=== PATIENT | male | born 1975 | race Two or more races ===

== ENCOUNTER → 2022-02-10 | Outpatient (CLI) | payer MEDICAID, OTHER | END | disposition home or self-care (01) | LOC: Rad HDHVI 15:48 | PROVIDERS: ATTEND Internal Medicine | DX: I08.1 Rheumatic disorders of both mitral and tricuspid valves (principal); I10 Essential (primary) hypertension | CPT/HCPCS: 93306 ==

== ENCOUNTER → 2022-05-14 | Outpatient (CLI) | payer MEDICAID ==
[~2022-05-14] MED LIST: ASPI-498 PO; ATOR20TA PO; BACL10TA PO; CARV12.544 PO; EMPA1TAB3 PO; GABA300C10 PO; HYDR12.56 PO; INSU1INJ19 SC; IODIXANOL 320MG/ML 100ML BTL IV ONE; ISOS1TAB28 PO; METF-370 PO; RIVA10TA PO; SACU1TAB4 PO; SACU1TAB7 PO; SEMA2INJ SC
[2022-05-14 08:27] VITALS: BP 107/66
[2022-05-14 08:48] VITALS: BP 102/73
[2022-05-14 11:51] LABS: Basophils # (auto) 0.1 10 ^3/uL (0-0.2); Basophils % (auto) 0.5 % (0.0-2.0); Eosinophils # (auto) 0.5 10 ^3/uL (0-0.8); Eosinophils % (auto) 4.7 % (0.0-7.0); Hematocrit 42.7 % (41.0-53.0); Hemoglobin 14.2 g/dL (13.5-17.5); Lymphocytes # (auto) 2.2 10 ^3/uL (0.4-5.4); Lymphocytes % (auto) 20.4 % (10.0-50.0); Mean Corpuscular Hemoglobin 29.7 pg (28.0-32.0); Mean Corpuscular Hgb Conc. 33.2 g/dL (32.0-36.0); Mean Corpuscular Volume 89.6 fL (80.0-100.0); Monocytes # (auto) 0.6 10 ^3/uL (0-1.3); Monocytes % (auto) 5.9 % (0.0-12.0); Neutrophils # (auto) 7.2 10 ^3/uL (1.6-8.6); Neutrophils % (auto) 68.5 % (37.0-80.0); Nucleated Red Blood Cells % 0.1 %; Red Blood Cells 4.76 10^6/uL (4.5-5.90); Red Cell Distribution Width 11.9 % (11.8-14.3); White Blood Cell 10.6 10^3/uL (4.4-10.8)
[2022-05-14 12:06] LABS: Potassium 4.5 mmol/L (3.5-5.1)
[2022-05-14 12:08] LABS: INR 0.95 (0.9-1.15); Partial Thromboplastin Time 27.6 sec (23.6-33.0)
[2022-05-14 12:13] LABS: BUN/Creatinine Ratio 32.7; Calcium 8.6 mg/dL (8.5-10.1)
== END | disposition home or self-care (01) ==
LOC: Rad HDHVI 08:10
PROVIDERS: ATTEND Internal Medicine
DX: Z01.812 Encounter for preprocedural laboratory examination (principal); R06.02 Shortness of breath; R42 Dizziness and giddiness
CPT/HCPCS: 36415; 71046; 80048; 85025; 85610; 85730; 93005; G0463

== ENCOUNTER 2022-05-16 06:57 | Day surgery (SDC) | payer MEDICAID ==
[~2022-05-16] VITALS: Ht 170.2 cm; Wt 104.3 kg
[~2022-05-16 06:57] MED LIST changes: -IODIXANOL 320MG/ML 100ML BTL IV ONE; -SACU1TAB4 PO
[2022-05-16] MEDS ORDERED: IODIXANOL 320MG/ML 100ML BTL IV ONE (06:58)
[2022-05-16] MEDS ORDERED: VERAPAMIL 2.5MG/ML INJ 2ML VIAL IV ONE (07:39)
[2022-05-16] MEDS ORDERED: ONDANSETRON HCL 4 MG/2 ML VIAL ONE (07:39)
[2022-05-16] MEDS ORDERED: fentaNYL CITRATE 100 MCG/2 ML VL ONE (07:39)
[2022-05-16] MEDS ORDERED: LIDOCAINE 2%HCL (LOCAL ANESTH.) INJ 10ml MDV ONE (07:40)
[2022-05-16] MEDS ORDERED: MIDAZOLAM HCL 2MG/2ML 2ml VIAL (1mg/ml) ONE (07:40)
[2022-05-16] MEDS ORDERED: ANGIOMAX 250 MG VIAL IV ONE (07:41)
[2022-05-16] MEDS ORDERED: SODIUM CHL 0.9% 50 ML ONE (07:41)
[2022-05-16] MEDS ORDERED: HEPARIN SODIUM (PORCINE) 5000 UNITS/ML 1ML VIAL ONE (07:49)
[2022-05-16] MEDS ORDERED: ASPirin 81 mg TAB ONE (08:43)
[2022-05-16] MEDS ORDERED: TICAGRELOR 90 MG TAB ONE (08:43)
== END 2022-05-16 11:55 | disposition home or self-care (01) ==
LOC: CATH 06:57
PROVIDERS: ATTEND Internal Medicine
DX: R94.39 Abnormal result of other cardiovascular function study (principal); I25.10 Atherosclerotic heart disease of native coronary artery without angina pectoris; Z20.822 Contact with and (suspected) exposure to COVID-19
CPT/HCPCS: 93458; 93571; C1725; C1769; C1874; C1887; C1894; C9600; J0583; J1644; J2001; J2250; J2405; J3010; J7040; Q9967; U0003; 99152; 99153

== ENCOUNTER → 2022-10-08 | Outpatient (CLI) | payer MEDICAID | END | disposition home or self-care (01) | LOC: Rad HDHVI 10:18 | PROVIDERS: ATTEND Internal Medicine | DX: I08.2 Rheumatic disorders of both aortic and tricuspid valves (principal); R06.02 Shortness of breath; I11.9 Hypertensive heart disease without heart failure | CPT/HCPCS: 93306 ==

== ENCOUNTER → 2022-12-10 | Outpatient (CLI) | payer MEDICAID ==
[~2022-12-10] VITALS: Ht 170.2 cm; Wt 102.1 kg
[~2022-12-10] MED LIST changes: +ADENOSINE 86 MG in GIVE UN-DILUTED 0 ML IV ONE; +ADENOSINE 90 MG/30 ML INJ IV ONE; +IOHEXOL 350 MG/ML 100ML IJ ONE
[2022-12-10 11:55] VITALS: BP 103/70
[2022-12-10 12:14] VITALS: BP 113/77
== END | disposition home or self-care (01) ==
LOC: Rad HDHVI 07:54
PROVIDERS: ATTEND Internal Medicine
DX: R94.4 Abnormal results of kidney function studies (principal)
CPT/HCPCS: 36415; 70470; 78452; 82565; 84520; 93005; 96374; 96375; G0463; J0153

== ENCOUNTER → 2023-06-11 | Outpatient (CLI) | payer MEDICAID ==
[~2023-06-11] VITALS: Ht 167.6 cm; Wt 112.0 kg
[~2023-06-11] MED LIST changes: -ADENOSINE 86 MG in GIVE UN-DILUTED 0 ML IV ONE; -ADENOSINE 90 MG/30 ML INJ IV ONE; +GABA-1250 PO; -GABA300C10 PO; -HYDR12.56 PO; +HYDR12.59 PO; -IOHEXOL 350 MG/ML 100ML IJ ONE
== END | disposition home or self-care (01) ==
LOC: Rad HDHVI 08:25
PROVIDERS: ATTEND Internal Medicine Cardiovascular Disease
DX: R06.02 Shortness of breath (principal); R42 Dizziness and giddiness; R53.1 Weakness; I11.0 Hypertensive heart disease with heart failure; I50.9 Heart failure, unspecified; I25.5 Ischemic cardiomyopathy; I73.9 Peripheral vascular disease, unspecified; E78.5 Hyperlipidemia, unspecified
CPT/HCPCS: 78472; 96374; 96375; A9505

== ENCOUNTER → 2023-06-22 | Outpatient (CLI) | payer MEDICAID | END | disposition home or self-care (01) | LOC: Rad HDHVI 09:48 | PROVIDERS: ATTEND Internal Medicine Cardiovascular Disease | DX: I70.203 Unspecified atherosclerosis of native arteries of extremities, bilateral legs (principal); I34.81 Nonrheumatic mitral (valve) annulus calcification; I10 Essential (primary) hypertension; E78.5 Hyperlipidemia, unspecified | CPT/HCPCS: 93306; 93925 ==

== ENCOUNTER 2024-02-16 11:12 | Emergency (ER) | payer MEDICAID ==
[~2024-02-16] VITALS: Ht 170.2 cm; Wt 113.0 kg
[2024-02-16 12:50] LABS: Basophils # (auto) 0 10 ^3/uL (0-0.2); Eosinophils # (auto) 0.4 10 ^3/uL (0-0.8); Lymphocytes # (auto) 2.5 10 ^3/uL (0.4-5.4); Red Cell Distribution Width 13.1 % (11.8-14.3)
[2024-02-16 12:52] LABS: Basophils % (auto) 0.4 % (0.0-2.0); Eosinophils % (auto) 4.5 % (0.0-7.0); Hematocrit 36.1 % (41.0-53.0); Lymphocytes % (auto) 26.1 % (10.0-50.0); Mean Corpuscular Hemoglobin 30.4 pg (28.0-32.0); Mean Corpuscular Hgb Conc. 33.1 g/dL (32.0-36.0); Mean Corpuscular Volume 91.8 fL (80.0-100.0); Monocytes # (auto) 0.7 10 ^3/uL (0-1.3); Monocytes % (auto) 7.1 % (0.0-12.0); Neutrophils # (auto) 5.9 10 ^3/uL (1.6-8.6); Neutrophils % (auto) 61.9 % (37.0-80.0); Nucleated Red Blood Cells % 0.1 %; Red Blood Cells 3.94 10^6/uL (4.5-5.90); White Blood Cell 9.6 10^3/uL (4.4-10.8)
[2024-02-16 12:55] LABS: Chloride 103 mmol/L (98-107); Potassium 4.4 mmol/L (3.5-5.1); Sodium 132 mmol/L (136-145)
[2024-02-16 12:56] LABS: Anion Gap 4 (5-15); Carbon Dioxide 25 mmol/L (20-30)
[2024-02-16 13:01] LABS: Glucose 263 mg/dL (74-106)
[2024-02-16 13:02] LABS: BUN/Creatinine Ratio 15.3 (10.0-20.0); Blood Urea Nitrogen 26 mg/dL (9-23)
[2024-02-16 13:06] LABS: INR 1.04 (0.9-1.15); Partial Thromboplastin Time 31.2 SEC (24.5-34.5); Prothrombin Time 10.9 sec (9.3-11.8)
[2024-02-16 13:34] LABS: Erythrocyte Sedimentation Rate 87 mm/hr (0-20)
[2024-02-16] MEDS: SODIUM CHLORIDE 0.9% 500 ML IV ONE (14:01)
[2024-02-16] MEDS ORDERED: CEPH500C PO (16:03)
[2024-02-16 16:22] VITALS: BP 101/60; TEMP 99.8
[2024-02-16] MEDS: CLINDAMYCIN 600MG IV 50 ML IV ONE (16:37)
[2024-02-16 16:42] VITALS: PULSE 89; RESP 18; O2SAT 100
== END 2024-02-16 18:15 | disposition home or self-care (01) ==
LOC: ER 11:12
DX: S82.302A Unspecified fracture of lower end of left tibia, initial encounter for closed fracture (principal); S82.832A Other fracture of upper and lower end of left fibula, initial encounter for closed fracture; E11.22 Type 2 diabetes mellitus with diabetic chronic kidney disease; I13.2 Hypertensive heart and chronic kidney disease with heart failure and with stage 5 chronic kidney disease, or end stage renal disease; I50.9 Heart failure, unspecified; N18.6 End stage renal disease; E78.5 Hyperlipidemia, unspecified; Z88.6 Allergy status to analgesic agent; X58.XXXA Exposure to other specified factors, initial encounter; Y93.89 Activity, other specified; Y92.89 Other specified places as the place of occurrence of the external cause; Y99.8 Other external cause status
CPT/HCPCS: 29515; 36415; 73700; 80048; 83605; 85025; 85610; 85652; 85730; 87040; 96361; 96365; 99285; J3490; J7040

== ENCOUNTER → 2024-08-31 | Outpatient (CLI) | payer MEDICAID ==
[~2024-08-31] VITALS: Ht 170.2 cm; Wt 108.9 kg
[~2024-08-31] MED LIST changes: +CEPH500C PO
[2024-08-31] MEDS: ADENOSINE 91 MG in GIVE UN-DILUTED 0 ML IV ONE (09:43)
== END | disposition home or self-care (01) ==
LOC: XYW 07:21
PROVIDERS: ATTEND Internal Medicine
DX: Z01.810 Encounter for preprocedural cardiovascular examination (principal); I25.5 Ischemic cardiomyopathy; I73.9 Peripheral vascular disease, unspecified; I11.0 Hypertensive heart disease with heart failure; I50.9 Heart failure, unspecified; E11.51 Type 2 diabetes mellitus with diabetic peripheral angiopathy without gangrene; I25.10 Atherosclerotic heart disease of native coronary artery without angina pectoris; E78.5 Hyperlipidemia, unspecified; Z88.5 Allergy status to narcotic agent
CPT/HCPCS: 78452; 93017; A9500; J0153

== ENCOUNTER → 2024-09-06 | Outpatient (CLI) | payer MEDICAID | END | disposition home or self-care (01) | LOC: XYW 07:44 | PROVIDERS: ATTEND Internal Medicine | DX: I25.5 Ischemic cardiomyopathy (principal); E11.9 Type 2 diabetes mellitus without complications; E66.9 Obesity, unspecified | CPT/HCPCS: 93306 ==

== ENCOUNTER → 2024-09-16 | Outpatient (CLI) | payer MEDICAID ==
[2024-09-16 13:31] LABS: Alkaline Phosphatase 185 U/L (46-116); Anion Gap 5 (5-15); BUN/Creatinine Ratio 15.9 (10.0-20.0); Blood Urea Nitrogen 29 mg/dL (9-23); Calcium 8.6 mg/dL (8.7-10.4); Carbon Dioxide 27 mmol/L (20-31); Chloride 109 mmol/L (98-107); Glucose 98 mg/dL (74-106); Sodium 141 mmol/L (136-145)
[2024-09-16 13:32] LABS: Albumin 3.2 g/dL (3.2-4.8); Aspartate Aminotransferase 16 U/L (13-40); Bilirubin, Total 0.3 mg/dL (0.2-1.0); Total Protein 6.4 g/dL (5.7-8.2)
[2024-09-16 14:04] LABS: Alanine Aminotransferase < 9 U/L (7-40)
[2024-09-16 14:09] LABS: Potassium 5.8 mmol/L (3.5-5.1)
== END | disposition home or self-care (01) ==
LOC: LAB 12:29
PROVIDERS: ATTEND Internal Medicine
DX: I10 Essential (primary) hypertension (principal)
CPT/HCPCS: 36415; 80053

== ENCOUNTER 2024-12-09 16:14 | Inpatient (IN) | payer MEDICAID ==
[~2024-12-09] VITALS: Ht 170.2 cm; Wt 126.2 kg
[~2024-12-09 16:14] MED LIST changes: -FURO1TAB31 PO; -NIFE1TAB31 PO
--- NOTE | 2024-12-09 16:44 | ECG ---
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
[2024-12-09 17:24] LABS: Basophils # (auto) 0.1 10 ^3/uL (0-0.2); Basophils % (auto) 0.6 % (0.0-2.0); Eosinophils # (auto) 0.5 10 ^3/uL (0-0.8); Eosinophils % (auto) 4.9 % (0.0-7.0); Hematocrit 40.3 % (41.0-53.0); Hemoglobin 13.5 g/dL (13.5-17.5); Lymphocytes # (auto) 2.2 10 ^3/uL (0.4-5.4); Lymphocytes % (auto) 22.5 % (10.0-50.0); Mean Corpuscular Hemoglobin 30.9 pg (28.0-32.0); Mean Corpuscular Hgb Conc. 33.6 g/dL (32.0-36.0); Mean Corpuscular Volume 91.9 fL (80.0-100.0); Monocytes # (auto) 0.5 10 ^3/uL (0-1.3); Monocytes % (auto) 5.6 % (0.0-12.0); Neutrophils # (auto) 6.5 10 ^3/uL (1.6-8.6); Neutrophils % (auto) 66.4 % (37.0-80.0); Nucleated Red Blood Cells % 0.1 %; Platelet Count (auto) 386 10^3/uL (140-450); Red Blood Cells 4.39 10^6/uL (4.5-5.90); Red Cell Distribution Width 12.5 % (11.8-14.3); White Blood Cell 9.7 10^3/uL (4.4-10.8)
[2024-12-09 17:37] LABS: Albumin 3.6 g/dL (3.2-4.8); Anion Gap 5 (5-15); Aspartate Aminotransferase 24 U/L (13-40); BUN/Creatinine Ratio 10.9 (10.0-20.0); Carbon Dioxide 23 mmol/L (20-31)
[2024-12-09 17:38] LABS: Total Protein 6.6 g/dL (5.7-8.2)
[2024-12-09 18:22] LABS: Alanine Aminotransferase < 9 U/L (7-40); Alkaline Phosphatase 206 U/L (46-116); Bilirubin, Total 0.2 mg/dL (0.2-1.0); Blood Urea Nitrogen 39 mg/dL (9-23); Calcium 8.6 mg/dL (8.7-10.4); Chloride 107 mmol/L (98-107); Glucose 258 mg/dL (74-106); Potassium 5.5 mmol/L (3.5-5.1); Sodium 135 mmol/L (136-145)
--- NOTE | 2024-12-09 19:21 | ED.PDOC ---
History of Present Illness HPI Comments 49-YEAR-OLD MALE WAS REFERRED TO THE EMERGENCY DEPARTMENT BY DR. SAINZ, HIS CHIEF CRNA. HAD LAB WORK DONE TODAY AND WHEN RESULTS CAME IN THEY ADVISED HIM THAT IT WAS POTASSIUM LEVEL WAS HIGH AND HE HAD COME INTO THE EMERGENCY DEPARTMENT. HAS BEEN TOLD THAT HE MAY REQUIRE DIALYSIS TO DECREASE POTASSIUM LEVELS. PATIENT DOES REPORT A HISTORY OF HEART FAILURE DIABETES AND CHRONIC KIDNEY DISEASE. Chief Complaint: Abnormal LAB's Time Seen by MD: 16:24 Reviewed Notes: Nurses Notes Allergies: Coded Allergies: Piperacillin (Verified Allergy, Unknown, 08/31/24) Tazobactam (Verified Allergy, Unknown, 08/31/24) Home Meds Active Scripts Cephalexin Monohydrate (Cephalexin) 500 Mg Cap, 1 CAP PO QID, #40 CAP Prov:HELENA JOHNSON MD 02/16/24 Reported Medications Sacubitril-Valsartan (Entresto 49-51 mg) 1 Tab Tab, 1 TAB PO DAILY, TAB 05/15/22 Rivaroxaban (XARELTO) 10 Mg Tab, 2.5 MG PO BID 05/14/22 Semaglutide (Ozempic) 2 Mg/1.5 Ml Inj, 2 MG SC QWEEKLY 05/14/22 Metformin Hydrochloride (Metformin Hcl) 500 Mg Tab, 1000 MG PO DAILY 05/14/22 Empagliflozin (Jardiance) 25 Mg Tab, 25 MG PO DAILY 05/14/22 Isosorbide Mononitrate (Isosorbide Mononitrate Er) 30 Mg Tab, 30 MG PO DAILY 05/14/22 Hydrochlorothiazide (Hydrochlorothiazide) 12.5 Mg Cap, 12.5 MG PO DAILY 05/14/22 Gabapentin (Gabapentin) 300 Mg Cap, 300 MG PO QID 05/14/22 Carvedilol (Carvedilol) 12.5 Mg Tab, 12.5 MG PO Q12HR 05/14/22 Insulin Glargine (Basaglar Kwikpen) 100 Unit/Ml Inj, 62 UNIT SC QPM 05/14/22 Baclofen (Baclofen) 10 Mg Tab, 10 MG PO DAILYPRN PRN for PAIN SCALE 7 THRU 10 05/14/22 Atorvastatin Calcium (Lipitor) 20 Mg Tab, 20 MG PO DAILY 05/14/22 Aspirin (ASPIRIN 81) 81 Mg Tab, 81 MG PO DAILY 05/14/22 Information Source: Patient Mode of Arrival: Ambulatory Past Medical History PAST MEDICAL HISTORY: CAD, CHF, DM, ESRD, High Lipids, HTN Surgical History: PTCA Family History Family History: Family hx of DM Social History Smoker: Non-Smoker Alcohol: Denies ETOH Use Drugs: Denies Drug Use Lives In: Home Constitutional: denies: chills, diaphoresis, fatigue, fever, malaise, sweats, weakness, others EENTM: denies: blurred vision, double vision, ear bleeding, ear discharge, ear drainage, ear pain, ear ringing, eye pain, eye redness, hearing loss, mouth pain, mouth swelling, nasal discharge, nose bleeding, nose congestion, nose pain, photophobia, tearing, throat pain, throat swelling, voice changes, others Respiratory: denies: cough, hemoptysis, orthopnea, SOB at rest, shortness of breath, SOB with excertion, stridor, wheezing, others Cardiovascular: denies: chest pain, dizzy spells, diaphoresis, Dyspnea on exertion, edema, irregular heart beat, left arm pain, lightheadedness, pa lpitations, PND, syncope, others Gastrointestinal: denies: abdomen distended, abdominal pain, blood streaked bowels, constipated, diarrhea, dysphagia, difficulty swallowing, hematemesis, melena, nausea, poor appetite, poor fluid intake, rectal bleeding, rectal pain, vomiting, others Genitourinary: denies: burning, dysuria, flank pain, frequency, hematuria, incontinence, penile discharge, penile sore, pain, testicle pain, testicle swelling, urgency, others Neurological: denies: dizziness, fainting, headache, left sided numbness, left sided weakness, numbness, paresthesia, pre-existing deficit, right sided numbness, right sided weakness, seizure, speech problems, tingling, tremors, weakness, others Musculoskeletal: denies: back pain, gout, joint pain, joint swelling, muscle pain, muscle stiffness, neck pain, others Integumetry: denies: bruises, change in color, change in hair/nails, dryness, laceration, lesions, lumps, rash, wounds, others Allergic/Immunocompromised: denies: Difficulty Healing, Frequent Infections, Hives, Itching, others Hematologic/Lymphatic: denies: anemia, blood clots, easy bleeding, easy br uising, swollen glands, others Physical Exam General Appearance: No Apparent Distress, Normal HEENT: Normal ENT Inspection, Pharynx Normal, TMs Normal Neck: Full Range of Motion, Non-Tender, Normal, Normal Inspection Respiratory: Chest Non-Tender, Lungs Clear, No Accessory Muscle Use, No Respiratory Distress, Normal Breath Sounds Cardiovascular: No Edema, No JVD, No Murmur, No Gallop, Normal Peripheral Pulses, Regular Rate/Rhythm Breast Exam: Deferred Gastrointestinal: No Organomegaly, Non Tender, No Pulsatile Mass, Normal Bowel Sounds, Soft Genitalia: Deferred Pelvic: Deferred Rectal: Deferred Extremities: No calf tenderness, Normal capillary refill, Normal inspection, Normal range of motion, Non-tender, No pedal edema Musculoskeletal : Apperance: Normal Neurologic: Alert, bander and cellophaner machine II-XII nml as Tested, No Motor Deficits, Normal Affect, Normal Mood, No Sensory Deficits Cerebellar Function: Normal Reflexes: Normal Skin: Dry, Normal Color, Warm Lymphatic: No Adenopathy Was a procedure done? Was a procedure done?: No Differential Dx Considerations may include: HYPERKALEMIA, END-STAGE RENAL DISEASE, CHF, FLUID OVERLOAD X-Ray, Labs, Meds, VS Vital Signs Date Time Temp Pulse Resp B/P (MAP) Pulse Ox O2 Delivery O2 Flow Rate FiO2 12/09/24 16:40 98.0 102 18 179/102 (127) 99 12/09/24 16:39 102 Lab Test 12/09/24 16:43 12/09/24 16:29 Range/Units White Blood Count 9.7 4.4-10.8 10^3/uL Red Blood Count 4.39 L 4.5-5.90 10^6/uL Hemoglobin 13.5 13.5-17.5 g/dL Hematocrit 40.3 L 41.0-53.0 % Mean Corpuscular Volume 91.9 80.0-100.0 fL Mean Corpuscular Hemoglobin 30.9 28.0-32.0 pg Mean Corpuscular Hemoglobin Concent 33.6 32.0-36.0 g/dL Red Cell Distribution Width 12.5 11.8-14.3 % Platelet Count 386 140-450 10^3/uL Mean Platelet Volume 7.0 6.9-10.8 fL Neutrophils (%) (Auto) 66.4 37.0-80.0 % Lymphocytes (%) (Auto) 22.5 10.0-50.0 % Monocytes (%) (Auto) 5.6 0.0-12.0 % Eosinophils (%) (Auto) 4.9 0.0-7.0 % Basophils (%) (Auto) 0.6 0.0-2.0 % Neutrophils # (Auto) 6.5 1.6-8.6 10 ^3/uL Lymphocytes # (Auto) 2.2 0.4-5.4 10 ^3/uL Monocytes # (Auto) 0.5 0-1.3 10 ^3/uL Eosinophils # (Auto) 0.5 0-0.8 10 ^3/uL Basophils # (Auto) 0.1 0-0.2 10 ^3/uL Nucleated Red Blood Cells 0.1 % Sodium Level 135 L 136-145 mmol/L Potassium Level 5.5 H 3.5-5.1 mmol/L Chloride Level 107 98-107 mmol/L Carbon Dioxide Level 23 20-31 mmol/L Anion Gap 5 5-15 Blood Urea Nitrogen 39 #H 9-23 mg/dL Creatinine 3.58 H 0.700-1.30 mg/dL Glomerular Filtration Rate Calc 20 >90 mL/min BUN/Creatinine Ratio 10.9 10.0-20.0 Serum Glucose 258 H 74-106 mg/dL Calcium Level 8.6 L 8.7-10.4 mg/dL Total Bilirubin 0.2 0.2-1.0 mg/dL Aspartate Amino Transferase (AST) 24 13-40 U/L Alanine Aminotransferase (ALT) < 9 7-40 U/L Alkaline Phosphatase 206 H 46-116 U/L Total Protein 6.6 5.7-8.2 g/dL Albumin 3.6 3.2-4.8 g/dL POC Glucose 269 H 70-106 mg/dl X-Ray, Labs, Meds, VS Comment PATIENT WILL BE ADMITTED FOR HYPERKALEMIA PATIENT WAS STARTED ON HYPERKALEMIA PROTOCOL POSSIBLY OF DIALYSIS RECOMMEND NEPHROLOGY CONSULT DR. SAINZ Time of 1ST Reevaluation: 19:20 Reevaluation 1ST: Unchanged Patient Education/Counseling: Diagnosis, Treatment Family Education/Counseling: Diagnosis, Treatment Departure 1 Departure Time of Disposition: 19:19 Impression: Primary Impression: Chronic kidney disease Additional Impressions: Hyperkalemia Hyperglycemia Disposition: 09 ADMITTED INPATIENT Condition: Fair Critical Care Note Critical Care Time?: No Stability Stability form required: No Heart Score Heart Score: Heart Score Response (Comments) Value History N/A 0 EKG N/A 0 Age N/A 0 Risk Factors N/A 0 Troponin N/A 0 Total 0 AMAIRANI AVALOS Dec 09, 2024 19:21
[2024-12-09] MEDS: ALBUTEROL SULF 2.5 MG/0.5ML(0.5%) NEB SOLN NEB ONE (20:16)
[2024-12-09] MEDS: SODIUM BICARB 8.4% 50Meq/50ml SYR INJ IV ONE (20:29)
[2024-12-09] MEDS: DEXTROSE (50%) 50ML SYRG IV ONE (20:30)
[2024-12-09] MEDS: InsuLIN REG 1unit/0.01ml Soln (100units/ml) IV ONE (20:33)
[2024-12-09] MEDS ORDERED: ONDANSETRON HCL 4 MG/2 ML VIAL IV PRN (20:45)
[2024-12-09] MEDS ORDERED: DEXTROSE (50%) 50ML SYRG IV PRN (20:45)
[2024-12-09] MEDS ORDERED: DOCUSATE SOD 100 MG CAP PO PRN (20:45)
[2024-12-09] MEDS ORDERED: hydrALAZINE HCL 20 MG/ML VL IV PRN (20:45)
--- NOTE | 2024-12-09 21:38 | DVHHP2 ---
History of Present Illness Reason for Visit: Acute renal failure History of Present Illness The patient is a 49-year-old male with past medical history of chronic renal failure, hyperlipidemia, hypertension, DM, CHF, and Coronary artery disease who presented to [facility] ED for evaluation of abnormal lab results. Mike andrade was seen and evaluated in the ED, laboratory data shows WBC 9.7, platelets 386, sodium 135, potassium five five, BUN 39, creatinine 3.58, GFR 20, glucose 258, calcium 8.6, blood pressure 179/102 trending down to 140/73, heart rate 102 trending down to 92, temperature 98.0 F, O2 saturation 98% on room air. Please see medication orders section in the computer. On my assessment, patient denied chest pain, headache, no dizziness, no abdominal pain, no diarrhea, no nausea, vomiting, fever, no chills. Patient was admitted for further evaluation and medical management. Past Medical History CAD, CHF, DM, ESRD, High Lipids, HTN Past Surgical History PTCA Family History Reviewed, noncontributory to the management of this case. Past Social History The patient lives at home, denies smoking, alcohol or illicit drugs abuse. Review of Systems Constitutional: Yes: Weakness; No: Fever, Chills, Sweats, Malaise, Other Eyes: No: Pain, Vision change, Conjunctivae inflammation, Eyelid inflammation, Other, Redness ENT: No: Ear pain, Ear discharge, Nose pain, Nose discharge, Nose congestion, Mouth pain, Mouth swelling, Throat pain, Throat swelling, Other Respiratory: No: Cough, Dry, Shortness of breath, SOB with excertion, Wheezing, Hemoptysis, Pleuritic Pain, Sputum, Wheezing, Other Cardiovascular: No: Chest Pain, Palpitations, Orthopnea, Paroxysmal Noc. Dyspnea, Edema, Lt Headedness, Other Gastrointestinal: No: Nausea, Vomiting, Abdominal Pain, Diarrhea, Constipation, Melena, Hematochezia, Other Genitourinary: No Dysuria, No Frequency, No Incontinence, No Hematuria, No Retention, No Other Musculoskeletal: No: other, neck pain, shoulder pain, arm pain, back pain, hand pain, leg pain, foot pain Skin: No: Rash, Lesions, Jaundice, Bruising, Other Neurological: No: Weakness, Numbness, Incoordination, Change in speech, Confusi on, Seizures, Other Allergies: Coded Allergies: Piperacillin (Verified Allergy, Unknown, 08/31/24) Tazobactam (Verified Allergy, Unknown, 08/31/24) Medications Current Medications Medications Dose Ordered Sig/Milka Route Start Time Stop Time Status Last Admin Dose Admin Aspirin 81 mg DAILY PO 12/10/24 10:00 Atorvastatin Calcium 20 mg HS PO 12/09/24 22:00 Hydralazine HCl 10 mg Q6HP PRN IV 12/09/24 20:45 Amlodipine Besylate 5 mg DAILY PO 12/10/24 10:00 Carvedilol 12.5 mg Q12HR PO 12/09/24 22:00 Multivit/Ca Carb/ B Cmplx/FA/Prenat 1 tab DAILY PO 12/10/24 10:00 Diagnostic Test (Pha) 1 strip ACHS 12/09/24 22:00 Insulin Human Regular HS SC 12/09/24 22:00 Insulin Human Regular AC SC 12/10/24 07:00 Dextrose 50 ml UD PRN IV 12/09/24 20:45 Sodium Chloride 10 ml Q8HR IV 12/09/24 22:00 Acetaminophen/ Hydrocodone Bitart 1 tab Q4HP PRN PO 12/09/24 20:45 Ondansetron HCl 4 mg Q4HP PRN IV 12/09/24 20:45 Docusate Sodium 100 mg BIDPRN PRN PO 12/09/24 20:45 Acetaminophen 650 mg Q6HP PRN PO 12/09/24 20:45 Exam Vital Signs Vital Signs Date Time Temp Pulse Resp B/P (MAP) Pulse Ox O2 Delivery O2 Flow Rate FiO2 12/09/24 20:16 98 Room Air* 0 21 12/09/24 20:16 18 12/09/24 16:40 98.0 102 179/102 (127) General Appearance: Alert, Oriented X3, Cooperative, No acute distress HEENT: Atraumatic, PERRLA, EOMI, Mucous membr. moist/pink Respiratory: Clear to auscultation, Normal air movement Cardiovascular: Regular rate, Normal S1, Normal S2, No murmurs Abdominal: Normal bowel sounds, Soft, No tenderness, No hepatospenomegaly, No masses Extremities: No clubbing, No cyanosis, No edema, Normal pulses, No tenderness/swelling Skin: No rashes, No breakdown, No significant lesion Neuro: Normal speech, Normal tone, Sensation intact, Cranial nerves 3-12 NL, Reflexes 2+, Other (Generalized weakness) Psych/Mental Status: Mental status NL, Mood NL Labs/Xrays Labs Test 12/09/24 20:45 12/09/24 16:43 Range/Units POC Glucose 237 H 70-106 mg/dl White Blood Count 9.7 4.4-10.8 10^3/uL Red Blood Count 4.39 L 4.5-5.90 10^6/uL Hemoglobin 13.5 13.5-17.5 g/dL Hematocrit 40.3 L 41.0-53.0 % Mean Corpuscular Volume 91.9 80.0-100.0 fL Mean Corpuscular Hemoglobin 30.9 28.0-32.0 pg Mean Corpuscular Hemoglobin Concent 33.6 32.0-36.0 g/dL Red Cell Distribution Width 12.5 11.8-14.3 % Platelet Count 386 140-450 10^3/uL Mean Platelet Volume 7.0 6.9-10.8 fL Neutrophils (%) (Auto) 66.4 37.0-80.0 % Lymphocytes (%) (Auto) 22.5 10.0-50.0 % Monocytes (%) (Auto) 5.6 0.0-12.0 % Eosinophils (%) (Auto) 4.9 0.0-7.0 % Basophils (%) (Auto) 0.6 0.0-2.0 % Neutrophils # (Auto) 6.5 1.6-8.6 10 ^3/uL Lymphocytes # (Auto) 2.2 0.4-5.4 10 ^3/uL Monocytes # (Auto) 0.5 0-1.3 10 ^3/uL Eosinophils # (Auto) 0.5 0-0.8 10 ^3/uL Basophils # (Auto) 0.1 0-0.2 10 ^3/uL Nucleated Red Blood Cells 0.1 % Sodium Level 135 L 136-145 mmol/L Potassium Level 5.5 H 3.5-5.1 mmol/L Chloride Level 107 98-107 mmol/L Carbon Dioxide Level 23 20-31 mmol/L Anion Gap 5 5-15 Blood Urea Nitrogen 39 #H 9-23 mg/dL Creatinine 3.58 H 0.700-1.30 mg/dL Glomerular Filtration Rate Calc 20 >90 mL/min BUN/Creatinine Ratio 10.9 10.0-20.0 Serum Glucose 258 H 74-106 mg/dL Calcium Level 8.6 L 8.7-10.4 mg/dL Total Bilirubin 0.2 0.2-1.0 mg/dL Aspartate Amino Transferase (AST) 24 13-40 U/L Alanine Aminotransferase (ALT) < 9 7-40 U/L Alkaline Phosphatase 206 H 46-116 U/L Total Protein 6.6 5.7-8.2 g/dL Albumin 3.6 3.2-4.8 g/dL Assessment/Plan Assessment/Plan Acute on chronic kidney failure Hyperkalemia Generalized weakness Hypertensive urgency Diabetes mellitus with hyperglycemia Plan 1. Admit to telemetry unit 2. Breathing treatment 3. Pain control management 4. Management of fluids and electrolytes 5. Consultation for Nephrology 6. Diagnostic tests chest x-ray 7. DVT prophylaxis-on SCDs 8. Repeat labs CBC, CMP in a.m. 9. Continue with current medical management 10. Treatment plan discussed with patient and RN. Patient verbalized understanding. Plan discussed with: Patient, Other (RN) My Orders Orders - PERLA DIAS DNP Procedure Category Date Status Time Aspirin Tablet PHA 12/10/24 In Process 10:00 Atorvastatin (Lipitor) PHA 12/09/24 In Process 22:00 Hydralazine Injection PHA 12/09/24 In Process (Apresoline Inject 20:45 Amlodipine Tablet PHA 12/10/24 In Process (Norvasc Tablet) 10:00 Carvedilol Tablet PHA 12/09/24 In Process (Coreg Tablet) 22:00 Consistent DIET 12/10/24 Transmitted Carb(Ccho)Diabetes Breakfast B-Complex W/ C & PHA 12/10/24 In Process Folic Tablet 10:00 *Dr. Fernández Group CONS 12/09/24 Transmitted -[place] 20:44 Glucose Blood PHA 12/09/24 In Process (Accu-Chek Comfort 22:00 Insulin R (Human) PHA 12/09/24 In Process (Insulin R) 22:00 Insulin R (Human) PHA 12/10/24 In Process (Insulin R) 07:00 Dextrose 50% Syringe PHA 12/09/24 In Process 20:45 Allergies LINN 12/09/24 In Process 20:44 Code Status CODE 12/09/24 Transmitted 20:44 Renal DIET 12/10/24 Transmitted Standard(2gna,3gk,Lopho) Breakfast Sodium Chloride Lock PHA 12/09/24 In Process (Saline Lock Ns) 22:00 Oxygen Per Hour RT 12/09/24 Transmitted 20:44 Hydrocodone-Acet PHA 12/09/24 In Process 5/325mg Tab (Ryde 20:45 Ondansetron Hcl PHA 12/09/24 In Process (Zofran) 20:45 Docusate Sodium PHA 12/09/24 In Process Capsule (Colace 20:45 Complete Blood Count LAB 12/10/24 Verified 04:00 Comprehensive LAB 12/10/24 Verified Metabolic Panel 04:00 Condition: Serious LINN 12/09/24 In Process 20:44 Acetaminophen Tablet PHA 12/09/24 In Process (Tylenol Tablet) 20:45 Bedrest With Bathroom LINN 12/09/24 In Process Privileg 20:44 Sequential LINN 12/09/24 In Process Compression Device Admit ADMIT 12/09/24 Verified 21:35 Nitroglycerin [facility] 12/09/24 Verified Sublingual (Ntrostat 21:45 Morphine Sulfate [facility] 12/09/24 Verified Injection 21:45 Notify Md Of Changes [facility] 12/09/24 Verified From Base 21:35 Gang Bore Operator For [facility] 12/09/24 Verified 24 Hours 21:35 Emergency Dysrhythmia [facility] 12/09/24 Verified Protocol 21:35 Rhythm Strips Once [facility] 12/09/24 Verified Every Shift 21:35 Oxygen By Nasal RT 12/09/24 Verified Cannula 21:35 Problem List: (1) Acute on chronic kidney failure (2) Hyperkalemia (3) Generalized weakness (4) Hypertensive urgency (5) Diabetes mellitus with hyperglycemia Date of Service: Dec 09, 2024 Billing Provider: PERLA DIAS DNP Common Visit Codes: [id number] INP/OBS CARE (HIGH) PERLA DIAS DNP Dec 09, 2024 21:38
[2024-12-09] MEDS ORDERED: MORPHINE SULFATE INJ 2 MG/ml SYRG IV PRN (21:45)
[2024-12-09] MEDS ORDERED: NITROGLYCERIN 0.4 MG SL TAB SL PRN (21:45)
[2024-12-09] MEDS: SODIUM CHLOR 0.9% PF (SALINE LOCK) 10ML VIAL/SYR IV SCH (22:00)
[2024-12-09] MEDS: ACCU-CHEK COMFORT CURVE STRIP VI SCH (22:00)
[2024-12-09] MEDS: CARVEDILOL 12.5 MG TAB PO SCH (23:19)
[2024-12-09] MEDS: ATORVASTATIN 20 MG TAB PO SCH (23:19)
[2024-12-09] MEDS: amLODIPine BESYLATE 5 MG TAB PO ONE (23:20)
[2024-12-09] MEDS: SODIUM ZIRCONIUM CYCL 10 GM PAK PO ONE (23:21)
[2024-12-09] MEDS: InsuLIN REG 1unit/0.01ml Soln (100units/ml) SC SCH (23:22)
[2024-12-10] MEDS: ACETAMINOPHEN 325 MG TAB PO PRN (01:01)
[2024-12-10] MEDS: GABAPENTIN 300 MG CAP PO ONE (01:07)
[2024-12-10 03:51] VITALS: PULSE 100; RESP 13; O2SAT 98
[2024-12-10] MEDS: HYDROcodone-ACET 5/325MG TAB PO PRN (05:06)
[2024-12-10 05:37] LABS: Basophils # (auto) 0 10 ^3/uL (0-0.2); Basophils % (auto) 0.4 % (0.0-2.0); Eosinophils # (auto) 0.5 10 ^3/uL (0-0.8); Eosinophils % (auto) 5.4 % (0.0-7.0); Hematocrit 35.7 % (41.0-53.0); Hemoglobin 12.2 g/dL (13.5-17.5); Lymphocytes # (auto) 2.7 10 ^3/uL (0.4-5.4); Lymphocytes % (auto) 28.6 % (10.0-50.0); Mean Corpuscular Hemoglobin 31.2 pg (28.0-32.0); Mean Corpuscular Hgb Conc. 34.2 g/dL (32.0-36.0); Mean Corpuscular Volume 91.1 fL (80.0-100.0); Monocytes # (auto) 0.7 10 ^3/uL (0-1.3); Monocytes % (auto) 7.7 % (0.0-12.0); Neutrophils # (auto) 5.5 10 ^3/uL (1.6-8.6); Neutrophils % (auto) 57.9 % (37.0-80.0); Nucleated Red Blood Cells % 0.1 %; Platelet Count (auto) 390 10^3/uL (140-450); Red Blood Cells 3.92 10^6/uL (4.5-5.90); Red Cell Distribution Width 12.5 % (11.8-14.3); White Blood Cell 9.5 10^3/uL (4.4-10.8)
[2024-12-10 05:58] LABS: Anion Gap 6 (5-15); Aspartate Aminotransferase 16 U/L (13-40); BUN/Creatinine Ratio 13.9 (10.0-20.0); Carbon Dioxide 25 mmol/L (20-31); Chloride 107 mmol/L (98-107); Glucose 94 mg/dL (74-106); Potassium 4.9 mmol/L (3.5-5.1); Sodium 138 mmol/L (136-145); Total Protein 5.8 g/dL (5.7-8.2)
[2024-12-10 06:04] LABS: Alanine Aminotransferase < 9 U/L (7-40); Albumin 3.2 g/dL (3.2-4.8); Alkaline Phosphatase 171 U/L (46-116); Bilirubin, Total 0.2 mg/dL (0.2-1.0); Blood Urea Nitrogen 49 mg/dL (9-23); Calcium 8.5 mg/dL (8.7-10.4)
[2024-12-10] MEDS: GABAPENTIN 300 MG CAP PO SCH (06:13)
[2024-12-10] MEDS: InsuLIN REG 1unit/0.01ml Soln (100units/ml) SC SCH (06:39)
[2024-12-10 08:00] VITALS: PULSE 87; RESP 17; O2SAT 97
[2024-12-10 08:32] LABS: Urine Bacteria None Seen /hpf (None Seen)
[2024-12-10 08:46] LABS: Urine Blood 1+ /uL (Negative); Urine Clarity Clear (Clear); Urine Color Light-Yellow (Yellow); Urine Protein, UAD 3+ (Negative); Urine Specific Gravity 1.015 (1.001-1.035); Urine Squamous Epithelial Cell FEW /hpf (<5); Urine Urobilinogen Normal (Negative); Urine WBC 4 /HPF (0-3)
--- NOTE | 2024-12-10 09:42 | DVHINCON2 ---
Date of service: Dec 10, 2024 Referring Physician Casa Amaya, nurse practitioner Reason for Consultation Acute kidney injury History of Present Illness Patient is a 49 year old obese male with past medical history significant for CAD, CHF, DM, Chronic Kidney Disease, High Lipids, and HTN is admitted for abnormal labs.. On admission, patient found to have elevated BUN and creatinine nephrology is consulted for acute kidney injury Past Medical History PAST MEDICAL HISTORY: CAD, CHF, DM, Chronic Kidney Disease, High Lipids, HTN, peripheral arterial disease Past Surgical History Surgical History: PTCA left below-knee amputation Allergies: Coded Allergies: Piperacillin (Verified Allergy, Unknown, 08/31/24) Tazobactam (Verified Allergy, Unknown, 08/31/24) Home Meds Active Scripts Cephalexin Monohydrate (Cephalexin) 500 Mg Cap, 1 CAP PO QID, #40 CAP Prov:HELENA JOHNSON MD 02/16/24 Reported Medications Sacubitril-Valsartan (Entresto 49-51 mg) 1 Tab Tab, 1 TAB PO DAILY, TAB 05/15/22 Rivaroxaban (XARELTO) 10 Mg Tab, 2.5 MG PO BID 05/14/22 Semaglutide (Ozempic) 2 Mg/1.5 Ml Inj, 2 MG SC QWEEKLY 05/14/22 Metformin Hydrochloride (Metformin Hcl) 500 Mg Tab, 1000 MG PO DAILY 05/14/22 Empagliflozin (Jardiance) 25 Mg Tab, 25 MG PO DAILY 05/14/22 Isosorbide Mononitrate (Isosorbide Mononitrate Er) 30 Mg Tab, 30 MG PO DAILY 05/14/22 Hydrochlorothiazide (Hydrochlorothiazide) 12.5 Mg Cap, 12.5 MG PO DAILY 05/14/22 Gabapentin (Gabapentin) 300 Mg Cap, 300 MG PO QID 05/14/22 Carvedilol (Carvedilol) 12.5 Mg Tab, 12.5 MG PO Q12HR 05/14/22 Insulin Glargine (Basaglar Kwikpen) 100 Unit/Ml Inj, 62 UNIT SC QPM 05/14/22 Baclofen (Baclofen) 10 Mg Tab, 10 MG PO DAILYPRN PRN for PAIN SCALE 7 THRU 10 05/14/22 Atorvastatin Calcium (Lipitor) 20 Mg Tab, 20 MG PO DAILY 05/14/22 Aspirin (ASPIRIN 81) 81 Mg Tab, 81 MG PO DAILY 05/14/22 Current Medications Current Medications Medications (Trade) Dose Ordered Sig/Milka Route PRN Reason Start Time Stop Time Status Last Admin Aspirin 81 mg DAILY PO 12/10/24 10:00 12/10/24 11:08 Atorvastatin Calcium (Lipitor) 20 mg HS PO 12/09/24 22:00 12/09/24 23:19 Hydralazine HCl (Apresoline Injection) 10 mg Q6HP PRN IV SBP>150 12/09/24 20:45 Amlodipine Besylate (Norvasc Tablet) 5 mg DAILY PO 12/10/24 10:00 12/10/24 11:08 Carvedilol (Coreg Tablet) 12.5 mg Q12HR PO 12/09/24 22:00 12/10/24 11:09 Multivit/Ca Carb/ B Cmplx/FA/Prenat (Nephro-Yoni Tablet) 1 tab DAILY PO 12/10/24 10:00 12/10/24 11:08 Diagnostic Test (Pha) (Accu-Chek Comfort Curve T) 1 strip ACHS 12/09/24 22:00 12/10/24 06:38 Insulin Human Regular (InsuLIN R) HS SC 12/09/24 22:00 12/09/24 23:22 Insulin Human Regular (InsuLIN R) AC SC 12/10/24 07:00 Dextrose 50 ml UD PRN IV Blood Sugar LESS THAN 60 12/09/24 20:45 Sodium Chloride (Saline Lock Ns) 10 ml Q8HR IV 12/09/24 22:00 Acetaminophen/ Hydrocodone Bitart (Lamont 5/325MG Tab) 1 tab Q4HP PRN PO MODERATE PAIN (4-6 PAIN SCALE) 12/09/24 20:45 12/10/24 05:06 Ondansetron HCl (Zofran) 4 mg Q4HP PRN IV NAUSEA / VOMITING 12/09/24 20:45 Docusate Sodium (Colace Capsule) 100 mg BIDPRN PRN PO FOR CONSTIPATION 12/09/24 20:45 Acetaminophen (Tylenol Tablet) 650 mg Q6HP PRN PO PAIN SCALE 1-3 OR TEMP>100.4 12/09/24 20:45 12/10/24 01:01 Nitroglycerin (Ntrostat Sublingual) 0.4 mg Q5MINP PRN SL FOR CHEST PAIN 12/09/24 21:45 Morphine Sulfate 2 mg Q30M PRN IV FOR CHEST PAIN 12/09/24 21:45 Gabapentin (Neurontin Capsule) 300 mg TID PO 12/10/24 06:00 12/10/24 06:13 Review of Systems All 12 item review of systems reviewed with the patient nonsignificant except what is mentioned in the history of present illness H&P Exam Vital Signs/I&O Vital Sign Date Time Temp Pulse Resp B/P (MAP) Pulse Ox O2 Delivery O2 Flow Rate FiO2 12/10/24 11:09 88 125/73 12/10/24 08:00 17 97 Room Air* 0 21 12/10/24 08:00 97.3 97.3 Physical Exam Obese male appeared in no acute distress Lungs clear to auscultation bilaterally Cardiac exam regular rate and rhythm GI soft nontender was normal Extremity 1+ edema Neuro nonfocal Labs/Diagnostic Data Labs/Diagnostic Data Laboratory Tests Test 12/10/24 08:00 12/10/24 06:37 12/10/24 04:41 12/09/24 22:26 Range/Units Urine Color Light-yellow Yellow Urine Clarity Clear Clear Urine pH 6.0 5.0-9.0 Urine Specific [place] 1.015 1.001-1.035 Urine Protein 3+ H Negative Urine Ketones Negative Negative Urine Blood 1+ H Negative /uL Urine Nitrite Negative Negative Urine Bilirubin Negative Negative Urine Urobilinogen Normal Negative mg/dL Urine Leukocyte Esterase Negative Negative /uL Urine RBC 4 0 - 3 /hpf Urine Microscopic WBC 4 H 0-3 /HPF Urine Squamous Epithelial Cells Few <5 /hpf Urine Bacteria None seen None Seen /hpf Urine Glucose 3+ H Normal mg/dL POC Glucose 101 191 H 70-106 mg/dl White Blood Count 9.5 4.4-10.8 10^3/uL Red Blood Count 3.92 L 4.5-5.90 10^6/uL Hemoglobin 12.2 L 13.5-17.5 g/dL Hematocrit 35.7 #L 41.0-53.0 % Mean Corpuscular Volume 91.1 80.0-100.0 fL Mean Corpuscular Hemoglobin 31.2 28.0-32.0 pg Mean Corpuscular Hemoglobin Concent 34.2 32.0-36.0 g/dL Red Cell Distribution Width 12.5 11.8-14.3 % Platelet Count 390 140-450 10^3/uL Mean Platelet Volume 7.0 6.9-10.8 fL Neutrophils (%) (Auto) 57.9 37.0-80.0 % Lymphocytes (%) (Auto) 28.6 10.0-50.0 % Monocytes (%) (Auto) 7.7 0.0-12.0 % Eosinophils (%) (Auto) 5.4 0.0-7.0 % Basophils (%) (Auto) 0.4 0.0-2.0 % Neutrophils # (Auto) 5.5 1.6-8.6 10 ^3/uL Lymphocytes # (Auto) 2.7 0.4-5.4 10 ^3/uL Monocytes # (Auto) 0.7 0-1.3 10 ^3/uL Eosinophils # (Auto) 0.5 0-0.8 10 ^3/uL Basophils # (Auto) 0 0-0.2 10 ^3/uL Nucleated Red Blood Cells 0.1 % Sodium Level 138 136-145 mmol/L Potassium Level 4.9 3.5-5.1 mmol/L Chloride Level 107 98-107 mmol/L Carbon Dioxide Level 25 20-31 mmol/L Anion Gap 6 5-15 Blood Urea Nitrogen 49 #H 9-23 mg/dL Creatinine 3.52 H 0.700-1.30 mg/dL Glomerular Filtration Rate Calc 20 >90 mL/min BUN/Creatinine Ratio 13.9 10.0-20.0 Serum Glucose 94 # 74-106 mg/dL Calcium Level 8.5 L 8.7-10.4 mg/dL Phosphorus Level 5.5 H 2.4-5.1 mg/dL Magnesium Level 1.8 1.6-2.6 mg/dL Total Bilirubin 0.2 0.2-1.0 mg/dL Aspartate Amino Transferase (AST) 16 13-40 U/L Alanine Aminotransferase (ALT) < 9 7-40 U/L Alkaline Phosphatase 171 H 46-116 U/L B-Type Natriuretic Peptide 223.26 0-100 pg/mL Total Protein 5.8 5.7-8.2 g/dL Albumin 3.2 3.2-4.8 g/dL Test 12/09/24 20:45 12/09/24 20:18 12/09/24 16:43 12/09/24 16:29 Range/Units POC Glucose 237 H 204 H 269 H 70-106 mg/dl White Blood Count 9.7 4.4-10.8 10^3/uL Red Blood Count 4.39 L 4.5-5.90 10^6/uL Hemoglobin 13.5 13.5-17.5 g/dL Hematocrit 40.3 L 41.0-53.0 % Mean Corpuscular Volume 91.9 80.0-100.0 fL Mean Corpuscular Hemoglobin 30.9 28.0-32.0 pg Mean Corpuscular Hemoglobin Concent 33.6 32.0-36.0 g/dL Red Cell Distribution Width 12.5 11.8-14.3 % Platelet Count 386 140-450 10^3/uL Mean Platelet Volume 7.0 6.9-10.8 fL Neutrophils (%) (Auto) 66.4 37.0-80.0 % Lymphocytes (%) (Auto) 22.5 10.0-50.0 % Monocytes (%) (Auto) 5.6 0.0-12.0 % Eosinophils (%) (Auto) 4.9 0.0-7.0 % Basophils (%) (Auto) 0.6 0.0-2.0 % Neutrophils # (Auto) 6.5 1.6-8.6 10 ^3/uL Lymphocytes # (Auto) 2.2 0.4-5.4 10 ^3/uL Monocytes # (Auto) 0.5 0-1.3 10 ^3/uL Eosinophils # (Auto) 0.5 0-0.8 10 ^3/uL Basophils # (Auto) 0.1 0-0.2 10 ^3/uL Nucleated Red Blood Cells 0.1 % Sodium Level 135 L 136-145 mmol/L Potassium Level 5.5 H 3.5-5.1 mmol/L Chloride Level 107 98-107 mmol/L Carbon Dioxide Level 23 20-31 mmol/L Anion Gap 5 5-15 Blood Urea Nitrogen 39 #H 9-23 mg/dL Creatinine 3.58 H 0.700-1.30 mg/dL Glomerular Filtration Rate Calc 20 >90 mL/min BUN/Creatinine Ratio 10.9 10.0-20.0 Serum Glucose 258 H 74-106 mg/dL Calcium Level 8.6 L 8.7-10.4 mg/dL Total Bilirubin 0.2 0.2-1.0 mg/dL Aspartate Amino Transferase (AST) 24 13-40 U/L Alanine Aminotransferase (ALT) < 9 7-40 U/L Alkaline Phosphatase 206 H 46-116 U/L Total Protein 6.6 5.7-8.2 g/dL Albumin 3.6 3.2-4.8 g/dL Assessment Acute kidney injury superimposed Chronic Kidney Disease secondary hemodynamic mediated Hyperkalemia due to dietary indiscretion Congestive heart failure, ejection fraction 40% Diabetes mellitus type 2 Hypertension Mild anemia of chronic kidney disease Peripheral arterial disease Left below-knee amputation Recommendations Closely monitor fluid and electrolytes Avoid nephrotoxic medications Strict I&Os Check urine electrolytes and urine protein excretion Check kidney ultrasound Lokelma 10 g p.o. x1 Low K renal diet Resume home medications We will continue to follow Patient seen and examined by myself in the ER. I discussed my plan of care with the patient and primary nurse at the bedside I would like to thank Casa for the consult, will follow Plan discussed with: Patient BUD HARRISON MD Dec 10, 2024 09:42
[2024-12-10 10:52] LABS: Magnesium 1.8 mg/dL (1.6-2.6)
[2024-12-10 11:08] LABS: Phosphorus 5.5 mg/dL (2.4-5.1)
[2024-12-10] MEDS: B-COMPLEX W/ C & FOLIC ACID(NEPHROVITE TAB) PO SCH (11:08)
[2024-12-10] MEDS: amLODIPine BESYLATE 5 MG TAB PO SCH (11:08)
[2024-12-10] MEDS: ASPirin 81 mg TAB PO SCH (11:08)
--- NOTE | 2024-12-10 11:16 | DVH ---
EXAM: US Retroperitoneal Limited, Renal CLINICAL INDICATION: hector TECHNIQUE: Real-time limited ultrasound of the retroperitoneum with image documentation. COMPARISON: None FINDINGS: RIGHT KIDNEY: Right kidney up to 11.6 cm. No stones. No hydronephrosis. LEFT KIDNEY: Left kidney measures up to 11.8 cm. No stones. No hydronephrosis. OTHER FINDINGS: . . Unremarkable. IMPRESSION: Unremarkable exam.
[2024-12-10 11:58] LABS: Creatinine, Urine 66.35 mg/dL (30.0-125.0)
[2024-12-10 12:01] LABS: Urine Protein/Creatinine Ratio 12.83
[2024-12-10 12:07] LABS: Protein, Urine 851.4 mg/dL (1-14)
--- NOTE | 2024-12-10 13:17 | DVHPN2 ---
Subjective FEELS BETTER Reviewed: Care Plan, H&P, Labs, Medications, Previous Orders, Radiology, Other (CONSULTED) Changes from previous H/P or p: No Changes Objective Vitals Vital Signs Date Time Temp Pulse Resp B/P (MAP) Pulse Ox O2 Delivery O2 Flow Rate FiO2 12/10/24 12:00 92 14 124/77 (93) 96 12/10/24 08:00 Room Air* 0 21 12/10/24 08:00 97.3 97.3 General Appearance: Alert, Oriented X3, Cooperative, No acute distress HEENT: Atraumatic Lungs: Clear to auscultation Cardiovascular: Regular rate Abdomen: Normal bowel sounds, Soft, No tenderness Extremities: Other (LEFT BKA. 2+ EDEMA RIGHT LOWER EXTREMITY) Medications Current Medications Medications Dose Ordered Sig/Milka Route Start Time Stop Time Status Last Admin Dose Admin Aspirin 81 mg DAILY PO 12/10/24 10:00 12/10/24 11:08 81 MG Atorvastatin Calcium 20 mg HS PO 12/09/24 22:00 12/09/24 23:19 20 MG Hydralazine HCl 10 mg Q6HP PRN IV 12/09/24 20:45 Amlodipine Besylate 5 mg DAILY PO 12/10/24 10:00 12/10/24 11:08 5 MG Carvedilol 12.5 mg Q12HR PO 12/09/24 22:00 12/10/24 11:09 12.5 MG Multivit/Ca Carb/ B Cmplx/FA/Prenat 1 tab DAILY PO 12/10/24 10:00 12/10/24 11:08 1 TAB Diagnostic Test (Pha) 1 strip ACHS 12/09/24 22:00 12/10/24 06:38 1 STRIP Insulin Human Regular HS SC 12/09/24 22:00 12/09/24 23:22 3 UNITS Insulin Human Regular AC SC 12/10/24 07:00 12/10/24 11:30 6 UNITS Dextrose 50 ml UD PRN IV 12/09/24 20:45 Sodium Chloride 10 ml Q8HR IV 12/09/24 22:00 Acetaminophen/ Hydrocodone Bitart 1 tab Q4HP PRN PO 12/09/24 20:45 12/10/24 05:06 1 TAB Ondansetron HCl 4 mg Q4HP PRN IV 12/09/24 20:45 Docusate Sodium 100 mg BIDPRN PRN PO 12/09/24 20:45 Acetaminophen 650 mg Q6HP PRN PO 12/09/24 20:45 12/10/24 01:01 650 MG Nitroglycerin 0.4 mg Q5MINP PRN SL 12/09/24 21:45 Morphine Sulfate 2 mg Q30M PRN IV 12/09/24 21:45 Gabapentin 300 mg TID PO 12/10/24 06:00 12/10/24 06:13 300 MG Laboratory Results Laboratory Tests 12/10/24 04:41 Chemistry Test 12/09/24 16:43 12/10/24 04:41 Albumin 3.6 g/dL (3.2-4.8) 3.2 g/dL (3.2-4.8) Calcium Level 8.6 mg/dL (8.7-10.4) L 8.5 mg/dL (8.7-10.4) L Total Protein 6.6 g/dL (5.7-8.2) 5.8 g/dL (5.7-8.2) Magnesium Level 1.8 mg/dL (1.6-2.6) Phosphorus Level 5.5 mg/dL (2.4-5.1) H Cardiac Markers Test 12/10/24 04:41 B-Type Natriuretic Peptide 223.26 pg/mL (0-100) LFT Test 12/09/24 16:43 12/10/24 04:41 Alanine Aminotransferase (ALT) < 9 U/L (7-40) < 9 U/L (7-40) Alkaline Phosphatase 206 U/L (46-116) H 171 U/L (46-116) H Aspartate Amino Transferase (AST) 24 U/L (13-40) 16 U/L (13-40) Total Bilirubin 0.2 mg/dL (0.2-1.0) 0.2 mg/dL (0.2-1.0) Urinalysis Test 12/10/24 08:00 Urine Color Light-yellow (Yellow) Urine Clarity Clear (Clear) Urine pH 6.0 (5.0-9.0) Urine Specific [place] 1.015 (1.001-1.035) Urine Protein 3+ (Negative) H Urine Ketones Negative (Negative) Urine Blood 1+ /uL (Negative) H Urine Nitrite Negative (Negative) Urine Bilirubin Negative (Negative) Urine Urobilinogen Normal mg/dL (Negative) Urine Leukocyte Esterase Negative /uL (Negative) Urine RBC 4 /hpf (0 - 3) Urine Microscopic WBC 4 /HPF (0-3) H Urine Squamous Epithelial Cells Few /hpf (<5) Urine Bacteria None seen /hpf (None Seen) Urine Creatinine 66.35 mg/dL (30.0-125.0) Urine Protein/Creatinine Ratio 12.83 Urine Sodium 58 mmol/L (40-220) Urine Glucose 3+ mg/dL (Normal) H Urine Total Protein 851.4 mg/dL (1-14) H Assessment/Plan Assessment/Plan Hyperkalemia Hypertensive urgency Acute kidney injury on chronic kidney disease stage 3 Coronary artery disease Heart failure Diabetes Dyslipidemia Hyperglycemia Status post left BKA Morbid obesity with BMI of 39.2 and multiple comorbidities Plan: Repeat labs. Chest x-ray. Monitor blood pressure. Further plan per orders Plan discussed with: Patient My Orders Orders - LOR KENNEDY MD Procedure Category Date Status Time Chest Portable XY 12/10/24 Verified 13:13 Date of Service: Dec 10, 2024 Billing Provider: LOR KENNEDY MD Common Visit Codes: [id number] INP/OBS CARE(HIGH) LOR KENNEDY MD Dec 10, 2024 13:17
--- NOTE | 2024-12-10 13:37 | DVH ---
CHEST RADIOGRAPH Indication: HF Technique: Single frontal view of the chest was obtained COMPARISON: None FINDINGS: Lines and Tubes: None Lungs: Clear Pleura: No effusion. No pneumothorax. Cardiomediastinal contours: Unremarkable Bones: Unremarkable IMPRESSION: 1. No acute disease.
[2024-12-10 15:59] VITALS: BP 152/91; PULSE 101; RESP 19; TEMP 97.9; O2SAT 99
[2024-12-10 20:00] VITALS: PULSE 85; PULSE 91; RESP 20; O2SAT 98
[2024-12-10 21:00] VITALS: BP 117/76; PULSE 85; RESP 20; TEMP 97.6; O2SAT 98
[2024-12-11 01:00] VITALS: BP 130/82; PULSE 85; RESP 20; TEMP 97.8; O2SAT 96
[2024-12-11 05:00] VITALS: BP 136/82; PULSE 84; RESP 20; TEMP 97.7; O2SAT 97
[2024-12-11 07:17] LABS: Anion Gap 8 (5-15); Aspartate Aminotransferase 16 U/L (13-40); BUN/Creatinine Ratio 13.7 (10.0-20.0); Carbon Dioxide 25 mmol/L (20-31); Chloride 106 mmol/L (98-107); Potassium 5.1 mmol/L (3.5-5.1); Sodium 139 mmol/L (136-145)
[2024-12-11 07:24] LABS: Alanine Aminotransferase < 9 U/L (7-40); Alkaline Phosphatase 152 U/L (46-116); Bilirubin, Total 0.2 mg/dL (0.2-1.0); Blood Urea Nitrogen 51 mg/dL (9-23); Calcium 8.4 mg/dL (8.7-10.4); Glucose 251 mg/dL (74-106); Total Protein 5.5 g/dL (5.7-8.2)
[2024-12-11 08:00] VITALS: PULSE 83
[2024-12-11 09:00] VITALS: BP 121/74; PULSE 76; RESP 14; TEMP 97.6; O2SAT 95
--- NOTE | 2024-12-11 11:20 | DVHPN2 ---
Progress Note Date Seen: Dec 11, 2024 Medical Necessity Reason Pt with a Central, PICC or Fol: No Subjective Patient reports: No new complaints Other Systems: Patient seen and examined by myself today in follow-up Objective vital signs Vital Sign Date Time Temp Pulse Resp B/P (MAP) Pulse Ox O2 Delivery O2 Flow Rate FiO2 12/11/24 09:59 82 121/74 12/11/24 08:00 Room Air* 0 21 12/11/24 05:00 97.7 20 97 97.7 Total Intake and Output 12/10/24 12/10/24 12/11/24 15:00 23:00 07:00 Intake Total 250 ml 300 ml Output Total 1150 ml 1000 ml Balance -1150 ml 250 ml -700 ml medications Current Medications Medications Dose Ordered Sig/Milka Route Start Time Stop Time Status Last Admin Dose Admin Aspirin 81 mg DAILY PO 12/10/24 10:00 12/11/24 09:59 81 MG Atorvastatin Calcium 20 mg HS PO 12/09/24 22:00 12/10/24 21:32 20 MG Hydralazine HCl 10 mg Q6HP PRN IV 12/09/24 20:45 Amlodipine Besylate 5 mg DAILY PO 12/10/24 10:00 12/11/24 09:59 5 MG Carvedilol 12.5 mg Q12HR PO 12/09/24 22:00 12/11/24 09:59 12.5 MG Multivit/Ca Carb/ B Cmplx/FA/Prenat 1 tab DAILY PO 12/10/24 10:00 12/11/24 09:59 1 TAB Diagnostic Test (Pha) 1 strip ACHS 12/09/24 22:00 12/11/24 06:20 1 STRIP Insulin Human Regular HS SC 12/09/24 22:00 12/10/24 21:41 3 UNITS Insulin Human Regular AC SC 12/10/24 07:00 12/11/24 06:20 6 UNITS Dextrose 50 ml UD PRN IV 12/09/24 20:45 Sodium Chloride 10 ml Q8HR IV 12/09/24 22:00 12/11/24 06:15 10 ML Acetaminophen/ Hydrocodone Bitart 1 tab Q4HP PRN PO 12/09/24 20:45 12/10/24 05:06 1 TAB Ondansetron HCl 4 mg Q4HP PRN IV 12/09/24 20:45 Docusate Sodium 100 mg BIDPRN PRN PO 12/09/24 20:45 Acetaminophen 650 mg Q6HP PRN PO 12/09/24 20:45 12/10/24 01:01 650 MG Nitroglycerin 0.4 mg Q5MINP PRN SL 12/09/24 21:45 Morphine Sulfate 2 mg Q30M PRN IV 12/09/24 21:45 Gabapentin 300 mg TID PO 12/10/24 06:00 12/11/24 06:15 300 MG Examination: LUNGS:Normal, CVS:Normal, MSK:Normal laboratory and microbiology Laboratory Tests 12/11/24 06:21 12/10/24 04:41 Test 12/11/24 06:21 Range/Units Serum Glucose 251 #H 74-106 mg/dL Problem List/Assessment/Plan Problem List/Assessment/Plan Acute kidney injury superimposed Chronic Kidney Disease stage IV secondary hemodynamic mediated Hyperkalemia due to dietary indiscretion, resolved Congestive heart failure, ejection fraction 40% Diabetes mellitus type 2 Hypertension Mild anemia of chronic kidney disease Peripheral arterial disease Left below-knee amputation Nephrotic proteinuria likely due to underlying diabetic nephropathy Recommendations Kidney function stabilize Chronic Kidney Disease stage 4 Increased urine output Strict I&Os kidney ultrasound reported within normal limit Furosemide 40 mg b.i.d. Low K renal diet Resume home medications I will sign off this case please refer to my clinic two weeks after discharge for Chronic Kidney Disease follow-up Thank you for the consult Plan discussed with: Patient BUD HARRISON MD Dec 11, 2024 11:20
[2024-12-11] MEDS: BUMETANIDE 1 MG TAB PO SCH (12:38)
[2024-12-11 12:46] VITALS: BP 149/85; PULSE 90; RESP 14; TEMP 97.5; O2SAT 96
--- NOTE | 2024-12-11 13:08 | DVHDS2 ---
Discharge Summary Date of Admission Dec 09, 2024 at 21:35 Date of Discharge: Dec 11, 2024 Admitting Diagnosis Hyperkalemia and kidney failure Labs/Diagnostic Data: Laboratory Results Test 12/11/24 12:25 12/11/24 06:21 12/10/24 16:24 12/10/24 08:00 POC Glucose 266 mg/dl (70-106) Sodium Level 139 mmol/L (136-145) Potassium Level 5.1 mmol/L (3.5-5.1) Chloride Level 106 mmol/L (98-107) Carbon Dioxide Level 25 mmol/L (20-31) Anion Gap 8 (5-15) Blood Urea Nitrogen 51 mg/dL (9-23) Creatinine 3.71 mg/dL (0.700-1.30) Glomerular Filtration Rate Calc 19 mL/min (>90) BUN/Creatinine Ratio 13.7 (10.0-20.0) Serum Glucose 251 mg/dL (74-106) Calcium Level 8.4 mg/dL (8.7-10.4) Total Bilirubin 0.2 mg/dL (0.2-1.0) Aspartate Amino Transferase (AST) 16 U/L (13-40) Alanine Aminotransferase (ALT) < 9 U/L (7-40) Alkaline Phosphatase 152 U/L (46-116) B-Type Natriuretic Peptide 97.06 pg/mL (0-100) Total Protein 5.5 g/dL (5.7-8.2) Albumin 3.0 g/dL (3.2-4.8) Troponin I High Sensitivity 9 ng/L (</=54) Urine Color Light-yellow (Yellow) Urine Clarity Clear (Clear) Urine pH 6.0 (5.0-9.0) Urine Specific [place] 1.015 (1.001-1.035) Urine Protein 3+ (Negative) Urine Ketones Negative (Negative) Urine Blood 1+ /uL (Negative) Urine Nitrite Negative (Negative) Urine Bilirubin Negative (Negative) Urine Urobilinogen Normal mg/dL (Negative) Urine Leukocyte Esterase Negative /uL (Negative) Urine RBC 4 /hpf (0 - 3) Urine Microscopic WBC 4 /HPF (0-3) Urine Squamous Epithelial Cells Few /hpf (<5) Urine Bacteria None seen /hpf (None Seen) Urine Creatinine 66.35 mg/dL (30.0-125.0) Urine Protein/Creatinine Ratio 12.83 Urine Sodium 58 mmol/L (40-220) Urine Glucose 3+ mg/dL (Normal) Urine Total Protein 851.4 mg/dL (1-14) Test 12/10/24 04:41 White Blood Count 9.5 10^3/uL (4.4-10.8) Red Blood Count 3.92 10^6/uL (4.5-5.90) Hemoglobin 12.2 g/dL (13.5-17.5) Hematocrit 35.7 % (41.0-53.0) Mean Corpuscular Volume 91.1 fL (80.0-100.0) Mean Corpuscular Hemoglobin 31.2 pg (28.0-32.0) Mean Corpuscular Hemoglobin Concent 34.2 g/dL (32.0-36.0) Red Cell Distribution Width 12.5 % (11.8-14.3) Platelet Count 390 10^3/uL (140-450) Mean Platelet Volume 7.0 fL (6.9-10.8) Neutrophils (%) (Auto) 57.9 % (37.0-80.0) Lymphocytes (%) (Auto) 28.6 % (10.0-50.0) Monocytes (%) (Auto) 7.7 % (0.0-12.0) Eosinophils (%) (Auto) 5.4 % (0.0-7.0) Basophils (%) (Auto) 0.4 % (0.0-2.0) Neutrophils # (Auto) 5.5 10 ^3/uL (1.6-8.6) Lymphocytes # (Auto) 2.7 10 ^3/uL (0.4-5.4) Monocytes # (Auto) 0.7 10 ^3/uL (0-1.3) Eosinophils # (Auto) 0.5 10 ^3/uL (0-0.8) Basophils # (Auto) 0 10 ^3/uL (0-0.2) Nucleated Red Blood Cells 0.1 % Phosphorus Level 5.5 mg/dL (2.4-5.1) Magnesium Level 1.8 mg/dL (1.6-2.6) Other Laboratory Tests 12/11/24 06:21 12/10/24 04:41 Brief Hx & Hospital Course: 49-year-old gentleman admitted from the emergency room because of renal failure and hyperkalemia. Nephrology consultation obtained and treatments given and the potassium normalized and the kidney function stabilized. Patient does have history of diabetes and heart failure along with multiple medical problems. Patient takes Entresto at home that has been taking on and off because of the kidney function. We are going to go ahead and stop Entresto and he will follow up with the PCP to follow on the heart and the kidneys and electrolytes. We will add nifedipine XL 30 mg along with the nitroglycerin patient takes in order to have the kidney functions without complications with hyperkalemia decreased GFR. Follow up with Nephrology as well. Nephrology recommended Lasix. Consults/Reason for consult Nephrology. 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 Lasix 40 mg p.o. daily. Discharge Statement: "Patient was advised to return to the ER or call 911 if any headaches, dizziness, shortness of breath, chest pain, abdominal pain, bleeding, fevers, or worsening of medical condition. Patient was counseled about treatment plan, medications, possible side effects, patientverbalized understanding. All questions were answered to the best of my ability. This discharge took greater then 30 minutes in planning, reviewing documentation, counseling the patient, and discussing with other team members." ASSESSMENT ASSESSMENT Assessment Date of Service: Dec 10, 2024 Billing Provider: LOR KENNEDY MD Common Visit Codes: [id number] DISCH DAY <30MIN LOR KENNEDY MD Dec 11, 2024 13:08
[2024-12-11] MEDS ORDERED: NIFE1TAB31 PO (13:11)
[2024-12-11] MEDS ORDERED: FURO1TAB31 PO (13:11)
[2024-12-12 09:03] LABS: Hepatitis B Surface Antigen Negative (Negative)
[2024-12-12 09:24] LABS: Hepatitis C Antibody Negative (Negative)
== END 2024-12-11 14:54 | disposition home or self-care (01) | DRG 425 ==
LOC: ER 16:14 → TELE 21:35 → TELE-WESTW 12-10 15:58
PROVIDERS: ADMIT Nurse Practitioner Family; ATTEND Nurse Practitioner Family
DX: E87.5 Hyperkalemia (principal); N17.9 Acute kidney failure, unspecified; D63.1 Anemia in chronic kidney disease; E11.22 Type 2 diabetes mellitus with diabetic chronic kidney disease; E11.51 Type 2 diabetes mellitus with diabetic peripheral angiopathy without gangrene; I13.0 Hypertensive heart and chronic kidney disease with heart failure and stage 1 through stage 4 chronic kidney disease, or unspecified chronic kidney disease; I16.0 Hypertensive urgency; E11.65 Type 2 diabetes mellitus with hyperglycemia; E66.01 Morbid (severe) obesity due to excess calories; E78.5 Hyperlipidemia, unspecified; I25.10 Atherosclerotic heart disease of native coronary artery without angina pectoris; I50.9 Heart failure, unspecified; N18.4 Chronic kidney disease, stage 4 (severe); Z88.1 Allergy status to other antibiotic agents; Z88.8 Allergy status to other drugs, medicaments and biological substances; Z79.899 Other long term (current) drug therapy; Z79.4 Long term (current) use of insulin; Z83.3 Family history of diabetes mellitus; Z89.512 Acquired absence of left leg below knee; Z68.39 Body mass index [BMI] 39.0-39.9, adult; Z79.84 Long term (current) use of oral hypoglycemic drugs; Z79.82 Long term (current) use of aspirin
CPT/HCPCS: 36415; 71045; 76775; 80053; 81001; 82306; 82570; 82962; 83735; 83880; 83970; 84100; 84156; 84300; 84484; 85025; 86803; 87340; 93005; 94640; 96365; 96375; G0378; J1815

== ENCOUNTER → 2024-12-09 | Outpatient (CLI) | payer MEDICAID ==
[~2024-12-09] MED LIST changes: +FURO1TAB31 PO; +NIFE1TAB31 PO
[2024-12-09 11:57] LABS: Albumin 3.5 g/dL (3.2-4.8); Anion Gap 5 (5-15); Aspartate Aminotransferase 18 U/L (13-40); BUN/Creatinine Ratio 13.7 (10.0-20.0); Carbon Dioxide 26 mmol/L (20-31); Sodium 138 mmol/L (136-145); Total Protein 6.6 g/dL (5.7-8.2)
[2024-12-09 12:22] LABS: Alanine Aminotransferase 9 U/L (7-40); Alkaline Phosphatase 195 U/L (46-116); Bilirubin, Total 0.2 mg/dL (0.2-1.0); Blood Urea Nitrogen 49 mg/dL (9-23); Calcium 8.7 mg/dL (8.7-10.4); Chloride 107 mmol/L (98-107); Glucose 213 mg/dL (74-106); Potassium 6.2 mmol/L (3.5-5.1)
== END | disposition home or self-care (01) ==
LOC: LAB 10:27
PROVIDERS: ATTEND Internal Medicine
DX: I50.22 Chronic systolic (congestive) heart failure (principal)
CPT/HCPCS: 36415; 80053

== ENCOUNTER → 2025-03-14 | Outpatient (CLI) | payer MEDICAID ==
[~2025-03-14] VITALS: Ht 170.2 cm; Wt 113.4 kg
[~2025-03-14] MED LIST changes: -CEPH500C PO; +FURO1TAB31 PO; -HYDR12.59 PO; +NIFE1TAB31 PO; -SACU1TAB7 PO
[2025-03-14] MEDS: hydrALAZINE HCL 20 MG/ML VL ONE (11:47)
[2025-03-14] MEDS: REGADENOSON 0.4 MG/5 ML SYRG IV ONE ×4 (12:24→12:54)
[2025-03-14] MEDS: hydrALAZINE HCL 20 MG/ML VL IV ONE (12:53)
--- NOTE | 2025-03-15 08:00 | DVHSR ---
APPROVED REPORT Exam: Nuclear Stress Test Indication: Pre-Operative CV evaluation, Cardiomyopathy Stress Tech: Emilie Weeks Ht: 5 ft 7 in Wt: 250 lbs BSA: 2.22 m2 BMI: 39.15 Medical History Medical History: HTN, CAD s/p stent, Cardiomyopathy, Diabetes, EF 25-35%, LLE BKA Allergies: ZOSYN Stress Test Details Stress Test: Pharmacologic stress testing performed using 0.4 mg of regadenoson per 5 mL given IV ov er 10 seconds. Reason for pharmacologic stress test: CARDIAC CLEARANCE, CARDIOMYOPATHY. HR Resting HR: 108 bpmMax Heart Rate (APMHR): 169.047979 bpm Max HR Achieved: 115 bpmTarget HR (85% APMHR): 143.849310 bpm % of APMHR: 68.05 Recovery HR: 106 bpm BP Resting BP: 152/96 mmHg Recovery BP: 164/77 mmHg ECG Resting ECG: Sinus Tachycardia Clinical Reason for Termination: Completed protocol Nurse Comments Received patient from Nuclear Medicine. Patient is A&O x4 and on RA. FOR VS please refer back to st ress test assessment documentation. Patient is connected to cardiac cath lab manager. See cardio-neuro proce dural notes for addtional details. PIV flushes well. Reviewed POC and patient verbalizes understand ing and consents to test. Lexiscan stress test performed per protocol. radiology ct technologist administered the Cardiolite. Pat ient tolerated well and vitals returned to baseline. Transferred to Nuclear Medicine via wheelchair with tech in stable condition. Stress ECG Conclusion inferolateral wall ischemia noted lvef 30% severe dilated cardiomyopathy abnormal study NM EXAM: Myocardial Perfusion REST/STRESS Resting Data Rest SPECT myocardial perfusion imaging was performed in supine position 60 minutes following the int ravenous injection of 13.5 mCi of Tc-99m Sestamibi. Time of rest injection: 10:10 Date: 03/14/2025 Time of rest imagin:10 Date: 03/14/2025 Administration Route: IV Administration Site: Left Arm Pharmacologic Stress Pharmacologic stress test was performed by injecting Regadenoson 0.4 mg IV push followed by the intra venous injection of 32.0 mCi of Tc-99m Sestamibi. Time of stress injection: 12:53 Date: 03/14/2025 Time of stress imagin:53 Date: 03/14/2025 Administration Route: IV Administration Site: Left Hand Gated Stress SPECT was performed 60 minutes after stress injection. The images were gated to evaluate regional wall motion and calculate left ventricular ejection fracti on. Stress only was performed in the Supine position. Nuclear Conclusion inferolateral wall ischemia noted lvef 30% severe dilated cardiomyopathy abnormal study
== END | disposition home or self-care (01) ==
LOC: XYW 09:17
PROVIDERS: ATTEND Internal Medicine
DX: Z01.810 Encounter for preprocedural cardiovascular examination (principal); I25.9 Chronic ischemic heart disease, unspecified; I42.0 Dilated cardiomyopathy; R00.0 Tachycardia, unspecified; I25.5 Ischemic cardiomyopathy; I11.0 Hypertensive heart disease with heart failure; I50.9 Heart failure, unspecified; E11.9 Type 2 diabetes mellitus without complications; I25.10 Atherosclerotic heart disease of native coronary artery without angina pectoris; Z95.5 Presence of coronary angioplasty implant and graft; Z89.512 Acquired absence of left leg below knee
CPT/HCPCS: 78452; 93017; A9500; J0360; J2785; 95819

== ENCOUNTER 2025-04-13 17:26 | Inpatient (IN) | payer MEDICAID ==
[~2025-04-13] VITALS: Ht 170.2 cm; Wt 118.4 kg
[~2025-04-13 17:26] MED LIST changes: +INSULIN LANTUS (GLARGINE) 1 /0.01ml (100units/ml) SC SCH
[2025-04-13 17:43] VITALS: O2SAT 95
[2025-04-13] MEDS: FUROSEMIDE 40 MG/4 ML VIAL IV ONE ×2 (17:57→22:00)
[2025-04-13 18:02] LABS: Basophils # (auto) 0.1 10 ^3/uL (0-0.2); Basophils % (auto) 0.7 % (0.0-2.0); Eosinophils # (auto) 0.5 10 ^3/uL (0-0.8); Eosinophils % (auto) 5.4 % (0.0-7.0); Hematocrit 33.3 % (41.0-53.0); Hemoglobin 11.1 g/dL (13.5-17.5); Lymphocytes # (auto) 1.7 10 ^3/uL (0.4-5.4); Lymphocytes % (auto) 17.7 % (10.0-50.0); Mean Corpuscular Hemoglobin 30.5 pg (28.0-32.0); Mean Corpuscular Hgb Conc. 33.5 g/dL (32.0-36.0); Monocytes # (auto) 0.8 10 ^3/uL (0-1.3); Monocytes % (auto) 8.5 % (0.0-12.0); Neutrophils # (auto) 6.6 10 ^3/uL (1.6-8.6); Neutrophils % (auto) 67.7 % (37.0-80.0); Nucleated Red Blood Cells % 0.1 %; Platelet Count (auto) 246 10^3/uL (140-450); Red Blood Cells 3.65 10^6/uL (4.5-5.90); White Blood Cell 9.7 10^3/uL (4.4-10.8)
--- NOTE | 2025-04-13 18:04 | ED.PDOC ---
History of Present Illness HPI Comments 49-year-old male who comes in with chief complaint of weakness. The patient states that since Thursday he has been having some shortness a breath as well as generalized the bone and body pain. The patient denies any vomiting or diarrhea. The patient states that he has also now having some left-sided chest pain which she rates as an 8/10. The pain seems to radiate towards the left arm. The patient states that he was given some hydralazine by his doctor (Dr. Rossi) and ever since he has been having the shortness a breath as well as the body pain. The patient denies any fever or cough. The patient has also been having some leg swelling. 911 was called and the patient was transported to our facility at this time. Chief Complaint: General Weakness Time Seen by MD: 17:27 Primary Care Provider: ALISTAIR Reviewed Notes: Nurses Notes, Medications, Allergies (NKDA ) Allergies: Coded Allergies: Hydralazine (Verified Allergy, Unknown, 04/13/25) Piperacillin (Verified Allergy, Unknown, 08/31/24) Tazobactam (Verified Allergy, Unknown, 08/31/24) Home Meds Active Scripts Nifedipine (Nifedipine Er) 30 Mg Tab, 1 TAB PO DAILY, #30 TAB 3 Refills Prov:LOR KENNEDY MD 12/11/24 Furosemide (Lasix) 40 Mg Tab, 40 MG PO DAILY for 30 Days, #30 TAB Prov:LOR KENNEDY MD 12/11/24 Reported Medications Rivaroxaban (XARELTO) 10 Mg Tab, 2.5 MG PO BID 05/14/22 Semaglutide (Ozempic) 2 Mg/1.5 Ml Inj, 2 MG SC QWEEKLY 05/14/22 Metformin Hydrochloride (Metformin Hcl) 500 Mg Tab, 1000 MG PO DAILY 05/14/22 Empagliflozin (Jardiance) 25 Mg Tab, 25 MG PO DAILY 05/14/22 Isosorbide Mononitrate (Isosorbide Mononitrate Er) 30 Mg Tab, 30 MG PO DAILY 05/14/22 Gabapentin (Gabapentin) 300 Mg Cap, 300 MG PO QID 05/14/22 Carvedilol (Carvedilol) 12.5 Mg Tab, 12.5 MG PO Q12HR 05/14/22 Insulin Glargine (Basaglar Kwikpen) 100 Unit/Ml Inj, 62 UNIT SC QPM 05/14/22 Baclofen (Baclofen) 10 Mg Tab, 10 MG PO DAILYPRN PRN for PAIN SCALE 7 THRU 10 05/14/22 Atorvastatin Calcium (Lipitor) 20 Mg Tab, 20 MG PO DAILY 05/14/22 Aspirin (ASPIRIN 81) 81 Mg Tab, 81 MG PO DAILY 05/14/22 Information Source: Patient Mode of Arrival: EMS Past Medical History PAST MEDICAL HISTORY: CAD, CHF, DM, ESRD, High Lipids, HTN Surgical History: PTCA Family History Family History: Family hx of DM Social History Smoker: Non-Smoker Alcohol: Denies ETOH Use Drugs: Denies Drug Use Lives In: Home Constitutional: reports: others (Total body pain); denies: chills, diaphoresis, fatigue, fever, malaise, sweats, weakness EENTM: denies: blurred vision, double vision, ear bleeding, ear discharge, ear drainage, ear pain, ear ringing, eye pain, eye redness, hearing loss, mouth pain, mouth swelling, nasal discharge, nose bleeding, nose congestion, nose pain, photophobia, tearing, throat pain, throat swelling, voice changes, others Respiratory: reports: shortness of breath; denies: cough, hemoptysis, orthopnea, SOB at rest, SOB with excertion, stridor, wheezing, others Cardiovascular: reports: chest pain; denies: dizzy spells, diaphoresis, Dyspnea on exertion, edema, irregular heart beat, left arm pain, lightheadedness, palpitations, PND, syncope, others Gastrointestinal: denies: abdomen distended, abdominal pain, blood streaked bowels, constipated, diarrhea, dysphagia, difficulty swallowing, hematemesis, melena, nausea, poor appetite, poor fluid intake, rectal bleeding, rectal pain, vomiting, others Genitourinary: denies: burning, dysuria, flank pain, frequency, hematuria, incontinence, penile discharge, penile sore, pain, testicle pain, testicle swelling, urgency, others Neurological: denies: dizziness, fainting, headache, left sided numbness, left sided weakness, numbness, paresthesia, pre-existing deficit, right sided numbness, right sided weakness, seizure, speech problems, tingling, tremors, weakness, others Musculoskeletal: denies: back pain, gout, joint pain, joint swelling, muscle pain, muscle stiffness, neck pain, others Integumetry: reports: others (Leg swelling); denies: bruises, change in color, change in hair/nails, dryness, laceration, lesions, lumps, rash, wounds Allergic/Immunocompromised: denies: Difficulty Healing, Frequent Infections, Hives, Itching, others Hematologic/Lymphatic: denies: anemia, blood clots, easy bleeding, easy bruising, swollen glands, others Endocrine: denies: excessive hunger, excessive sweating, excessive thirst, excessive urination, flushing, intolerance to cold, intolerance to heat, unexplained weight gain, unexplained weight loss, others Psychiatric: denies: anxiety, bipolar disorder, depression, hopeless, panic disorder, schizophrenia, sleepless, suicidal, others Physical Exam General Appearance: Moderate Distress HEENT: Pale Conjuntivae (L), Pale Conjuntivae (R), Pharynx Normal, TMs Normal Neck: Full Range of Motion, Non-Tender, Normal, Normal Inspection Respiratory: Chest Non-Tender, Lungs Clear, No Accessory Muscle Use, No Respiratory Distress, Normal Breath Sounds Cardiovascular: No Edema, No JVD, No Murmur, No Gallop, Regular Rate/Rhythm Breast Exam: Deferred Gastrointestinal: No Organomegaly, Non Tender, No Pulsatile Mass, Normal Bowel Sounds, Soft Genitalia: Deferred Pelvic: Deferred Rectal: Deferred Extremities: No calf tenderness, Normal capillary refill, Pedal edema, Other (Left BKA) Musculoskeletal : Apperance: Normal Neurologic: Alert, client project coordinator II-XII nml as Tested, Motor Weakness, Normal Affect, Normal Mood, No Sensory Deficits Cerebellar Function: Normal Reflexes: Normal Skin: Dry, Pallor, Warm Lymphatic: No Adenopathy Was a procedure done? Was a procedure done?: No Differential Dx Considerations may include: ACS X-Ray, Labs, Meds, VS Vital Signs Date Time Temp Pulse Resp B/P (MAP) Pulse Ox O2 Delivery O2 Flow Rate FiO2 04/13/25 18:02 98.1 89 15 131/73 (92) 90 98.1 04/13/25 17:57 131/73 04/13/25 17:43 95 Room Air* 0 21 04/13/25 17:32 98.5 89 20 126/70 (88) 95 98.5 Lab Test 04/13/25 18:40 04/13/25 17:53 Range/Units POC Glucose 141 H 70-106 mg/dl White Blood Count 9.7 4.4-10.8 10^3/uL Red Blood Count 3.65 L 4.5-5.90 10^6/uL Hemoglobin 11.1 L 13.5-17.5 g/dL Hematocrit 33.3 L 41.0-53.0 % Mean Corpuscular Volume 91.0 80.0-100.0 fL Mean Corpuscular Hemoglobin 30.5 28.0-32.0 pg Mean Corpuscular Hemoglobin Concent 33.5 32.0-36.0 g/dL Red Cell Distribution Width 13.0 11.8-14.3 % Platelet Count 246 140-450 10^3/uL Mean Platelet Volume 7.7 6.9-10.8 fL Neutrophils (%) (Auto) 67.7 37.0-80.0 % Lymphocytes (%) (Auto) 17.7 10.0-50.0 % Monocytes (%) (Auto) 8.5 0.0-12.0 % Eosinophils (%) (Auto) 5.4 0.0-7.0 % Basophils (%) (Auto) 0.7 0.0-2.0 % Neutrophils # (Auto) 6.6 1.6-8.6 10 ^3/uL Lymphocytes # (Auto) 1.7 0.4-5.4 10 ^3/uL Monocytes # (Auto) 0.8 0-1.3 10 ^3/uL Eosinophils # (Auto) 0.5 0-0.8 10 ^3/uL Basophils # (Auto) 0.1 0-0.2 10 ^3/uL Nucleated Red Blood Cells 0.1 % Sodium Level 135 L 136-145 mmol/L Potassium Level 5.2 H 3.5-5.1 mmol/L Chloride Level 103 98-107 mmol/L Carbon Dioxide Level 14 L 20-31 mmol/L Anion Gap 18 H 5-15 Blood Urea Nitrogen 133 *H 9-23 mg/dL Creatinine 11.20 *H 0.700-1.30 mg/dL Glomerular Filtration Rate Calc 5 >90 mL/min BUN/Creatinine Ratio 11.9 10.0-20.0 Serum Glucose 168 H 74-106 mg/dL Calcium Level 6.8 L 8.7-10.4 mg/dL Troponin I High Sensitivity 15 </=54 ng/L B-Type Natriuretic Peptide 435.11 0-100 pg/mL Current Medications Medications (Trade) Dose Ordered Sig/Milka Route Start Time Stop Time Status Last Admin Furosemide (Lasix Injection) 40 mg ONCE ONCE IV 04/13/25 17:45 04/13/25 17:46 DC 04/13/25 17:57 Calcium Gluconate/ Sodium Chloride 50 ml @ 100 mls/hr ONCE ONCE IV 04/13/25 18:30 04/13/25 18:59 DC 04/13/25 18:58 Sodium Bicarbonate 50 ml ONCE ONCE IV 04/13/25 18:30 04/13/25 18:32 DC 04/13/25 18:58 Dextrose 50 ml ONCE ONCE IV 04/13/25 18:30 04/13/25 18:32 DC 04/13/25 18:58 Insulin Human Regular (InsuLIN R) 5 units ONCE ONCE IV 04/13/25 18:30 04/13/25 18:32 DC 04/13/25 18:58 IV Hep-Lock was established The patient was given Lasix 40 mg IV push At this time, the patient states that he does not want the Herrera catheter. The patient has a potassium of 5.2 The patient was given sodium bicarbonate, calcium, dextrose and insulin for the hyperkalemia The BUN is 133 and the creatinine is 11.2 A nephrology consult was made The BNP is 435 The CBC shows anemia The patient is being admitted to the hospitalist The chest x-ray shows: IMPRESSION: 1. Right lower lobe infiltrate atelectasis and small pleural effusion. The patient is being admitted at this time Images Reviewed?: Images reviewed and evaluated by me Time of 1ST Reevaluation: 18:14 Reevaluation 1ST: Unchanged Patient Education/Counseling: Diagnosis, Treatment, Prognosis Family Education/Counseling: No Family Present Departure 1 Departure Time of Disposition: 19:06 Impression: Primary Impression: Acute on chronic kidney failure Qualified Codes: N17.1 - Acute kidney failure with acute cortical necrosis; N18.9 - Chronic kidney disease, unspecified Additional Impressions: Diabetes mellitus with hyperglycemia Qualified Codes: E13.65 - Other specified diabetes mellitus with hyperglycemia Hyperkalemia Disposition: ADMITTED INPATIENT Admit to: [facility] Condition: Fair Critical Care Note Critical Care Time?: Yes (45 min-critical care time only) Stability Stability form required: Yes Unstable for transfer: Telemetry monitoring (Telemetry monitoring required), ED Physician Assesment (Clinical assesment) Heart Score Heart Score: Heart Score Response (Comments) Value History Moderate Suspicious 1 EKG Repolarization Disturb 1 Age 45-64 1 Risk Factors >3 or Hx ASHD 2 Troponin Normal limit 0 Total 5 HELENA JOHNSON MD April 13, 2025 18:04
[2025-04-13 18:10] LABS: Chloride 103 mmol/L (98-107)
[2025-04-13 18:11] LABS: Anion Gap 18 (5-15); Calcium 6.8 mg/dL (8.7-10.4); Carbon Dioxide 14 mmol/L (20-31); Potassium 5.2 mmol/L (3.5-5.1); Sodium 135 mmol/L (136-145)
[2025-04-13 18:16] LABS: BUN/Creatinine Ratio 11.9 (10.0-20.0); Glucose 168 mg/dL (74-106)
[2025-04-13 18:21] LABS: Blood Urea Nitrogen 133 mg/dL (9-23)
--- NOTE | 2025-04-13 18:26 | DVH ---
CHEST RADIOGRAPH Indication: sob Technique: Single frontal view of the chest was obtained Comparison: XY CHEST PORTABLE on DOS: 12/10/24 FINDINGS: Lines and Tubes: None Lungs: Right lower lobe infiltrate atelectasis and small pleural effusion. Pleura: No effusion. No pneumothorax. Cardiomediastinal contours: Unremarkable Bones: No acute osseous abnormality. IMPRESSION: 1. Right lower lobe infiltrate atelectasis and small pleural effusion.
[2025-04-13] MEDS: InsuLIN REG 1unit/0.01ml Soln (100units/ml) IV ONE (18:58)
[2025-04-13] MEDS: SODIUM BICARB 8.4% 50Meq/50ml SYR Vial IV ONE (18:58)
[2025-04-13] MEDS: DEXTROSE (50%) 50ML SYRG IV ONE (18:58)
[2025-04-13] MEDS: CALCIUM GLUC 1,000mg/50ml-NS 50 ML IV ONE (18:58)
[2025-04-13 19:30] VITALS: O2SAT 95
[2025-04-13 21:01] LABS: Urine Amorphous Crystal FEW /hpf (None Seen); Urine Bacteria FEW /hpf (None Seen); Urine Blood Negative /uL (Negative); Urine Clarity Turbid (Clear); Urine Color Light-Yellow (Yellow); Urine Hyaline Cast FEW /lpf (0 - 2); Urine Protein, UAD 2+ (Negative); Urine Specific Gravity 1.012 (1.001-1.035); Urine Squamous Epithelial Cell FEW /hpf (<5); Urine Urobilinogen Normal (Negative); Urine WBC 9 /HPF (0-3)
[2025-04-13] MEDS ORDERED: NITROGLYCERIN 0.4 MG SL TAB SL PRN (21:45)
[2025-04-13] MEDS: SODIUM CHLOR 0.9% PF (SALINE LOCK) 10ML VIAL/SYR IV SCH (22:00)
[2025-04-13 22:09] VITALS: BP 132/74; PULSE 90; RESP 18; TEMP 97.7; O2SAT 95
[2025-04-13] MEDS ORDERED: IPRATROPIUM BROM 0.5 MG/2.5ML INH SOL NEB PRN (22:15)
[2025-04-13] MEDS ORDERED: cefTAZidime 1 GM in SODIUM CHL 0.9% 50 ML IV ONE (22:15)
[2025-04-13 22:18] LABS: Albumin 3.9 g/dL (3.2-4.8); Total Protein 7.1 g/dL (5.7-8.2)
[2025-04-13 22:21] LABS: Alanine Aminotransferase < 9 U/L (7-40); Alkaline Phosphatase 287 U/L (46-116); Aspartate Aminotransferase 11 U/L (13-40); Bilirubin, Direct < 0.1 mg/dL (<0.3); Bilirubin, Total 0.2 mg/dL (0.2-1.0)
[2025-04-13] MEDS ORDERED: DEXTROSE (50%) 50ML SYRG IV PRN (22:30)
[2025-04-13 22:36] LABS: Amphetamine Screen, Urine Neg (NEGATIVE); Barbiturate Scree,Urine Neg (NEGATIVE); Benzodiazephine Screen, Urine Neg (NEGATIVE); Cannabinoid Screen, Urine Neg (NEGATIVE); Cocaine Screen, Urine Neg (NEGATIVE); Opiate Scree,Urine Neg (NEGATIVE); Phencyclidine Screen, Urine Neg (NEGATIVE)
--- NOTE | 2025-04-13 22:56 | DVH ---
Bilateral Chest Sonogram Date: 04/13/2025 10:20 PM Clinical history: SHORTNESS OF BREATHS, PLEURAL EFFUSION Images submitted: 2 Findings: Limited sonographic evaluation of the right and left chest was performed to localize and marvin fluid f or thoracentesis. Volume of the pleural effusions not calculi. IMPRESSION: 1. Bilateral pleural effusions. 2. Volume was not calculated.
--- NOTE | 2025-04-13 22:57 | DVHHP2 ---
History of Present Illness History of Present Illness Patient is 49-year-old male with past medical history of hypertension, diabetes mellitus type 2, hyperlipidemia, HFrEF EF 25%, CAD status post PTCA in 2021, came with a complaint of shortness of breaths. As per patient he has been having shortness of breaths started on Thursday, worsened with exertion, patient also reported left-sided chest pain, constant, 8/10, increased with respiration, radiating to the left arm. Patient also reported he is being sleeping since Thursday. On further inquiry patient reported having generalized weakness and bilateral leg swelling from Thursday. Patient reported nausea but no vomiting. On further inquiry patient also reported bilateral lower abdominal pain, dull in nature for last couple of days. echo on 02/02/2025 EF 25%, global hypokinesia, left atrium and left ventricular enlargement. Initial lab workup revealed sodium 135, potassium 5.2, hemoglobin 11.1, anion gap 18, BUN 133, serum creatinine 11.2, calcium 6.8, BNP 435, troponin I with a normal limit. Chest x- ray right lower lung opacity/pleural effusion. Urinalysis significant for UTI leukocyte esterase 1+ WBC 9, bacteria few. Ultrasonogram of the chest revealed- Bilateral pleural effusions. Ultrasound of the renal system revealed- No hydronephrosis or other renal abnormality. Past Medical History hypertension, diabetes mellitus type 2, hyperlipidemia, HFrEF EF 25%, CAD status post PTCA in 2021, Past Surgical History Left below-knee amputation likely from complication of osteomyelitis, cholecystectomy, PTCA Family History Please mellitus, dad had hypertension, lymphoma, daughter had bone carcinoma Past Social History Lives with , denies smoking/alcoholism/drug abuse Medication at home aspirin, atorvastatin 20, carvedilol 25 mg b.i.d., Jardiance 25 mg daily, Lasix 20 mg p.o. daily, gabapentin, insulin glargine 16 units b.i.d., nifedipine ER 60 mg, Review of Systems Review of Systems Allergy- hydralazine, piperacillin, tazobactam Patient was seen today at the bedside. Cardiovascular- deny acute cough or palpitation Respiratory denies cough or wheezing Gastrointestinal- denies any rectal bleeding, nausea or vomiting Musculoskeletal-denies acute joint swelling or tenderness or redness Neurological- denies acute dysarthria, dysphagia, change in vision Psychiatry- denies depression or SI or HI Skin- denies acute rash or purpura Allergies: Coded Allergies: Hydralazine (Verified Allergy, Unknown, 04/13/25) Piperacillin (Verified Allergy, Unknown, 08/31/24) Tazobactam (Verified Allergy, Unknown, 08/31/24) Medications Current Medications Medications Dose Ordered Sig/Milka Route Start Time Stop Time Status Last Admin Dose Admin Sodium Chloride 10 ml Q8HR IV 04/13/25 22:00 Ondansetron HCl 4 mg Q4HP PRN IV 04/13/25 21:45 Enoxaparin Sodium 30 mg DAILY SC 04/14/25 10:00 Acetaminophen 650 mg Q6HP PRN PO 04/13/25 21:45 Nitroglycerin 0.4 mg Q5MINP PRN SL 04/13/25 21:45 Aspirin 81 mg DAILY PO 04/14/25 10:00 Atorvastatin Calcium 20 mg DAILY PO 04/14/25 10:00 Furosemide 40 mg BIDD IV 04/14/25 06:00 Carvedilol 25 mg Q12HR PO 04/13/25 22:00 Pantoprazole Sodium 40 mg DAILY@0600 PO 04/14/25 06:00 Albuterol 2.5 mg Q6HPRN PRN NEB 04/13/25 22:15 Ipratropium [place] 0.5 mg Q6HPRN PRN NEB 04/13/25 22:15 Ceftriaxone Sodium 50 ml @ 100 mls/hr Q24H IV 04/14/25 23:00 Diagnostic Test (Pha) 1 strip ACHS 04/14/25 07:00 Insulin Human Regular ACHS SC 04/14/25 07:00 Dextrose 50 ml UD PRN IV 04/13/25 22:30 Exam Vital Signs Vital Signs Date Time Temp Pulse Resp B/P (MAP) Pulse Ox O2 Delivery O2 Flow Rate FiO2 04/13/25 22:09 97.7 90 18 132/74 95 2.0 97.7 04/13/25 19:30 Room Air* N/A Nasal Cannula* Exam General examination- awake, alert, oriented HEENT- PEERLA, no acute nasal discharge Cardiovascular- S1-S2 audible, rate and rhythm regular, no murmur Respiratory- bilateral lung crackles+, diminished breath sound on right side of the lung at the base Gastrointestinal-nontender, bowel sound+. Nondistended Musculoskeletal-no acute joint swelling or tenderness or redness Lower extremity- leg edema++, left below-knee amputation Neurological- cranial nerves intact, no acute dysarthria or dysphagia Psychiatry- denies depression or SI or HI Skin- no acute rash or purpura Labs/Xrays Labs Test 04/13/25 20:47 04/13/25 20:43 04/13/25 18:40 04/13/25 17:53 Range/Units Troponin I High Sensitivity 16 </=54 ng/L Urine Color Light-yellow Yellow Urine Clarity Turbid H Clear Urine pH 5.0 5.0-9.0 Urine Specific [place] 1.012 1.001-1.035 Urine Protein 2+ H Negative Urine Ketones Negative Negative Urine Blood Negative Negative /uL Urine Nitrite Negative Negative Urine Bilirubin Negative Negative Urine Urobilinogen Normal Negative mg/dL Urine Leukocyte Esterase 1+ Negative /uL Urine RBC 3 0 - 3 /hpf Urine Microscopic WBC 9 H 0-3 /HPF Urine Squamous Epithelial Cells Few <5 /hpf Urine Amorphous Crystals Few None Seen /hpf Urine Bacteria Few H None Seen /hpf Urine Hyaline Casts Few 0 - 2 /lpf Urine Glucose Normal Normal mg/dL Urine Opiates Screen Neg NEGATIVE Urine Fentanyl Screen Neg NEGATIVE Urine Barbiturates Screen Neg NEGATIVE Urine Phencyclidine Screen Neg NEGATIVE Urine Amphetamines Screen Neg NEGATIVE Urine Benzodiazepines Screen Neg NEGATIVE Urine Cocaine Screen Neg NEGATIVE Urine Cannabinoids Screen Neg NEGATIVE POC Glucose 141 H 70-106 mg/dl White Blood Count 9.7 4.4-10.8 10^3/uL Red Blood Count 3.65 L 4.5-5.90 10^6/uL Hemoglobin 11.1 L 13.5-17.5 g/dL Hematocrit 33.3 L 41.0-53.0 % Mean Corpuscular Volume 91.0 80.0-100.0 fL Mean Corpuscular Hemoglobin 30.5 28.0-32.0 pg Mean Corpuscular Hemoglobin Concent 33.5 32.0-36.0 g/dL Red Cell Distribution Width 13.0 11.8-14.3 % Platelet Count 246 140-450 10^3/uL Mean Platelet Volume 7.7 6.9-10.8 fL Neutrophils (%) (Auto) 67.7 37.0-80.0 % Lymphocytes (%) (Auto) 17.7 10.0-50.0 % Monocytes (%) (Auto) 8.5 0.0-12.0 % Eosinophils (%) (Auto) 5.4 0.0-7.0 % Basophils (%) (Auto) 0.7 0.0-2.0 % Neutrophils # (Auto) 6.6 1.6-8.6 10 ^3/uL Lymphocytes # (Auto) 1.7 0.4-5.4 10 ^3/uL Monocytes # (Auto) 0.8 0-1.3 10 ^3/uL Eosinophils # (Auto) 0.5 0-0.8 10 ^3/uL Basophils # (Auto) 0.1 0-0.2 10 ^3/uL Nucleated Red Blood Cells 0.1 % Sodium Level 135 L 136-145 mmol/L Potassium Level 5.2 H 3.5-5.1 mmol/L Chloride Level 103 98-107 mmol/L Carbon Dioxide Level 14 L 20-31 mmol/L Anion Gap 18 H 5-15 Blood Urea Nitrogen 133 *H 9-23 mg/dL Creatinine 11.20 *H 0.700-1.30 mg/dL Glomerular Filtration Rate Calc 5 >90 mL/min BUN/Creatinine Ratio 11.9 10.0-20.0 Serum Glucose 168 H 74-106 mg/dL Calcium Level 6.8 L 8.7-10.4 mg/dL Phosphorus Level 13.6 H 2.4-5.1 mg/dL Total Bilirubin 0.2 0.2-1.0 mg/dL Direct Bilirubin < 0.1 <0.3 mg/dL Aspartate Amino Transferase (AST) 11 L 13-40 U/L Alanine Aminotransferase (ALT) < 9 7-40 U/L Alkaline Phosphatase 287 H 46-116 U/L B-Type Natriuretic Peptide 435.11 0-100 pg/mL Total Protein 7.1 5.7-8.2 g/dL Albumin 3.9 3.2-4.8 g/dL Thyroid Stimulating Hormone (TSH) 2.13 0.55-4.78 uIU/mL Assessment/Plan Assessment/Plan Assessment and plan Acute hypoxic respiratory failure likely due to acute on chronic heart failure/acute renal failure Acute on chronic HFrEF JAKUB on CKD likely due to VMN Metabolic acidosis likely due to renal failure suspected pneumonia Gram-positive versus Gram-negative Bilateral pleural effusion Acute complicated cystitis Hypertension Diabetes mellitus type 2-uncontrolled, HbA1c 8.0 CAD status post PTCA Obesity Hyperlipidemia Hyperkalemia - Obesity pending CT abdomen and pelvis echo on 02/02/2025 EF 25%, global hypokinesia, left atrium and left ventricular enlargement. sodium 135, potassium 5.2, hemoglobin 11.1, anion gap 18, BUN 133, serum creatinine 11.2, calcium 6.8, BNP 435, troponin I with a normal limit. HB A1c 8.0 Chest x-ray right lower lung opacity/pleural effusion. Urinalysis significant for UTI leukocyte esterase 1+ WBC 9, bacteria few. Ultrasonogram of the chest revealed-Bilateral pleural effusions. Ultrasound of the renal system revealed- No hydronephrosis or other renal abnormality. Plan Ordered Lasix IV Ordered nephrology consult Ordered echo 2D Ordered carvedilol 25 mg p.o. b.i.d. Ordered insulin as prescribed Ordered ceftriaxone 1 g IV daily On DVT prophylaxis Ordered blood culture, urine culture Ordered UDS Ordered ceftriaxone and Goals of care, Code status ; discussed with >15 minutes PUD prophylaxis: Pantoprazole DVT prophylaxis: Lovenox Plan discussed with Dr. Bueno , nursing staff, Total time spent on patient evaluation, chart review, assessment and plan, discussion discussion >35 minutes Plan discussed with: Patient, Other (RN) My Orders Orders - DEANDRE COLLINS RESIDENT Procedure Category Date Status Time Admit ADMIT 04/13/25 Transmitted 21:39 Code Status CODE 04/13/25 Transmitted 21:39 Renal DIET 04/14/25 Transmitted Standard(2gna,3gk,Lopho) Breakfast Sodium Chloride Lock PHA 04/13/25 In Process (Saline Lock Ns) 22:00 Oxygen Per Hour RT 04/13/25 Transmitted 21:39 Ondansetron Hcl PHA 04/13/25 In Process (Zofran) 21:45 Complete Blood Count LAB 04/14/25 Verified 04:00 Comprehensive LAB 04/14/25 Verified Metabolic Panel 04:00 Enoxaparin Sodium PHA 04/14/25 In Process (Lovenox) 10:00 Acetaminophen Tablet PHA 04/13/25 In Process (Tylenol Tablet) 21:45 Nitroglycerin PHA 04/13/25 In Process Sublingual (Ntrostat 21:45 Oxygen By Nasal RT 04/13/25 Transmitted Cannula 21:39 Stat Ekg For Chest LINN 04/13/25 In Process Pain 21:39 Notify Of Changes LINN 04/13/25 In Process From Base 21:39 Produce Production Team Member For LINN 04/13/25 In Process 24 Hours 21:39 *Dr. Fernández Group CONS 04/13/25 Transmitted -[place] 21:43 Chest Ultrasound US 04/13/25 Taken 21:43 Bladder Scan ORDERS 04/13/25 Transmitted 21:44 Aspirin Enteric PHA 04/14/25 In Process Coated Tablet 10:00 Atorvastatin (Lipitor) PHA 04/14/25 In Process 10:00 Furosemide Injection PHA 04/14/25 In Process (Lasix Injection) 06:00 Carvedilol Tablet PHA 04/13/25 In Process (Coreg Tablet) 22:00 Pantoprazole Tablet PHA 04/14/25 In Process (Protonix Tablet) 06:00 Albuterol Medneb PHA 04/13/25 In Process (Ventolin Medneb) 22:15 Ipratropium Medneb PHA 04/13/25 In Process (Atrovent Medneb) 22:15 Ceftazidime (Fortaz) PHA 04/14/25 In Process 22:00 Ceftriaxone 1gm/50ml PHA 04/14/25 In Process D5w (Rocephin) 23:00 Ceftriaxone 1gm/50ml PHA 04/13/25 In Process D5w (Rocephin) 22:30 Ct Ab Pel Wo Con-No CT 04/13/25 Logged Oral Or Iv 22:24 Kidney US 04/13/25 Taken 22:24 Urine Bacterial ELLIE 04/13/25 In Process Culture 22:30 Glucose Blood PHA 04/14/25 In Process (Accu-Chek Comfort 07:00 Insulin R (Human) PHA 04/14/25 In Process (Insulin R) 07:00 Dextrose 50% Syringe PHA 04/13/25 In Process 22:30 Covid19 Antigen Yas LAB 04/13/25 Logged Rapid Influenza A&B LAB 04/13/25 Logged 22:30 Mrsa Screen ELLIE 04/13/25 Logged 22:30 Blood Culture ELLIE 04/13/25 Logged 22:30 Basic Metabolic Panel LAB 04/13/25 Logged 22:32 Urine Sodium LAB 04/13/25 In Process 22:37 Urine LAB 04/13/25 In Process Protein/Creatinine Urine Creatinine LAB 5/29/25 In Process 22:37 Date of Service: April 13, 2025 Billing Provider: WALLACE BUENO MD Common Visit Codes: [id number] INP/OBS CARE (HIGH) Secondary Visit Codes: [id number] CARE PLAN 30 MINUTES DEANDRE COLLINS RESIDENT April 13, 2025 22:56
[2025-04-13] MEDS: CARVEDILOL 12.5 MG TAB PO SCH (23:06)
[2025-04-13] MEDS: PANTOPRAZOLE 40 MG TAB PO ONE (23:07)
[2025-04-13 23:08] LABS: Protein, Urine 156.7 mg/dL (1-14)
[2025-04-13 23:11] LABS: Creatinine, Urine 96.07 mg/dL (30.0-125.0); Creatinine, Urine 97.22 mg/dL (30.0-125.0); Urine Protein/Creatinine Ratio 1.61
[2025-04-13 23:22] VITALS: PULSE 88; RESP 18; O2SAT 96
[2025-04-13 23:25] VITALS: BP 128/72; PULSE 87; RESP 16; TEMP 97.7; O2SAT 96
[2025-04-13] MEDS: cefTRIAXone 1GM/50ML D5W 50 ML IV ONE (23:55)
[2025-04-14] VITALS (17 sets, daily range): BP systolic 116–158; BP diastolic 64–86; PULSE 79–103; RESP 12–20; TEMP 97.3–98.5; O2SAT 93–100
[2025-04-14] MEDS ORDERED: CARV25TA55 PO (00:10)
[2025-04-14] MEDS ORDERED: DULO1CAP6 PO (00:10)
[2025-04-14] MEDS ORDERED: METO2.5T PO (00:10)
[2025-04-14] MEDS ORDERED: CHOL1TAB42 PO (00:10)
[2025-04-14] MEDS ORDERED: AMLO1TAB22 PO (00:10)
[2025-04-14] MEDS ORDERED: FURO20TA3 PO (00:10)
[2025-04-14] MEDS ORDERED: TERA2CAP79 PO (00:10)
[2025-04-14] MEDS ORDERED: BUME2TAB5 PO (00:10)
--- NOTE | 2025-04-14 00:23 | DVH ---
INDICATION: RULE OUT HYDRONEPHROSIS OR URINARY RETENTION TECHNIQUE: Multiple real-time sonographic images of the kidneys and bladder were obtained. COMPARISON: US KIDNEY on DOS: 12/10/24 FINDINGS: Right kidney measures 10.7 cm in length and the left kidney 11.8 cm. Both kidneys are normal in size, contour, cortical echogenicity and thickness. No hydronephrosis. Urinary bladder is only partially d istended but demonstrates considerable wall thickening. IMPRESSION: No hydronephrosis or other renal abnormality.
[2025-04-14 01:30] LABS: Chloride 100 mmol/L (98-107)
[2025-04-14 01:31] LABS: Anion Gap 18 (5-15); Potassium 5.1 mmol/L (3.5-5.1); Sodium 135 mmol/L (136-145)
[2025-04-14 01:33] LABS: Calcium 6.3 mg/dL (8.7-10.4); Carbon Dioxide 17 mmol/L (20-31)
[2025-04-14 01:45] LABS: BUN/Creatinine Ratio 12.7 (10.0-20.0)
[2025-04-14 01:51] LABS: COVID19 ANTIGEN SOFIA FIA NEGATIVE (NEGATIVE); Rapid Influenza A Negative (Negative); Rapid Influenza B Negative (Negative)
[2025-04-14 01:52] LABS: Glucose 141 mg/dL (74-106)
[2025-04-14 01:53] LABS: Blood Urea Nitrogen 148 mg/dL (9-23)
[2025-04-14 02:51] LABS: Base Excess -14.5 mmol/L (-2.0-3.0)
[2025-04-14 03:19] LABS: Basophils # (auto) 0 10 ^3/uL (0-0.2); Basophils % (auto) 0.2 % (0.0-2.0); Eosinophils # (auto) 0.4 10 ^3/uL (0-0.8); Eosinophils % (auto) 4.6 % (0.0-7.0); Hematocrit 32.1 % (41.0-53.0); Hemoglobin 10.8 g/dL (13.5-17.5); Lymphocytes # (auto) 1.3 10 ^3/uL (0.4-5.4); Lymphocytes % (auto) 13.6 % (10.0-50.0); Mean Corpuscular Hemoglobin 30.4 pg (28.0-32.0); Mean Corpuscular Hgb Conc. 33.8 g/dL (32.0-36.0); Mean Corpuscular Volume 90.1 fL (80.0-100.0); Monocytes # (auto) 0.8 10 ^3/uL (0-1.3); Monocytes % (auto) 8.1 % (0.0-12.0); Neutrophils # (auto) 6.8 10 ^3/uL (1.6-8.6); Neutrophils % (auto) 73.5 % (37.0-80.0); Nucleated Red Blood Cells % 0.1 %; Platelet Count (auto) 234 10^3/uL (140-450); Red Blood Cells 3.56 10^6/uL (4.5-5.90); White Blood Cell 9.2 10^3/uL (4.4-10.8)
[2025-04-14 03:33] LABS: Albumin 3.7 g/dL (3.2-4.8); Anion Gap 18 (5-15); Chloride 101 mmol/L (98-107); Magnesium 2.4 mg/dL (1.6-2.6); Sodium 136 mmol/L (136-145); Total Protein 6.8 g/dL (5.7-8.2)
[2025-04-14] MEDS: ACETAMINOPHEN 325 MG TAB PO PRN (03:33)
[2025-04-14 03:34] LABS: Alanine Aminotransferase < 9 U/L (7-40); Alkaline Phosphatase 253 U/L (46-116); Aspartate Aminotransferase 10 U/L (13-40); Bilirubin, Total 0.2 mg/dL (0.2-1.0); Calcium 6.4 mg/dL (8.7-10.4); Carbon Dioxide 17 mmol/L (20-31); Glucose 145 mg/dL (74-106); Potassium 5.5 mmol/L (3.5-5.1)
[2025-04-14] MEDS: SODIUM BICARB 8.4% 50Meq/50ml SYR Vial IV ONE (03:35)
[2025-04-14 03:40] LABS: Folate (Folic Acid) 11.01 ng/mL (>5.38)
[2025-04-14 03:41] LABS: BUN/Creatinine Ratio 12.6 (10.0-20.0)
[2025-04-14 03:58] LABS: Blood Urea Nitrogen 148 mg/dL (9-23)
[2025-04-14] MEDS: FUROSEMIDE 40 MG/4 ML VIAL IV ONE (04:15)
--- NOTE | 2025-04-14 04:16 | DVH ---
Exam: CT CT AB PEL WO CON-NO ORAL OR IV History: ABDOMINAL PAIN, RULE OUT HYDRONEPHROSIS Comparison Study: [facility] on DOS: 10/08/22, [facility] on DOS: 02/10/22 Technique: Multidetector spiral CT of the abdomen and pelvis was performed from lung bases to pubic s ymphysis. Imaging was performed without intravenous contrast. Coronal and sagittal multiplanar reform ats were obtained from the axial data set by the technologist. Radiation Dose : 1. Abdomen/Pelvis: CTDIvol 22.8 mGy, DLP 1487 mGy*cm. Findings: Evaluation of vasculature and solid organs is limited due to lack of intravenous contrast use. Lung Bases: Bilateral pleural effusions and passive atelectasis. The heart is normal in size. Liver: The liver is normal in size. No focal lesions. Gallbladder and Biliary Tree: The gallbladder is surgically absent. No intrahepatic or extrahepatic b iliary ductal dilatation. Spleen: Unremarkable Pancreas: The pancreas is grossly unremarkable. Adrenal Glands: Unremarkable Kidneys: Kidneys are unremarkable without calculi or hydronephrosis. GI tract: The stomach is grossly normal in appearance. Mild bowel wall thickening of the duodenum wit h fat stranding. No bowel obstruction. The colon is unremarkable. The appendix is not visualized, ho wever no inflammatory changes in the right lower quadrant to suggest acute appendicitis. Peritoneum/mesentery/retroperitoneum. No evidence of free intraperitoneal air. Mild ascites. Lymph nodes: Prominent left inguinal lymph nodes measuring up to 1.9 cm in short axis. Abdominal Wall: Soft tissue edema. Vasculature: The visualized abdominal aorta is normal in size and caliber. Evaluation of abdominal a nd pelvic vessels is limited due to lack of intravenous contrast. Urinary Bladder: The urinary bladder demonstrates wall thickening. Pelvic Organs: Unremarkable Musculoskeletal: No aggressive focal bony lesions, acute fractures or dislocation. IMPRESSION: 1. Urinary bladder wall thickening which may reflect cystitis in the appropriate clinical setting. No intrarenal calculi or hydronephrosis. 2. Mild wall thickening of the duodenum with fat stranding which may reflect enteritis. 3. Mild ascites. 4. Cholecystectomy. 5. Bilateral pleural effusions and passive atelectasis. 6. Body wall anasarca. 7. Additional nonacute findings as described.
[2025-04-14] MEDS: ALBUTEROL SULF 2.5 MG/0.5ML(0.5%) NEB SOLN NEB ONE (04:19)
[2025-04-14] MEDS: DOXYCYCLINE 100MG/100ML 100 ML IV ONE (04:23)
[2025-04-14] MEDS: SODIUM ZIRCONIUM CYCL 10 GM PAK PO ONE (04:46)
[2025-04-14] MEDS: SODIUM ZIRCONIUM CYCL 10 GM PAK PO SCH (06:00)
[2025-04-14] MEDS: FUROSEMIDE 40 MG/4 ML VIAL IV SCH (06:00)
[2025-04-14] MEDS: CALCIUM GLUC 1,000mg/50ml-NS 50 ML IV ONE (06:14)
[2025-04-14] MEDS: PANTOPRAZOLE 40 MG TAB PO SCH (06:30)
[2025-04-14] MEDS: DEXTROSE (50%) 50ML SYRG IV ONE (06:31)
[2025-04-14] MEDS: InsuLIN REG 1unit/0.01ml Soln (100units/ml) IV ONE (06:43)
[2025-04-14] MEDS: InsuLIN REG 1unit/0.01ml Soln (100units/ml) SC SCH (07:00)
[2025-04-14] MEDS: ACCU-CHEK COMFORT CURVE STRIP VI SCH (07:00)
[2025-04-14] MEDS: BUMETANIDE 2.5mg/10ml (0.25 mg/ml) INJ IV ONE (08:15)
--- NOTE | 2025-04-14 08:57 | DVH ---
Bilateral lower extremity venous duplex Clinical History: B/L Leg swelling Comparison: None Technique: Duplex Doppler evaluation of the deep venous systems of both lower extremities from the common femora l veins to the popliteal veins including color Doppler and spectral/pulsed waveform analysis was perf ormed. Findings: RIGHT SIDE: The common femoral vein demonstrates appropriate compressibility and waveform variability. There is compressibility/patency of the great saphenous vein at the proximal thigh. The femoral vein demonstrates appropriate compressibility and waveform variability. The deep femoral vein demonstrates appropriate compressibility and waveform variability. The popliteal vein demonstrates appropriate compressibility and waveform variability. There is normal compressibility at the tibioperoneal trunk. LEFT SIDE: The common femoral vein demonstrates appropriate compressibility and waveform variability. There is compressibility/patency of the great saphenous vein at the proximal thigh. The femoral vein demonstrates appropriate compressibility and waveform variability. The deep femoral vein demonstrates appropriate compressibility and waveform variability. The popliteal vein demonstrates appropriate compressibility and waveform variability. Left BKA Impression: No right or left femoropopliteal venous thrombosis.
--- NOTE | 2025-04-14 09:21 | DVHCONRES ---
Date Seen: April 14, 2025 Resident Creating Document: ANDREA WOODY RESIDENT Referring Physician Dr. Mar Reason for Consultation End-stage renal disease requiring hemodialysis History of Present Illness This is a 49-year-old male with past medical history of hypertension, type 2 diabetes mellitus, hyperlipidemia, CHF (HFrEF 25%), coronary artery disease status post PTCA in 2021. The patient presented to the ED with chief complaint of shortness of breaths. The patient states that all of his symptoms started last Thursday (one week ago), when he started noticing swelling of the right lower extremity but less on the left since he has a below-knee amputation of the left side. The patient reported swelling, shortness of breath and chest pain. The patient states that during those days he tried to overcome the symptoms but these ones got worse by yesterday, when he became fatigued, weak shortness of breaths was worse so he prompted visit to the ED. upon admission, initial CBC showed an hemoglobin of 10.8, CMP showed potassium of 5.5, creatinine of 11.77 and BUN of 148. GFR is currently 5. Patient also reported that he stopped urinating since Thursday but before that he usually was able to urinate small amounts of urine. On my examination, patient is currently on 2 L of oxygen through nasal cannula, still reporting mild shortness of breath and has right lower extremity swelling. Patient also has right and left lower quadrant abdominal tenderness to palpation that started since he stopped micturition. Patient has bilateral lung crackles and decreased breath sounds in the right lung base. We will consult IR for tunneled cath placement for Hemodialysis. Home meds: Amlodipine 10 mg daily aspirin 81 mg daily, atorvastatin 40mg qd, carvedilol 25 mg b.i.d., Jardiance 25 mg daily, Lasix 20 mg p.o. daily, gabapentin 300mg TID, insulin glargine 16 units b.i.d., nifedipine ER 30 mg, duloxetine 60 mg daily, terazosin 2 mg daily Past Medical History Hypertension Type 2 diabetes mellitus Hyperlipidemia Heart failure with reduced ejection fraction of 25% CAD status post PTCA in 2021. Past Surgical History Left below-knee amputation likely from complication of osteomyelitis, cholecystectomy, PTCA on 2021 Family History: Alcoholism G8 FATHER Asthma G8 MOTHER Depression G8 MOTHER G8 FATHER Diabetes mellitus G8 MOTHER Glaucoma G8 MOTHER Family History Diabetes mellitus type II, dad had hypertension, lymphoma, daughter had bone carcinoma Social History Lives with , denies smoking/alcoholism/drug abuse Allergies: Coded Allergies: Hydralazine (Verified Allergy, Unknown, 04/13/25) Piperacillin (Verified Allergy, Unknown, 08/31/24) Tazobactam (Verified Allergy, Unknown, 08/31/24) Home Meds Active Scripts Nifedipine (Nifedipine Er) 30 Mg Tab, 1 TAB PO DAILY, #30 TAB 3 Refills Prov:LOR KENNEDY MD 12/11/24 Reported Medications Metolazone (Metolazone) 2.5 Mg Tab, 2 TAB PO 2XW 04/14/25 Furosemide (Furosemide) 20 Mg Tab, 20 MG PO BID, TAB 04/14/25 Bumetanide (Bumetanide) 2 Mg Tab, 1 TAB PO 04/14/25 Terazosin Hcl (Terazosin Hcl) 2 Mg Cap, 1 CAP PO HS 04/14/25 Duloxetine HCl (Duloxetine HCl) 60 Mg Cap, 1 CAP PO DAILY 04/14/25 Cholecalciferol (VITAMIN D-3) 2,000 Unit Tab, 2000 UNIT PO DAILY, TAB 04/14/25 Carvedilol (Carvedilol) 25 Mg Tab, 1 TAB PO BID 04/14/25 Amlodipine Besylate (Amlodipine Besylate) 5 Mg Tab, 10 MG PO DAILY 04/14/25 Isosorbide Mononitrate (Isosorbide Mononitrate Er) 30 Mg Tab, 30 MG PO DAILY 05/14/22 Gabapentin (Gabapentin) 300 Mg Cap, 300 MG PO TID 05/14/22 Insulin Glargine (Basaglar Kwikpen) 100 Unit/Ml Inj, 62 UNIT SC QPM 05/14/22 Atorvastatin Calcium (Lipitor) 20 Mg Tab, 20 MG PO DAILY 05/14/22 Aspirin (ASPIRIN 81) 81 Mg Tab, 81 MG PO DAILY 05/14/22 Current Medications Current Medications Medications (Trade) Dose Ordered Sig/Milka Route PRN Reason Start Time Stop Time Status Last Admin Sodium Chloride (Saline Lock Ns) 10 ml Q8HR IV 04/13/25 22:00 04/14/25 06:30 Ondansetron HCl (Zofran) 4 mg Q4HP PRN IV NAUSEA / VOMITING 04/13/25 21:45 Enoxaparin Sodium (Lovenox) 30 mg DAILY SC 04/14/25 10:00 Acetaminophen (Tylenol Tablet) 650 mg Q6HP PRN PO PAIN SCALE 1-3 OR TEMP>100.4 04/13/25 21:45 04/14/25 03:33 Nitroglycerin (Ntrostat Sublingual) 0.4 mg Q5MINP PRN SL FOR CHEST PAIN 04/13/25 21:45 Aspirin (Ecotrin Enteric Coated Tablet) 81 mg DAILY PO 04/14/25 10:00 Atorvastatin Calcium (Lipitor) 20 mg DAILY PO 04/14/25 10:00 Patient Own Medication 62 unit QPM SC 04/14/25 18:00 04/13/25 22:16 DC Patient Own Medication 30 mg DAILY PO 04/14/25 10:00 04/13/25 22:19 DC Furosemide (Lasix Injection) 40 mg BIDD IV 04/14/25 06:00 04/14/25 08:10 DC Carvedilol (Coreg Tablet) 25 mg Q12HR PO 04/13/25 22:00 04/13/25 23:06 Pantoprazole Sodium (Protonix Tablet) 40 mg DAILY@0600 PO 04/14/25 06:00 04/14/25 06:30 Albuterol (Ventolin Medneb) 2.5 mg Q6HPRN PRN NEB SHORTNESS OF BREATH 04/13/25 22:15 Ipratropium [place] (Atrovent Medneb) 0.5 mg Q6HPRN PRN NEB SHORTNESS OF BREATH 04/13/25 22:15 Ipratropium [place] (Atrovent Medneb) 0.5 mg Q6HPRN PRN NEB SHORTNESS OF BREATH 04/13/25 22:15 04/13/25 22:20 DC Ceftazidime/ Dextrose 1 gm/ Sodium Chloride 50 ml @ 16.667 mls/ hr Q24H IV 04/14/25 22:00 04/13/25 22:24 DC Insulin Glargine (Lantus) 15 units BID SC 04/13/25 10:00 04/13/25 22:30 DC Ceftriaxone Sodium 50 ml @ 100 mls/hr Q24H IV 04/14/25 23:00 Diagnostic Test (Pha) (Accu-Chek Comfort Curve T) 1 strip ACHS 04/14/25 07:00 04/14/25 07:00 Insulin Human Regular (InsuLIN R) ACHS SC 04/14/25 07:00 Dextrose 50 ml UD PRN IV Blood Sugar LESS THAN 60 04/13/25 22:30 Doxycycline Hyclate 100 ml @ 50 mls/hr Q12H IV 04/14/25 14:00 Zirconium Oxide (Lokelma) 10 gm TID PO 04/14/25 06:00 04/15/25 22:01 Review of Systems ROS Constitutional: Denies weight loss, fever and chills. HEENT: Denies changes in vision and hearing. Respiratory reports mild to moderate shortness of breath. Denies cough Cardiovascular: Denies chest discomfort or palpitations GI: Reports right and left lower quadrant abdominal tenderness. Denies vomiting, nausea or diarrhea : Denies dysuria and urinary frequency. Musculoskeletal: Reports right lower extremity swelling. Denies myalgias and joint pain Skin: Denies rash and pruritus. Neurological: Denies dizziness, headache, vision or hearing problems Vital Signs Vital Signs Date Time Temp Pulse Resp B/P (MAP) Pulse Ox O2 Delivery O2 Flow Rate FiO2 04/14/25 06:00 132/77 04/14/25 05:00 97.7 80 15 95 97.7 04/14/25 04:19 Nasal Cannula* 2 28 Physical Exam Physical Examination General: Patient alert and oriented in person, place and time. Patient follo wing commands. HEENT: Normocephalic, atraumatic, moist mucous membranes Respiratory/pulmonary: There are crackles on bilateral lung martell and there is decreased breath sounds on right lung base. No wheezes at this time Cardiovascular: Normal heart sounds S1 and S2 with no associated murmurs Abdomen: Abdomen nondistended, there is tenderness to palpation in the right and left lower quadrants of the abdomen. No masses palpated at this time. Extremities: There is a below-knee amputation in the left lower extremity, right lower extremity has 1+ pitting edema. Skin: No rashes or pruritus, there is no sacral edema present at this time. Neurological: Intact cranial nerves with no focal neurologic deficits Labs/Diagnostic Data Labs Test 04/14/25 02:48 04/14/25 02:40 04/14/25 00:00 04/13/25 20:47 Range/Units White Blood Count 9.2 4.4-10.8 10^3/uL Red Blood Count 3.56 L 4.5-5.90 10^6/uL Hemoglobin 10.8 L 13.5-17.5 g/dL Hematocrit 32.1 L 41.0-53.0 % Mean Corpuscular Volume 90.1 80.0-100.0 fL Mean Corpuscular Hemoglobin 30.4 28.0-32.0 pg Mean Corpuscular Hemoglobin Concent 33.8 32.0-36.0 g/dL Red Cell Distribution Width 13.0 11.8-14.3 % Platelet Count 234 140-450 10^3/uL Mean Platelet Volume 7.6 6.9-10.8 fL Neutrophils (%) (Auto) 73.5 37.0-80.0 % Lymphocytes (%) (Auto) 13.6 10.0-50.0 % Monocytes (%) (Auto) 8.1 0.0-12.0 % Eosinophils (%) (Auto) 4.6 0.0-7.0 % Basophils (%) (Auto) 0.2 0.0-2.0 % Neutrophils # (Auto) 6.8 1.6-8.6 10 ^3/uL Lymphocytes # (Auto) 1.3 0.4-5.4 10 ^3/uL Monocytes # (Auto) 0.8 0-1.3 10 ^3/uL Eosinophils # (Auto) 0.4 0-0.8 10 ^3/uL Basophils # (Auto) 0 0-0.2 10 ^3/uL Nucleated Red Blood Cells 0.1 % Sodium Level 136 136-145 mmol/L Potassium Level 5.5 H 3.5-5.1 mmol/L Chloride Level 101 98-107 mmol/L Carbon Dioxide Level 17 L 20-31 mmol/L Anion Gap 18 H 5-15 Blood Urea Nitrogen 148 *H 9-23 mg/dL Creatinine 11.77 *H 0.700-1.30 mg/dL Glomerular Filtration Rate Calc 5 >90 mL/min BUN/Creatinine Ratio 12.6 10.0-20.0 Serum Glucose 145 H 74-106 mg/dL Hemoglobin A1c 8.0 H <5.7 % A1C Calcium Level 6.4 L 8.7-10.4 mg/dL Magnesium Level 2.4 1.6-2.6 mg/dL Total Bilirubin 0.2 0.2-1.0 mg/dL Aspartate Amino Transferase (AST) 10 L 13-40 U/L Alanine Aminotransferase (ALT) < 9 7-40 U/L Alkaline Phosphatase 253 H 46-116 U/L Ammonia 17 11-32 umol/L Total Protein 6.8 5.7-8.2 g/dL Albumin 3.7 3.2-4.8 g/dL Vitamin B12 Level 927 H 211-911 pg/mL Vitamin D 25-Hydroxy 38.7 30.0-100 ng/mL Folic Acid 11.01 >5.38 ng/mL Blood Gas Specimen Type Arterial Blood Gas Sample Site Left radial Blood Gas Patient Temperature 37.0 Arterial Blood Date Drawn [id number] Arterial Blood pH 7.194 *L 7.350-7.450 Arterial Blood Partial Pressure CO2 33.3 L 35.0-48.0 mmHg Arterial Blood Partial Pressure O2 91.3 83.0-108.0 mmHg Arterial Blood HCO3 12.5 L 21.0-28.0 mmol/L Arterial Blood Oxygen Saturation 95.0 94.0-98.0 % Arterial Blood Base Excess -14.5 L -2.0-3.0 mmol/L Arterial Blood Oxyhemoglobin 94.3 94.0-98.0 % Arterial Blood Carboxyhemoglobin 0.3 L 0.5-1.5 % Arterial Blood Methemoglobin 0.4 0.0-1.5 % Jarod Test Modified Blood Gas Total Hemoglobin 11.30 L 13.5-17.5 g/dL Blood Gas Liter Flow 2.00 Blood Gas Modality Nasal cannula FiO2 % 28.0 Blood Gas Critical Value Read Back Yes Blood Gas Notified Whom dom Mar md Blood Gas Notified Time [id number] Blood Gas Notified By angela Kelsey, steven Influenza Type A Antigen Negative Negative Influenza Type B Antigen Negative Negative SARS-CoV-2 Antigen (Rapid) Negative NEGATIVE Troponin I High Sensitivity 16 </=54 ng/L Test 04/13/25 20:43 04/13/25 18:40 04/13/25 17:53 Range/Units Urine Color Light-yellow Yellow Urine Clarity Turbid H Clear Urine pH 5.0 5.0-9.0 Urine Specific [place] 1.012 1.001-1.035 Urine Protein 2+ H Negative Urine Ketones Negative Negative Urine Blood Negative Negative /uL Urine Nitrite Negative Negative Urine Bilirubin Negative Negative Urine Urobilinogen Normal Negative mg/dL Urine Leukocyte Esterase 1+ Negative /uL Urine RBC 3 0 - 3 /hpf Urine Microscopic WBC 9 H 0-3 /HPF Urine Squamous Epithelial Cells Few <5 /hpf Urine Amorphous Crystals Few None Seen /hpf Urine Bacteria Few H None Seen /hpf Urine Hyaline Casts Few 0 - 2 /lpf Urine Creatinine 97.22 30.0-125.0 mg/dL Urine Protein/Creatinine Ratio 1.61 Urine Sodium 23 L 40-220 mmol/L Urine Glucose Normal Normal mg/dL Urine Total Protein 156.7 H 1-14 mg/dL Urine Opiates Screen Neg NEGATIVE Urine Fentanyl Screen Neg NEGATIVE Urine Barbiturates Screen Neg NEGATIVE Urine Phencyclidine Screen Neg NEGATIVE Urine Amphetamines Screen Neg NEGATIVE Urine Benzodiazepines Screen Neg NEGATIVE Urine Cocaine Screen Neg NEGATIVE Urine Cannabinoids Screen Neg NEGATIVE POC Glucose 141 H 70-106 mg/dl Phosphorus Level 13.6 H 2.4-5.1 mg/dL Direct Bilirubin < 0.1 <0.3 mg/dL B-Type Natriuretic Peptide 435.11 0-100 pg/mL Thyroid Stimulating Hormone (TSH) 2.13 0.55-4.78 uIU/mL Assessment Assessment/Plan ESRD requiring HD for the first time Hyperkalemia Acute hypoxic respiratory failure likely due to volume overload Acute on chronic systolic heart failure (HFrEF 25%) Primary hypertension Type 2 diabetes History of left below-knee amputation History of coronary artery disease with stent placement in 2021 Plan -consulted IR for tunneled catheter which we will be placed during a.m. today -planning for hemodialysis in the afternoon -monitor electrolytes closely at least 2 hours after dialysis -avoid nephrotoxic drugs and quantify in's and out Goals of care discussed with the patient at bedside for >35min Plan discussed with Dr. Guthrie Plan discussed with: Patient ANDREA WOODY RESIDENT April 14, 2025 09:21
[2025-04-14 09:24] LABS: Basophils # (auto) 0 10 ^3/uL (0-0.2); Basophils % (auto) 0.7 % (0.0-2.0); Eosinophils # (auto) 0.2 10 ^3/uL (0-0.8); Eosinophils % (auto) 3.7 % (0.0-7.0); Hematocrit 31.5 % (41.0-53.0); Hemoglobin 10.6 g/dL (13.5-17.5); Lymphocytes # (auto) 1.2 10 ^3/uL (0.4-5.4); Lymphocytes % (auto) 17.5 % (10.0-50.0); Mean Corpuscular Hemoglobin 30.4 pg (28.0-32.0); Mean Corpuscular Hgb Conc. 33.8 g/dL (32.0-36.0); Mean Corpuscular Volume 89.9 fL (80.0-100.0); Monocytes # (auto) 0.7 10 ^3/uL (0-1.3); Monocytes % (auto) 9.9 % (0.0-12.0); Neutrophils # (auto) 4.6 10 ^3/uL (1.6-8.6); Neutrophils % (auto) 68.2 % (37.0-80.0); Platelet Count (auto) 209 10^3/uL (140-450); Red Blood Cells 3.51 10^6/uL (4.5-5.90); Red Cell Distribution Width 13.1 % (11.8-14.3); White Blood Cell 6.7 10^3/uL (4.4-10.8)
[2025-04-14 09:41] LABS: INR 1.07 (0.9-1.15); Prothrombin Time 11.3 sec (9.3-11.8)
[2025-04-14 09:45] LABS: Alanine Aminotransferase < 9 U/L (7-40); Albumin 3.5 g/dL (3.2-4.8); Alkaline Phosphatase 251 U/L (46-116); Anion Gap 16 (5-15); Aspartate Aminotransferase 9 U/L (13-40); BUN/Creatinine Ratio 12.9 (10.0-20.0); Calcium 6.5 mg/dL (8.7-10.4); Carbon Dioxide 18 mmol/L (20-31); Chloride 104 mmol/L (98-107); Creatine Kinase IFCC 400 U/L (46-171); Glucose 131 mg/dL (74-106); Magnesium 2.3 mg/dL (1.6-2.6); Potassium 4.8 mmol/L (3.5-5.1); Sodium 138 mmol/L (136-145); Total Protein 6.5 g/dL (5.7-8.2)
[2025-04-14 09:47] LABS: Bilirubin, Total 0.2 mg/dL (0.2-1.0); Blood Urea Nitrogen 149 mg/dL (9-23)
[2025-04-14 09:58] LABS: Uric Acid 9.6 mg/dL (3.7-9.2)
[2025-04-14] MEDS: ASPirin-EC 81 mg tab PO SCH (10:00)
[2025-04-14] MEDS: ATORVASTATIN 20 MG TAB PO SCH (10:00)
[2025-04-14] MEDS ORDERED: PATIENTS OWN MEDICATION (Isosorbide Mononitrate (Isosorbide Mononitrate Er) 30 MG) PO SCH (10:00)
[2025-04-14] MEDS: ENOXAPARIN SOD 30 MG/0.3 ML SYRINGE SC SCH (10:00)
[2025-04-14] MEDS: fentaNYL CITRATE 100 MCG/2 ML VL ONE (10:23)
[2025-04-14] MEDS: LIDOCAINE 2%HCL (LOCAL ANESTH.) INJ 20ML MDV ONE (10:23)
[2025-04-14] MEDS: MIDAZOLAM HCL 2MG/2ML 2ml VIAL (1mg/ml) ONE (10:23)
[2025-04-14] MEDS: HEPARIN SODIUM (PORCINE) 5000 UNITS/ML 1ML VIAL ONE (10:26)
--- NOTE | 2025-04-14 11:50 | DVH ---
XY Insertion of Venous Cath, HISTORY: HD CATH PROCEDURE: Informed consent was obtained. The patient was placed supine on the interventional table. A limited localization ultrasound of the right neck base was obtained. The right neck base and upper chest were prepped with chlorhexidine which was allowed to dry and draped in the usual sterile fashio n. Time out was performed. was administered. The skin and the soft tissues were infiltrated with 1% Lidocaine. With real-time ultrasound guidance, the internal jugular vein was accessed with a micropun cture kit, and an image documenting patency was recorded to PACS. A subcutaneous tunneled tract was c reated from the right upper chest to the venotomy site. A 14.5 [place] Path, 23 cm long hemodial ysis catheter was advanced through the tunneled tract. Fluoroscopy was used to advance a guidewire through the internal jugular vein into the inferior vena cava. Following serial dilatation, a 15 [place] peel-away sheath was introduced, though which was adva nced the catheter into the right atrium. The catheter tip position was confirmed with fluoroscopy. Th ere was satisfactory flow in both lumens. The catheter lumens were flushed with saline and heparin wa s left indwelling in the catheter. A post-procedure image of the chest was obtained. The neck incisio n site was closed with a dressed sterilely. The catheter was sutured at the skin surface and exit si te also dressed sterilely. No immediate complication was identified. Dap 4.61 FLUOROSCOPY TIME: 1.4 minutes. FINDINGS: Widely patent right IJV. Post procedure image demonstrates smooth course of the hemodialysi s catheter with the tip in the right atrium. IMPRESSION: Successful placement of 14.5 j[place] Path, 23 cm long hemodialysis catheter through right hospital internship al jugular vein. Plan: Please contact IR for removal when no longer needed.
--- NOTE | 2025-04-14 11:56 | DVH ---
US THORACENTESIS, HISTORY: THORACENTESIS PROCEDURE: Informed consent was obtained. The patient was seated on the bed. A limited localization u ltrasound of the right thorax was obtained, and the optimal approach was marked on the skin. The area was prepped with chlorhexidine which was allowed to dry and draped in the usual sterile fashion. John e out was performed. The skin and the soft tissues were infiltrated with 1% lidocaine. A 5.5 [place]i c entesis needle catheter was advanced into right pleural space. Following aspiration of fluid, the cat heter was advanced and the needle removed. About 1500 cc of fluid was drained. Specimen/s was/were se nt for appropriate cultures/cytology/cultures and cytology. No immediate complication was identified. FINDINGS: Moderate right pleural effusion. Aspirated fluid is clear and serous. IMPRESSION: right thoracentesis with 1.5L removed.
--- NOTE | 2025-04-14 12:08 | DVH ---
XY CHEST PORTABLE, HISTORY: POST THORACENTESIS. PT IS IN [employer] BED 3. ETA=10 COMPARISON: XY CHEST PORTABLE on DOS: 04/13/25, XY CHEST PORTABLE on DOS: 12/10/24 XY CHEST PORTABLE on DOS: 04/13/25, XY CHEST PORTABLE on DOS: 12/10/24 TECHNICAL DATA: 1 view of the chest was obtained. FINDINGS: Lines and tubes: A TD cath is seen. Cardiomediastinal silhouette: normal Pulmonary vasculature: normal Lung expansion: normal Lung airspace: normal Lung interstitium: normal Pleura: normal Pneumothorax: no Bones: Unremarkable Other: Artifact is seen. IMPRESSION: No obvious right pneumothorax is seen.
[2025-04-14] MEDS: SODIUM CHL 0.9% 1000 ML BAG XX ONE (12:15)
[2025-04-14 12:20] LABS: Hepatitis A Ab IgM Negative; Hepatitis B Core IgM Negative (Negative); Hepatitis B Surface Antigen Negative (Negative)
[2025-04-14 12:23] LABS: Hepatitis C Antibody Reactive (Negative)
[2025-04-14] MEDS: DOXYCYCLINE 100MG/100ML 100 ML IV SCH (14:00)
--- NOTE | 2025-04-14 14:05 | DVHPNRES ---
Progress Note Date Seen: April 14, 2025 Resident Creating Document: JHAJJSALASRENATAANA RESIDENT Objective vital signs Vital Sign Date Time Temp Pulse Resp B/P (MAP) Pulse Ox O2 Delivery O2 Flow Rate FiO2 04/14/25 13:20 97.4 82 17 123/69 (87) 97 97.4 04/14/25 07:55 Nasal Cannula* 2 28 Total Intake and Output 04/13/25 04/13/25 04/14/25 15:00 23:00 07:00 Intake Total 350 ml Balance 350 ml medications Current Medications Medications Dose Ordered Sig/Milka Route Start Time Stop Time Status Last Admin Dose Admin Sodium Chloride 10 ml Q8HR IV 04/13/25 22:00 04/14/25 06:30 10 ML Ondansetron HCl 4 mg Q4HP PRN IV 04/13/25 21:45 Enoxaparin Sodium 30 mg DAILY SC 04/14/25 10:00 Acetaminophen 650 mg Q6HP PRN PO 04/13/25 21:45 04/14/25 03:33 650 MG Nitroglycerin 0.4 mg Q5MINP PRN SL 04/13/25 21:45 Aspirin 81 mg DAILY PO 04/14/25 10:00 Atorvastatin Calcium 20 mg DAILY PO 04/14/25 10:00 Carvedilol 25 mg Q12HR PO 04/13/25 22:00 04/13/25 23:06 25 MG Pantoprazole Sodium 40 mg DAILY@0600 PO 04/14/25 06:00 04/14/25 06:30 40 MG Albuterol 2.5 mg Q6HPRN PRN NEB 04/13/25 22:15 Ipratropium [place] 0.5 mg Q6HPRN PRN NEB 04/13/25 22:15 Ceftriaxone Sodium 50 ml @ 100 mls/hr Q24H IV 04/14/25 23:00 Diagnostic Test (Pha) 1 strip ACHS 04/14/25 07:00 04/14/25 12:20 1 STRIP Insulin Human Regular ACHS SC 04/14/25 07:00 Dextrose 50 ml UD PRN IV 04/13/25 22:30 Doxycycline Hyclate 100 ml @ 50 mls/hr Q12H IV 04/14/25 14:00 Zirconium Oxide 10 gm TID PO 04/14/25 06:00 04/15/25 22:01 Sevelamer HCl 1,600 mg TIDWM PO 04/14/25 18:00 laboratory and microbiology Laboratory Tests 04/14/25 09:02 Test 04/14/25 09:02 Range/Units Serum Glucose 131 H 74-106 mg/dL Microbiology Date/Time Source Procedure Growth Status 04/14/25 11:45 Pleural Fluid Received My Orders My Orders Orders - CALOS CHASE Procedure Category Date Status Time * Radiologist Consult CONS 04/14/25 Transmitted 09:30 CALOS CHASE RESIDENT April 14, 2025 14:05
[2025-04-14 14:52] LABS: Body Fluid Red Blood Cells 193 CUMM (0-2000); Body Fluid White Blood Cells 154 CUMM (0-200)
--- NOTE | 2025-04-14 15:27 | DVHINCON2 ---
Date of service: April 14, [address] Nielsen Reason for Consultation resp failure History of Present Illness HPI The patient is a 49-year-old gentleman with multiple medical problems history of congestive heart failure and end-stage renal disease on hemodialysis, diabetes, high blood pressure who presented with worsening shortness of breath and swelling of the lower extremities. Patient was found to have fluid overload and bilateral pleural effusions and underwent a right-sided thoracentesis by Radiology with 1.5 L of fluid drained. He appears deconditioned and is short of breath on minimal exertion. Home Meds Active Scripts Nifedipine (Nifedipine Er) 30 Mg Tab, 1 TAB PO DAILY, #30 TAB 3 Refills Prov:LOR KENNEDY MD 12/11/24 Reported Medications Metolazone (Metolazone) 2.5 Mg Tab, 2 TAB PO 2XW 04/14/25 Furosemide (Furosemide) 20 Mg Tab, 20 MG PO BID, TAB 04/14/25 Bumetanide (Bumetanide) 2 Mg Tab, 1 TAB PO 04/14/25 Terazosin Hcl (Terazosin Hcl) 2 Mg Cap, 1 CAP PO HS 04/14/25 Duloxetine HCl (Duloxetine HCl) 60 Mg Cap, 1 CAP PO DAILY 04/14/25 Cholecalciferol (VITAMIN D-3) 2,000 Unit Tab, 2000 UNIT PO DAILY, TAB 04/14/25 Carvedilol (Carvedilol) 25 Mg Tab, 1 TAB PO BID 04/14/25 Amlodipine Besylate (Amlodipine Besylate) 5 Mg Tab, 10 MG PO DAILY 04/14/25 Isosorbide Mononitrate (Isosorbide Mononitrate Er) 30 Mg Tab, 30 MG PO DAILY 05/14/22 Gabapentin (Gabapentin) 300 Mg Cap, 300 MG PO TID 05/14/22 Insulin Glargine (Basaglar Kwikpen) 100 Unit/Ml Inj, 62 UNIT SC QPM 05/14/22 Atorvastatin Calcium (Lipitor) 20 Mg Tab, 20 MG PO DAILY 05/14/22 Aspirin (ASPIRIN 81) 81 Mg Tab, 81 MG PO DAILY 05/14/22 Past Medical History Cardiac: HTN Pulmonary: No pertinent Hx Central Nervous System: No pertinent Hx GI: No pertinent Hx Hemotology/Oncology: Anemia NOS Hepatobiliary: No pertinent Hx Psychiatric: No pertinent Hx Musculoskeletal: No pertinent Hx Rheumotologic: No pertinent Hx Infectious Disease: No peritnent Hx ENT: No pertinent Hx Renal/: ESRD HD/PD Dermatology: No pertinent Hx Past Surgical History: No pertinent Hx Family History: No pertinent Hx Patient Family History: Alcoholism G8 FATHER Asthma G8 MOTHER Depression G8 MOTHER G8 FATHER Diabetes mellitus G8 MOTHER Glaucoma G8 MOTHER Review of Systems Constitutional: Malaise, Weakness Ears, Nose, & Throat: No symptom reported Eyes: No symptom reported Pulmonary/Respiratory: Dyspnea, Cough Cardiovascular: No symptom reported Gastrointestinal: No symptom reported Genitourinary: No symptom reported Musculoskeletal: No symptom reported Skin: No symptom reported Psychiatric: No symptom reported Endocrine: No symptom reported Hemotologic/Lymphatic: No symptom reported H&P Exam Vital Signs Vital Signs Date Time Temp Pulse Resp B/P (MAP) Pulse Ox O2 Delivery O2 Flow Rate FiO2 04/14/25 13:20 97.4 82 17 123/69 (87) 97 97.4 04/14/25 07:55 Nasal Cannula* 2 28 General Appeara: Mild distress Head Exam: Normal inspection Neck Exam: Normal inspection, Non-tender, Normal alignment Eye Exam: bilateral eye Normal inspection, bilateral eye PERRL Ear Exam: bilateral ear Auricle normal, bilateral ear Canal normal Nasal Exam: Normal inspection Mouth: Normal Inspection Pulmonary/Respiratory: Normal inspection, Normal breath sounds, Chest non- tender Cardiovascular/Chest: Normal inspection Peripheral Pulses: 4+ carotid (R), 4+ carotid (L) Abdominal Exam: Normal bowel sounds Labs/Xrays Labs Test 04/14/25 12:19 04/14/25 11:45 04/14/25 09:02 04/14/25 02:48 Range/Units POC Glucose 116 H 70-106 mg/dl Body Fluid Source Pleural fluid Body Fluid pH 8.0 Body Fluid WBC (Manual) 154 0-200 CUMM Body Fluid RBC (Manual) 193 0-2000 CUMM Body Fluid Mononuclear Cells 98 % Body Fluid Polymorphonuclear Cells 2 0-25 % White Blood Count 6.7 # 4.4-10.8 10^3/uL Red Blood Count 3.51 L 4.5-5.90 10^6/uL Hemoglobin 10.6 L 13.5-17.5 g/dL Hematocrit 31.5 L 41.0-53.0 % Mean Corpuscular Volume 89.9 80.0-100.0 fL Mean Corpuscular Hemoglobin 30.4 28.0-32.0 pg Mean Corpuscular Hemoglobin Concent 33.8 32.0-36.0 g/dL Red Cell Distribution Width 13.1 11.8-14.3 % Platelet Count 209 140-450 10^3/uL Mean Platelet Volume 7.2 6.9-10.8 fL Neutrophils (%) (Auto) 68.2 37.0-80.0 % Lymphocytes (%) (Auto) 17.5 10.0-50.0 % Monocytes (%) (Auto) 9.9 0.0-12.0 % Eosinophils (%) (Auto) 3.7 0.0-7.0 % Basophils (%) (Auto) 0.7 0.0-2.0 % Neutrophils # (Auto) 4.6 1.6-8.6 10 ^3/uL Lymphocytes # (Auto) 1.2 0.4-5.4 10 ^3/uL Monocytes # (Auto) 0.7 0-1.3 10 ^3/uL Eosinophils # (Auto) 0.2 0-0.8 10 ^3/uL Basophils # (Auto) 0 0-0.2 10 ^3/uL Nucleated Red Blood Cells 0.0 % Prothrombin Time 11.3 9.3-11.8 sec Prothrombin Time INR 1.07 0.9-1.15 Activated Partial Thromboplast Time 31.0 24.5-34.5 SEC Sodium Level 138 136-145 mmol/L Potassium Level 4.8 3.5-5.1 mmol/L Chloride Level 104 98-107 mmol/L Carbon Dioxide Level 18 L 20-31 mmol/L Anion Gap 16 H 5-15 Blood Urea Nitrogen 149 *H 9-23 mg/dL Creatinine 11.58 *H 0.700-1.30 mg/dL Glomerular Filtration Rate Calc 5 >90 mL/min BUN/Creatinine Ratio 12.9 10.0-20.0 Serum Glucose 131 H 74-106 mg/dL Uric Acid 9.6 H 3.7-9.2 mg/dL Calcium Level 6.5 L 8.7-10.4 mg/dL Magnesium Level 2.3 1.6-2.6 mg/dL Total Bilirubin 0.2 0.2-1.0 mg/dL Aspartate Amino Transferase (AST) 9 L 13-40 U/L Alanine Aminotransferase (ALT) < 9 7-40 U/L Alkaline Phosphatase 251 H 46-116 U/L Lactate Dehydrogenase 259 H 120-246 U/L Creatine Kinase 400 H 46-171 U/L Total Protein 6.5 5.7-8.2 g/dL Albumin 3.5 3.2-4.8 g/dL Hepatitis A IgM Antibody Negative Hepatitis B Surface Antigen Negative Negative Hepatitis B Core IgM Antibody Negative Negative Hepatitis C Antibody Reactive *A Negative Hemoglobin A1c 8.0 H <5.7 % A1C Ammonia 17 11-32 umol/L Vitamin B12 Level 927 H 211-911 pg/mL Vitamin D 25-Hydroxy 38.7 30.0-100 ng/mL Folic Acid 11.01 >5.38 ng/mL Test 04/14/25 02:40 04/14/25 00:00 04/13/25 20:47 04/13/25 20:43 Range/Units Blood Gas Specimen Type Arterial Blood Gas Sample Site Left radial Blood Gas Patient Temperature 37.0 Arterial Blood Date Drawn [id number] Arterial Blood pH 7.194 *L 7.350-7.450 Arterial Blood Partial Pressure CO2 33.3 L 35.0-48.0 mmHg Arterial Blood Partial Pressure O2 91.3 83.0-108.0 mmHg Arterial Blood HCO3 12.5 L 21.0-28.0 mmol/L Arterial Blood Oxygen Saturation 95.0 94.0-98.0 % Arterial Blood Base Excess -14.5 L -2.0-3.0 mmol/L Arterial Blood Oxyhemoglobin 94.3 94.0-98.0 % Arterial Blood Carboxyhemoglobin 0.3 L 0.5-1.5 % Arterial Blood Methemoglobin 0.4 0.0-1.5 % Jarod Test Modified Blood Gas Total Hemoglobin 11.30 L 13.5-17.5 g/dL Blood Gas Liter Flow 2.00 Blood Gas Modality Nasal cannula FiO2 % 28.0 Blood Gas Critical Value Read Back Yes Blood Gas Notified Whom dom Mar md Blood Gas Notified Time [id number] Blood Gas Notified By angela Kelsey rrt Influenza Type A Antigen Negative Negative Influenza Type B Antigen Negative Negative SARS-CoV-2 Antigen (Rapid) Negative NEGATIVE Troponin I High Sensitivity 16 </=54 ng/L Urine Color Light-yellow Yellow Urine Clarity Turbid H Clear Urine pH 5.0 5.0-9.0 Urine Specific [place] 1.012 1.001-1.035 Urine Protein 2+ H Negative Urine Ketones Negative Negative Urine Blood Negative Negative /uL Urine Nitrite Negative Negative Urine Bilirubin Negative Negative Urine Urobilinogen Normal Negative mg/dL Urine Leukocyte Esterase 1+ Negative /uL Urine RBC 3 0 - 3 /hpf Urine Microscopic WBC 9 H 0-3 /HPF Urine Squamous Epithelial Cells Few <5 /hpf Urine Amorphous Crystals Few None Seen /hpf Urine Bacteria Few H None Seen /hpf Urine Hyaline Casts Few 0 - 2 /lpf Urine Creatinine 97.22 30.0-125.0 mg/dL Urine Protein/Creatinine Ratio 1.61 Urine Sodium 23 L 40-220 mmol/L Urine Glucose Normal Normal mg/dL Urine Total Protein 156.7 H 1-14 mg/dL Urine Opiates Screen Neg NEGATIVE Urine Fentanyl Screen Neg NEGATIVE Urine Barbiturates Screen Neg NEGATIVE Urine Phencyclidine Screen Neg NEGATIVE Urine Amphetamines Screen Neg NEGATIVE Urine Benzodiazepines Screen Neg NEGATIVE Urine Cocaine Screen Neg NEGATIVE Urine Cannabinoids Screen Neg NEGATIVE Test 04/13/25 17:53 Range/Units Phosphorus Level 13.6 H 2.4-5.1 mg/dL Direct Bilirubin < 0.1 <0.3 mg/dL B-Type Natriuretic Peptide 435.11 0-100 pg/mL Thyroid Stimulating Hormone (TSH) 2.13 0.55-4.78 uIU/mL Microbiology Date/Time Source Procedure Growth Status 04/14/25 11:45 Pleural Fluid Received Assessment/Plan Plan Acute hypoxemic respiratory failure Cardiomyopathy EF 20% End-stage renal disease hemodialysis Effusion ? Pneumonia Fluid overload Atelectasis Patient seen and examined Clinically In distress! ABG pH 7.19 pCO2 33 PO2 91 on 2 L of oxygen Consistent with metabolic acidosis Imaging reviewed Labs reviewed Management plan Supplemental oxygen as needed Bronchodilators/antibiotics On Rocephin cultures negative Follow-up on chest x-ray Dialysis and fluid removal if no improvement in respiratory status consider repeat thoracentesis Supportive Care GI and DVT prophylaxis Management per primary team and other specialists Plan discussed with: Patient LOUIS MCDONALD MD April 14, 2025 15:27
--- NOTE | 2025-04-14 15:41 | DVHINCON2 ---
Date of service: April 14, [address] 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 Initial evaluation in the emergency room showed increased BUN and creatinine. Patient underwent placement of tunneled catheter and is undergoing dialysis currently. Patient is followed by Dr. Padron in the outpatient setting. Patient seen and examined at bedside. Past Medical History Chronic kidney disease Type 2 diabetes Hypertension Hyperlipidemia Heart failure with reduced EF Coronary artery disease status post PTCA Past Surgical History Left BKA Cholecystectomy Family History: Alcoholism G8 FATHER Asthma G8 MOTHER Depression G8 MOTHER G8 FATHER Diabetes mellitus G8 MOTHER Glaucoma G8 MOTHER Family History family history is positive for diabetes and hypertension Social History No active history of smoking, alcohol or drug abuse Allergies: Coded Allergies: Hydralazine (Verified Allergy, Unknown, 04/13/25) Piperacillin (Verified Allergy, Unknown, 08/31/24) Tazobactam (Verified Allergy, Unknown, 08/31/24) Home Meds Active Scripts Nifedipine (Nifedipine Er) 30 Mg Tab, 1 TAB PO DAILY, #30 TAB 3 Refills Prov:LOR KENNEDY MD 12/11/24 Reported Medications Metolazone (Metolazone) 2.5 Mg Tab, 2 TAB PO 2XW 04/14/25 Furosemide (Furosemide) 20 Mg Tab, 20 MG PO BID, TAB 04/14/25 Bumetanide (Bumetanide) 2 Mg Tab, 1 TAB PO 04/14/25 Terazosin Hcl (Terazosin Hcl) 2 Mg Cap, 1 CAP PO HS 04/14/25 Duloxetine HCl (Duloxetine HCl) 60 Mg Cap, 1 CAP PO DAILY 04/14/25 Cholecalciferol (VITAMIN D-3) 2,000 Unit Tab, 2000 UNIT PO DAILY, TAB 04/14/25 Carvedilol (Carvedilol) 25 Mg Tab, 1 TAB PO BID 04/14/25 Amlodipine Besylate (Amlodipine Besylate) 5 Mg Tab, 10 MG PO DAILY 04/14/25 Isosorbide Mononitrate (Isosorbide Mononitrate Er) 30 Mg Tab, 30 MG PO DAILY 05/14/22 Gabapentin (Gabapentin) 300 Mg Cap, 300 MG PO TID 05/14/22 Insulin Glargine (Basaglar Kwikpen) 100 Unit/Ml Inj, 62 UNIT SC QPM 05/14/22 Atorvastatin Calcium (Lipitor) 20 Mg Tab, 20 MG PO DAILY 05/14/22 Aspirin (ASPIRIN 81) 81 Mg Tab, 81 MG PO DAILY 05/14/22 Current Medications Current Medications Medications (Trade) Dose Ordered Sig/Milka Route PRN Reason Start Time Stop Time Status Last Admin Sodium Chloride (Saline Lock Ns) 10 ml Q8HR IV 04/13/25 22:00 04/14/25 14:27 Ondansetron HCl (Zofran) 4 mg Q4HP PRN IV NAUSEA / VOMITING 04/13/25 21:45 Enoxaparin Sodium (Lovenox) 30 mg DAILY SC 04/14/25 10:00 Acetaminophen (Tylenol Tablet) 650 mg Q6HP PRN PO PAIN SCALE 1-3 OR TEMP>100.4 04/13/25 21:45 04/14/25 03:33 Nitroglycerin (Ntrostat Sublingual) 0.4 mg Q5MINP PRN SL FOR CHEST PAIN 04/13/25 21:45 Aspirin (Ecotrin Enteric Coated Tablet) 81 mg DAILY PO 04/14/25 10:00 Atorvastatin Calcium (Lipitor) 20 mg DAILY PO 04/14/25 10:00 Patient Own Medication 62 unit QPM SC 04/14/25 18:00 04/13/25 22:16 DC Patient Own Medication 30 mg DAILY PO 04/14/25 10:00 04/13/25 22:19 DC Furosemide (Lasix Injection) 40 mg BIDD IV 04/14/25 06:00 04/14/25 08:10 DC Carvedilol (Coreg Tablet) 25 mg Q12HR PO 04/13/25 22:00 04/13/25 23:06 Pantoprazole Sodium (Protonix Tablet) 40 mg DAILY@0600 PO 04/14/25 06:00 04/14/25 06:30 Albuterol (Ventolin Medneb) 2.5 mg Q6HPRN PRN NEB SHORTNESS OF BREATH 04/13/25 22:15 Ipratropium [place] (Atrovent Medneb) 0.5 mg Q6HPRN PRN NEB SHORTNESS OF BREATH 04/13/25 22:15 Ipratropium [place] (Atrovent Medneb) 0.5 mg Q6HPRN PRN NEB SHORTNESS OF BREATH 04/13/25 22:15 04/13/25 22:20 DC Ceftazidime/ Dextrose 1 gm/ Sodium Chloride 50 ml @ 16.667 mls/ hr Q24H IV 04/14/25 22:00 04/13/25 22:24 DC Ceftriaxone Sodium 50 ml @ 100 mls/hr Q24H IV 04/14/25 23:00 Diagnostic Test (Pha) (Accu-Chek Comfort Curve T) 1 strip ACHS 04/14/25 07:00 04/14/25 12:20 Insulin Human Regular (InsuLIN R) ACHS SC 04/14/25 07:00 Dextrose 50 ml UD PRN IV Blood Sugar LESS THAN 60 04/13/25 22:30 Doxycycline Hyclate 100 ml @ 50 mls/hr Q12H IV 04/14/25 14:00 Zirconium Oxide (Lokelma) 10 gm TID PO 04/14/25 06:00 04/15/25 22:01 Sevelamer HCl (Renagel) 1,600 mg TIDWM PO 04/14/25 18:00 Review of Systems 12 point review of systems negative except as stated in the HPI Vital Signs Vital Signs Date Time Temp Pulse Resp B/P (MAP) Pulse Ox O2 Delivery O2 Flow Rate FiO2 04/14/25 13:20 97.4 82 17 123/69 (87) 97 97.4 04/14/25 07:55 Nasal Cannula* 2 28 Physical Exam Awake and alert in no acute distress HEENT: Normocephalic, no JVD Lungs: Diminished breath sounds at bases CVS: S1, S2 regular rate rhythm Abdomen: Soft, bowel sounds present [employer]Y: No focal deficits Extremities: Status post left BKA. Edema present right lower extremity Labs/Diagnostic Data Labs Test 04/14/25 12:19 04/14/25 11:45 04/14/25 09:02 04/14/25 02:48 Range/Units POC Glucose 116 H 70-106 mg/dl Body Fluid Source Pleural fluid Body Fluid pH 8.0 Body Fluid WBC (Manual) 154 0-200 CUMM Body Fluid RBC (Manual) 193 0-2000 CUMM Body Fluid Mononuclear Cells 98 % Body Fluid Polymorphonuclear Cells 2 0-25 % White Blood Count 6.7 # 4.4-10.8 10^3/uL Red Blood Count 3.51 L 4.5-5.90 10^6/uL Hemoglobin 10.6 L 13.5-17.5 g/dL Hematocrit 31.5 L 41.0-53.0 % Mean Corpuscular Volume 89.9 80.0-100.0 fL Mean Corpuscular Hemoglobin 30.4 28.0-32.0 pg Mean Corpuscular Hemoglobin Concent 33.8 32.0-36.0 g/dL Red Cell Distribution Width 13.1 11.8-14.3 % Platelet Count 209 140-450 10^3/uL Mean Platelet Volume 7.2 6.9-10.8 fL Neutrophils (%) (Auto) 68.2 37.0-80.0 % Lymphocytes (%) (Auto) 17.5 10.0-50.0 % Monocytes (%) (Auto) 9.9 0.0-12.0 % Eosinophils (%) (Auto) 3.7 0.0-7.0 % Basophils (%) (Auto) 0.7 0.0-2.0 % Neutrophils # (Auto) 4.6 1.6-8.6 10 ^3/uL Lymphocytes # (Auto) 1.2 0.4-5.4 10 ^3/uL Monocytes # (Auto) 0.7 0-1.3 10 ^3/uL Eosinophils # (Auto) 0.2 0-0.8 10 ^3/uL Basophils # (Auto) 0 0-0.2 10 ^3/uL Nucleated Red Blood Cells 0.0 % Prothrombin Time 11.3 9.3-11.8 sec Prothrombin Time INR 1.07 0.9-1.15 Activated Partial Thromboplast Time 31.0 24.5-34.5 SEC Sodium Level 138 136-145 mmol/L Potassium Level 4.8 3.5-5.1 mmol/L Chloride Level 104 98-107 mmol/L Carbon Dioxide Level 18 L 20-31 mmol/L Anion Gap 16 H 5-15 Blood Urea Nitrogen 149 *H 9-23 mg/dL Creatinine 11.58 *H 0.700-1.30 mg/dL Glomerular Filtration Rate Calc 5 >90 mL/min BUN/Creatinine Ratio 12.9 10.0-20.0 Serum Glucose 131 H 74-106 mg/dL Uric Acid 9.6 H 3.7-9.2 mg/dL Calcium Level 6.5 L 8.7-10.4 mg/dL Magnesium Level 2.3 1.6-2.6 mg/dL Total Bilirubin 0.2 0.2-1.0 mg/dL Aspartate Amino Transferase (AST) 9 L 13-40 U/L Alanine Aminotransferase (ALT) < 9 7-40 U/L Alkaline Phosphatase 251 H 46-116 U/L Lactate Dehydrogenase 259 H 120-246 U/L Creatine Kinase 400 H 46-171 U/L Total Protein 6.5 5.7-8.2 g/dL Albumin 3.5 3.2-4.8 g/dL Hepatitis A IgM Antibody Negative Hepatitis B Surface Antigen Negative Negative Hepatitis B Core IgM Antibody Negative Negative Hepatitis C Antibody Reactive *A Negative Hemoglobin A1c 8.0 H <5.7 % A1C Ammonia 17 11-32 umol/L Vitamin B12 Level 927 H 211-911 pg/mL Vitamin D 25-Hydroxy 38.7 30.0-100 ng/mL Folic Acid 11.01 >5.38 ng/mL Test 04/14/25 02:40 04/14/25 00:00 04/13/25 20:47 04/13/25 20:43 Range/Units Blood Gas Specimen Type Arterial Blood Gas Sample Site Left radial Blood Gas Patient Temperature 37.0 Arterial Blood Date Drawn [id number] Arterial Blood pH 7.194 *L 7.350-7.450 Arterial Blood Partial Pressure CO2 33.3 L 35.0-48.0 mmHg Arterial Blood Partial Pressure O2 91.3 83.0-108.0 mmHg Arterial Blood HCO3 12.5 L 21.0-28.0 mmol/L Arterial Blood Oxygen Saturation 95.0 94.0-98.0 % Arterial Blood Base Excess -14.5 L -2.0-3.0 mmol/L Arterial Blood Oxyhemoglobin 94.3 94.0-98.0 % Arterial Blood Carboxyhemoglobin 0.3 L 0.5-1.5 % Arterial Blood Methemoglobin 0.4 0.0-1.5 % Jarod Test Modified Blood Gas Total Hemoglobin 11.30 L 13.5-17.5 g/dL Blood Gas Liter Flow 2.00 Blood Gas Modality Nasal cannula FiO2 % 28.0 Blood Gas Critical Value Read Back Yes Blood Gas Notified Whom dom Mar md Blood Gas Notified Time [id number] Blood Gas Notified By angela Kelsey, steven Influenza Type A Antigen Negative Negative Influenza Type B Antigen Negative Negative SARS-CoV-2 Antigen (Rapid) Negative NEGATIVE Troponin I High Sensitivity 16 </=54 ng/L Urine Color Light-yellow Yellow Urine Clarity Turbid H Clear Urine pH 5.0 5.0-9.0 Urine Specific [place] 1.012 1.001-1.035 Urine Protein 2+ H Negative Urine Ketones Negative Negative Urine Blood Negative Negative /uL Urine Nitrite Negative Negative Urine Bilirubin Negative Negative Urine Urobilinogen Normal Negative mg/dL Urine Leukocyte Esterase 1+ Negative /uL Urine RBC 3 0 - 3 /hpf Urine Microscopic WBC 9 H 0-3 /HPF Urine Squamous Epithelial Cells Few <5 /hpf Urine Amorphous Crystals Few None Seen /hpf Urine Bacteria Few H None Seen /hpf Urine Hyaline Casts Few 0 - 2 /lpf Urine Creatinine 97.22 30.0-125.0 mg/dL Urine Protein/Creatinine Ratio 1.61 Urine Sodium 23 L 40-220 mmol/L Urine Glucose Normal Normal mg/dL Urine Total Protein 156.7 H 1-14 mg/dL Urine Opiates Screen Neg NEGATIVE Urine Fentanyl Screen Neg NEGATIVE Urine Barbiturates Screen Neg NEGATIVE Urine Phencyclidine Screen Neg NEGATIVE Urine Amphetamines Screen Neg NEGATIVE Urine Benzodiazepines Screen Neg NEGATIVE Urine Cocaine Screen Neg NEGATIVE Urine Cannabinoids Screen Neg NEGATIVE Test 04/13/25 17:53 Range/Units Phosphorus Level 13.6 H 2.4-5.1 mg/dL Direct Bilirubin < 0.1 <0.3 mg/dL B-Type Natriuretic Peptide 435.11 0-100 pg/mL Thyroid Stimulating Hormone (TSH) 2.13 0.55-4.78 uIU/mL Microbiology Date/Time Source Procedure Growth Status 04/14/25 11:45 Pleural Fluid Received Assessment End-stage kidney disease Type 2 diabetes with nephropathy Hypertension Hyperlipidemia Heart failure with reduced EF History of coronary artery disease status post PTCA Chronic metabolic acidosis Hyperphosphatemia Hyperuricemia Pleural effusion Plan/Recommendation Patient underwent tunneled catheter placement. Patient is being dialyzed today with ultrafiltration of 1 L. Status post thoracentesis on the right with removal of 1.5 L of fluid. Check hepatitis panel. Case management for outpatient chair time at [facility]. Start calcium acetate. Stop Renvela Labs in a.m.. Another session of dialysis in a.m.. Plan discussed with: Patient KASIE GARG MD April 14, 2025 15:41
[2025-04-14] MEDS: CALCIUM ACETATE 667 MG CAP PO SCH (17:40)
[2025-04-14] MEDS ORDERED: SEVELAMER 800 MG TAB PO SCH (18:00)
[2025-04-14] MEDS ORDERED: INSULIN GLARGINE 62 UNIT SC SCH (18:00)
[2025-04-14] MEDS: IPRATROPIUM BROM 0.5 MG/2.5ML INH SOL NEB PRN (20:07)
[2025-04-14] MEDS: ALBUTEROL SULF 2.5 MG/0.5ML(0.5%) NEB SOLN NEB PRN (20:07)
[2025-04-14] MEDS: cefTRIAXone 1GM/50ML D5W 50 ML IV SCH (21:54)
[2025-04-14] MEDS ORDERED: cefTAZidime 1 GM in SODIUM CHL 0.9% 50 ML IV SCH (22:00)
--- NOTE | 2025-04-14 22:33 | DVHPN2 ---
Reviewed: Care Plan, H&P, Labs, Medications, Previous Orders, Radiology Changes from previous H/P or p: No Changes General: Per HPI Objective Vitals Vital Signs Date Time Temp Pulse Resp B/P (MAP) Pulse Ox O2 Delivery O2 Flow Rate FiO2 04/14/25 21:54 103 158/86 04/14/25 21:00 98.5 18 94 98.5 04/14/25 20:07 Nasal Cannula 3.0 04/14/25 20:07 32 Intake/Output Intake and Output 04/14/25 07:00 Intake Total 350 ml Balance 350 ml Intake Oral 350 ml Medications Current Medications Medications Dose Ordered Sig/Milka Route Start Time Stop Time Status Last Admin Dose Admin Sodium Chloride 10 ml Q8HR IV 04/13/25 22:00 04/14/25 21:55 10 ML Ondansetron HCl 4 mg Q4HP PRN IV 04/13/25 21:45 Enoxaparin Sodium 30 mg DAILY SC 04/14/25 10:00 Acetaminophen 650 mg Q6HP PRN PO 04/13/25 21:45 04/14/25 21:59 650 MG Nitroglycerin 0.4 mg Q5MINP PRN SL 04/13/25 21:45 Aspirin 81 mg DAILY PO 04/14/25 10:00 Atorvastatin Calcium 20 mg DAILY PO 04/14/25 10:00 Carvedilol 25 mg Q12HR PO 04/13/25 22:00 04/14/25 21:54 25 MG Pantoprazole Sodium 40 mg DAILY@0600 PO 04/14/25 06:00 04/14/25 06:30 40 MG Albuterol 2.5 mg Q6HPRN PRN NEB 04/13/25 22:15 04/14/25 20:07 2.5 MG Ipratropium [place] 0.5 mg Q6HPRN PRN NEB 04/13/25 22:15 04/14/25 20:07 0.5 MG Ceftriaxone Sodium 50 ml @ 100 mls/hr Q24H IV 04/14/25 23:00 04/14/25 21:54 100 MLS/HR Diagnostic Test (Pha) 1 strip ACHS 04/14/25 07:00 04/14/25 22:12 1 STRIP Insulin Human Regular ACHS SC 04/14/25 07:00 Dextrose 50 ml UD PRN IV 04/13/25 22:30 Doxycycline Hyclate 100 ml @ 50 mls/hr Q12H IV 04/14/25 14:00 Calcium Acetate 1,334 mg TIDWMEALS PO 04/14/25 18:00 04/14/25 17:40 1,334 MG Laboratory Results Laboratory Tests 04/14/25 09:02 Chemistry Test 04/14/25 00:40 04/14/25 02:48 04/14/25 09:02 Calcium Level 6.3 mg/dL (8.7-10.4) L 6.4 mg/dL (8.7-10.4) L 6.5 mg/dL (8.7-10.4) L Albumin 3.7 g/dL (3.2-4.8) 3.5 g/dL (3.2-4.8) Magnesium Level 2.4 mg/dL (1.6-2.6) 2.3 mg/dL (1.6-2.6) Total Protein 6.8 g/dL (5.7-8.2) 6.5 g/dL (5.7-8.2) Coagulation Test 04/14/25 09:02 Prothrombin Time 11.3 sec (9.3-11.8) Prothrombin Time INR 1.07 (0.9-1.15) Activated Partial Thromboplast Time 31.0 SEC (24.5-34.5) LFT Test 04/14/25 02:48 04/14/25 09:02 Alanine Aminotransferase (ALT) < 9 U/L (7-40) < 9 U/L (7-40) Alkaline Phosphatase 253 U/L (46-116) H 251 U/L (46-116) H Aspartate Amino Transferase (AST) 10 U/L (13-40) L 9 U/L (13-40) L Total Bilirubin 0.2 mg/dL (0.2-1.0) 0.2 mg/dL (0.2-1.0) HgA1c, TSH Test 04/14/25 02:48 Hemoglobin A1c 8.0 % A1C (<5.7) H Urinalysis Test 04/13/25 20:43 Urine Color Light-yellow (Yellow) Urine Clarity Turbid (Clear) H Urine pH 5.0 (5.0-9.0) Urine Specific [place] 1.012 (1.001-1.035) Urine Protein 2+ (Negative) H Urine Ketones Negative (Negative) Urine Blood Negative /uL (Negative) Urine Nitrite Negative (Negative) Urine Bilirubin Negative (Negative) Urine Urobilinogen Normal mg/dL (Negative) Urine Leukocyte Esterase 1+ /uL (Negative) Urine RBC 3 /hpf (0 - 3) Urine Microscopic WBC 9 /HPF (0-3) H Urine Squamous Epithelial Cells Few /hpf (<5) Urine Amorphous Crystals Few /hpf (None Seen) Urine Bacteria Few /hpf (None Seen) H Urine Hyaline Casts Few /lpf (0 - 2) Urine Creatinine 97.22 mg/dL (30.0-125.0) Urine Protein/Creatinine Ratio 1.61 Urine Sodium 23 mmol/L (40-220) L Urine Glucose Normal mg/dL (Normal) Urine Total Protein 156.7 mg/dL (1-14) H Blood Gas Results Test 04/14/25 02:40 Arterial Blood pH 7.194 (7.350-7.450) FiO2 % 28.0 Microbiology Microbiology Date/Time Source Procedure Growth Status 04/14/25 11:45 Pleural Fluid Received 04/14/25 00:00 Nose MRSA Screen - Final Complete Assessment/Plan Assessment/Plan Acute hypoxic respiratory failure likely due to acute on chronic heart failure/acute renal failure Acute on chronic HFrEF Metabolic acidosis likely due to renal failure suspected pneumonia Gram-positive versus Gram-negative Bilateral pleural effusion Acute complicated cystitis Hypertension Diabetes mellitus type 2-uncontrolled, HbA1c 8.0 CAD status post PTCA Obesity Hyperlipidemia Hyperkalemia - Obesity ESRD 04/14/2025 ckd/esrd per nephro consult to pulm no home O2 at home per pt Plan discussed with: Patient My Orders Orders - ARCHIE MCKNIGHT DO Procedure Category Date Status Time Insertion Of Venous XY 04/14/25 Resulted Cath 11:17 Renal DIET 04/14/25 Transmitted Standard(2gna,3gk,Lopho) Lunch *Consult CONS 04/14/25 Transmitted / 14:05 Date of Service: April 14, 2025 Billing Provider: ARCHIE MCKNIGHT DO Common Visit Codes: [id number] INP/OBS CARE(HIGH) ARCHIE MCKNIGHT DO April 14, 2025 22:33
[2025-04-15] VITALS (10 sets, daily range): BP systolic 123–162; BP diastolic 72–91; PULSE 77–97; RESP 15–20; TEMP 97.4–99.2; O2SAT 92–97
[2025-04-15] MEDS: ONDANSETRON HCL 4 MG/2 ML VIAL IV PRN (02:30)
[2025-04-15 06:50] LABS: Chloride 102 mmol/L (98-107); Potassium 4.4 mmol/L (3.5-5.1); Sodium 138 mmol/L (136-145)
[2025-04-15 06:51] LABS: Anion Gap 14 (5-15); Carbon Dioxide 22 mmol/L (20-31)
[2025-04-15] MEDS: SODIUM CHL 0.9% 1000 ML BAG XX ONE (07:00)
[2025-04-15 07:04] LABS: Calcium 6.5 mg/dL (8.7-10.4); Glucose 186 mg/dL (74-106)
[2025-04-15 07:05] LABS: Blood Urea Nitrogen 112 mg/dL (9-23)
[2025-04-15 07:21] LABS: Basophils # (auto) 0 10 ^3/uL (0-0.2); Basophils % (auto) 0.3 % (0.0-2.0); Eosinophils # (auto) 0.2 10 ^3/uL (0-0.8); Eosinophils % (auto) 2.3 % (0.0-7.0); Hematocrit 30.5 % (41.0-53.0); Hemoglobin 10.4 g/dL (13.5-17.5); Lymphocytes # (auto) 0.8 10 ^3/uL (0.4-5.4); Lymphocytes % (auto) 9.9 % (10.0-50.0); Mean Corpuscular Hemoglobin 30.3 pg (28.0-32.0); Mean Corpuscular Hgb Conc. 34.2 g/dL (32.0-36.0); Mean Corpuscular Volume 88.6 fL (80.0-100.0); Monocytes # (auto) 0.6 10 ^3/uL (0-1.3); Monocytes % (auto) 7.6 % (0.0-12.0); Neutrophils # (auto) 6.5 10 ^3/uL (1.6-8.6); Neutrophils % (auto) 79.9 % (37.0-80.0); Nucleated Red Blood Cells % 0.1 %; Platelet Count (auto) 156 10^3/uL (140-450); Red Blood Cells 3.45 10^6/uL (4.5-5.90); Red Cell Distribution Width 12.6 % (11.8-14.3); White Blood Cell 8.2 10^3/uL (4.4-10.8)
--- NOTE | 2025-04-15 10:04 | DVHPN2 ---
Progress Note - Dictate Date Seen: April 15, 2025 Medical Necessity Reason Pt with a Central, PICC or Fol: Yes vital signs Vital Sign Date Time Temp Pulse Resp B/P (MAP) Pulse Ox O2 Delivery O2 Flow Rate FiO2 04/15/25 08:36 98.1 87 17 123/86 (98) 93 98.1 04/15/25 08:00 Nasal Cannula* 2 28 Total Intake and Output 04/14/25 04/14/25 04/15/25 14:59 22:59 06:59 Intake Total 475 ml 500 ml Output Total 100 ml 600 ml Balance 375 ml -100 ml medications Current Medications Medications Dose Ordered Sig/Milka Route Start Time Stop Time Status Last Admin Dose Admin Sodium Chloride 10 ml Q8HR IV 04/13/25 22:00 04/15/25 06:03 10 ML Ondansetron HCl 4 mg Q4HP PRN IV 04/13/25 21:45 04/15/25 06:41 4 MG Enoxaparin Sodium 30 mg DAILY SC 04/14/25 10:00 Acetaminophen 650 mg Q6HP PRN PO 04/13/25 21:45 04/14/25 21:59 650 MG Nitroglycerin 0.4 mg Q5MINP PRN SL 04/13/25 21:45 Aspirin 81 mg DAILY PO 04/14/25 10:00 Atorvastatin Calcium 20 mg DAILY PO 04/14/25 10:00 Carvedilol 25 mg Q12HR PO 04/13/25 22:00 04/14/25 21:54 25 MG Pantoprazole Sodium 40 mg DAILY@0600 PO 04/14/25 06:00 04/15/25 06:01 40 MG Albuterol 2.5 mg Q6HPRN PRN NEB 04/13/25 22:15 04/14/25 20:07 2.5 MG Ipratropium [place] 0.5 mg Q6HPRN PRN NEB 04/13/25 22:15 04/14/25 20:07 0.5 MG Ceftriaxone Sodium 50 ml @ 100 mls/hr Q24H IV 04/14/25 23:00 04/14/25 21:54 100 MLS/HR Diagnostic Test (Pha) 1 strip ACHS 04/14/25 07:00 04/15/25 06:07 1 STRIP Insulin Human Regular ACHS SC 04/14/25 07:00 Dextrose 50 ml UD PRN IV 04/13/25 22:30 Doxycycline Hyclate 100 ml @ 50 mls/hr Q12H IV 04/14/25 14:00 04/15/25 02:25 50 MLS/HR Calcium Acetate 1,334 mg TIDWMEALS PO 04/14/25 18:00 04/14/25 17:40 1,334 MG laboratory and microbiology Laboratory Tests 04/15/25 05:23 Test 04/15/25 05:23 Range/Units Serum Glucose 186 H 74-106 mg/dL Assessment/Plan Acute respiratory failure Pneumonia Pleural effusion Hemodialysis/end-stage renal disease events c/o nausea Management no antibiotics Dialysis with later removal Supportive care Nutrition Prophylaxis Plan discussed with: Other (rn) LOUIS MCDONALD MD April 15, 2025 10:04
--- NOTE | 2025-04-15 11:18 | DVHPN2 ---
Progress Note - Dictate Date Seen: April 15, 2025 Medical Necessity Reason Pt with a Central, PICC or Fol: Yes Subjective Patient seen and examined at bedside. Complaining of nausea. Scheduled for another session of dialysis today. vital signs Vital Sign Date Time Temp Pulse Resp B/P (MAP) Pulse Ox O2 Delivery O2 Flow Rate FiO2 04/15/25 09:59 91 172/81 04/15/25 08:36 98.1 17 93 98.1 04/15/25 08:00 Nasal Cannula* 2 28 Total Intake and Output 04/14/25 04/14/25 04/15/25 15:00 23:00 07:00 Intake Total 475 ml 500 ml Output Total 100 ml 600 ml Balance 375 ml -100 ml medications Current Medications Medications Dose Ordered Sig/Milka Route Start Time Stop Time Status Last Admin Dose Admin Sodium Chloride 10 ml Q8HR IV 04/13/25 22:00 04/15/25 06:03 10 ML Ondansetron HCl 4 mg Q4HP PRN IV 04/13/25 21:45 04/15/25 06:41 4 MG Enoxaparin Sodium 30 mg DAILY SC 04/14/25 10:00 04/15/25 09:58 30 MG Acetaminophen 650 mg Q6HP PRN PO 04/13/25 21:45 04/14/25 21:59 650 MG Nitroglycerin 0.4 mg Q5MINP PRN SL 04/13/25 21:45 Aspirin 81 mg DAILY PO 04/14/25 10:00 04/15/25 09:59 81 MG Atorvastatin Calcium 20 mg DAILY PO 04/14/25 10:00 04/15/25 09:58 20 MG Carvedilol 25 mg Q12HR PO 04/13/25 22:00 04/15/25 09:59 25 MG Pantoprazole Sodium 40 mg DAILY@0600 PO 04/14/25 06:00 04/15/25 06:01 40 MG Albuterol 2.5 mg Q6HPRN PRN NEB 04/13/25 22:15 04/14/25 20:07 2.5 MG Ipratropium [place] 0.5 mg Q6HPRN PRN NEB 04/13/25 22:15 04/14/25 20:07 0.5 MG Ceftriaxone Sodium 50 ml @ 100 mls/hr Q24H IV 04/14/25 23:00 04/14/25 21:54 100 MLS/HR Diagnostic Test (Pha) 1 strip ACHS 04/14/25 07:00 04/15/25 06:07 1 STRIP Insulin Human Regular ACHS SC 04/14/25 07:00 Dextrose 50 ml UD PRN IV 04/13/25 22:30 Doxycycline Hyclate 100 ml @ 50 mls/hr Q12H IV 04/14/25 14:00 04/15/25 02:25 50 MLS/HR Calcium Acetate 1,334 mg TIDWMEALS PO 04/14/25 18:00 04/14/25 17:40 1,334 MG objective Awake and alert in no acute distress HEENT: Normocephalic, no JVD Lungs: Diminished breath sounds at bases CVS: S1, S2 regular rate rhythm Abdomen: Soft, bowel sounds present 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 Edema present right lower extremity laboratory and microbiology Laboratory Tests 04/15/25 05:23 Test 04/15/25 05:23 Range/Units Serum Glucose 186 H 74-106 mg/dL Problem List End-stage kidney disease Type 2 diabetes with nephropathy Hypertension Hyperlipidemia Heart failure with reduced EF History of coronary artery disease status post PTCA Chronic metabolic acidosis Hyperphosphatemia Hyperuricemia Pleural effusion Assessment/Plan Hemodialysis again today. Awaiting outpatient chair time. Blood pressure control. Etelvina osborne for nausea Plan discussed with: Patient KASIE GARG MD April 15, 2025 11:18
[2025-04-15] MEDS: METOCLOPRAMIDE HCL 5MG/ml INJ 2ml VIAL IV PRN (13:21)
--- NOTE | 2025-04-15 13:38 | DVH ---
CT CT AB PEL WO CON-NO ORAL OR IV INDICATION: INTRACTABLE NAUSEA/VOMITING EXAM DATE: 04/15/2025 12:54 PM COMPARISON: CT CT AB PEL WO CON-NO ORAL OR IV on DOS: 04/13/25, [facility] on DOS: 10/08/22, [facility] on DOS: 02/10/22 RADIATION DOSE: CTDIvol: 27.3 mGy, DLP: 1569.94 mGy*cm PROCEDURE: Helical CT images were obtained of the abdomen and pelvis without IV contrast Sagittal and coronal reconstructions are provided. ORAL CONTRAST: None. ADDITIONAL IMAGES / REFORMATS: None All C T scans at this medical facility are performed using dose modulation techniques as appropriate to a p erformed exam including the following: Automated exposure control was utilized; adjustment of the MA and/or KV according to patient size; and use of iterative reconstruction technique. FINDINGS: LUNG BASE: Small bilateral pleural effusion with bibasilar atelectasis. Right lower lobe pulmonary ed osmany is visualized. LIVER: Normal. GALLBLADDER AND BILIARY TREE: Cholecystectomy clips are seen. No intra- or extrahepatic biliary ducta l dilation. PANCREAS: Normal. SPLEEN: Normal. BOWEL: There is mild colonic diverticulosis. Trace fluid is seen in the left paracolic gutters. Parti ally visualized appendix appears within normal limits. ADRENALS: Normal. KIDNEYS AND URETER: Normal. BLADDER: Normal. REPRODUCTIVE ORGANS: Normal. LYMPH NODES:No lymphadenopathy. PERITONEUM: No ascites or free air. No other fluid collection. VESSELS: Scattered atherosclerotic calcifications are noted. RETROPERITONEUM: Normal. ABDOMINAL WALL: There is anasarca. BONES: Scattered osseous degenerative changes are noted. IMPRESSION: Previously noted enteritis at the duodenum is improved. Mild colonic diverticulosis. Small bilateral pleural effusion with bibasilar atelectasis. Right lower lobe pulmonary edema is visu alized and could be re expansion pulmonary edema from the recent thoracentesis.
--- NOTE | 2025-04-15 15:56 | DVHPN2 ---
Reviewed: Care Plan, H&P, Labs, Medications, Previous Orders, Radiology Changes from previous H/P or p: No Changes General: Per HPI Objective Vitals Vital Signs Date Time Temp Pulse Resp B/P (MAP) Pulse Ox O2 Delivery O2 Flow Rate FiO2 04/15/25 13:20 98.1 92 18 147/85 (105) 92 98.1 04/15/25 08:00 Nasal Cannula* 2 28 Intake/Output Intake and Output 04/15/25 07:00 Intake Total 975 ml Output Total 700 ml Balance 275 ml Intake Oral 825 ml IV Total 150 ml Output Urine Total 700 ml Medications Current Medications Medications Dose Ordered Sig/Milka Route Start Time Stop Time Status Last Admin Dose Admin Sodium Chloride 10 ml Q8HR IV 04/13/25 22:00 04/15/25 13:22 10 ML Ondansetron HCl 4 mg Q4HP PRN IV 04/13/25 21:45 Hold 04/15/25 06:41 4 MG Enoxaparin Sodium 30 mg DAILY SC 04/14/25 10:00 04/15/25 09:58 30 MG Acetaminophen 650 mg Q6HP PRN PO 04/13/25 21:45 04/14/25 21:59 650 MG Nitroglycerin 0.4 mg Q5MINP PRN SL 04/13/25 21:45 Aspirin 81 mg DAILY PO 04/14/25 10:00 04/15/25 09:59 81 MG Atorvastatin Calcium 20 mg DAILY PO 04/14/25 10:00 04/15/25 09:58 20 MG Carvedilol 25 mg Q12HR PO 04/13/25 22:00 04/15/25 09:59 25 MG Pantoprazole Sodium 40 mg DAILY@0600 PO 04/14/25 06:00 04/15/25 06:01 40 MG Albuterol 2.5 mg Q6HPRN PRN NEB 04/13/25 22:15 04/14/25 20:07 2.5 MG Ipratropium [place] 0.5 mg Q6HPRN PRN NEB 04/13/25 22:15 04/14/25 20:07 0.5 MG Ceftriaxone Sodium 50 ml @ 100 mls/hr Q24H IV 04/14/25 23:00 04/14/25 21:54 100 MLS/HR Diagnostic Test (Pha) 1 strip ACHS 04/14/25 07:00 04/15/25 11:16 1 STRIP Insulin Human Regular ACHS SC 04/14/25 07:00 Dextrose 50 ml UD PRN IV 04/13/25 22:30 Doxycycline Hyclate 100 ml @ 50 mls/hr Q12H IV 04/14/25 14:00 04/15/25 02:25 50 MLS/HR Calcium Acetate 1,334 mg TIDWMEALS PO 04/14/25 18:00 04/14/25 17:40 1,334 MG Metoclopramide HCl 10 mg Q8HPRN PRN IV 04/15/25 12:30 04/15/25 13:21 10 MG Laboratory Results Laboratory Tests 04/15/25 05:23 Chemistry Test 04/15/25 05:23 Calcium Level 6.5 mg/dL (8.7-10.4) L Urinalysis Test 04/13/25 20:43 Urine Color Light-yellow (Yellow) Urine Clarity Turbid (Clear) H Urine pH 5.0 (5.0-9.0) Urine Specific [place] 1.012 (1.001-1.035) Urine Protein 2+ (Negative) H Urine Ketones Negative (Negative) Urine Blood Negative /uL (Negative) Urine Nitrite Negative (Negative) Urine Bilirubin Negative (Negative) Urine Urobilinogen Normal mg/dL (Negative) Urine Leukocyte Esterase 1+ /uL (Negative) Urine RBC 3 /hpf (0 - 3) Urine Microscopic WBC 9 /HPF (0-3) H Urine Squamous Epithelial Cells Few /hpf (<5) Urine Amorphous Crystals Few /hpf (None Seen) Urine Bacteria Few /hpf (None Seen) H Urine Hyaline Casts Few /lpf (0 - 2) Urine Creatinine 97.22 mg/dL (30.0-125.0) Urine Protein/Creatinine Ratio 1.61 Urine Sodium 23 mmol/L (40-220) L Urine Glucose Normal mg/dL (Normal) Urine Total Protein 156.7 mg/dL (1-14) H Microbiology Microbiology Date/Time Source Procedure Growth Status 04/14/25 11:45 Pleural Fluid Gram Stain Pending Resulted 04/14/25 11:45 Pleural Fluid Body Fluid Culture - Preliminary Resulted 04/14/25 00:55 Blood Blood Culture - Preliminary NO GROWTH AFTER 24 HOURS OF INCUBATION. Resulted 04/14/25 00:00 Nose MRSA Screen - Final Complete 04/13/25 20:43 Voided Urine Urine Culture - Preliminary Resulted Assessment/Plan Assessment/Plan Acute hypoxic respiratory failure likely due to acute on chronic heart failure/acute renal failure Acute on chronic HFrEF Metabolic acidosis likely due to renal failure suspected pneumonia Gram-positive versus Gram-negative Bilateral pleural effusion Acute complicated cystitis Hypertension Diabetes mellitus type 2-uncontrolled, HbA1c 8.0 CAD status post PTCA Obesity Hyperlipidemia Hyperkalemia - Obesity ESRD 04/14/2025 ckd/esrd per nephro consult to pulm no home O2 per pt 04/15/2025 pt likely experienced dialysis disequilibrium syndrome nausea worsened, will get an abd CT to rule out other causes adding Reglan pt to get HD again per nephro Plan discussed with: Patient My Orders Orders - ARCHIE MCKNIGHT DO Procedure Category Date Status Time Metoclopramide PHA 04/15/25 In Process Injection (Reglan 12:30 Ct Ab Pel Wo Con-No CT 04/15/25 Resulted Oral Or Iv 12:43 Date of Service: April 15, 2025 Billing Provider: ARCHIE MCKNIGHT DO Common Visit Codes: [id number] INP/OBS CARE(HIGH) ARCHIE MCKNIGHT DO April 15, 2025 15:56
[2025-04-15 16:06] LABS: Protein, Body Fluid 2.2 g/dL (.)
[2025-04-15] MEDS: EPOETIN ALFA-EPBX 4,000 UNIT/ML VIAL SC ONE (21:55)
[2025-04-15] MEDS: CARVEDILOL 12.5 MG TAB PO SCH (21:58)
[2025-04-16] VITALS (11 sets, daily range): BP systolic 129–152; BP diastolic 64–93; PULSE 87–100; RESP 15–20; TEMP 97.3–99.5; O2SAT 92–100
[2025-04-16] MEDS: NIFEdipine ER 30 MG TAB PO SCH (09:27)
--- NOTE | 2025-04-16 14:39 | DVHPN2 ---
Progress Note - Dictate Date Seen: Apr 16, 2025 Medical Necessity Reason Pt with a Central, PICC or Fol: Yes vital signs Vital Sign Date Time Temp Pulse Resp B/P (MAP) Pulse Ox O2 Delivery O2 Flow Rate FiO2 04/16/25 13:30 97.3 100 17 135/93 (107) 98 97.3 04/16/25 08:06 Nasal Cannula 2.0 04/16/25 08:06 28 Total Intake and Output 04/15/25 04/15/25 04/16/25 15:00 23:00 07:00 Intake Total 600 ml 200 ml Output Total 300 ml Balance 300 ml 200 ml medications Current Medications Medications Dose Ordered Sig/Milka Route Start Time Stop Time Status Last Admin Dose Admin Sodium Chloride 10 ml Q8HR IV 04/13/25 22:00 04/16/25 14:28 10 ML Ondansetron HCl 4 mg Q4HP PRN IV 04/13/25 21:45 Hold 04/15/25 06:41 4 MG Enoxaparin Sodium 30 mg DAILY SC 04/14/25 10:00 04/16/25 09:28 30 MG Acetaminophen 650 mg Q6HP PRN PO 04/13/25 21:45 04/14/25 21:59 650 MG Nitroglycerin 0.4 mg Q5MINP PRN SL 04/13/25 21:45 Aspirin 81 mg DAILY PO 04/14/25 10:00 04/16/25 09:25 81 MG Atorvastatin Calcium 20 mg DAILY PO 04/14/25 10:00 04/16/25 09:25 20 MG Pantoprazole Sodium 40 mg DAILY@0600 PO 04/14/25 06:00 04/16/25 06:07 40 MG Albuterol 2.5 mg Q6HPRN PRN NEB 04/13/25 22:15 04/14/25 20:07 2.5 MG Ipratropium [place] 0.5 mg Q6HPRN PRN NEB 04/13/25 22:15 04/14/25 20:07 0.5 MG Ceftriaxone Sodium 50 ml @ 100 mls/hr Q24H IV 04/14/25 23:00 04/15/25 23:12 100 MLS/HR Diagnostic Test (Pha) 1 strip ACHS 04/14/25 07:00 04/16/25 11:51 1 STRIP Insulin Human Regular ACHS SC 04/14/25 07:00 04/16/25 11:50 3 UNITS Dextrose 50 ml UD PRN IV 04/13/25 22:30 Doxycycline Hyclate 100 ml @ 50 mls/hr Q12H IV 04/14/25 14:00 04/16/25 14:28 50 MLS/HR Calcium Acetate 1,334 mg TIDWMEALS PO 04/14/25 18:00 04/16/25 11:47 1,334 MG Metoclopramide HCl 10 mg Q8HPRN PRN IV 04/15/25 12:30 04/15/25 13:21 10 MG Nifedipine 60 mg DAILY PO 04/16/25 10:00 04/16/25 09:27 60 MG Carvedilol 12.5 mg Q12HR PO 04/15/25 22:00 04/16/25 09:27 12.5 MG laboratory and microbiology Laboratory Tests 04/15/25 05:23 Test 04/15/25 05:23 Range/Units Serum Glucose 186 H 74-106 mg/dL Assessment/Plan Acute respiratory failure Pneumonia Pleural effusion Hemodialysis/end-stage renal disease events none Management Dialysis with fluid removal Supportive care Nutrition dvt Prophylaxis Plan discussed with: Patient, Other LOUIS MCDONALD MD Apr 16, 2025 14:39
--- NOTE | 2025-04-16 17:07 | DVHPN2 ---
Progress Note - Dictate Date Seen: Apr 16, 2025 Medical Necessity Reason Pt with a Central, PICC or Fol: Yes Subjective Patient seen and examined at bedside. Nausea has improved. Underwent dialysis yesterday. vital signs Vital Sign Date Time Temp Pulse Resp B/P (MAP) Pulse Ox O2 Delivery O2 Flow Rate FiO2 04/16/25 13:30 97.3 100 17 135/93 (107) 98 97.3 04/16/25 08:06 Nasal Cannula 2.0 04/16/25 08:06 28 Total Intake and Output 04/15/25 04/15/25 04/16/25 15:00 23:00 07:00 Intake Total 600 ml 200 ml Output Total 300 ml Balance 300 ml 200 ml medications Current Medications Medications Dose Ordered Sig/Milka Route Start Time Stop Time Status Last Admin Dose Admin Sodium Chloride 10 ml Q8HR IV 04/13/25 22:00 04/16/25 14:28 10 ML Ondansetron HCl 4 mg Q4HP PRN IV 04/13/25 21:45 Hold 04/15/25 06:41 4 MG Enoxaparin Sodium 30 mg DAILY SC 04/14/25 10:00 04/16/25 09:28 30 MG Acetaminophen 650 mg Q6HP PRN PO 04/13/25 21:45 04/14/25 21:59 650 MG Nitroglycerin 0.4 mg Q5MINP PRN SL 04/13/25 21:45 Aspirin 81 mg DAILY PO 04/14/25 10:00 04/16/25 09:25 81 MG Atorvastatin Calcium 20 mg DAILY PO 04/14/25 10:00 04/16/25 09:25 20 MG Pantoprazole Sodium 40 mg DAILY@0600 PO 04/14/25 06:00 04/16/25 06:07 40 MG Albuterol 2.5 mg Q6HPRN PRN NEB 04/13/25 22:15 04/14/25 20:07 2.5 MG Ipratropium [place] 0.5 mg Q6HPRN PRN NEB 04/13/25 22:15 04/14/25 20:07 0.5 MG Ceftriaxone Sodium 50 ml @ 100 mls/hr Q24H IV 04/14/25 23:00 04/15/25 23:12 100 MLS/HR Diagnostic Test (Pha) 1 strip ACHS 04/14/25 07:00 04/16/25 11:51 1 STRIP Insulin Human Regular ACHS SC 04/14/25 07:00 04/16/25 11:50 3 UNITS Dextrose 50 ml UD PRN IV 04/13/25 22:30 Doxycycline Hyclate 100 ml @ 50 mls/hr Q12H IV 04/14/25 14:00 04/16/25 14:28 50 MLS/HR Calcium Acetate 1,334 mg TIDWMEALS PO 04/14/25 18:00 04/16/25 11:47 1,334 MG Metoclopramide HCl 10 mg Q8HPRN PRN IV 04/15/25 12:30 04/15/25 13:21 10 MG Nifedipine 60 mg DAILY PO 04/16/25 10:00 04/16/25 09:27 60 MG Carvedilol 12.5 mg Q12HR PO 04/15/25 22:00 04/16/25 09:27 12.5 MG objective Awake and alert in no acute distress HEENT: Normocephalic, no JVD Lungs: Diminished breath sounds at bases CVS: S1, S2 regular rate rhythm Abdomen: Soft, bowel sounds present 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 Edema present right lower extremity laboratory and microbiology Laboratory Tests 04/15/25 05:23 Test 04/15/25 05:23 Range/Units Serum Glucose 186 H 74-106 mg/dL Problem List End-stage kidney disease Type 2 diabetes with nephropathy Hypertension Hyperlipidemia Heart failure with reduced EF of approximately 25% History of coronary artery disease status post PTCA Chronic metabolic acidosis Hyperphosphatemia Hyperuricemia Pleural effusion Assessment/Plan Hemodialysis tomorrow Awaiting outpatient chair time. Blood pressure better controlled Kyleean p.r.n. for nausea Cardiology and pulmonology evaluation Labs in a.m. Plan discussed with: Patient, Spouse KASIE GARG MD Apr 16, 2025 17:07
--- NOTE | 2025-04-16 20:48 | DVHPN2 ---
Reviewed: Care Plan, H&P, Labs, Medications, Previous Orders, Radiology Changes from previous H/P or p: No Changes General: Per HPI Objective Vitals Vital Signs Date Time Temp Pulse Resp B/P (MAP) Pulse Ox O2 Delivery O2 Flow Rate FiO2 04/16/25 17:13 99.4 90 17 129/70 (89) 92 99.4 04/16/25 08:06 Nasal Cannula 2.0 04/16/25 08:06 28 Intake/Output Intake and Output 04/16/25 07:00 Intake Total 800 ml Output Total 300 ml Balance 500 ml Intake Oral 800 ml Output Urine Total 300 ml # Voids 2 Medications Current Medications Medications Dose Ordered Sig/Milka Route Start Time Stop Time Status Last Admin Dose Admin Sodium Chloride 10 ml Q8HR IV 04/13/25 22:00 04/16/25 14:28 10 ML Ondansetron HCl 4 mg Q4HP PRN IV 04/13/25 21:45 Hold 04/15/25 06:41 4 MG Enoxaparin Sodium 30 mg DAILY SC 04/14/25 10:00 04/16/25 09:28 30 MG Acetaminophen 650 mg Q6HP PRN PO 04/13/25 21:45 04/14/25 21:59 650 MG Nitroglycerin 0.4 mg Q5MINP PRN SL 04/13/25 21:45 Aspirin 81 mg DAILY PO 04/14/25 10:00 04/16/25 09:25 81 MG Atorvastatin Calcium 20 mg DAILY PO 04/14/25 10:00 04/16/25 09:25 20 MG Pantoprazole Sodium 40 mg DAILY@0600 PO 04/14/25 06:00 04/16/25 06:07 40 MG Albuterol 2.5 mg Q6HPRN PRN NEB 04/13/25 22:15 04/14/25 20:07 2.5 MG Ipratropium [place] 0.5 mg Q6HPRN PRN NEB 04/13/25 22:15 04/14/25 20:07 0.5 MG Ceftriaxone Sodium 50 ml @ 100 mls/hr Q24H IV 04/14/25 23:00 04/15/25 23:12 100 MLS/HR Diagnostic Test (Pha) 1 strip ACHS 04/14/25 07:00 04/16/25 17:18 1 STRIP Insulin Human Regular ACHS SC 04/14/25 07:00 04/16/25 17:29 3 UNITS Dextrose 50 ml UD PRN IV 04/13/25 22:30 Doxycycline Hyclate 100 ml @ 50 mls/hr Q12H IV 04/14/25 14:00 04/16/25 14:28 50 MLS/HR Calcium Acetate 1,334 mg TIDWMEALS PO 04/14/25 18:00 04/16/25 17:50 1,334 MG Metoclopramide HCl 10 mg Q8HPRN PRN IV 04/15/25 12:30 04/15/25 13:21 10 MG Nifedipine 60 mg DAILY PO 04/16/25 10:00 04/16/25 09:27 60 MG Carvedilol 12.5 mg Q12HR PO 04/15/25 22:00 04/16/25 09:27 12.5 MG Laboratory Results Laboratory Tests 04/15/25 05:23 Urinalysis Test 04/13/25 20:43 Urine Color Light-yellow (Yellow) Urine Clarity Turbid (Clear) H Urine pH 5.0 (5.0-9.0) Urine Specific [place] 1.012 (1.001-1.035) Urine Protein 2+ (Negative) H Urine Ketones Negative (Negative) Urine Blood Negative /uL (Negative) Urine Nitrite Negative (Negative) Urine Bilirubin Negative (Negative) Urine Urobilinogen Normal mg/dL (Negative) Urine Leukocyte Esterase 1+ /uL (Negative) Urine RBC 3 /hpf (0 - 3) Urine Microscopic WBC 9 /HPF (0-3) H Urine Squamous Epithelial Cells Few /hpf (<5) Urine Amorphous Crystals Few /hpf (None Seen) Urine Bacteria Few /hpf (None Seen) H Urine Hyaline Casts Few /lpf (0 - 2) Urine Creatinine 97.22 mg/dL (30.0-125.0) Urine Protein/Creatinine Ratio 1.61 Urine Sodium 23 mmol/L (40-220) L Urine Glucose Normal mg/dL (Normal) Urine Total Protein 156.7 mg/dL (1-14) H Microbiology Microbiology Date/Time Source Procedure Growth Status 04/14/25 11:45 Pleural Fluid Gram Stain - Final Resulted 04/14/25 11:45 Pleural Fluid Body Fluid Culture - Preliminary Resulted 04/14/25 00:55 Blood Blood Culture - Preliminary NO GROWTH AFTER 48 HOURS OF INCUBATION. Resulted 04/14/25 00:00 Nose MRSA Screen - Final Complete 04/13/25 20:43 Voided Urine Urine Culture - Final Complete Assessment/Plan Assessment/Plan Acute hypoxic respiratory failure likely due to acute on chronic heart failure/acute renal failure Acute on chronic HFrEF Metabolic acidosis likely due to renal failure suspected pneumonia Gram-positive versus Gram-negative Bilateral pleural effusion Acute complicated cystitis Hypertension Diabetes mellitus type 2-uncontrolled, HbA1c 8.0 CAD status post PTCA Obesity Hyperlipidemia Hyperkalemia - Obesity ESRD 04/14/2025 ckd/esrd per nephro consult to pulm no home O2 per pt 04/15/2025 pt likely experienced dialysis disequilibrium syndrome nausea worsened, will get an abd CT to rule out other causes adding Reglan pt to get HD again per nephro nausea is improved awaiting chair time Plan discussed with: Patient Date of Service: Apr 16, 2025 Billing Provider: ARCHIE MCKNIGHT DO Common Visit Codes: [id number] INP/OBS CARE(HIGH) ARCHIE MCKNIGHT DO Apr 16, 2025 20:48
[2025-04-17] VITALS (10 sets, daily range): BP systolic 125–191; BP diastolic 70–141; PULSE 80–100; RESP 18–20; TEMP 97.6–98.9; O2SAT 93–98
[2025-04-17 07:02] LABS: Basophils # (auto) 0.1 10 ^3/uL (0-0.2); Basophils % (auto) 0.6 % (0.0-2.0); Eosinophils # (auto) 0.5 10 ^3/uL (0-0.8); Eosinophils % (auto) 5.6 % (0.0-7.0); Hematocrit 31.3 % (41.0-53.0); Hemoglobin 10.6 g/dL (13.5-17.5); Lymphocytes # (auto) 1.4 10 ^3/uL (0.4-5.4); Lymphocytes % (auto) 16.5 % (10.0-50.0); Mean Corpuscular Hemoglobin 30.6 pg (28.0-32.0); Mean Corpuscular Volume 89.9 fL (80.0-100.0); Monocytes # (auto) 0.9 10 ^3/uL (0-1.3); Neutrophils # (auto) 5.7 10 ^3/uL (1.6-8.6); Neutrophils % (auto) 66.3 % (37.0-80.0); Platelet Count (auto) 147 10^3/uL (140-450); Red Blood Cells 3.48 10^6/uL (4.5-5.90); Red Cell Distribution Width 12.3 % (11.8-14.3); White Blood Cell 8.5 10^3/uL (4.4-10.8)
[2025-04-17 07:17] LABS: Anion Gap 15 (5-15); Carbon Dioxide 25 mmol/L (20-31); Sodium 138 mmol/L (136-145)
[2025-04-17 07:19] LABS: Calcium 7.4 mg/dL (8.7-10.4); Chloride 98 mmol/L (98-107); Potassium 3.5 mmol/L (3.5-5.1)
[2025-04-17 07:23] LABS: BUN/Creatinine Ratio 8.2 (10.0-20.0); Blood Urea Nitrogen 65 mg/dL (9-23); Glucose 141 mg/dL (74-106)
[2025-04-17] MEDS: SODIUM CHL 0.9% 1000 ML BAG XX ONE (16:34)
--- NOTE | 2025-04-17 17:20 | DVHPN2 ---
Progress Note - Dictate Date Seen: Apr 17, 2025 Medical Necessity Reason Pt with a Central, PICC or Fol: Yes Subjective No new complaints vital signs Vital Sign Date Time Temp Pulse Resp B/P (MAP) Pulse Ox O2 Delivery O2 Flow Rate FiO2 04/17/25 17:15 194/100 04/17/25 13:00 98.1 88 18 98 98.1 04/17/25 08:00 Nasal Cannula* 2 28 Total Intake and Output 04/16/25 04/16/25 04/17/25 15:00 23:00 07:00 Intake Total 500 ml 350 ml Output Total 0 ml 0 ml Balance 500 ml 350 ml medications Current Medications Medications Dose Ordered Sig/Milka Route Start Time Stop Time Status Last Admin Dose Admin Sodium Chloride 10 ml Q8HR IV 04/13/25 22:00 04/17/25 16:59 10 ML Ondansetron HCl 4 mg Q4HP PRN IV 04/13/25 21:45 Hold 04/15/25 06:41 4 MG Acetaminophen 650 mg Q6HP PRN PO 04/13/25 21:45 04/14/25 21:59 650 MG Nitroglycerin 0.4 mg Q5MINP PRN SL 04/13/25 21:45 Aspirin 81 mg DAILY PO 04/14/25 10:00 04/17/25 08:57 81 MG Atorvastatin Calcium 20 mg DAILY PO 04/14/25 10:00 04/17/25 08:58 20 MG Pantoprazole Sodium 40 mg DAILY@0600 PO 04/14/25 06:00 04/17/25 06:06 40 MG Albuterol 2.5 mg Q6HPRN PRN NEB 04/13/25 22:15 04/14/25 20:07 2.5 MG Ipratropium [place] 0.5 mg Q6HPRN PRN NEB 04/13/25 22:15 04/14/25 20:07 0.5 MG Ceftriaxone Sodium 50 ml @ 100 mls/hr Q24H IV 04/14/25 23:00 04/16/25 22:58 100 MLS/HR Diagnostic Test (Pha) 1 strip ACHS 04/14/25 07:00 04/17/25 16:59 1 STRIP Insulin Human Regular ACHS SC 04/14/25 07:00 04/17/25 17:03 3 UNITS Dextrose 50 ml UD PRN IV 04/13/25 22:30 Doxycycline Hyclate 100 ml @ 50 mls/hr Q12H IV 04/14/25 14:00 04/17/25 15:00 50 MLS/HR Calcium Acetate 1,334 mg TIDWMEALS PO 04/14/25 18:00 04/17/25 16:59 1,334 MG Metoclopramide HCl 10 mg Q8HPRN PRN IV 04/15/25 12:30 04/17/25 14:34 10 MG Nifedipine 60 mg DAILY PO 04/16/25 10:00 04/17/25 17:15 60 MG Carvedilol 12.5 mg Q12HR PO 04/15/25 22:00 04/16/25 21:51 12.5 MG objective Alert, oriented x 3 NAD Lungs CTA CV: RR, no gallops Abdomen: soft, NT S/P BKA laboratory and microbiology Laboratory Tests 04/17/25 05:52 Test 04/17/25 05:52 Range/Units Serum Glucose 141 H 74-106 mg/dL Problem List End-stage kidney disease Type 2 diabetes with nephropathy Hypertension Hyperlipidemia Heart failure with reduced EF of approximately 25% History of coronary artery disease status post PTCA Chronic metabolic acidosis Hyperphosphatemia Hyperuricemia Pleural effusion Assessment/Plan Hemodialysis on MWF schedule Awaiting outpatient chair time. Labs in a.m. Plan discussed with: Patient DAVID GAONA MD Apr 17, 2025 17:20
[2025-04-17] MEDS: METOPROLOL TARTRATE 1MG/1ML-5ML VIAL IV ONE (18:32)
[2025-04-17] MEDS ORDERED: hydrALAZINE HCL 20 MG/ML VL IV PRN (19:00)
--- NOTE | 2025-04-17 19:02 | DVHPN2 ---
Subjective c/o epistaxis Reviewed: Care Plan, H&P, Labs, Medications, Previous Orders, Radiology Changes from previous H/P or p: Changes General: Per HPI Objective Vitals Vital Signs Date Time Temp Pulse Resp B/P (MAP) Pulse Ox O2 Delivery O2 Flow Rate FiO2 04/17/25 18:32 100 190/100 04/17/25 17:00 98.3 18 93 98.3 04/17/25 08:00 Nasal Cannula* 2 28 Intake/Output Intake and Output 04/17/25 07:00 Intake Total 850 ml Output Total 0 ml Balance 850 ml Intake Oral 850 ml Output Urine Total 0 ml General Appearance: Alert, Oriented X3, Cooperative, mild distress Lungs: Other Cardiovascular: Regular rate, Normal S1, Normal S2 Abdomen: Normal bowel sounds, Soft, No tenderness Extremities: Other (2+ edema) Medications Current Medications Medications Dose Ordered Sig/Milka Route Start Time Stop Time Status Last Admin Dose Admin Sodium Chloride 10 ml Q8HR IV 04/13/25 22:00 04/17/25 16:59 10 ML Ondansetron HCl 4 mg Q4HP PRN IV 04/13/25 21:45 Hold 04/15/25 06:41 4 MG Acetaminophen 650 mg Q6HP PRN PO 04/13/25 21:45 04/14/25 21:59 650 MG Nitroglycerin 0.4 mg Q5MINP PRN SL 04/13/25 21:45 Aspirin 81 mg DAILY PO 04/14/25 10:00 04/17/25 08:57 81 MG Atorvastatin Calcium 20 mg DAILY PO 04/14/25 10:00 04/17/25 08:58 20 MG Pantoprazole Sodium 40 mg DAILY@0600 PO 04/14/25 06:00 04/17/25 06:06 40 MG Albuterol 2.5 mg Q6HPRN PRN NEB 04/13/25 22:15 04/14/25 20:07 2.5 MG Ipratropium [place] 0.5 mg Q6HPRN PRN NEB 04/13/25 22:15 04/14/25 20:07 0.5 MG Ceftriaxone Sodium 50 ml @ 100 mls/hr Q24H IV 04/14/25 23:00 04/16/25 22:58 100 MLS/HR Diagnostic Test (Pha) 1 strip ACHS 04/14/25 07:00 04/17/25 16:59 1 STRIP Insulin Human Regular ACHS SC 04/14/25 07:00 04/17/25 17:03 3 UNITS Dextrose 50 ml UD PRN IV 04/13/25 22:30 Doxycycline Hyclate 100 ml @ 50 mls/hr Q12H IV 04/14/25 14:00 04/17/25 15:00 50 MLS/HR Calcium Acetate 1,334 mg TIDWMEALS PO 04/14/25 18:00 04/17/25 16:59 1,334 MG Metoclopramide HCl 10 mg Q8HPRN PRN IV 04/15/25 12:30 04/17/25 14:34 10 MG Nifedipine 60 mg DAILY PO 04/16/25 10:00 04/17/25 17:15 60 MG Carvedilol 12.5 mg Q12HR PO 04/15/25 22:00 04/16/25 21:51 12.5 MG Laboratory Results Laboratory Tests 04/17/25 05:52 Chemistry Test 04/17/25 05:52 Calcium Level 7.4 mg/dL (8.7-10.4) L Urinalysis Test 04/13/25 20:43 Urine Color Light-yellow (Yellow) Urine Clarity Turbid (Clear) H Urine pH 5.0 (5.0-9.0) Urine Specific [place] 1.012 (1.001-1.035) Urine Protein 2+ (Negative) H Urine Ketones Negative (Negative) Urine Blood Negative /uL (Negative) Urine Nitrite Negative (Negative) Urine Bilirubin Negative (Negative) Urine Urobilinogen Normal mg/dL (Negative) Urine Leukocyte Esterase 1+ /uL (Negative) Urine RBC 3 /hpf (0 - 3) Urine Microscopic WBC 9 /HPF (0-3) H Urine Squamous Epithelial Cells Few /hpf (<5) Urine Amorphous Crystals Few /hpf (None Seen) Urine Bacteria Few /hpf (None Seen) H Urine Hyaline Casts Few /lpf (0 - 2) Urine Creatinine 97.22 mg/dL (30.0-125.0) Urine Protein/Creatinine Ratio 1.61 Urine Sodium 23 mmol/L (40-220) L Urine Glucose Normal mg/dL (Normal) Urine Total Protein 156.7 mg/dL (1-14) H Microbiology Microbiology Date/Time Source Procedure Growth Status 04/14/25 11:45 Pleural Fluid Gram Stain - Final Resulted 04/14/25 11:45 Pleural Fluid Body Fluid Culture - Preliminary Resulted 04/14/25 00:55 Blood Blood Culture - Preliminary NO GROWTH AFTER 72 HOURS OF INCUBATION. Resulted 04/14/25 00:00 Nose MRSA Screen - Final Complete 04/13/25 20:43 Voided Urine Urine Culture - Final Complete Assessment/Plan Assessment/Plan Acute hypoxic respiratory failure likely due to heart failure Acute on chronic HFrEF, EF 25% CAD h/o stent on aspirin Metabolic acidosis likely due to renal failure ESRD on HD Pneumonia Gram-positive versus Gram-negative bacteria Bilateral pleural effusion s/p R thoracentesis UTI due to acute complicated cystitis Hypertension Diabetes mellitus type 2-uncontrolled, HbA1c 8.0 CAD status post PTCA Obesity Hyperlipidemia Hyperkalemia - Obesity PLAN: HD today Check CXR in AM Cardiology consult Dr. Rossi IV antibiotics: Rocephin and Doxy DC Lovenox Continue aspirin Hydralazine IV prn Increase Coreg to 25 mg bid Continue Nifedipine ER 60 mg qd Full code Discussed with patient and at the bedside Advanced directives discussed x 16 minutes Plan discussed with: Patient, Spouse My Orders Orders - TAMELA GUTIERREZ MD Procedure Category Date Status Time Chest Xray 1 View XY 04/18/25 Logged 06:00 Date of Service: Apr 17, 2025 Billing Provider: TAMELA GUTIERREZ MD Common Visit Codes: [id number] INP/OBS CARE(HIGH) Secondary Visit Codes: [id number] CARE PLAN 30 MINUTES TAMELA GUTIERREZ MD Apr 17, 2025 19:02
--- NOTE | 2025-04-17 20:53 | DVHPN2 ---
Progress Note - Dictate Date Seen: Apr 17, 2025 Medical Necessity Reason Pt with a Central, PICC or Fol: No Subjective Patient seen and examined at bedside. Breathing comfortably on room air. Overnight events reviewed. vital signs Vital Sign Date Time Temp Pulse Resp B/P (MAP) Pulse Ox O2 Delivery O2 Flow Rate FiO2 04/17/25 18:53 97 133/84 (100) 04/17/25 17:00 98.3 18 93 98.3 04/17/25 08:00 Nasal Cannula* 2 28 Total Intake and Output 04/16/25 04/16/25 04/17/25 15:00 23:00 07:00 Intake Total 500 ml 350 ml Output Total 0 ml 0 ml Balance 500 ml 350 ml medications Current Medications Medications Dose Ordered Sig/Milka Route Start Time Stop Time Status Last Admin Dose Admin Sodium Chloride 10 ml Q8HR IV 04/13/25 22:00 04/17/25 16:59 10 ML Ondansetron HCl 4 mg Q4HP PRN IV 04/13/25 21:45 Hold 04/15/25 06:41 4 MG Acetaminophen 650 mg Q6HP PRN PO 04/13/25 21:45 04/14/25 21:59 650 MG Nitroglycerin 0.4 mg Q5MINP PRN SL 04/13/25 21:45 Aspirin 81 mg DAILY PO 04/14/25 10:00 04/17/25 08:57 81 MG Atorvastatin Calcium 20 mg DAILY PO 04/14/25 10:00 04/17/25 08:58 20 MG Pantoprazole Sodium 40 mg DAILY@0600 PO 04/14/25 06:00 04/17/25 06:06 40 MG Albuterol 2.5 mg Q6HPRN PRN NEB 04/13/25 22:15 04/14/25 20:07 2.5 MG Ipratropium [place] 0.5 mg Q6HPRN PRN NEB 04/13/25 22:15 04/14/25 20:07 0.5 MG Ceftriaxone Sodium 50 ml @ 100 mls/hr Q24H IV 04/14/25 23:00 04/16/25 22:58 100 MLS/HR Diagnostic Test (Pha) 1 strip ACHS 04/14/25 07:00 04/17/25 16:59 1 STRIP Insulin Human Regular ACHS SC 04/14/25 07:00 04/17/25 17:03 3 UNITS Dextrose 50 ml UD PRN IV 04/13/25 22:30 Doxycycline Hyclate 100 ml @ 50 mls/hr Q12H IV 04/14/25 14:00 04/17/25 15:00 50 MLS/HR Calcium Acetate 1,334 mg TIDWMEALS PO 04/14/25 18:00 04/17/25 16:59 1,334 MG Metoclopramide HCl 10 mg Q8HPRN PRN IV 04/15/25 12:30 04/17/25 14:34 10 MG Nifedipine 60 mg DAILY PO 04/16/25 10:00 04/17/25 17:15 60 MG Carvedilol 25 mg Q12HR PO 04/17/25 22:00 Hydralazine HCl 10 mg Q6HP PRN IV 04/17/25 19:00 Hold objective Gen.: Patient lying in bed in no apparent distress. Breathing on room air. Head: Normocephalic, atraumatic. Eyes: EOMI/PERRLA. Ears: Normal hearing. Normal anatomy. Neck/trachea: Trachea midline, supple. Nose: Normal external anatomy. Mouth: Moist mucous membranes. Chest: Decreased air entry bilaterally. No wheezing or rhonchi. Cardiovascular: Positive S1, positive S2. Regular rate and rhythm. Abdomen: Positive bowel sounds in all 4 quadrants. Soft, non-tender, non- distended. : Deferred. Rectal: Deferred. Skin: Warm, dry. Intact. Extremities: 2+ radial pulses bilaterally. No lower extremity edema. Neuro: Awake, alert, oriented x3. No gross motor or sensory deficits. Cranial nerves II through XII intact. Gait not assessed. laboratory and microbiology Laboratory Tests 04/17/25 05:52 Test 04/17/25 05:52 Range/Units Serum Glucose 141 H 74-106 mg/dL Assessment/Plan Impression: Acute hypoxic respiratory failure Pneumonia due to gram negative Pleural effusion Atelectasis Hemodialysis/end-stage renal disease CHF, systolic; acute on chronic Hypertensive urgency Morbid obesity, BMI 43.4 Events: Tapered off 2 LPM NC, currently breathing on room air Supplemental oxygen PRN Pt received metoprolol IV x1 Continue Coreg, Procardia Continue bronchodilators Continue antibiotics Incentive spirometry Cardiology recs appreciated. Protonix for GI prophylaxis Lovenox for DVT prophylaxis Labs and imaging reviewed. Rest of plan as noted below. Plan: Supplemental oxygen PRN Titrate to keep O2 sats above 92%. Dialysis with fluid removal Supportive care Nutrition Continue bronchodilators Continue antibiotics Incentive spirometry Monitor renal function. Monitor electrolytes. Supplement as necessary. Monitor ins and outs. GI/DVT Prophylaxis Prognosis: Guarded given patient's multiple co-morbidities. Rest of plan per hospitalist and other consultants. Thank you, Dr. Orr, for allowing me to participate in this patient's care. Further recommendations will depend on the patient's clinical course. Please do not hesitate to contact me if you have any questions or concerns. This medical document was created using an electronic medical record system with [employer] computerized dictation system. Although these documentations are being carefully reviewed, there may still be some phonetic and typographical changes. The errors are purely typographical, due to imperfection on the software program, and do not reflect any compromise in the patient's medical care. Plan discussed with: Patient, Other (JOSE Hurd) ROSA CHEN MD Apr 17, 2025 20:53
[2025-04-17] MEDS: CARVEDILOL 12.5 MG TAB PO SCH (22:41)
[2025-04-17] MEDS: EPOETIN ALFA-EPBX 4,000 UNIT/ML VIAL SC ONE (22:45)
[2025-04-18] VITALS (9 sets, daily range): BP systolic 149–174; BP diastolic 39–83; PULSE 87–95; RESP 18–20; TEMP 97.5–98.8; O2SAT 86–98
[2025-04-18 06:57] LABS: Anion Gap 12 (5-15); Carbon Dioxide 28 mmol/L (20-31); Chloride 98 mmol/L (98-107); Sodium 138 mmol/L (136-145)
[2025-04-18 07:14] LABS: Blood Urea Nitrogen 42 mg/dL (9-23)
--- NOTE | 2025-04-18 07:16 | DVH ---
EXAM: XR Chest, 1 View CLINICAL INDICATION: pleural effusion TECHNIQUE: Frontal view of the chest. COMPARISON: XY CHEST PORTABLE on DOS: 04/14/25, XY CHEST PORTABLE on DOS: 04/13/25, XY CHEST PORTABLE on DOS: 12/10/24 FINDINGS: LUNGS AND PLEURAL SPACES: Bilateral pleural effusions. HEART: Cardiomegaly with mild congestion. MEDIASTINUM: Unremarkable. Normal mediastinal contour. BONES/JOINTS: Unremarkable. No acute fracture. TUBES, LINES AND DEVICES: Right internal jugular central venous catheter tip in the superior vena c evette. OTHER FINDINGS: . . IMPRESSION: 1. Cardiomegaly with mild congestion. 2. Bilateral pleural effusions.
[2025-04-18 07:21] LABS: BUN/Creatinine Ratio 6.7 (10.0-20.0); Calcium 7.8 mg/dL (8.7-10.4); Glucose 162 mg/dL (74-106); Potassium 3.4 mmol/L (3.5-5.1)
--- NOTE | 2025-04-18 10:53 | DVHPN2 ---
Subjective He is still complaining of nausea and vomiting He had dialysis last night Potassium is 3.4 Reviewed: Care Plan, H&P, Labs, Medications, Previous Orders, Radiology Changes from previous H/P or p: Changes General: Per HPI Objective Vitals Vital Signs Date Time Temp Pulse Resp B/P (MAP) Pulse Ox O2 Delivery O2 Flow Rate FiO2 04/18/25 09:00 97.5 89 18 174/39 (84) 95 97.5 04/18/25 07:50 Room Air* 0 21 Intake/Output Intake and Output 04/18/25 07:00 Intake Total 368 ml Output Total 0 ml Balance 368 ml Intake Oral 218 ml IV Total 150 ml Output Urine Total 0 ml General Appearance: Alert, Oriented X3, Cooperative, mild distress Lungs: Other Cardiovascular: Regular rate, Normal S1, Normal S2 Abdomen: Normal bowel sounds, Soft, No tenderness Extremities: Other (2+ edema) Medications Current Medications Medications Dose Ordered Sig/Milka Route Start Time Stop Time Status Last Admin Dose Admin Sodium Chloride 10 ml Q8HR IV 04/13/25 22:00 04/18/25 06:26 10 ML Ondansetron HCl 4 mg Q4HP PRN IV 04/13/25 21:45 Hold 04/15/25 06:41 4 MG Acetaminophen 650 mg Q6HP PRN PO 04/13/25 21:45 04/14/25 21:59 650 MG Nitroglycerin 0.4 mg Q5MINP PRN SL 04/13/25 21:45 Aspirin 81 mg DAILY PO 04/14/25 10:00 04/18/25 08:21 81 MG Atorvastatin Calcium 20 mg DAILY PO 04/14/25 10:00 04/18/25 08:22 20 MG Pantoprazole Sodium 40 mg DAILY@0600 PO 04/14/25 06:00 04/18/25 06:26 40 MG Albuterol 2.5 mg Q6HPRN PRN NEB 04/13/25 22:15 04/14/25 20:07 2.5 MG Ipratropium [place] 0.5 mg Q6HPRN PRN NEB 04/13/25 22:15 04/14/25 20:07 0.5 MG Ceftriaxone Sodium 50 ml @ 100 mls/hr Q24H IV 04/14/25 23:00 04/17/25 22:45 100 MLS/HR Diagnostic Test (Pha) 1 strip ACHS 04/14/25 07:00 04/18/25 06:26 1 STRIP Insulin Human Regular ACHS SC 04/14/25 07:00 04/18/25 06:27 2 UNITS Dextrose 50 ml UD PRN IV 04/13/25 22:30 Doxycycline Hyclate 100 ml @ 50 mls/hr Q12H IV 04/14/25 14:00 04/18/25 01:58 50 MLS/HR Calcium Acetate 1,334 mg TIDWMEALS PO 04/14/25 18:00 04/18/25 08:22 1,334 MG Metoclopramide HCl 10 mg Q8HPRN PRN IV 04/15/25 12:30 04/17/25 23:21 10 MG Nifedipine 60 mg DAILY PO 04/16/25 10:00 04/18/25 08:22 60 MG Carvedilol 25 mg Q12HR PO 04/17/25 22:00 04/18/25 08:22 25 MG Hydralazine HCl 10 mg Q6HP PRN IV 04/17/25 19:00 Hold Laboratory Results Laboratory Tests 04/17/25 05:52 04/18/25 06:00 Chemistry Test 04/18/25 06:00 Calcium Level 7.8 mg/dL (8.7-10.4) L Urinalysis Test 04/13/25 20:43 Urine Color Light-yellow (Yellow) Urine Clarity Turbid (Clear) H Urine pH 5.0 (5.0-9.0) Urine Specific [place] 1.012 (1.001-1.035) Urine Protein 2+ (Negative) H Urine Ketones Negative (Negative) Urine Blood Negative /uL (Negative) Urine Nitrite Negative (Negative) Urine Bilirubin Negative (Negative) Urine Urobilinogen Normal mg/dL (Negative) Urine Leukocyte Esterase 1+ /uL (Negative) Urine RBC 3 /hpf (0 - 3) Urine Microscopic WBC 9 /HPF (0-3) H Urine Squamous Epithelial Cells Few /hpf (<5) Urine Amorphous Crystals Few /hpf (None Seen) Urine Bacteria Few /hpf (None Seen) H Urine Hyaline Casts Few /lpf (0 - 2) Urine Creatinine 97.22 mg/dL (30.0-125.0) Urine Protein/Creatinine Ratio 1.61 Urine Sodium 23 mmol/L (40-220) L Urine Glucose Normal mg/dL (Normal) Urine Total Protein 156.7 mg/dL (1-14) H Microbiology Microbiology Date/Time Source Procedure Growth Status 04/14/25 11:45 Pleural Fluid Gram Stain - Final Resulted 04/14/25 11:45 Pleural Fluid Body Fluid Culture - Preliminary Resulted 04/14/25 00:55 Blood Blood Culture - Preliminary NO GROWTH AFTER 72 HOURS OF INCUBATION. Resulted 04/14/25 00:00 Nose MRSA Screen - Final Complete 04/13/25 20:43 Voided Urine Urine Culture - Final Complete Assessment/Plan Assessment/Plan Acute hypoxic respiratory failure likely due to heart failure Acute on chronic HFrEF, EF 25% CAD h/o stent on aspirin Metabolic acidosis likely due to renal failure ESRD on HD Pneumonia Gram-positive versus Gram-negative bacteria Bilateral pleural effusion s/p R thoracentesis UTI due to acute complicated cystitis Hypertension Diabetes mellitus type 2-uncontrolled, HbA1c 8.0 CAD status post PTCA Obesity Hyperlipidemia Hyperkalemia - Obesity PLAN: HD today Check CXR in AM Cardiology consult Dr. Rossi IV antibiotics: Rocephin and Doxy DC Lovenox Continue aspirin Hydralazine IV prn Increase Coreg to 25 mg bid Continue Nifedipine ER 60 mg qd Full code Discussed with patient and at the bedside Advanced directives discussed x 16 minutes 04/18/2025: Pneumonia and UTI: Continue IV antibiotics Rocephin and doxycycline End-stage renal disease: Hemodialysis per nephrology Cardiology consult pending Continue Protonix Plan discussed with: Patient My Orders Orders - TAMELA GUTIERREZ MD Procedure Category Date Status Time Chest Xray 1 View XY 04/18/25 Resulted 06:00 * Cardiology Consult CONS 04/17/25 Transmitted 18:52 Carvedilol Tablet PHA 04/17/25 In Process (Coreg Tablet) 22:00 Hydralazine Injection PHA 04/17/25 In Process (Apresoline Inject 19:00 Date of Service: Apr 18, 2025 Billing Provider: TAMELA GUTIERREZ MD Common Visit Codes: [id number] INP/OBS CARE(HIGH) TAMELA GUTIERREZ MD Apr 18, 2025 10:53
--- NOTE | 2025-04-18 11:09 | DVHCONRES ---
VIJAY COLEY RESIDENT 04/18/25 1108: Date Seen: Apr 18, 2025 Resident Creating Document: VIJAY COLEY RESIDENT Referring Physician Dr. Orr Reason for Consultation CHF History of Present Illness Patient is a 49-year-old male with past medical history of heart failure with reduced ejection fraction, CAD s/p PCI 2 years ago x1 SAMEER, ESRD on hemodialysis, type 2 diabetes diagnosed 20 years ago, dyslipidemia, hypertension, who comes in due to dyspnea. According to the patient, he was having increasing difficulty b reathing whereby he was unable to initiate deep breaths which is what prompted this visit to the hospital, per patient he has had multiple episodes of dialysis during the course of his hospitalization and he did notice some improvement after 2nd-3rd dialysis session. Currently patient is noted to have dyspnea of Functional Class III. Echocardiogram from January 2025 shows left ventricular and left atrial enlargement with an ejection fraction of 25%. On review of systems patient is complaining of fatigue, chills, dry cough, shortness of breath on exertion, nausea, multiple episodes of vomiting. Patient follows with Dr. Rossi. Past Medical History heart failure with reduced ejection fraction, CAD s/p PCI 2 years ago x1 SAMEER, ESRD on hemodialysis, type 2 diabetes diagnosed 20 years ago, dyslipidemia, hypertension Past Surgical History Left [id number] amputation, cholecystectomy, exploratory laparotomy, right 2nd toe amputation Family History: Alcoholism G8 FATHER Asthma G8 MOTHER Depression G8 MOTHER G8 FATHER Diabetes mellitus G8 MOTHER Glaucoma G8 MOTHER Social History Smoking: Denies Alcohol: Denies Drugs: Denies Allergies: Coded Allergies: Hydralazine (Verified Allergy, Unknown, 04/13/25) Piperacillin (Verified Allergy, Unknown, 08/31/24) Tazobactam (Verified Allergy, Unknown, 08/31/24) Home Meds Active Scripts Nifedipine (Nifedipine Er) 30 Mg Tab, 1 TAB PO DAILY, #30 TAB 3 Refills Prov:LOR KENNEDY MD 12/11/24 Reported Medications Metolazone (Metolazone) 2.5 Mg Tab, 2 TAB PO 2XW 04/14/25 Furosemide (Furosemide) 20 Mg Tab, 20 MG PO BID, TAB 04/14/25 Bumetanide (Bumetanide) 2 Mg Tab, 1 TAB PO 04/14/25 Terazosin Hcl (Terazosin Hcl) 2 Mg Cap, 1 CAP PO HS 04/14/25 Duloxetine HCl (Duloxetine HCl) 60 Mg Cap, 1 CAP PO DAILY 04/14/25 Cholecalciferol (VITAMIN D-3) 2,000 Unit Tab, 2000 UNIT PO DAILY, TAB 04/14/25 Carvedilol (Carvedilol) 25 Mg Tab, 1 TAB PO BID 04/14/25 Amlodipine Besylate (Amlodipine Besylate) 5 Mg Tab, 10 MG PO DAILY 04/14/25 Isosorbide Mononitrate (Isosorbide Mononitrate Er) 30 Mg Tab, 30 MG PO DAILY 05/14/22 Gabapentin (Gabapentin) 300 Mg Cap, 300 MG PO TID 05/14/22 Insulin Glargine (Basaglar Kwikpen) 100 Unit/Ml Inj, 62 UNIT SC QPM 05/14/22 Atorvastatin Calcium (Lipitor) 20 Mg Tab, 20 MG PO DAILY 05/14/22 Aspirin (ASPIRIN 81) 81 Mg Tab, 81 MG PO DAILY 05/14/22 Current Medications Current Medications Medications (Trade) Dose Ordered Sig/Milka Route PRN Reason Start Time Stop Time Status Last Admin Carvedilol (Coreg Tablet) 25 mg Q12HR PO 04/17/25 22:00 04/18/25 08:22 Hydralazine HCl (Apresoline Injection) 10 mg Q6HP PRN IV SBP>150 04/17/25 19:00 Hold Review of Systems Patient seen and examined at bedside. Patient is alert and oriented to time, place person and responding to all questions. General: Fatigue, chills Eyes: No Pain, No Vision change, No Conjunctivae inflammation, No Eyelid inflammation, No Other, No Redness ENT: No Ear pain, No Ear discharge, No Nose pain, No Nose discharge, No Nose congestion, No Mouth pain, No Mouth swelling, No Throat pain, No Throat swelling, No Other Cardiovascular: No Chest Pain, No Palpitations, No Orthopnea, No Paroxysmal No Dyspnea, No Edema, No Lt Headedness, No Other Respiratory: Dry cough, No Shortness of breath, SOB with exertion, No Wheezing, No Hemoptysis, No Pleuritic Pain, No Sputum, No Other Gastrointestinal: Nausea, Vomiting, No Abdominal Pain, No Diarrhea, No Constipation, No Melena, No Hematochezia, No Other Genitourinary: No Dysuria, No Frequency, No Incontinence, No Hematuria, No Retention, No Other Musculoskeletal: No other, No neck pain, No shoulder pain, No arm pain, No back pain, No hand pain, No leg pain, No foot pain Skin: No Rash, No Lesions, No Jaundice, No Bruising, No Other Vital Signs Vital Signs Date Time Temp Pulse Resp B/P (MAP) Pulse Ox O2 Delivery O2 Flow Rate FiO2 04/18/25 09:00 97.5 89 18 174/39 (84) 95 97.5 04/18/25 07:50 Room Air* 0 21 Physical Exam General Appearance: Cooperative. Well developed. Well nourished. NAD. Dry mucous membranes Head Exam: Normal inspection Neck Exam: Normal inspection. Non-tender. Normal alignment Pulmonary/Respiratory: Chest non-tender. Clear bilateral breath sounds, no crackles, no wheezing. Cardiovascular/Chest: Regular rate and rhythm. No murmurs. mild-moderate JVD. Peripheral Pulses: 2+ Radial (R). 2+ Radial (L). 2+ Pedal (R). 2+ Pedal (L) Abdominal Exam: Normal bowel sounds. Soft. normal abdomen, no visible veins, Nontender. No hepatospenomegaly. No masses Lower extremities: 1+ lower extremity edema up to the knees Neuro/Mental Status: A&O x4. Coherent. Thoughts/Psych: Normal thought pattern. Appropriate mood and affect. Good judgement and insight Skin Exam: Normal inspection. Normal color. Warm. Dry Labs/Diagnostic Data Labs Test 04/18/25 06:00 04/17/25 20:50 04/17/25 05:52 04/14/25 11:45 Range/Units Sodium Level 138 136-145 mmol/L Potassium Level 3.4 L 3.5-5.1 mmol/L Chloride Level 98 98-107 mmol/L Carbon Dioxide Level 28 20-31 mmol/L Anion Gap 12 5-15 Blood Urea Nitrogen 42 #H 9-23 mg/dL Creatinine 6.25 H 0.700-1.30 mg/dL Glomerular Filtration Rate Calc 10 >90 mL/min BUN/Creatinine Ratio 6.7 L 10.0-20.0 Serum Glucose 162 H 74-106 mg/dL Calcium Level 7.8 L 8.7-10.4 mg/dL POC Glucose 168 H 70-106 mg/dl White Blood Count 8.5 4.4-10.8 10^3/uL Red Blood Count 3.48 L 4.5-5.90 10^6/uL Hemoglobin 10.6 L 13.5-17.5 g/dL Hematocrit 31.3 L 41.0-53.0 % Mean Corpuscular Volume 89.9 80.0-100.0 fL Mean Corpuscular Hemoglobin 30.6 28.0-32.0 pg Mean Corpuscular Hemoglobin Concent 34.0 32.0-36.0 g/dL Red Cell Distribution Width 12.3 11.8-14.3 % Platelet Count 147 140-450 10^3/uL Mean Platelet Volume 7.4 6.9-10.8 fL Neutrophils (%) (Auto) 66.3 37.0-80.0 % Lymphocytes (%) (Auto) 16.5 10.0-50.0 % Monocytes (%) (Auto) 11.0 0.0-12.0 % Eosinophils (%) (Auto) 5.6 0.0-7.0 % Basophils (%) (Auto) 0.6 0.0-2.0 % Neutrophils # (Auto) 5.7 1.6-8.6 10 ^3/uL Lymphocytes # (Auto) 1.4 0.4-5.4 10 ^3/uL Monocytes # (Auto) 0.9 0-1.3 10 ^3/uL Eosinophils # (Auto) 0.5 0-0.8 10 ^3/uL Basophils # (Auto) 0.1 0-0.2 10 ^3/uL Nucleated Red Blood Cells 0.0 % Body Fluid Source Pleural fluid Body Fluid pH 8.0 Body Fluid WBC (Manual) 154 0-200 CUMM Body Fluid RBC (Manual) 193 0-2000 CUMM Body Fluid Mononuclear Cells 98 % Body Fluid Polymorphonuclear Cells 2 0-25 % Body Fluid Glucose 146 . mg/dL Body Fluid Total Protein 2.2 . g/dL Body Fluid Lactate Dehydrogenase 92 . IU/L Test 04/14/25 09:02 04/14/25 02:48 04/14/25 02:40 04/14/25 00:00 Range/Units Prothrombin Time 11.3 9.3-11.8 sec Prothrombin Time INR 1.07 0.9-1.15 Activated Partial Thromboplast Time 31.0 24.5-34.5 SEC Uric Acid 9.6 H 3.7-9.2 mg/dL Magnesium Level 2.3 1.6-2.6 mg/dL Total Bilirubin 0.2 0.2-1.0 mg/dL Aspartate Amino Transferase (AST) 9 L 13-40 U/L Alanine Aminotransferase (ALT) < 9 7-40 U/L Alkaline Phosphatase 251 H 46-116 U/L Lactate Dehydrogenase 259 H 120-246 U/L Creatine Kinase 400 H 46-171 U/L Total Protein 6.5 5.7-8.2 g/dL Albumin 3.5 3.2-4.8 g/dL Hepatitis A IgM Antibody Negative Hepatitis B Surface Antigen Negative Negative Hepatitis B Surface Antibody Negative Negative Hepatitis B Core IgM Antibody Negative Negative Hepatitis C Antibody Reactive *A Negative Hemoglobin A1c 8.0 H <5.7 % A1C Ammonia 17 11-32 umol/L Vitamin B12 Level 927 H 211-911 pg/mL Vitamin D 25-Hydroxy 38.7 30.0-100 ng/mL Folic Acid 11.01 >5.38 ng/mL Blood Gas Specimen Type Arterial Blood Gas Sample Site Left radial Blood Gas Patient Temperature 37.0 Arterial Blood Date Drawn [id number] Arterial Blood pH 7.194 *L 7.350-7.450 Arterial Blood Partial Pressure CO2 33.3 L 35.0-48.0 mmHg Arterial Blood Partial Pressure O2 91.3 83.0-108.0 mmHg Arterial Blood HCO3 12.5 L 21.0-28.0 mmol/L Arterial Blood Oxygen Saturation 95.0 94.0-98.0 % Arterial Blood Base Excess -14.5 L -2.0-3.0 mmol/L Arterial Blood Oxyhemoglobin 94.3 94.0-98.0 % Arterial Blood Carboxyhemoglobin 0.3 L 0.5-1.5 % Arterial Blood Methemoglobin 0.4 0.0-1.5 % Jarod Test Modified Blood Gas Total Hemoglobin 11.30 L 13.5-17.5 g/dL Blood Gas Liter Flow 2.00 Blood Gas Modality Nasal cannula FiO2 % 28.0 Blood Gas Critical Value Read Back Yes Blood Gas Notified Whom dom Mar md Blood Gas Notified Time [id number] Blood Gas Notified By angela Kelsey, steven Influenza Type A Antigen Negative Negative Influenza Type B Antigen Negative Negative SARS-CoV-2 Antigen (Rapid) Negative NEGATIVE Test 04/13/25 20:47 04/13/25 20:43 04/13/25 17:53 Range/Units Troponin I High Sensitivity 16 </=54 ng/L Urine Color Light-yellow Yellow Urine Clarity Turbid H Clear Urine pH 5.0 5.0-9.0 Urine Specific [place] 1.012 1.001-1.035 Urine Protein 2+ H Negative Urine Ketones Negative Negative Urine Blood Negative Negative /uL Urine Nitrite Negative Negative Urine Bilirubin Negative Negative Urine Urobilinogen Normal Negative mg/dL Urine Leukocyte Esterase 1+ Negative /uL Urine RBC 3 0 - 3 /hpf Urine Microscopic WBC 9 H 0-3 /HPF Urine Squamous Epithelial Cells Few <5 /hpf Urine Amorphous Crystals Few None Seen /hpf Urine Bacteria Few H None Seen /hpf Urine Hyaline Casts Few 0 - 2 /lpf Urine Creatinine 97.22 30.0-125.0 mg/dL Urine Protein/Creatinine Ratio 1.61 Urine Sodium 23 L 40-220 mmol/L Urine Glucose Normal Normal mg/dL Urine Total Protein 156.7 H 1-14 mg/dL Urine Opiates Screen Neg NEGATIVE Urine Fentanyl Screen Neg NEGATIVE Urine Barbiturates Screen Neg NEGATIVE Urine Phencyclidine Screen Neg NEGATIVE Urine Amphetamines Screen Neg NEGATIVE Urine Benzodiazepines Screen Neg NEGATIVE Urine Cocaine Screen Neg NEGATIVE Urine Cannabinoids Screen Neg NEGATIVE Phosphorus Level 13.6 H 2.4-5.1 mg/dL Direct Bilirubin < 0.1 <0.3 mg/dL B-Type Natriuretic Peptide 435.11 0-100 pg/mL Thyroid Stimulating Hormone (TSH) 2.13 0.55-4.78 uIU/mL Microbiology Date/Time Source Procedure Growth Status 04/14/25 11:45 Pleural Fluid Gram Stain - Final Resulted 04/14/25 11:45 Pleural Fluid Body Fluid Culture - Preliminary Resulted 04/14/25 00:55 Blood Blood Culture - Preliminary NO GROWTH AFTER 72 HOURS OF INCUBATION. Resulted 04/14/25 00:00 Nose MRSA Screen - Final Complete 04/13/25 20:43 Voided Urine Urine Culture - Final Complete Assessment Heart failure with reduced ejection fraction 25%, NYHA class III ESRD on hemodialysis Acute hypoxic respiratory failure secondary to pneumonia, now improved currently on room air Symptomatic hypocalcemia Plan/Recommendation Nuclear stress test from 03/14/2025 showed inferior lateral wall ischemia Patient would benefit from left heart catheterization. Communicated with , he recommends ischemia workup in the outpatient setting given patient's recent hemodialysis and ability to still make urine Patient is scheduled for his appointment with Dr. Rossi on 05/04/2025 Atorvastatin 80 mg Started [employer] SGLT2i and MRA owing to patient's GFR 10 Thank you so much for the opportunity to consult on your patient. Cardiology team will follow the patient. In case of any questions or concerns please feel free to reach out. Plan discussed with Dr. Medina Plan discussed with: Patient, Spouse, Other (RN) Visit Coding Cardiology RES Date of Service: Apr 18, 2025 Billing Provider: STU MEDINA DO Cardiology Common Codes: [id number] INP/OBS CARE (High) STU MEDINA DO 04/18/252041: Family History: Alcoholism G8 FATHER Asthma G8 MOTHER Depression G8 MOTHER G8 FATHER Diabetes mellitus G8 MOTHER Glaucoma G8 MOTHER Allergies: Coded Allergies: Hydralazine (Verified Allergy, Unknown, 04/13/25) Piperacillin (Verified Allergy, Unknown, 08/31/24) Tazobactam (Verified Allergy, Unknown, 08/31/24) Home Meds Active Scripts Nifedipine (Nifedipine Er) 30 Mg Tab, 1 TAB PO DAILY, #30 TAB 3 Refills Prov:LOR KENNEDY MD 12/11/24 Reported Medications Metolazone (Metolazone) 2.5 Mg Tab, 2 TAB PO 2XW 04/14/25 Furosemide (Furosemide) 20 Mg Tab, 20 MG PO BID, TAB 04/14/25 Bumetanide (Bumetanide) 2 Mg Tab, 1 TAB PO 04/14/25 Terazosin Hcl (Terazosin Hcl) 2 Mg Cap, 1 CAP PO HS 04/14/25 Duloxetine HCl (Duloxetine HCl) 60 Mg Cap, 1 CAP PO DAILY 04/14/25 Cholecalciferol (VITAMIN D-3) 2,000 Unit Tab, 2000 UNIT PO DAILY, TAB 04/14/25 Carvedilol (Carvedilol) 25 Mg Tab, 1 TAB PO BID 04/14/25 Amlodipine Besylate (Amlodipine Besylate) 5 Mg Tab, 10 MG PO DAILY 04/14/25 Isosorbide Mononitrate (Isosorbide Mononitrate Er) 30 Mg Tab, 30 MG PO DAILY 05/14/22 Gabapentin (Gabapentin) 300 Mg Cap, 300 MG PO TID 05/14/22 Insulin Glargine (Basaglar Kwikpen) 100 Unit/Ml Inj, 62 UNIT SC QPM 05/14/22 Atorvastatin Calcium (Lipitor) 20 Mg Tab, 20 MG PO DAILY 05/14/22 Aspirin (ASPIRIN 81) 81 Mg Tab, 81 MG PO DAILY 05/14/22 Plan/Recommendation The patient was discussed with Resident Physician Vijay Coley. I have reviewed the documentation, discussed the case with the resident and agree with the resident's documentation except as noted. The Assessment and Plan were formulated with me. Visit Coding Cardiology RES Date of Service: Apr 18, 2025 Billing Provider: STU MEDINA DO Cardiology Common Codes: [id number] INP/OBS CARE (High) VIJAY COLEY RESIDENT Apr 18, 2025 11:08 STU MEDINA DO Apr 18, 2025 20:42
--- NOTE | 2025-04-18 11:43 | DVHPN2 ---
Progress Note - Dictate Date Seen: Apr 18, 2025 Medical Necessity Reason Pt with a Central, PICC or Fol: No Subjective Nauseous at times vital signs Vital Sign Date Time Temp Pulse Resp B/P (MAP) Pulse Ox O2 Delivery O2 Flow Rate FiO2 04/18/25 09:00 97.5 89 18 174/39 (84) 95 97.5 04/18/25 07:50 Room Air* 0 21 Total Intake and Output 04/17/25 04/17/25 04/18/25 15:00 23:00 07:00 Intake Total 218 ml 150 ml Output Total 0 ml 0 ml Balance 218 ml 150 ml medications Current Medications Medications Dose Ordered Sig/Milka Route Start Time Stop Time Status Last Admin Dose Admin Sodium Chloride 10 ml Q8HR IV 04/13/25 22:00 04/18/25 06:26 10 ML Ondansetron HCl 4 mg Q4HP PRN IV 04/13/25 21:45 Hold 04/15/25 06:41 4 MG Acetaminophen 650 mg Q6HP PRN PO 04/13/25 21:45 04/14/25 21:59 650 MG Nitroglycerin 0.4 mg Q5MINP PRN SL 04/13/25 21:45 Aspirin 81 mg DAILY PO 04/14/25 10:00 04/18/25 08:21 81 MG Atorvastatin Calcium 20 mg DAILY PO 04/14/25 10:00 04/18/25 08:22 20 MG Pantoprazole Sodium 40 mg DAILY@0600 PO 04/14/25 06:00 04/18/25 06:26 40 MG Albuterol 2.5 mg Q6HPRN PRN NEB 04/13/25 22:15 04/14/25 20:07 2.5 MG Ipratropium [place] 0.5 mg Q6HPRN PRN NEB 04/13/25 22:15 04/14/25 20:07 0.5 MG Ceftriaxone Sodium 50 ml @ 100 mls/hr Q24H IV 04/14/25 23:00 04/17/25 22:45 100 MLS/HR Diagnostic Test (Pha) 1 strip ACHS 04/14/25 07:00 04/18/25 06:26 1 STRIP Insulin Human Regular ACHS SC 04/14/25 07:00 04/18/25 06:27 2 UNITS Dextrose 50 ml UD PRN IV 04/13/25 22:30 Doxycycline Hyclate 100 ml @ 50 mls/hr Q12H IV 04/14/25 14:00 04/18/25 01:58 50 MLS/HR Calcium Acetate 1,334 mg TIDWMEALS PO 04/14/25 18:00 04/18/25 08:22 1,334 MG Metoclopramide HCl 10 mg Q8HPRN PRN IV 04/15/25 12:30 04/17/25 23:21 10 MG Nifedipine 60 mg DAILY PO 04/16/25 10:00 04/18/25 08:22 60 MG Carvedilol 25 mg Q12HR PO 04/17/25 22:00 04/18/25 08:22 25 MG Hydralazine HCl 10 mg Q6HP PRN IV 04/17/25 19:00 Hold objective Alert, oriented x 3 NAD Lungs CTA CV: RR, no gallops Abdomen: soft, NT S/P BKA laboratory and microbiology Laboratory Tests 04/18/25 06:00 04/17/25 05:52 Test 04/18/25 06:00 Range/Units Serum Glucose 162 H 74-106 mg/dL Problem List End-stage kidney disease Type 2 diabetes with nephropathy Hypertension Hyperlipidemia Heart failure with reduced EF of approximately 25% History of coronary artery disease status post PTCA Chronic metabolic acidosis Hyperphosphatemia Hyperuricemia Pleural effusion Assessment/Plan Hemodialysis on MWF schedule Awaiting outpatient chair time. Labs in a.m. Plan discussed with: Patient DAVID GAONA MD Apr 18, 2025 11:43
--- NOTE | 2025-04-18 20:44 | DVHPN2 ---
Progress Note - Dictate Date Seen: Apr 18, 2025 Medical Necessity Reason Pt with a Central, PICC or Fol: No Subjective Patient seen and examined at bedside. Breathing comfortably on room air. Overnight events reviewed. vital signs Vital Sign Date Time Temp Pulse Resp B/P (MAP) Pulse Ox O2 Delivery O2 Flow Rate FiO2 04/18/25 13:10 98.0 87 18 152/71 (98) 95 98.0 04/18/25 07:50 Room Air* 0 21 Total Intake and Output 04/17/25 04/17/25 04/18/25 15:00 23:00 07:00 Intake Total 218 ml 150 ml Output Total 0 ml 0 ml Balance 218 ml 150 ml medications Current Medications Medications Dose Ordered Sig/Milka Route Start Time Stop Time Status Last Admin Dose Admin Sodium Chloride 10 ml Q8HR IV 04/13/25 22:00 04/18/25 14:43 10 ML Ondansetron HCl 4 mg Q4HP PRN IV 04/13/25 21:45 Hold 04/15/25 06:41 4 MG Acetaminophen 650 mg Q6HP PRN PO 04/13/25 21:45 04/14/25 21:59 650 MG Nitroglycerin 0.4 mg Q5MINP PRN SL 04/13/25 21:45 Aspirin 81 mg DAILY PO 04/14/25 10:00 04/18/25 08:21 81 MG Pantoprazole Sodium 40 mg DAILY@0600 PO 04/14/25 06:00 04/18/25 06:26 40 MG Ceftriaxone Sodium 50 ml @ 100 mls/hr Q24H IV 04/14/25 23:00 04/17/25 22:45 100 MLS/HR Diagnostic Test (Pha) 1 strip ACHS 04/14/25 07:00 04/18/25 17:38 1 STRIP Insulin Human Regular ACHS SC 04/14/25 07:00 04/18/25 17:49 3 UNITS Dextrose 50 ml UD PRN IV 04/13/25 22:30 Doxycycline Hyclate 100 ml @ 50 mls/hr Q12H IV 04/14/25 14:00 04/18/25 14:43 50 MLS/HR Calcium Acetate 1,334 mg TIDWMEALS PO 04/14/25 18:00 04/18/25 17:37 1,334 MG Metoclopramide HCl 10 mg Q8HPRN PRN IV 04/15/25 12:30 04/17/25 23:21 10 MG Nifedipine 60 mg DAILY PO 04/16/25 10:00 04/18/25 08:22 60 MG Carvedilol 25 mg Q12HR PO 04/17/25 22:00 04/18/25 08:22 25 MG Hydralazine HCl 10 mg Q6HP PRN IV 04/17/25 19:00 Hold Atorvastatin Calcium 80 mg HS PO 04/18/25 22:00 Sacubitril/ Valsartan 1 tab BID PO 04/18/25 22:00 Gabapentin 300 mg TID PO 04/18/25 22:00 UNV objective Gen.: Patient lying in bed in no apparent distress. Breathing on room air. Head: Normocephalic, atraumatic. Eyes: EOMI/PERRLA. Ears: Normal hearing. Normal anatomy. Neck/trachea: Trachea midline, supple. Nose: Normal external anatomy. Mouth: Moist mucous membranes. Chest: Decreased air entry bilaterally. No wheezing or rhonchi. Cardiovascular: Positive S1, positive S2. Regular rate and rhythm. Abdomen: Positive bowel sounds in all 4 quadrants. Soft, non-tender, non- distended. : Deferred. Rectal: Deferred. Skin: Warm, dry. Intact. Extremities: 2+ radial pulses bilaterally. No lower extremity edema. Neuro: Awake, alert, oriented x3. No gross motor or sensory deficits. Cranial nerves II through XII intact. Gait not assessed. laboratory and microbiology Laboratory Tests 04/18/25 06:00 04/17/25 05:52 Test 04/18/25 06:00 Range/Units Serum Glucose 162 H 74-106 mg/dL Assessment/Plan Impression: Acute hypoxic respiratory failure Pneumonia due to gram negative Pleural effusion Atelectasis Hemodialysis/end-stage renal disease CHF, systolic; acute on chronic Hypertensive urgency Morbid obesity, BMI 43.4 Events: Remains on room air Supplemental oxygen PRN No new respiratory complaints. Blood pressure control - currently BP is better controlled. Status post hemodialysis yesterday. Continue antibiotics Incentive spirometry Patient is stable for discharge from the pulmonary standpoint. Labs and imaging reviewed. Rest of plan as noted below. Plan: Supplemental oxygen PRN Titrate to keep O2 sats above 92%. Dialysis with fluid removal Supportive care Nutrition Bronchodilators Antibiotics Incentive spirometry HD per Nephrology Monitor renal function. Monitor electrolytes. Supplement as necessary. Monitor ins and outs. Protonix for GI prophylaxis Lovenox for DVT prophylaxis Prognosis: Guarded given patient's multiple co-morbidities. Rest of plan per hospitalist and other consultants. Thank you, Dr. Orr, for allowing me to participate in this patient's care. Further recommendations will depend on the patient's clinical course. Please do not hesitate to contact me if you have any questions or concerns. This medical document was created using an electronic medical record system with [employer] dictation system. Although these documentations are being carefully reviewed, there may still be some phonetic and typographical changes. The errors are purely typographical, due to imperfection on the software program, and do not reflect any compromise in the patient's medical care. Plan discussed with: Patient, Other (RN Sera) ROSA CHEN MD Apr 18, 2025 20:44
[2025-04-18] MEDS: ATORVASTATIN 20 MG TAB PO SCH (21:25)
[2025-04-18] MEDS: SACUBITRIL-VALSARTAN 24mg/26mg TAB PO SCH (21:25)
[2025-04-18] MEDS: GABAPENTIN 100 MG CAP PO SCH (21:37)
[2025-04-19] VITALS (8 sets, daily range): BP systolic 119–167; BP diastolic 71–82; PULSE 85–90; RESP 15–20; TEMP 97.9–99.2; O2SAT 92–95
[2025-04-19 06:51] LABS: Sodium 136 mmol/L (136-145)
[2025-04-19 06:52] LABS: Anion Gap 10 (5-15); Carbon Dioxide 28 mmol/L (20-31)
[2025-04-19 06:57] LABS: BUN/Creatinine Ratio 6.8 (10.0-20.0)
[2025-04-19 06:59] LABS: Blood Urea Nitrogen 50 mg/dL (9-23); Chloride 98 mmol/L (98-107); Glucose 234 mg/dL (74-106); Potassium 3.4 mmol/L (3.5-5.1)
[2025-04-19] MEDS: SODIUM CHL 0.9% 1000 ML BAG XX ONE (07:00)
--- NOTE | 2025-04-19 09:01 | DVHPNRES ---
Progress Note Date Seen: Apr 19, 2025 Resident Creating Document: VIJAY GORDON RESIDENT Medical Necessity Reason Pt with a Central, PICC or Fol: No Subjective Review of Systems Patient seen and examined at bedside. Patient is alert and oriented to time, place, person and responding to all questions. Complaining of paroxysmal nocturnal dyspnea. Some improvement in twitches from yesterday. Objective vital signs Vital Sign Date Time Temp Pulse Resp B/P (MAP) Pulse Ox O2 Delivery O2 Flow Rate FiO2 04/19/25 05:00 98.9 90 19 137/71 (93) 92 98.9 04/18/25 20:00 Room Air* 0 21 Total Intake and Output 04/18/25 04/18/25 04/19/25 15:00 23:00 07:00 Intake Total 300 ml 250 ml Output Total 0 ml Balance 300 ml 250 ml medications Current Medications Medications Dose Ordered Sig/Milka Route Start Time Stop Time Status Last Admin Dose Admin Sodium Chloride 10 ml Q8HR IV 04/13/25 22:00 04/19/25 06:32 10 ML Ondansetron HCl 4 mg Q4HP PRN IV 04/13/25 21:45 Hold 04/15/25 06:41 4 MG Acetaminophen 650 mg Q6HP PRN PO 04/13/25 21:45 04/14/25 21:59 650 MG Nitroglycerin 0.4 mg Q5MINP PRN SL 04/13/25 21:45 Aspirin 81 mg DAILY PO 04/14/25 10:00 04/19/25 08:45 81 MG Pantoprazole Sodium 40 mg DAILY@0600 PO 04/14/25 06:00 04/19/25 06:36 40 MG Ceftriaxone Sodium 50 ml @ 100 mls/hr Q24H IV 04/14/25 23:00 04/18/25 23:46 100 MLS/HR Diagnostic Test (Pha) 1 strip ACHS 04/14/25 07:00 04/19/25 06:33 1 STRIP Insulin Human Regular ACHS SC 04/14/25 07:00 04/19/25 06:35 4 UNITS Dextrose 50 ml UD PRN IV 04/13/25 22:30 Doxycycline Hyclate 100 ml @ 50 mls/hr Q12H IV 04/14/25 14:00 04/19/25 02:00 50 MLS/HR Calcium Acetate 1,334 mg TIDWMEALS PO 04/14/25 18:00 04/19/25 08:46 1,334 MG Metoclopramide HCl 10 mg Q8HPRN PRN IV 04/15/25 12:30 04/17/25 23:21 10 MG Nifedipine 60 mg DAILY PO 04/16/25 10:00 04/18/25 08:22 60 MG Carvedilol 25 mg Q12HR PO 04/17/25 22:00 04/18/25 21:26 25 MG Hydralazine HCl 10 mg Q6HP PRN IV 04/17/25 19:00 Hold Atorvastatin Calcium 80 mg HS PO 04/18/25 22:00 04/18/25 21:25 80 MG Sacubitril/ Valsartan 1 tab BID PO 04/18/25 22:00 04/18/25 21:25 1 TAB Gabapentin 100 mg TID PO 04/18/25 22:00 Examination General Appearance: Cooperative. Well developed. Well nourished. NAD. Head Exam: Normal inspection Neck Exam: Normal inspection. Non-tender. Normal alignment Pulmonary/Respiratory: Chest non-tender. Clear bilateral breath sounds, no crackles, no wheezing. Cardiovascular/Chest: Regular rate and rhythm. No murmurs. mild-moderate JVD. Peripheral Pulses: 2+ Radial (R). 2+ Radial (L). 2+ Pedal (R). 2+ Pedal (L) Abdominal Exam: Normal bowel sounds. Soft. normal abdomen, no visible veins, Nontender. No hepatospenomegaly. No masses Lower extremities: 1+ lower extremity edema up to the knees Neuro/Mental Status: A&O x4. Coherent. Thoughts/Psych: Normal thought pattern. Appropriate mood and affect. Good judgement and insight Skin Exam: Normal inspection. Normal color. Warm. Dry laboratory and microbiology Laboratory Tests 04/19/25 06:05 04/17/25 05:52 Test 04/19/25 06:05 Range/Units Serum Glucose 234 H 74-106 mg/dL Microbiology Date/Time Source Procedure Growth Status 04/14/25 11:45 Pleural Fluid Gram Stain - Final Resulted 04/14/25 11:45 Pleural Fluid Body Fluid Culture - Preliminary Resulted 04/14/25 00:55 Blood Blood Culture - Final NO GROWTH AFTER 5 DAYS OF INCUBATION. Complete 04/14/25 00:00 Nose MRSA Screen - Final Complete 04/13/25 20:43 Voided Urine Urine Culture - Final Complete Problem List/Assessment/Plan Problem List/Assessment/Plan Heart failure with reduced ejection fraction 25%, NYHA class III ESRD on hemodialysis Acute hypoxic respiratory failure secondary to pneumonia, now improved currently on room air Symptomatic hypocalcemia Plan/Recommendation Nuclear stress test from 03/14/2025 showed inferior lateral wall ischemia Patient would benefit from left heart catheterization. Communicated with , he recommends ischemia workup in the outpatient setting given patient's recent hemodialysis and ability to still make urine Patient is scheduled for his appointment with Dr. Sainz on 05/04/2025 Atorvastatin 80 mg Started Entresto 04/18/25 Started spironolactone 25 mg daily on 04/19/2025 to optimize GDMT as much as possible Holding SGLT2i owing to patient's GFR 10 Cardiology team will sign off. Thank you so much for the opportunity to consult on your patient. In case of any questions or concerns please feel free to reach out. Plan discussed with Dr. Sainz Plan discussed with: Patient, Spouse, Other (RN) My Orders My Orders Orders - VIJAY GORDON Procedure Category Date Status Time Atorvastatin (Lipitor) PHA 04/18/25 In Process 22:00 Sacubitril-Valsartan PHA 04/18/25 In Process (Entresto 24-26 Mg 22:00 Visit Coding Cardiology RES Date of Service: Apr 19, 2025 Billing Provider: QUINCY SAINZ Sr., MD Cardiology Common Codes: [id number] HOSP CARE(VIJAY Belle RESIDENT Apr 19, 2025 09:01
--- NOTE | 2025-04-19 11:07 | DVHPN2 ---
Progress Note - Dictate Date Seen: Apr 19, 2025 Medical Necessity Reason Pt with a Central, PICC or Fol: No Subjective Nauseous at times vital signs Vital Sign Date Time Temp Pulse Resp B/P (MAP) Pulse Ox O2 Delivery O2 Flow Rate FiO2 04/19/25 09:00 99.2 85 18 119/74 (89) 94 99.2 04/19/25 08:00 Room Air* 0 21 Total Intake and Output 04/18/25 04/18/25 04/19/25 15:00 23:00 07:00 Intake Total 300 ml 250 ml Output Total 0 ml Balance 300 ml 250 ml medications Current Medications Medications Dose Ordered Sig/Milka Route Start Time Stop Time Status Last Admin Dose Admin Sodium Chloride 10 ml Q8HR IV 04/13/25 22:00 04/19/25 06:32 10 ML Ondansetron HCl 4 mg Q4HP PRN IV 04/13/25 21:45 Hold 04/15/25 06:41 4 MG Acetaminophen 650 mg Q6HP PRN PO 04/13/25 21:45 04/14/25 21:59 650 MG Nitroglycerin 0.4 mg Q5MINP PRN SL 04/13/25 21:45 Aspirin 81 mg DAILY PO 04/14/25 10:00 04/19/25 08:45 81 MG Pantoprazole Sodium 40 mg DAILY@0600 PO 04/14/25 06:00 04/19/25 06:36 40 MG Ceftriaxone Sodium 50 ml @ 100 mls/hr Q24H IV 04/14/25 23:00 04/18/25 23:46 100 MLS/HR Diagnostic Test (Pha) 1 strip ACHS 04/14/25 07:00 04/19/25 06:33 1 STRIP Insulin Human Regular ACHS SC 04/14/25 07:00 04/19/25 06:35 4 UNITS Dextrose 50 ml UD PRN IV 04/13/25 22:30 Doxycycline Hyclate 100 ml @ 50 mls/hr Q12H IV 04/14/25 14:00 04/19/25 02:00 50 MLS/HR Calcium Acetate 1,334 mg TIDWMEALS PO 04/14/25 18:00 04/19/25 08:46 1,334 MG Metoclopramide HCl 10 mg Q8HPRN PRN IV 04/15/25 12:30 6//25 23:21 10 MG Nifedipine 60 mg DAILY PO 04/16/25 10:00 04/18/25 08:22 60 MG Carvedilol 25 mg Q12HR PO 04/17/25 22:00 04/18/25 21:26 25 MG Hydralazine HCl 10 mg Q6HP PRN IV 04/17/25 19:00 Hold Atorvastatin Calcium 80 mg HS PO 04/18/25 22:00 04/18/25 21:25 80 MG Sacubitril/ Valsartan 1 tab BID PO 04/18/25 22:00 04/18/25 21:25 1 TAB Gabapentin 100 mg TID PO 04/18/25 22:00 objective Alert, oriented x 3 NAD Lungs CTA CV: RR, no gallops Abdomen: soft, NT S/P BKA laboratory and microbiology Laboratory Tests 04/19/25 06:05 04/17/25 05:52 Test 04/19/25 06:05 Range/Units Serum Glucose 234 H 74-106 mg/dL Problem List End-stage kidney disease Type 2 diabetes with nephropathy Hypertension Hyperlipidemia Heart failure with reduced EF of approximately 25% History of coronary artery disease status post PTCA Chronic metabolic acidosis Hyperphosphatemia Hyperuricemia Pleural effusion Assessment/Plan Hemodialysis on MWF schedule Awaiting outpatient chair time. Outpatient cardiac catheterization Plan discussed with: Patient DAVID GAONA MD Apr 19, 2025 11:07
[2025-04-19] MEDS: SPIRONOLACTONE 25 MG TAB PO SCH (15:41)
--- NOTE | 2025-04-19 20:07 | DVHPN2 ---
Subjective HD again today Reviewed: Care Plan, H&P, Labs, Medications, Previous Orders, Radiology Changes from previous H/P or p: Changes General: Per HPI Objective Vitals Vital Signs Date Time Temp Pulse Resp B/P (MAP) Pulse Ox O2 Delivery O2 Flow Rate FiO2 04/19/25 17:00 98.2 87 20 153/82 (105) 95 98.2 04/19/25 08:00 Room Air* 0 21 Intake/Output Intake and Output 04/19/25 07:00 Intake Total 550 ml Output Total 0 ml Balance 550 ml Intake Oral 500 ml IV Total 50 ml Output Urine Total 0 ml General Appearance: Alert, Oriented X3, Cooperative, mild distress Lungs: Other Cardiovascular: Regular rate, Normal S1, Normal S2 Abdomen: Normal bowel sounds, Soft, No tenderness Extremities: Other (2+ edema) Medications Current Medications Medications Dose Ordered Sig/Milka Route Start Time Stop Time Status Last Admin Dose Admin Ondansetron HCl 4 mg Q4HP PRN IV 04/13/25 21:45 Hold 04/15/25 06:41 4 MG Acetaminophen 650 mg Q6HP PRN PO 04/13/25 21:45 04/14/25 21:59 650 MG Nitroglycerin 0.4 mg Q5MINP PRN SL 04/13/25 21:45 Aspirin 81 mg DAILY PO 04/14/25 10:00 04/19/25 08:45 81 MG Pantoprazole Sodium 40 mg DAILY@0600 PO 04/14/25 06:00 04/19/25 06:36 40 MG Diagnostic Test (Pha) 1 strip ACHS 04/14/25 07:00 04/19/25 17:29 1 STRIP Insulin Human Regular ACHS SC 04/14/25 07:00 04/19/25 17:30 4 UNITS Dextrose 50 ml UD PRN IV 04/13/25 22:30 Calcium Acetate 1,334 mg TIDWMEALS PO 04/14/25 18:00 04/19/25 17:29 1,334 MG Metoclopramide HCl 10 mg Q8HPRN PRN IV 04/15/25 12:30 04/17/25 23:21 10 MG Nifedipine 60 mg DAILY PO 04/16/25 10:00 04/18/25 08:22 60 MG Carvedilol 25 mg Q12HR PO 04/17/25 22:00 04/18/25 21:26 25 MG Hydralazine HCl 10 mg Q6HP PRN IV 04/17/25 19:00 Hold Atorvastatin Calcium 80 mg HS PO 04/18/25 22:00 04/18/25 21:25 80 MG Sacubitril/ Valsartan 1 tab BID PO 04/18/25 22:00 04/18/25 21:25 1 TAB Gabapentin 100 mg TID PO 04/18/25 22:00 04/19/25 14:44 100 MG Spironolactone 25 mg DAILY PO 04/19/25 15:41 Doxycycline Monohydrate 100 mg Q12HR PO 04/19/25 22:00 Laboratory Results Laboratory Tests 04/17/25 05:52 04/19/25 06:05 Chemistry Test 04/19/25 06:05 Calcium Level 8.0 mg/dL (8.7-10.4) L Urinalysis Test 04/13/25 20:43 Urine Color Light-yellow (Yellow) Urine Clarity Turbid (Clear) H Urine pH 5.0 (5.0-9.0) Urine Specific [place] 1.012 (1.001-1.035) Urine Protein 2+ (Negative) H Urine Ketones Negative (Negative) Urine Blood Negative /uL (Negative) Urine Nitrite Negative (Negative) Urine Bilirubin Negative (Negative) Urine Urobilinogen Normal mg/dL (Negative) Urine Leukocyte Esterase 1+ /uL (Negative) Urine RBC 3 /hpf (0 - 3) Urine Microscopic WBC 9 /HPF (0-3) H Urine Squamous Epithelial Cells Few /hpf (<5) Urine Amorphous Crystals Few /hpf (None Seen) Urine Bacteria Few /hpf (None Seen) H Urine Hyaline Casts Few /lpf (0 - 2) Urine Creatinine 97.22 mg/dL (30.0-125.0) Urine Protein/Creatinine Ratio 1.61 Urine Sodium 23 mmol/L (40-220) L Urine Glucose Normal mg/dL (Normal) Urine Total Protein 156.7 mg/dL (1-14) H Microbiology Microbiology Date/Time Source Procedure Growth Status 04/14/25 11:45 Pleural Fluid Gram Stain - Final Resulted 04/14/25 11:45 Pleural Fluid Body Fluid Culture - Preliminary Resulted 04/14/25 00:55 Blood Blood Culture - Final NO GROWTH AFTER 5 DAYS OF INCUBATION. Complete 04/14/25 00:00 Nose MRSA Screen - Final Complete 04/13/25 20:43 Voided Urine Urine Culture - Final Complete Assessment/Plan Assessment/Plan Acute hypoxic respiratory failure likely due to heart failure Acute on chronic HFrEF, EF 25% CAD h/o stent on aspirin Metabolic acidosis likely due to renal failure ESRD on HD Pneumonia Gram-positive versus Gram-negative bacteria Bilateral pleural effusion s/p R thoracentesis UTI due to acute complicated cystitis Hypertension Diabetes mellitus type 2-uncontrolled, HbA1c 8.0 CAD status post PTCA Obesity Hyperlipidemia Hyperkalemia - Obesity PLAN: HD today Check CXR in AM Cardiology consult Dr. Rossi IV antibiotics: Rocephin and Doxy DC Lovenox Continue aspirin Hydralazine IV prn Increase Coreg to 25 mg bid Continue Nifedipine ER 60 mg qd Full code Discussed with patient and at the bedside Advanced directives discussed x 16 minutes 04/18/2025: Pneumonia and UTI: Continue IV antibiotics Rocephin and doxycycline End-stage renal disease: Hemodialysis per nephrology Cardiology consult pending Continue Protonix 04/19/25: HD today DC planning for tomorrow IV antibiotics Cardiology recommended outpatient heart cath Plan discussed with: Patient My Orders Orders - TAMELA GUTIERREZ MD Procedure Category Date Status Time Pt Request For Service PT 04/19/25 Logged 14:00 Doxycycline Tablet PHA 04/19/25 In Process (Vibramycin Tablet) 22:00 Date of Service: Apr 19, 2025 Billing Provider: TAMELA GUTIERREZ MD Common Visit Codes: [id number] INP/OBS CARE(HIGH) TAMELA GUTIERREZ MD Apr 19, 2025 20:07
--- NOTE | 2025-04-19 20:32 | DVHPN2 ---
Progress Note - Dictate Date Seen: Apr 19, 2025 Medical Necessity Reason Pt with a Central, PICC or Fol: No Subjective Patient seen and examined at bedside. Breathing comfortably on room air. Overnight events reviewed. vital signs Vital Sign Date Time Temp Pulse Resp B/P (MAP) Pulse Ox O2 Delivery O2 Flow Rate FiO2 04/19/25 17:00 98.2 87 20 153/82 (105) 95 98.2 04/19/25 08:00 Room Air* 0 21 Total Intake and Output 04/18/25 04/18/25 04/19/25 15:00 23:00 07:00 Intake Total 300 ml 250 ml Output Total 0 ml Balance 300 ml 250 ml medications Current Medications Medications Dose Ordered Sig/Milka Route Start Time Stop Time Status Last Admin Dose Admin Ondansetron HCl 4 mg Q4HP PRN IV 04/13/25 21:45 Hold 04/15/25 06:41 4 MG Acetaminophen 650 mg Q6HP PRN PO 04/13/25 21:45 04/14/25 21:59 650 MG Nitroglycerin 0.4 mg Q5MINP PRN SL 04/13/25 21:45 Aspirin 81 mg DAILY PO 04/14/25 10:00 04/19/25 08:45 81 MG Pantoprazole Sodium 40 mg DAILY@0600 PO 04/14/25 06:00 04/19/25 06:36 40 MG Diagnostic Test (Pha) 1 strip ACHS 04/14/25 07:00 04/19/25 17:29 1 STRIP Insulin Human Regular ACHS SC 04/14/25 07:00 04/19/25 17:30 4 UNITS Dextrose 50 ml UD PRN IV 04/13/25 22:30 Calcium Acetate 1,334 mg TIDWMEALS PO 04/14/25 18:00 04/19/25 17:29 1,334 MG Metoclopramide HCl 10 mg Q8HPRN PRN IV 04/15/25 12:30 04/17/25 23:21 10 MG Nifedipine 60 mg DAILY PO 04/16/25 10:00 04/18/25 08:22 60 MG Carvedilol 25 mg Q12HR PO 04/17/25 22:00 04/18/25 21:26 25 MG Hydralazine HCl 10 mg Q6HP PRN IV 04/17/25 19:00 Hold Atorvastatin Calcium 80 mg HS PO 04/18/25 22:00 04/18/25 21:25 80 MG Sacubitril/ Valsartan 1 tab BID PO 04/18/25 22:00 04/18/25 21:25 1 TAB Gabapentin 100 mg TID PO 04/18/25 22:00 04/19/25 14:44 100 MG Spironolactone 25 mg DAILY PO 04/19/25 15:41 Doxycycline Monohydrate 100 mg Q12HR PO 04/19/25 22:00 objective Gen.: Patient lying in bed in no apparent distress. Breathing on room air. Head: Normocephalic, atraumatic. Eyes: EOMI/PERRLA. Ears: Normal hearing. Normal anatomy. Neck/trachea: Trachea midline, supple. Nose: Normal external anatomy. Mouth: Moist mucous membranes. Chest: Decreased air entry bilaterally. No wheezing or rhonchi. Cardiovascular: Positive S1, positive S2. Regular rate and rhythm. Abdomen: Positive bowel sounds in all 4 quadrants. Soft, non-tender, non- distended. : Deferred. Rectal: Deferred. Skin: Warm, dry. Intact. Extremities: 2+ radial pulses bilaterally. No lower extremity edema. Neuro: Awake, alert, oriented x3. No gross motor or sensory deficits. Cranial nerves II through XII intact. Gait not assessed. laboratory and microbiology Laboratory Tests 04/19/25 06:05 04/17/25 05:52 Test 04/19/25 06:05 Range/Units Serum Glucose 234 H 74-106 mg/dL Assessment/Plan Impression: Acute hypoxic respiratory failure Pneumonia due to gram negative Pleural effusion Atelectasis Hemodialysis/end-stage renal disease CHF, systolic; acute on chronic Hypertensive urgency Morbid obesity, BMI 43.4 Events: Remains on room air Supplemental oxygen PRN No new respiratory complaints. Hemodialysis today Arranging chair time. Monitor renal function. Monitor electrolytes. Supplement as necessary. Blood pressure control Continue antibiotics Incentive spirometry Labs and imaging reviewed. Rest of plan as noted below. Plan: Supplemental oxygen PRN Titrate to keep O2 sats above 92%. Dialysis with fluid removal Supportive care Nutrition Bronchodilators Antibiotics Incentive spirometry HD per Nephrology Monitor renal function. Monitor electrolytes. Supplement as necessary. Monitor ins and outs. Protonix for GI prophylaxis Lovenox for DVT prophylaxis Prognosis: Guarded given patient's multiple co-morbidities. Rest of plan per hospitalist and other consultants. Thank you, Dr. Orr, for allowing me to participate in this patient's care. Further recommendations will depend on the patient's clinical course. Please do not hesitate to contact me if you have any questions or concerns. This medical document was created using an electronic medical record system with [employer] dictation system. Although these documentations are being carefully reviewed, there may still be some phonetic and typographical changes. The errors are purely typographical, due to imperfection on the software program, and do not reflect any compromise in the patient's medical care. Dietary Evaluation Review Comments: 1. CCHO 60 + renal diet 2. Nephro-Yoni 1 tab daily 3. Continue current POC Expected Outcomes/Goals: To meet >75% estimated needs Fu 3-5 days Plan discussed with: Patient, Other (JOSE Alvarez) ROSA CHEN MD Apr 19, 2025 20:32
[2025-04-19] MEDS: cloNIDine HCL 0.1 MG TAB PO ONE (21:00)
[2025-04-19] MEDS: DOXYCYCLINE 100 MG TAB/CAP PO SCH (22:41)
[2025-04-19] MEDS: EPOETIN ALFA-EPBX 4,000 UNIT/ML VIAL SC ONE (23:05)
[2025-04-20] VITALS (9 sets, daily range): BP systolic 120–164; BP diastolic 67–81; PULSE 83–93; RESP 15–18; TEMP 98–99.4; O2SAT 90–98
[2025-04-20 06:09] LABS: Chloride 102 mmol/L (98-107); Potassium 3.6 mmol/L (3.5-5.1); Sodium 139 mmol/L (136-145)
[2025-04-20 06:10] LABS: Anion Gap 8 (5-15); Carbon Dioxide 29 mmol/L (20-31)
[2025-04-20 06:17] LABS: Blood Urea Nitrogen 37 mg/dL (9-23); Calcium 8.5 mg/dL (8.7-10.4); Glucose 168 mg/dL (74-106)
--- NOTE | 2025-04-20 06:57 | ECG ---
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
--- NOTE | 2025-04-20 10:39 | DVHPN2 ---
Subjective Complains of generalized weakness Physical therapy saw him and he is still max assist Recommendation is for SNF Reviewed: Care Plan, H&P, Labs, Medications, Previous Orders, Radiology Changes from previous H/P or p: Changes General: Per HPI Objective Vitals Vital Signs Date Time Temp Pulse Resp B/P (MAP) Pulse Ox O2 Delivery O2 Flow Rate FiO2 04/20/25 09:04 148/67 04/20/25 09:03 86 04/20/25 09:00 99.0 16 92 99.0 04/20/25 08:00 Room Air* 0 21 Intake/Output Intake and Output 04/20/25 07:00 Intake Total 900 ml Output Total 800 ml Balance 100 ml Intake Oral 800 ml IV Total 100 ml Output Urine Total 800 ml General Appearance: Alert, Oriented X3, Cooperative, mild distress Lungs: Other Cardiovascular: Regular rate, Normal S1, Normal S2 Abdomen: Normal bowel sounds, Soft, No tenderness Extremities: Other (2+ edema) Medications Current Medications Medications Dose Ordered Sig/Milka Route Start Time Stop Time Status Last Admin Dose Admin Ondansetron HCl 4 mg Q4HP PRN IV 04/13/25 21:45 Hold 04/15/25 06:41 4 MG Acetaminophen 650 mg Q6HP PRN PO 04/13/25 21:45 04/14/25 21:59 650 MG Nitroglycerin 0.4 mg Q5MINP PRN SL 04/13/25 21:45 Aspirin 81 mg DAILY PO 04/14/25 10:00 04/20/25 09:03 81 MG Pantoprazole Sodium 40 mg DAILY@0600 PO 04/14/25 06:00 04/20/25 06:30 40 MG Diagnostic Test (Pha) 1 strip ACHS 04/14/25 07:00 04/20/25 06:30 1 STRIP Insulin Human Regular ACHS SC 04/14/25 07:00 04/20/25 06:31 3 UNITS Dextrose 50 ml UD PRN IV 04/13/25 22:30 Calcium Acetate 1,334 mg TIDWMEALS PO 04/14/25 18:00 04/20/25 09:02 1,334 MG Metoclopramide HCl 10 mg Q8HPRN PRN IV 04/15/25 12:30 04/17/25 23:21 10 MG Nifedipine 60 mg DAILY PO 04/16/25 10:00 04/20/25 09:04 60 MG Carvedilol 25 mg Q12HR PO 04/17/25 22:00 04/20/25 09:03 25 MG Hydralazine HCl 10 mg Q6HP PRN IV 04/17/25 19:00 Hold Atorvastatin Calcium 80 mg HS PO 04/18/25 22:00 04/19/25 22:41 80 MG Sacubitril/ Valsartan 1 tab BID PO 04/18/25 22:00 04/20/25 09:03 1 TAB Gabapentin 100 mg TID PO 04/18/25 22:00 04/20/25 06:30 100 MG Spironolactone 25 mg DAILY PO 04/19/25 15:41 04/20/25 09:03 25 MG Doxycycline Monohydrate 100 mg Q12HR PO 04/19/25 22:00 04/20/25 09:03 100 MG Laboratory Results Laboratory Tests 04/17/25 05:52 04/20/25 04:51 Chemistry Test 04/20/25 04:51 Calcium Level 8.5 mg/dL (8.7-10.4) L Urinalysis Test 04/13/25 20:43 Urine Color Light-yellow (Yellow) Urine Clarity Turbid (Clear) H Urine pH 5.0 (5.0-9.0) Urine Specific [place] 1.012 (1.001-1.035) Urine Protein 2+ (Negative) H Urine Ketones Negative (Negative) Urine Blood Negative /uL (Negative) Urine Nitrite Negative (Negative) Urine Bilirubin Negative (Negative) Urine Urobilinogen Normal mg/dL (Negative) Urine Leukocyte Esterase 1+ /uL (Negative) Urine RBC 3 /hpf (0 - 3) Urine Microscopic WBC 9 /HPF (0-3) H Urine Squamous Epithelial Cells Few /hpf (<5) Urine Amorphous Crystals Few /hpf (None Seen) Urine Bacteria Few /hpf (None Seen) H Urine Hyaline Casts Few /lpf (0 - 2) Urine Creatinine 97.22 mg/dL (30.0-125.0) Urine Protein/Creatinine Ratio 1.61 Urine Sodium 23 mmol/L (40-220) L Urine Glucose Normal mg/dL (Normal) Urine Total Protein 156.7 mg/dL (1-14) H Microbiology Microbiology Date/Time Source Procedure Growth Status 04/14/25 11:45 Pleural Fluid Gram Stain - Final Complete 04/14/25 11:45 Pleural Fluid Body Fluid Culture - Final Complete 04/14/25 00:55 Blood Blood Culture - Final NO GROWTH AFTER 5 DAYS OF INCUBATION. Complete 04/14/25 00:00 Nose MRSA Screen - Final Complete 04/13/25 20:43 Voided Urine Urine Culture - Final Complete Assessment/Plan Assessment/Plan Acute hypoxic respiratory failure likely due to heart failure Acute on chronic HFrEF, EF 25% CAD h/o stent on aspirin Metabolic acidosis likely due to renal failure ESRD on HD Pneumonia Gram-positive versus Gram-negative bacteria Bilateral pleural effusion s/p R thoracentesis UTI due to acute complicated cystitis Hypertension Diabetes mellitus type 2-uncontrolled, HbA1c 8.0 CAD status post PTCA Obesity Hyperlipidemia Hyperkalemia - Obesity PLAN: HD today Check CXR in AM Cardiology consult Dr. Rossi IV antibiotics: Rocephin and Doxy DC Lovenox Continue aspirin Hydralazine IV prn Increase Coreg to 25 mg bid Continue Nifedipine ER 60 mg qd Full code Discussed with patient and at the bedside Advanced directives discussed x 16 minutes 04/18/2025: Pneumonia and UTI: Continue IV antibiotics Rocephin and doxycycline End-stage renal disease: Hemodialysis per nephrology Cardiology consult pending Continue Protonix 04/19/25: HD today DC planning for tomorrow IV antibiotics Cardiology recommended outpatient heart cath 04/20/2025: Generalized weakness: Arrange SNF for physical therapy P.o. doxycycline Hemodialysis per nephrology Nausea: PO Zofran prn Left hand boil? Abscess?: Consult ortho Weakness, tremors: Consult Neuro, CT head Plan discussed with: Patient My Orders Orders - TAMELA GUTIERREZ MD Procedure Category Date Status Time Pt Request For Service PT 04/19/25 Logged 14:00 Doxycycline Tablet PHA 04/19/25 In Process (Vibramycin Tablet) 22:00 Date of Service: Apr 20, 2025 Billing Provider: TAMELA GUTIERREZ MD Common Visit Codes: [id number] INP/OBS CARE(HIGH) TAMELA GUTIERREZ MD Apr 20, 2025 10:39
--- NOTE | 2025-04-20 11:55 | DVHPN2 ---
Progress Note - Dictate Date Seen: Apr 20, 2025 Medical Necessity Reason Pt with a Central, PICC or Fol: No Subjective Nauseous at times vital signs Vital Sign Date Time Temp Pulse Resp B/P (MAP) Pulse Ox O2 Delivery O2 Flow Rate FiO2 04/20/25 09:04 148/67 04/20/25 09:03 86 04/20/25 09:00 99.0 16 92 99.0 04/20/25 08:00 Room Air* 0 21 Total Intake and Output 04/19/25 04/19/25 04/20/25 14:59 22:59 06:59 Intake Total 400 ml 500 ml Output Total 0 ml 800 ml Balance 400 ml -300 ml medications Current Medications Medications Dose Ordered Sig/Milka Route Start Time Stop Time Status Last Admin Dose Admin Ondansetron HCl 4 mg Q4HP PRN IV 04/13/25 21:45 Hold 04/15/25 06:41 4 MG Acetaminophen 650 mg Q6HP PRN PO 04/13/25 21:45 04/14/25 21:59 650 MG Nitroglycerin 0.4 mg Q5MINP PRN SL 04/13/25 21:45 Aspirin 81 mg DAILY PO 04/14/25 10:00 04/20/25 09:03 81 MG Pantoprazole Sodium 40 mg DAILY@0600 PO 04/14/25 06:00 04/20/25 06:30 40 MG Diagnostic Test (Pha) 1 strip ACHS 04/14/25 07:00 04/20/25 06:30 1 STRIP Insulin Human Regular ACHS SC 04/14/25 07:00 04/20/25 06:31 3 UNITS Dextrose 50 ml UD PRN IV 04/13/25 22:30 Calcium Acetate 1,334 mg TIDWMEALS PO 04/14/25 18:00 04/20/25 09:02 1,334 MG Metoclopramide HCl 10 mg Q8HPRN PRN IV 04/15/25 12:30 04/17/25 23:21 10 MG Nifedipine 60 mg DAILY PO 04/16/25 10:00 04/20/25 09:04 60 MG Carvedilol 25 mg Q12HR PO 04/17/25 22:00 04/20/25 09:03 25 MG Hydralazine HCl 10 mg Q6HP PRN IV 04/17/25 19:00 Hold Atorvastatin Calcium 80 mg HS PO 04/18/25 22:00 04/19/25 22:41 80 MG Sacubitril/ Valsartan 1 tab BID PO 04/18/25 22:00 04/20/25 09:03 1 TAB Gabapentin 100 mg TID PO 04/18/25 22:00 04/20/25 06:30 100 MG Spironolactone 25 mg DAILY PO 04/19/25 15:41 04/20/25 09:03 25 MG Doxycycline Monohydrate 100 mg Q12HR PO 04/19/25 22:00 04/20/25 09:03 100 MG objective Alert, oriented x 3 NAD Lungs CTA CV: RR, no gallops Abdomen: soft, NT S/P BKA laboratory and microbiology Laboratory Tests 04/20/25 04:51 04/17/25 05:52 Test 04/20/25 04:51 Range/Units Serum Glucose 168 H 74-106 mg/dL Problem List End-stage kidney disease Type 2 diabetes with nephropathy Hypertension Hyperlipidemia Heart failure with reduced EF of approximately 25% History of coronary artery disease status post PTCA Chronic metabolic acidosis Hyperphosphatemia Hyperuricemia Pleural effusion Assessment/Plan Hemodialysis on MWF schedule Awaiting outpatient chair time. Outpatient cardiac catheterization Dietary Evaluation Review Comments: 1. CCHO 60 + renal diet 2. Nephro-Yoni 1 tab daily 3. Continue current POC Expected Outcomes/Goals: To meet >75% estimated needs Fu 3-5 days Plan discussed with: Patient DAVID GAONA MD Apr 20, 2025 11:55
[2025-04-20] MEDS ORDERED: METOCLOPRAMIDE HCL 5MG/ml INJ 2ml VIAL IV PRN (14:30)
[2025-04-20] MEDS: ONDANSETRON ODT 4 MG TAB PO PRN (14:35)
--- NOTE | 2025-04-20 14:51 | DVH ---
EXAM: CT HEAD WITHOUT CONTRAST HISTORY: weakness COMPARISON: HEAD W WO CONTRAST on DOS: 12/10/22 TECHNIQUE: Axial images of the head were obtained and reformatted in coronal and sagittal planes. All CT scans at this medical facility are performed using dose modulation techniques as appropriate t o a performed exam including the following: Automated exposure control was utilized; adjustment of th e MA and/or KV according to patient size; and use of iterative reconstruction technique. CT Dose: CTDI volume is 61.96 mGy. Dose-length product is 1220.56 mGy*cm FINDINGS: There is no evidence of acute intracranial hemorrhage, mass, mass effect midline shift. There is no h ydrocephalus or extra-axial fluid collection. Cain-white matter differentiation is maintained. The visualized paranasal sinuses and mastoid air cells are clear. The calvarium is intact. IMPRESSION: 1. No acute intracranial process. HS:Y
--- NOTE | 2025-04-20 20:57 | DVHINCON2 ---
Date of service: Apr 20, [address] Orr Reason for Consultation Tremors History of Present Illness Mr. Ng is a right-handed male with a history of diabetes, hypertension, dyslipidemia, coronary disease, congestive heart failure, recurrent DVT, end- stage kidney failure on hemodialysis, he was brought to the [facility] on 04/13/2025 because of general weakness, shortness breath, chest pa in. But patient was has tremors Coincidentally after he was received hydralazine, he developed generalized weakness, shortness breath, and generalized tremors. At the beginning, the tremors was spontaneous, but after he came to the hospital, he only has tremors when he was move his body, there was no associated mental status changes. He was reports a history of chronic neuropathy. Before 2011, he developed progressive tingling, numbness and burning pain in the lower extremities, around 05/2022, he developed tingling, numbness in the hands, as time passing by, he was noticed that he has no pain, tingling, and he can not perceive pain in the hand and feet, during this hospitalization, he did not perceive pain when he was having IV to the left hand Hepatitis panel, 04/14/2025: Hep C ABG, 04/14/2025: Metabolic acidosis WBC/HB/PLT/MCV, 04/17/2025: 8.5/10.6/147/98.9 BUN/CR, 04/14/2025: 149/11.58, 04/20/2025: 37/6.12 Liver function tests, 04/14/2025: Unremarkable HGB A1c, 04/14/2025: Vitamin B12, 04/14/2025: The 127 Folic acid, 04/14/2025: 11.01 TSH, : 2.13 CT head, 04/20/2025: No acute intracranial process Past Medical History Hypertension, diabetes, dyslipidemia, coronary artery disease, congestive heart failure, obesity, end-stage renal failure, Past Surgical History Cholecystectomy, left BKA, PTCA Family History: Alcoholism G8 FATHER Asthma G8 MOTHER Depression G8 MOTHER G8 FATHER Diabetes mellitus G8 MOTHER Glaucoma G8 MOTHER Family History Hypertension, diabetes, asthma, glaucoma, depression, alcoholism Social History He was not a tobacco smoke, he denies a history of alcohol or recreational substance abuse Allergies: Coded Allergies: Hydralazine (Verified Allergy, Unknown, 04/13/25) Piperacillin (Verified Allergy, Unknown, 08/31/24) Tazobactam (Verified Allergy, Unknown, 08/31/24) Home Meds Active Scripts Nifedipine (Nifedipine Er) 30 Mg Tab, 1 TAB PO DAILY, #30 TAB 3 Refills Prov:LOR KENNEDY MD 12/11/24 Reported Medications Metolazone (Metolazone) 2.5 Mg Tab, 2 TAB PO 2XW 04/14/25 Furosemide (Furosemide) 20 Mg Tab, 20 MG PO BID, TAB 04/14/25 Bumetanide (Bumetanide) 2 Mg Tab, 1 TAB PO 04/14/25 Terazosin Hcl (Terazosin Hcl) 2 Mg Cap, 1 CAP PO HS 04/14/25 Duloxetine HCl (Duloxetine HCl) 60 Mg Cap, 1 CAP PO DAILY 04/14/25 Cholecalciferol (VITAMIN D-3) 2,000 Unit Tab, 2000 UNIT PO DAILY, TAB 04/14/25 Carvedilol (Carvedilol) 25 Mg Tab, 1 TAB PO BID 04/14/25 Amlodipine Besylate (Amlodipine Besylate) 5 Mg Tab, 10 MG PO DAILY 04/14/25 Isosorbide Mononitrate (Isosorbide Mononitrate Er) 30 Mg Tab, 30 MG PO DAILY 05/14/22 Gabapentin (Gabapentin) 300 Mg Cap, 300 MG PO TID 05/14/22 Insulin Glargine (Basaglar Kwikpen) 100 Unit/Ml Inj, 62 UNIT SC QPM 05/14/22 Atorvastatin Calcium (Lipitor) 20 Mg Tab, 20 MG PO DAILY 05/14/22 Aspirin (ASPIRIN 81) 81 Mg Tab, 81 MG PO DAILY 05/14/22 Current Medications Current Medications Medications (Trade) Dose Ordered Sig/Milka Route PRN Reason Start Time Stop Time Status Last Admin Doxycycline Monohydrate (Vibramycin Tablet) 100 mg Q12HR PO 04/19/25 22:00 04/20/25 09:03 Ondansetron HCl (Zofran Po) 4 mg Q4HP PRN PO NAUSEA / VOMITING 04/20/25 14:15 04/20/25 14:35 Metoclopramide HCl (Reglan Injection) 10 mg Q8HPRN PRN IV BREAKTHROUGH NAUSEA / VOMITING 04/20/25 14:30 Diphenhydramine HCl (Benadryl Capsule) 25 mg Q6HP PRN PO FOR ITCHING 04/20/25 19:15 Review of Systems As above, the other systems are negative Vital Signs Vital Signs Date Time Temp Pulse Resp B/P (MAP) Pulse Ox O2 Delivery O2 Flow Rate FiO2 04/20/25 16:42 98.0 83 16 134/81 (98) 96 98.0 04/20/25 08:00 Room Air* 0 21 Physical Exam GENERAL EXAM: General: the patient is well developed and nourished. No acute distress. HEENT: Normocephalic, neck is supple, no carotid bruits. No mass RESPIRATORY: Normal respiratory effort with symmetrical lung expansion. Lungs clear to auscultation. CARDIOVASCULAR: Regular rate and rhythm with no murmurs. S1, S2. ABDOMEN: Soft, nontender, normal bowel sound MUSCULOSKELETAL EXAM: Status post left BKA NEUROLOGICAL: MENTAL STATUS: Awake and alert. Oriented to person, place, time and general circumstances. Able to give personal history. SPEECH, LANGUAGE, HIGHER CORTICAL FUNCTION: no aphasia or dysathria. CRANIAL NERVES: #2: Intact visual martell to confrontation. The optic discs were sharp. #3,4,6: Pupils are equal, round and reactive. EOMs full and conjugate. No nystagmus. #5: Facial sensation intact in all three divisions bilaterally. Mandibular strength intact. #7: Facial muscles symmetrical and strength intact. #8: Hearing grossly normal to voice. #9,10: Uvula and soft palate rise in the midline. Swallow and voice are normal. #11: Trapezius and sternomastoid strength intact bilaterally. #12: Tongue midline. No fasciculations or atrophy. SENSATION: Diminished pinprick in the arms, legs, central portion of the abdomen. Light touch perceived as tingling in the face, scalp, neck and shoulders MOTOR: Normal tone in the upper and lower extremity. Normal muscle bulk. No fasciculations. No abnormal movements or posturing. Muscle strength of the major groups in the extremities is 5/5 but weak in the bilateral toes, and gripping. REFLEXES: Deep tendon reflexes are diffuse diminished. No pathological reflexes. CEREBELLAR/COORDINATION: Finger to nose is normal l bilaterally. GAIT/STATION: deferred. Labs/Diagnostic Data Labs Test 04/20/25 17:27 04/20/25 04:51 04/17/25 05:52 04/14/25 11:45 Range/Units POC Glucose 164 H 70-106 mg/dl Sodium Level 139 136-145 mmol/L Potassium Level 3.6 3.5-5.1 mmol/L Chloride Level 102 98-107 mmol/L Carbon Dioxide Level 29 20-31 mmol/L Anion Gap 8 5-15 Blood Urea Nitrogen 37 #H 9-23 mg/dL Creatinine 6.12 H 0.700-1.30 mg/dL Glomerular Filtration Rate Calc 10 >90 mL/min BUN/Creatinine Ratio 6.0 L 10.0-20.0 Serum Glucose 168 H 74-106 mg/dL Calcium Level 8.5 L 8.7-10.4 mg/dL White Blood Count 8.5 4.4-10.8 10^3/uL Red Blood Count 3.48 L 4.5-5.90 10^6/uL Hemoglobin 10.6 L 13.5-17.5 g/dL Hematocrit 31.3 L 41.0-53.0 % Mean Corpuscular Volume 89.9 80.0-100.0 fL Mean Corpuscular Hemoglobin 30.6 28.0-32.0 pg Mean Corpuscular Hemoglobin Concent 34.0 32.0-36.0 g/dL Red Cell Distribution Width 12.3 11.8-14.3 % Platelet Count 147 140-450 10^3/uL Mean Platelet Volume 7.4 6.9-10.8 fL Neutrophils (%) (Auto) 66.3 37.0-80.0 % Lymphocytes (%) (Auto) 16.5 10.0-50.0 % Monocytes (%) (Auto) 11.0 0.0-12.0 % Eosinophils (%) (Auto) 5.6 0.0-7.0 % Basophils (%) (Auto) 0.6 0.0-2.0 % Neutrophils # (Auto) 5.7 1.6-8.6 10 ^3/uL Lymphocytes # (Auto) 1.4 0.4-5.4 10 ^3/uL Monocytes # (Auto) 0.9 0-1.3 10 ^3/uL Eosinophils # (Auto) 0.5 0-0.8 10 ^3/uL Basophils # (Auto) 0.1 0-0.2 10 ^3/uL Nucleated Red Blood Cells 0.0 % Body Fluid Source Pleural fluid Body Fluid pH 8.0 Body Fluid WBC (Manual) 154 0-200 CUMM Body Fluid RBC (Manual) 193 0-2000 CUMM Body Fluid Mononuclear Cells 98 % Body Fluid Polymorphonuclear Cells 2 0-25 % Body Fluid Glucose 146 . mg/dL Body Fluid Total Protein 2.2 . g/dL Body Fluid Lactate Dehydrogenase 92 . IU/L Test 04/14/25 09:02 04/14/25 02:48 04/14/25 02:40 04/14/25 00:00 Range/Units Prothrombin Time 11.3 9.3-11.8 sec Prothrombin Time INR 1.07 0.9-1.15 Activated Partial Thromboplast Time 31.0 24.5-34.5 SEC Uric Acid 9.6 H 3.7-9.2 mg/dL Magnesium Level 2.3 1.6-2.6 mg/dL Total Bilirubin 0.2 0.2-1.0 mg/dL Aspartate Amino Transferase (AST) 9 L 13-40 U/L Alanine Aminotransferase (ALT) < 9 7-40 U/L Alkaline Phosphatase 251 H 46-116 U/L Lactate Dehydrogenase 259 H 120-246 U/L Creatine Kinase 400 H 46-171 U/L Total Protein 6.5 5.7-8.2 g/dL Albumin 3.5 3.2-4.8 g/dL Hepatitis A IgM Antibody Negative Hepatitis B Surface Antigen Negative Negative Hepatitis B Surface Antibody Negative Negative Hepatitis B Core IgM Antibody Negative Negative Hepatitis C Antibody Reactive *A Negative Hemoglobin A1c 8.0 H <5.7 % A1C Ammonia 17 11-32 umol/L Vitamin B12 Level 927 H 211-911 pg/mL Vitamin D 25-Hydroxy 38.7 30.0-100 ng/mL Folic Acid 11.01 >5.38 ng/mL Blood Gas Specimen Type Arterial Blood Gas Sample Site Left radial Blood Gas Patient Temperature 37.0 Arterial Blood Date Drawn [id number] Arterial Blood pH 7.194 *L 7.350-7.450 Arterial Blood Partial Pressure CO2 33.3 L 35.0-48.0 mmHg Arterial Blood Partial Pressure O2 91.3 83.0-108.0 mmHg Arterial Blood HCO3 12.5 L 21.0-28.0 mmol/L Arterial Blood Oxygen Saturation 95.0 94.0-98.0 % Arterial Blood Base Excess -14.5 L -2.0-3.0 mmol/L Arterial Blood Oxyhemoglobin 94.3 94.0-98.0 % Arterial Blood Carboxyhemoglobin 0.3 L 0.5-1.5 % Arterial Blood Methemoglobin 0.4 0.0-1.5 % Jarod Test Modified Blood Gas Total Hemoglobin 11.30 L 13.5-17.5 g/dL Blood Gas Liter Flow 2.00 Blood Gas Modality Nasal cannula FiO2 % 28.0 Blood Gas Critical Value Read Back Yes Blood Gas Notified Whom dom Mar md Blood Gas Notified Time [id number] Blood Gas Notified By angela Kelsey rrt Influenza Type A Antigen Negative Negative Influenza Type B Antigen Negative Negative SARS-CoV-2 Antigen (Rapid) Negative NEGATIVE Test 04/13/25 20:47 04/13/25 20:43 04/13/25 17:53 Range/Units Troponin I High Sensitivity 16 </=54 ng/L Urine Color Light-yellow Yellow Urine Clarity Turbid H Clear Urine pH 5.0 5.0-9.0 Urine Specific Burr 1.012 1.001-1.035 Urine Protein 2+ H Negative Urine Ketones Negative Negative Urine Blood Negative Negative /uL Urine Nitrite Negative Negative Urine Bilirubin Negative Negative Urine Urobilinogen Normal Negative mg/dL Urine Leukocyte Esterase 1+ Negative /uL Urine RBC 3 0 - 3 /hpf Urine Microscopic WBC 9 H 0-3 /HPF Urine Squamous Epithelial Cells Few <5 /hpf Urine Amorphous Crystals Few None Seen /hpf Urine Bacteria Few H None Seen /hpf Urine Hyaline Casts Few 0 - 2 /lpf Urine Creatinine 97.22 30.0-125.0 mg/dL Urine Protein/Creatinine Ratio 1.61 Urine Sodium 23 L 40-220 mmol/L Urine Glucose Normal Normal mg/dL Urine Total Protein 156.7 H 1-14 mg/dL Urine Opiates Screen Neg NEGATIVE Urine Fentanyl Screen Neg NEGATIVE Urine Barbiturates Screen Neg NEGATIVE Urine Phencyclidine Screen Neg NEGATIVE Urine Amphetamines Screen Neg NEGATIVE Urine Benzodiazepines Screen Neg NEGATIVE Urine Cocaine Screen Neg NEGATIVE Urine Cannabinoids Screen Neg NEGATIVE Phosphorus Level 13.6 H 2.4-5.1 mg/dL Direct Bilirubin < 0.1 <0.3 mg/dL B-Type Natriuretic Peptide 435.11 0-100 pg/mL Thyroid Stimulating Hormone (TSH) 2.13 0.55-4.78 uIU/mL Microbiology Date/Time Source Procedure Growth Status 04/14/25 11:45 Pleural Fluid Gram Stain - Final Complete 04/14/25 11:45 Pleural Fluid Body Fluid Culture - Final Complete 04/14/25 00:55 Blood Blood Culture - Final NO GROWTH AFTER 5 DAYS OF INCUBATION. Complete 04/14/25 00:00 Nose MRSA Screen - Final Complete 04/13/25 20:43 Voided Urine Urine Culture - Final Complete Assessment Myoclonus in the torso, extremities ? Secondary to metabolic encephalopathy/kidney failure ? Medication effects of hydralazine Severe diabetic polyneuropathy Acute on chronic kidney failure Plan/Recommendation Monitoring Supportive treatment Telemetry D/C gabapentin 100 mg t.i.d. Foot/hand care Daily foot inspection Cardiology on case More recommendation per clinical course Progress: Poor This medical document was created using an electronic medical record system with [employer] computerized dictation system. Although this document has been carefully reviewed, there may still be some phonetic and typographical errors. These areas are purely typographical due to imperfections of the software programs, and do not reflect any compromise in the patient's medical care. Plan discussed with: Patient, Other LINA HARDING MD Apr 20, 2025 20:57
[2025-04-20] MEDS: diphenhdrAMINE HCL 25 MG CAP PO PRN (22:30)
[2025-04-21] VITALS (9 sets, daily range): BP systolic 129–148; BP diastolic 68–78; PULSE 74–86; RESP 14–19; TEMP 97–99.2; O2SAT 91–95
[2025-04-21 06:41] LABS: Anion Gap 11 (5-15); Carbon Dioxide 29 mmol/L (20-31); Chloride 99 mmol/L (98-107); Potassium 3.5 mmol/L (3.5-5.1); Sodium 139 mmol/L (136-145)
[2025-04-21 06:47] LABS: BUN/Creatinine Ratio 5.8 (10.0-20.0)
[2025-04-21 06:48] LABS: Blood Urea Nitrogen 43 mg/dL (9-23); Calcium 8.4 mg/dL (8.7-10.4); Glucose 156 mg/dL (74-106); Magnesium 1.9 mg/dL (1.6-2.6)
[2025-04-21] MEDS: SODIUM CHL 0.9% 1000 ML BAG XX ONE (07:00)
--- NOTE | 2025-04-21 10:46 | DVHPN2 ---
Progress Note - Dictate Date Seen: Apr 21, 2025 Medical Necessity Reason Pt with a Central, PICC or Fol: No Subjective No new complaints vital signs Vital Sign Date Time Temp Pulse Resp B/P (MAP) Pulse Ox O2 Delivery O2 Flow Rate FiO2 04/21/25 08:53 97.0 86 17 145/78 (100) 93 97.0 04/21/25 08:00 Room Air* 0 21 Total Intake and Output 04/20/25 04/20/25 04/21/25 15:00 23:00 07:00 Intake Total 700 ml 100 ml Balance 700 ml 100 ml medications Current Medications Medications Dose Ordered Sig/Milka Route Start Time Stop Time Status Last Admin Dose Admin Acetaminophen 650 mg Q6HP PRN PO 04/13/25 21:45 04/14/25 21:59 650 MG Nitroglycerin 0.4 mg Q5MINP PRN SL 04/13/25 21:45 Aspirin 81 mg DAILY PO 04/14/25 10:00 04/20/25 09:03 81 MG Pantoprazole Sodium 40 mg DAILY@0600 PO 04/14/25 06:00 04/21/25 06:32 40 MG Diagnostic Test (Pha) 1 strip ACHS 04/14/25 07:00 04/21/25 06:31 1 STRIP Insulin Human Regular ACHS SC 04/14/25 07:00 04/21/25 06:31 3 UNITS Dextrose 50 ml UD PRN IV 04/13/25 22:30 Calcium Acetate 1,334 mg TIDWMEALS PO 04/14/25 18:00 04/20/25 18:10 1,334 MG Nifedipine 60 mg DAILY PO 04/16/25 10:00 04/20/25 09:04 60 MG Carvedilol 25 mg Q12HR PO 04/17/25 22:00 04/20/25 22:11 25 MG Hydralazine HCl 10 mg Q6HP PRN IV 04/17/25 19:00 Hold Atorvastatin Calcium 80 mg HS PO 04/18/25 22:00 04/20/25 22:12 80 MG Sacubitril/ Valsartan 1 tab BID PO 04/18/25 22:00 04/20/25 22:10 1 TAB Spironolactone 25 mg DAILY PO 04/19/25 15:41 04/20/25 09:03 25 MG Doxycycline Monohydrate 100 mg Q12HR PO 04/19/25 22:00 04/20/25 22:10 100 MG Ondansetron HCl 4 mg Q4HP PRN PO 04/20/25 14:15 04/21/25 09:06 4 MG Metoclopramide HCl 10 mg Q8HPRN PRN IV 04/20/25 14:30 Diphenhydramine HCl 25 mg Q6HP PRN PO 04/20/25 19:15 04/20/25 22:30 25 MG objective Alert, oriented x 3 NAD Lungs CTA CV: RR, no gallops Abdomen: soft, NT S/P BKA laboratory and microbiology Laboratory Tests 04/21/25 05:06 04/17/25 05:52 Test 04/21/25 05:06 Range/Units Serum Glucose 156 H 74-106 mg/dL Problem List End-stage kidney disease Type 2 diabetes with nephropathy Hypertension Hyperlipidemia Heart failure with reduced EF of approximately 25% History of coronary artery disease status post PTCA Chronic metabolic acidosis Hyperphosphatemia Hyperuricemia Pleural effusion Assessment/Plan Hemodialysis on MWF schedule Discharge to outpatient HD at [facility] with Dr Padron Outpatient cardiac catheterization Dietary Evaluation Review Comments: 1. CCHO 60 + renal diet 2. Nephro-Yoni 1 tab daily 3. Continue current POC Expected Outcomes/Goals: To meet >75% estimated needs Fu 3-5 days Plan discussed with: Patient DAVID GAONA MD Apr 21, 2025 10:46
--- NOTE | 2025-04-21 15:15 | DVHPN2 ---
Subjective He had dialysis earlier today and he has started having nausea after he was dialyzed CT scan of the head was done yesterday was negative His edema is better The left hand swelling is not improving, it is actually bigger Reviewed: Care Plan, H&P, Labs, Medications, Previous Orders, Radiology Changes from previous H/P or p: Changes General: Per HPI Objective Vitals Vital Signs Date Time Temp Pulse Resp B/P (MAP) Pulse Ox O2 Delivery O2 Flow Rate FiO2 04/21/25 13:51 145/78 04/21/25 12:52 97.0 85 16 95 97.0 04/21/25 08:00 Room Air* 0 21 Intake/Output Intake and Output 04/21/25 07:00 Intake Total 800 ml Balance 800 ml Intake Oral 800 ml General Appearance: Alert, Oriented X3, Cooperative, mild distress Lungs: Other Cardiovascular: Regular rate, Normal S1, Normal S2 Abdomen: Normal bowel sounds, Soft, No tenderness Extremities: Other (2+ edema) Medications Current Medications Medications Dose Ordered Sig/Milka Route Start Time Stop Time Status Last Admin Dose Admin Acetaminophen 650 mg Q6HP PRN PO 04/13/25 21:45 04/14/25 21:59 650 MG Nitroglycerin 0.4 mg Q5MINP PRN SL 04/13/25 21:45 Aspirin 81 mg DAILY PO 04/14/25 10:00 04/21/25 13:50 81 MG Pantoprazole Sodium 40 mg DAILY@0600 PO 04/14/25 06:00 04/21/25 06:32 40 MG Diagnostic Test (Pha) 1 strip ACHS 04/14/25 07:00 04/21/25 11:49 1 STRIP Insulin Human Regular ACHS SC 04/14/25 07:00 04/21/25 11:49 2 UNITS Dextrose 50 ml UD PRN IV 04/13/25 22:30 Calcium Acetate 1,334 mg TIDWMEALS PO 04/14/25 18:00 04/21/25 13:51 1,334 MG Nifedipine 60 mg DAILY PO 04/16/25 10:00 04/21/25 13:51 60 MG Carvedilol 25 mg Q12HR PO 04/17/25 22:00 04/21/25 13:51 25 MG Hydralazine HCl 10 mg Q6HP PRN IV 04/17/25 19:00 Hold Atorvastatin Calcium 80 mg HS PO 04/18/25 22:00 04/20/25 22:12 80 MG Sacubitril/ Valsartan 1 tab BID PO 04/18/25 22:00 04/21/25 13:51 1 TAB Spironolactone 25 mg DAILY PO 04/19/25 15:41 04/21/25 13:51 25 MG Doxycycline Monohydrate 100 mg Q12HR PO 04/19/25 22:00 04/21/25 13:51 100 MG Ondansetron HCl 4 mg Q4HP PRN PO 04/20/25 14:15 04/21/25 09:06 4 MG Metoclopramide HCl 10 mg Q8HPRN PRN IV 04/20/25 14:30 Diphenhydramine HCl 25 mg Q6HP PRN PO 04/20/25 19:15 04/20/25 22:30 25 MG Laboratory Results Laboratory Tests 04/17/25 05:52 04/21/25 05:06 Chemistry Test 04/21/25 05:06 Calcium Level 8.4 mg/dL (8.7-10.4) L Magnesium Level 1.9 mg/dL (1.6-2.6) Urinalysis Test 04/13/25 20:43 Urine Color Light-yellow (Yellow) Urine Clarity Turbid (Clear) H Urine pH 5.0 (5.0-9.0) Urine Specific Louise 1.012 (1.001-1.035) Urine Protein 2+ (Negative) H Urine Ketones Negative (Negative) Urine Blood Negative /uL (Negative) Urine Nitrite Negative (Negative) Urine Bilirubin Negative (Negative) Urine Urobilinogen Normal mg/dL (Negative) Urine Leukocyte Esterase 1+ /uL (Negative) Urine RBC 3 /hpf (0 - 3) Urine Microscopic WBC 9 /HPF (0-3) H Urine Squamous Epithelial Cells Few /hpf (<5) Urine Amorphous Crystals Few /hpf (None Seen) Urine Bacteria Few /hpf (None Seen) H Urine Hyaline Casts Few /lpf (0 - 2) Urine Creatinine 97.22 mg/dL (30.0-125.0) Urine Protein/Creatinine Ratio 1.61 Urine Sodium 23 mmol/L (40-220) L Urine Glucose Normal mg/dL (Normal) Urine Total Protein 156.7 mg/dL (1-14) H Microbiology Microbiology Date/Time Source Procedure Growth Status 04/14/25 11:45 Pleural Fluid Gram Stain - Final Complete 04/14/25 11:45 Pleural Fluid Body Fluid Culture - Final Complete 04/14/25 00:55 Blood Blood Culture - Final NO GROWTH AFTER 5 DAYS OF INCUBATION. Complete 04/14/25 00:00 Nose MRSA Screen - Final Complete 04/13/25 20:43 Voided Urine Urine Culture - Final Complete Assessment/Plan Assessment/Plan Acute hypoxic respiratory failure likely due to heart failure Acute on chronic HFrEF, EF 25% CAD h/o stent on aspirin Metabolic acidosis likely due to renal failure ESRD on HD Pneumonia Gram-positive versus Gram-negative bacteria Bilateral pleural effusion s/p R thoracentesis UTI due to acute complicated cystitis Hypertension Diabetes mellitus type 2-uncontrolled, HbA1c 8.0 CAD status post PTCA Obesity Hyperlipidemia Hyperkalemia - Obesity PLAN: HD today Check CXR in AM Cardiology consult Dr. Rossi IV antibiotics: Rocephin and Doxy DC Lovenox Continue aspirin Hydralazine IV prn Increase Coreg to 25 mg bid Continue Nifedipine ER 60 mg qd Full code Discussed with patient and at the bedside Advanced directives discussed x 16 minutes 04/18/2025: Pneumonia and UTI: Continue IV antibiotics Rocephin and doxycycline End-stage renal disease: Hemodialysis per nephrology Cardiology consult pending Continue Protonix 04/19/25: HD today DC planning for tomorrow IV antibiotics Cardiology recommended outpatient heart cath 04/20/2025: Generalized weakness: Arrange SNF for physical therapy P.o. doxycycline Hemodialysis per nephrology Nausea: PO Zofran prn Left hand boil? Abscess?: Consult ortho Weakness, tremors: Consult Neuro, CT head 04/21/2025: Generalized weakness: Continue physical therapy SNF was arranged however the patient is not ready with the discharged yet due to the left hand abscess Left hand abscess: Orthopedic consultation, pending End-stage renal disease: Hemodialysis per nephrology Nausea and vomiting: Continue Zofran and Benadryl p.r.n. Diabetic neuropathy: Plan discussed with: Patient, Spouse My Orders Orders - TAMELA GUTIERREZ MD Procedure Category Date Status Time Diphenhdramine PHA 04/20/25 In Process Capsule (Benadryl 19:15 Date of Service: Apr 21, 2025 Billing Provider: TAMELA GUTIERREZ MD Common Visit Codes: [id number] INP/OBS CARE(HIGH) TAMELA GUTIERREZ MD Apr 21, 2025 15:15
--- NOTE | 2025-04-21 22:26 | DVHPN2 ---
Progress Note - Dictate Date Seen: Apr 20, 2025 Medical Necessity Reason Pt with a Central, PICC or Fol: No Subjective Patient seen and examined at bedside. Breathing comfortably on room air. Overnight events reviewed. vital signs Vital Sign Date Time Temp Pulse Resp B/P (MAP) Pulse Ox O2 Delivery O2 Flow Rate FiO2 04/21/25 21:13 83 136/80 04/21/25 21:00 99.2 15 94 99.2 04/21/25 08:00 Room Air* 0 21 Total Intake and Output 04/20/25 04/20/25 04/21/25 15:00 23:00 07:00 Intake Total 700 ml 100 ml Balance 700 ml 100 ml medications Current Medications Medications Dose Ordered Sig/Milka Route Start Time Stop Time Status Last Admin Dose Admin Acetaminophen 650 mg Q6HP PRN PO 04/13/25 21:45 04/14/25 21:59 650 MG Nitroglycerin 0.4 mg Q5MINP PRN SL 04/13/25 21:45 Aspirin 81 mg DAILY PO 04/14/25 10:00 04/21/25 13:50 81 MG Pantoprazole Sodium 40 mg DAILY@0600 PO 04/14/25 06:00 04/21/25 06:32 40 MG Diagnostic Test (Pha) 1 strip ACHS 04/14/25 07:00 04/21/25 17:00 1 STRIP Insulin Human Regular ACHS SC 04/14/25 07:00 04/21/25 20:57 3 UNITS Dextrose 50 ml UD PRN IV 04/13/25 22:30 Calcium Acetate 1,334 mg TIDWMEALS PO 04/14/25 18:00 04/21/25 17:29 1,334 MG Nifedipine 60 mg DAILY PO 04/16/25 10:00 04/21/25 13:51 60 MG Carvedilol 25 mg Q12HR PO 04/17/25 22:00 04/21/25 21:13 25 MG Hydralazine HCl 10 mg Q6HP PRN IV 04/17/25 19:00 Hold Atorvastatin Calcium 80 mg HS PO 04/18/25 22:00 04/21/25 21:16 80 MG Sacubitril/ Valsartan 1 tab BID PO 04/18/25 22:00 04/21/25 21:17 1 TAB Spironolactone 25 mg DAILY PO 04/19/25 15:41 04/21/25 13:51 25 MG Doxycycline Monohydrate 100 mg Q12HR PO 04/19/25 22:00 04/21/25 21:14 100 MG Ondansetron HCl 4 mg Q4HP PRN PO 04/20/25 14:15 04/21/25 09:06 4 MG Metoclopramide HCl 10 mg Q8HPRN PRN IV 04/20/25 14:30 Diphenhydramine HCl 25 mg Q6HP PRN PO 04/20/25 19:15 04/21/25 21:14 25 MG objective Gen.: Patient lying in bed in no apparent distress. Breathing on room air. Head: Normocephalic, atraumatic. Eyes: EOMI/PERRLA. Ears: Normal hearing. Normal anatomy. Neck/trachea: Trachea midline, supple. Nose: Normal external anatomy. Mouth: Moist mucous membranes. Chest: Decreased air entry bilaterally. No wheezing or rhonchi. Cardiovascular: Positive S1, positive S2. Regular rate and rhythm. Abdomen: Positive bowel sounds in all 4 quadrants. Soft, non-tender, non- distended. : Deferred. Rectal: Deferred. Skin: Warm, dry. Intact. Extremities: 2+ radial pulses bilaterally. No lower extremity edema. Neuro: Awake, alert, oriented x3. No gross motor or sensory deficits. Cranial nerves II through XII intact. Gait not assessed. laboratory and microbiology Laboratory Tests 04/21/25 05:06 04/17/25 05:52 Test 04/21/25 05:06 Range/Units Serum Glucose 156 H 74-106 mg/dL Assessment/Plan Impression: Acute hypoxic respiratory failure Pneumonia due to gram negative Pleural effusion Atelectasis Hemodialysis/end-stage renal disease CHF, systolic; acute on chronic Hypertensive urgency Morbid obesity, BMI 43.4 Events: Remains on room air Supplemental oxygen PRN PT evaluated patient Recommendation for SNF CT head revealed no acute intracranial abnormality Neurology recommendations appreciated Hemodialysis per Nephrology Monitor renal function. Monitor electrolytes. Supplement as necessary. Blood pressure control Continue antibiotics Incentive spirometry Protonix for GI ppx Labs and imaging reviewed. Rest of plan as noted below. Plan: Supplemental oxygen PRN Titrate to keep O2 sats above 92%. Dialysis with fluid removal Supportive care Nutrition Bronchodilators Antibiotics Incentive spirometry HD per Nephrology Monitor renal function. Monitor electrolytes. Supplement as necessary. Monitor ins and outs. Protonix for GI prophylaxis Lovenox for DVT prophylaxis Prognosis: Guarded given patient's multiple co-morbidities. Rest of plan per hospitalist and other consultants. Thank you, Dr. Orr, for allowing me to participate in this patient's care. Further recommendations will depend on the patient's clinical course. Please do not hesitate to contact me if you have any questions or concerns. This medical document was created using an electronic medical record system with [employer] dictation system. Although these documentations are being carefully reviewed, there may still be some phonetic and typographical changes. The errors are purely typographical, due to imperfection on the software program, and do not reflect any compromise in the patient's medical care. Dietary Evaluation Review Comments: 1. CCHO 60 + renal diet 2. Nephro-Yoni 1 tab daily 3. Continue current POC Expected Outcomes/Goals: To meet >75% estimated needs Fu 3-5 days Plan discussed with: Patient, Other (RN) ROSA CHEN MD Apr 21, 2025 22:26
--- NOTE | 2025-04-21 22:35 | DVHPN2 ---
Progress Note - Dictate Date Seen: Apr 21, 2025 Medical Necessity Reason Pt with a Central, PICC or Fol: No Subjective Patient seen and examined at bedside. Breathing comfortably on room air. Overnight events reviewed. vital signs Vital Sign Date Time Temp Pulse Resp B/P (MAP) Pulse Ox O2 Delivery O2 Flow Rate FiO2 04/21/25 21:13 83 136/80 04/21/25 21:00 99.2 15 94 99.2 04/21/25 08:00 Room Air* 0 21 Total Intake and Output 04/20/25 04/20/25 04/21/25 15:00 23:00 07:00 Intake Total 700 ml 100 ml Balance 700 ml 100 ml medications Current Medications Medications Dose Ordered Sig/Milka Route Start Time Stop Time Status Last Admin Dose Admin Acetaminophen 650 mg Q6HP PRN PO 04/13/25 21:45 04/14/25 21:59 650 MG Nitroglycerin 0.4 mg Q5MINP PRN SL 04/13/25 21:45 Aspirin 81 mg DAILY PO 04/14/25 10:00 04/21/25 13:50 81 MG Pantoprazole Sodium 40 mg DAILY@0600 PO 04/14/25 06:00 04/21/25 06:32 40 MG Diagnostic Test (Pha) 1 strip ACHS 04/14/25 07:00 04/21/25 17:00 1 STRIP Insulin Human Regular ACHS SC 04/14/25 07:00 04/21/25 20:57 3 UNITS Dextrose 50 ml UD PRN IV 04/13/25 22:30 Calcium Acetate 1,334 mg TIDWMEALS PO 04/14/25 18:00 04/21/25 17:29 1,334 MG Nifedipine 60 mg DAILY PO 04/16/25 10:00 04/21/25 13:51 60 MG Carvedilol 25 mg Q12HR PO 04/17/25 22:00 04/21/25 21:13 25 MG Hydralazine HCl 10 mg Q6HP PRN IV 04/17/25 19:00 Hold Atorvastatin Calcium 80 mg HS PO 04/18/25 22:00 04/21/25 21:16 80 MG Sacubitril/ Valsartan 1 tab BID PO 04/18/25 22:00 04/21/25 21:17 1 TAB Spironolactone 25 mg DAILY PO 04/19/25 15:41 04/21/25 13:51 25 MG Doxycycline Monohydrate 100 mg Q12HR PO 04/19/25 22:00 04/21/25 21:14 100 MG Ondansetron HCl 4 mg Q4HP PRN PO 04/20/25 14:15 04/21/25 09:06 4 MG Metoclopramide HCl 10 mg Q8HPRN PRN IV 04/20/25 14:30 Diphenhydramine HCl 25 mg Q6HP PRN PO 04/20/25 19:15 04/21/25 21:14 25 MG objective Gen.: Patient lying in bed in no apparent distress. Breathing on room air. Head: Normocephalic, atraumatic. Eyes: EOMI/PERRLA. Ears: Normal hearing. Normal anatomy. Neck/trachea: Trachea midline, supple. Nose: Normal external anatomy. Mouth: Moist mucous membranes. Chest: Decreased air entry bilaterally. No wheezing or rhonchi. Cardiovascular: Positive S1, positive S2. Regular rate and rhythm. Abdomen: Positive bowel sounds in all 4 quadrants. Soft, non-tender, non- distended. : Deferred. Rectal: Deferred. Skin: Warm, dry. Intact. Extremities: 2+ radial pulses bilaterally. No lower extremity edema. Neuro: Awake, alert, oriented x3. No gross motor or sensory deficits. Cranial nerves II through XII intact. Gait not assessed. laboratory and microbiology Laboratory Tests 04/21/25 05:06 04/17/25 05:52 Test 04/21/25 05:06 Range/Units Serum Glucose 156 H 74-106 mg/dL Assessment/Plan Impression: Acute hypoxic respiratory failure Pneumonia due to gram negative Pleural effusion Atelectasis Hemodialysis/end-stage renal disease CHF, systolic; acute on chronic Hypertensive urgency Morbid obesity, BMI 43.4 Events: Remains on room air Supplemental oxygen PRN PT evaluated patient Recommendation for SNF CT head revealed no acute intracranial abnormality Neurology recommendations appreciated Hemodialysis per Nephrology Monitor renal function. Monitor electrolytes. Supplement as necessary. Blood pressure control Continue antibiotics Pleural fluid cultures show no growth Incentive spirometry Protonix for GI ppx Labs and imaging reviewed. Rest of plan as noted below. Plan: Supplemental oxygen PRN Titrate to keep O2 sats above 92%. Dialysis with fluid removal Supportive care Nutrition Bronchodilators Antibiotics Incentive spirometry HD per Nephrology Monitor renal function. Monitor electrolytes. Supplement as necessary. Monitor ins and outs. Protonix for GI prophylaxis Lovenox for DVT prophylaxis Prognosis: Guarded given patient's multiple co-morbidities. Rest of plan per hospitalist and other consultants. Thank you, Dr. Orr, for allowing me to participate in this patient's care. Further recommendations will depend on the patient's clinical course. Please do not hesitate to contact me if you have any questions or concerns. This medical document was created using an electronic medical record system with [employer] dictation system. Although these documentations are being carefully reviewed, there may still be some phonetic and typographical changes. The errors are purely typographical, due to imperfection on the software program, and do not reflect any compromise in the patient's medical care. Dietary Evaluation Review Comments: 1. CCHO 60 + renal diet 2. Nephro-Yoni 1 tab daily 3. Continue current POC Expected Outcomes/Goals: To meet >75% estimated needs Fu 3-5 days Plan discussed with: Patient, Other (JOSE Goodson) ROSA CHEN MD Apr 21, 2025 22:35
[2025-04-21] MEDS: EPOETIN ALFA-EPBX 10,000 UNIT/1ML VIAL SC ONE (23:18)
[2025-04-22] VITALS (8 sets, daily range): BP systolic 110–130; BP diastolic 51–74; PULSE 79–86; RESP 13–19; TEMP 98.4–99.1; O2SAT 90–97
[2025-04-22 06:37] LABS: Chloride 102 mmol/L (98-107); Potassium 3.7 mmol/L (3.5-5.1); Sodium 137 mmol/L (136-145)
[2025-04-22 06:38] LABS: Anion Gap 7 (5-15); Carbon Dioxide 28 mmol/L (20-31)
[2025-04-22 06:39] LABS: Calcium 8.4 mg/dL (8.7-10.4)
[2025-04-22 06:43] LABS: BUN/Creatinine Ratio 4.3 (10.0-20.0); Blood Urea Nitrogen 25 mg/dL (9-23); Glucose 151 mg/dL (74-106)
[2025-04-22] MEDS: LIDOCAINE 1% HCL (LOCAL ANESTH.) INJ 20ML MDV ID ONE ×2 (09:45→10:45)
--- NOTE | 2025-04-22 11:21 | DVHINCON2 ---
Date of service: Apr 22, 2025 Referring Physician Kirby Reason for Consultation Left hand abscess History of Present Illness This is a 49-year-old male who was admitted a week ago for respiratory failure and pneumonia with multiple medical comorbidities. Earlier in the week he had an IV placed in his left hand that infiltrated and subsequently it has developed a painful swollen mass for which orthopedic consultation is requested. Medical history obtained from the chart. Past Medical History History of insulin-dependent diabetes History of left [id number] amputation History of coronary artery disease s/p stenting History of congestive heart failure Recent history of respiratory failure pneumonia Hyperlipidemia Obesity Recent urinary tract infection End-stage renal disease on dialysis Neuropathy History of open reduction internal fixation left distal radius fracture Family History: Alcoholism G8 FATHER Asthma G8 MOTHER Depression G8 MOTHER G8 FATHER Diabetes mellitus G8 MOTHER Glaucoma G8 MOTHER Social History Denies drinking smoking or use of illicit drugs Allergies: Coded Allergies: Hydralazine (Verified Allergy, Unknown, 04/13/25) Piperacillin (Verified Allergy, Unknown, 08/31/24) Tazobactam (Verified Allergy, Unknown, 08/31/24) Home Meds Active Scripts Nifedipine (Nifedipine Er) 30 Mg Tab, 1 TAB PO DAILY, #30 TAB 3 Refills Prov:LOR KENNEDY MD 12/11/24 Reported Medications Metolazone (Metolazone) 2.5 Mg Tab, 2 TAB PO 2XW 04/14/25 Furosemide (Furosemide) 20 Mg Tab, 20 MG PO BID, TAB 04/14/25 Bumetanide (Bumetanide) 2 Mg Tab, 1 TAB PO 04/14/25 Terazosin Hcl (Terazosin Hcl) 2 Mg Cap, 1 CAP PO HS 04/14/25 Duloxetine HCl (Duloxetine HCl) 60 Mg Cap, 1 CAP PO DAILY 04/14/25 Cholecalciferol (VITAMIN D-3) 2,000 Unit Tab, 2000 UNIT PO DAILY, TAB 04/14/25 Carvedilol (Carvedilol) 25 Mg Tab, 1 TAB PO BID 04/14/25 Amlodipine Besylate (Amlodipine Besylate) 5 Mg Tab, 10 MG PO DAILY 04/14/25 Isosorbide Mononitrate (Isosorbide Mononitrate Er) 30 Mg Tab, 30 MG PO DAILY 05/14/22 Gabapentin (Gabapentin) 300 Mg Cap, 300 MG PO TID 05/14/22 Insulin Glargine (Basaglar Kwikpen) 100 Unit/Ml Inj, 62 UNIT SC QPM 05/14/22 Atorvastatin Calcium (Lipitor) 20 Mg Tab, 20 MG PO DAILY 05/14/22 Aspirin (ASPIRIN 81) 81 Mg Tab, 81 MG PO DAILY 05/14/22 Vital Signs Vital Signs Date Time Temp Pulse Resp B/P (MAP) Pulse Ox O2 Delivery O2 Flow Rate FiO2 04/22/25 08:45 110/60 04/22/25 08:42 98.4 82 17 95 98.4 04/22/25 08:00 Room Air* 0 21 Physical Exam On exam he is a well-developed well-nourished obese male in no acute distress Alert and oriented x4 Examination of the left hand reveals about a 2-1/2 by 2 cm x 1.5 cm swelling over the dorsum of his left hand which is tender to palpation erythematous there was no drainage. He is able to perform flexion-extension of his digits though with pain secondary to this area of the dorsum of his hand Sensation subjectively intact 2+ radial pulses Normal temperature, capillary refill, color to digits There are no imaging studies Labs/Diagnostic Data Labs Test 04/22/25 05:46 04/22/25 05:13 04/21/25 05:06 04/17/25 05:52 Range/Units Sodium Level 137 136-145 mmol/L Potassium Level 3.7 3.5-5.1 mmol/L Chloride Level 102 98-107 mmol/L Carbon Dioxide Level 28 20-31 mmol/L Anion Gap 7 5-15 Blood Urea Nitrogen 25 #H 9-23 mg/dL Creatinine 5.80 H 0.700-1.30 mg/dL Glomerular Filtration Rate Calc 11 >90 mL/min BUN/Creatinine Ratio 4.3 L 10.0-20.0 Serum Glucose 151 H 74-106 mg/dL Calcium Level 8.4 L 8.7-10.4 mg/dL POC Glucose 148 H 70-106 mg/dl Magnesium Level 1.9 1.6-2.6 mg/dL White Blood Count 8.5 4.4-10.8 10^3/uL Red Blood Count 3.48 L 4.5-5.90 10^6/uL Hemoglobin 10.6 L 13.5-17.5 g/dL Hematocrit 31.3 L 41.0-53.0 % Mean Corpuscular Volume 89.9 80.0-100.0 fL Mean Corpuscular Hemoglobin 30.6 28.0-32.0 pg Mean Corpuscular Hemoglobin Concent 34.0 32.0-36.0 g/dL Red Cell Distribution Width 12.3 11.8-14.3 % Platelet Count 147 140-450 10^3/uL Mean Platelet Volume 7.4 6.9-10.8 fL Neutrophils (%) (Auto) 66.3 37.0-80.0 % Lymphocytes (%) (Auto) 16.5 10.0-50.0 % Monocytes (%) (Auto) 11.0 0.0-12.0 % Eosinophils (%) (Auto) 5.6 0.0-7.0 % Basophils (%) (Auto) 0.6 0.0-2.0 % Neutrophils # (Auto) 5.7 1.6-8.6 10 ^3/uL Lymphocytes # (Auto) 1.4 0.4-5.4 10 ^3/uL Monocytes # (Auto) 0.9 0-1.3 10 ^3/uL Eosinophils # (Auto) 0.5 0-0.8 10 ^3/uL Basophils # (Auto) 0.1 0-0.2 10 ^3/uL Nucleated Red Blood Cells 0.0 % Test 04/14/25 11:45 04/14/25 09:02 04/14/25 02:48 04/14/25 02:40 Range/Units Body Fluid Source Pleural fluid Body Fluid pH 8.0 Body Fluid WBC (Manual) 154 0-200 CUMM Body Fluid RBC (Manual) 193 0-2000 CUMM Body Fluid Mononuclear Cells 98 % Body Fluid Polymorphonuclear Cells 2 0-25 % Body Fluid Glucose 146 . mg/dL Body Fluid Total Protein 2.2 . g/dL Body Fluid Lactate Dehydrogenase 92 . IU/L Prothrombin Time 11.3 9.3-11.8 sec Prothrombin Time INR 1.07 0.9-1.15 Activated Partial Thromboplast Time 31.0 24.5-34.5 SEC Uric Acid 9.6 H 3.7-9.2 mg/dL Total Bilirubin 0.2 0.2-1.0 mg/dL Aspartate Amino Transferase (AST) 9 L 13-40 U/L Alanine Aminotransferase (ALT) < 9 7-40 U/L Alkaline Phosphatase 251 H 46-116 U/L Lactate Dehydrogenase 259 H 120-246 U/L Creatine Kinase 400 H 46-171 U/L Total Protein 6.5 5.7-8.2 g/dL Albumin 3.5 3.2-4.8 g/dL Hepatitis A IgM Antibody Negative Hepatitis B Surface Antigen Negative Negative Hepatitis B Surface Antibody Negative Negative Hepatitis B Core IgM Antibody Negative Negative Hepatitis C Antibody Reactive *A Negative Hemoglobin A1c 8.0 H <5.7 % A1C Ammonia 17 11-32 umol/L Vitamin B12 Level 927 H 211-911 pg/mL Vitamin D 25-Hydroxy 38.7 30.0-100 ng/mL Folic Acid 11.01 >5.38 ng/mL Blood Gas Specimen Type Arterial Blood Gas Sample Site Left radial Blood Gas Patient Temperature 37.0 Arterial Blood Date Drawn [id number] Arterial Blood pH 7.194 *L 7.350-7.450 Arterial Blood Partial Pressure CO2 33.3 L 35.0-48.0 mmHg Arterial Blood Partial Pressure O2 91.3 83.0-108.0 mmHg Arterial Blood HCO3 12.5 L 21.0-28.0 mmol/L Arterial Blood Oxygen Saturation 95.0 94.0-98.0 % Arterial Blood Base Excess -14.5 L -2.0-3.0 mmol/L Arterial Blood Oxyhemoglobin 94.3 94.0-98.0 % Arterial Blood Carboxyhemoglobin 0.3 L 0.5-1.5 % Arterial Blood Methemoglobin 0.4 0.0-1.5 % Jarod Test Modified Blood Gas Total Hemoglobin 11.30 L 13.5-17.5 g/dL Blood Gas Liter Flow 2.00 Blood Gas Modality Nasal cannula FiO2 % 28.0 Blood Gas Critical Value Read Back Yes Blood Gas Notified Whom dom Mar md Blood Gas Notified Time [id number] Blood Gas Notified By angela Kelsey, steven Test 04/14/25 00:00 04/13/25 20:47 04/13/25 20:43 04/13/25 17:53 Range/Units Influenza Type A Antigen Negative Negative Influenza Type B Antigen Negative Negative SARS-CoV-2 Antigen (Rapid) Negative NEGATIVE Troponin I High Sensitivity 16 </=54 ng/L Urine Color Light-yellow Yellow Urine Clarity Turbid H Clear Urine pH 5.0 5.0-9.0 Urine Specific [place] 1.012 1.001-1.035 Urine Protein 2+ H Negative Urine Ketones Negative Negative Urine Blood Negative Negative /uL Urine Nitrite Negative Negative Urine Bilirubin Negative Negative Urine Urobilinogen Normal Negative mg/dL Urine Leukocyte Esterase 1+ Negative /uL Urine RBC 3 0 - 3 /hpf Urine Microscopic WBC 9 H 0-3 /HPF Urine Squamous Epithelial Cells Few <5 /hpf Urine Amorphous Crystals Few None Seen /hpf Urine Bacteria Few H None Seen /hpf Urine Hyaline Casts Few 0 - 2 /lpf Urine Creatinine 97.22 30.0-125.0 mg/dL Urine Protein/Creatinine Ratio 1.61 Urine Sodium 23 L 40-220 mmol/L Urine Glucose Normal Normal mg/dL Urine Total Protein 156.7 H 1-14 mg/dL Urine Opiates Screen Neg NEGATIVE Urine Fentanyl Screen Neg NEGATIVE Urine Barbiturates Screen Neg NEGATIVE Urine Phencyclidine Screen Neg NEGATIVE Urine Amphetamines Screen Neg NEGATIVE Urine Benzodiazepines Screen Neg NEGATIVE Urine Cocaine Screen Neg NEGATIVE Urine Cannabinoids Screen Neg NEGATIVE Phosphorus Level 13.6 H 2.4-5.1 mg/dL Direct Bilirubin < 0.1 <0.3 mg/dL B-Type Natriuretic Peptide 435.11 0-100 pg/mL Thyroid Stimulating Hormone (TSH) 2.13 0.55-4.78 uIU/mL Microbiology Date/Time Source Procedure Growth Status 04/14/25 11:45 Pleural Fluid Gram Stain - Final Complete 04/14/25 11:45 Pleural Fluid Body Fluid Culture - Final Complete 04/14/25 00:55 Blood Blood Culture - Final NO GROWTH AFTER 5 DAYS OF INCUBATION. Complete 04/14/25 00:00 Nose MRSA Screen - Final Complete 04/13/25 20:43 Voided Urine Urine Culture - Final Complete Assessment Diagnosis: Iatrogenic left hand abscess secondary to infiltrated IV Plan/Recommendation Plan is for bedside incision and drainage. I explained the diagnosis, prognosis, treatment options, procedure and risks. Patient understood agreed to proceed all questions answered. Plan discussed with: Patient ADRIANO WATKINS MD Apr 22, 2025 11:21
--- NOTE | 2025-04-22 11:23 | DVHOP2 ---
Operative Report - 2 Report Details Date: 04/22/25 Preop Diagnosis: Left hand abscess (3 x 2 by 1.5 cm) Postop Diagnosis: Same Surgeon: Juancarlos Watkins MD Anesthesiologist: None Anesthesia: Local Consent: The patient was informed of the risks and benefits of the procedure. These include but are not limited to complications of anesthesia, postoperative infection, incomplete relief of symptoms, recurrence of symptoms, damage to blood vessels, nerves and tendons, deep venous thrombosis, pulmonary embolism and possible need for repeat surgery in the future. Complications: None Estimated Blood Loss: Less than 5 cc Findings: Superficial hand abscess dorsum of left hand. On incision purulent exudate extruded. Indications for Surgery: Left hand abscess not responding to IV antibiotics Name of Procedure Performed Incision and drainage left hand abscess Procedure Details Procedure Details: Pre procedure was performed at bedside. Informed consent was obtained. I prepped the dorsum of his hand with Betadine. I infiltrated proximally 7 cc of 1% lidocaine. I made skin incision over the top of the abscess in purulent exudate extruded. I obtained a swab for cultures. I packed the wound with gauze and dressed it sterilely. Patient tolerated the procedure well. Specimen: Culture swab for aerobic anaerobic cultures Condition Stable Disposition Still a Patient JUANCARLOS WATKINS MD Apr 22, 2025 11:23
--- NOTE | 2025-04-22 12:05 | DVHPN2 ---
Progress Note - Dictate Date Seen: Apr 22, 2025 Medical Necessity Reason Pt with a Central, PICC or Fol: No Subjective No new complaints vital signs Vital Sign Date Time Temp Pulse Resp B/P (MAP) Pulse Ox O2 Delivery O2 Flow Rate FiO2 04/22/25 08:45 110/60 04/22/25 08:42 98.4 82 17 95 98.4 04/22/25 08:00 Room Air* 0 21 Total Intake and Output 04/21/25 04/21/25 04/22/25 15:00 23:00 07:00 Intake Total 220 ml 200 ml Balance 220 ml 200 ml medications Current Medications Medications Dose Ordered Sig/Milka Route Start Time Stop Time Status Last Admin Dose Admin Acetaminophen 650 mg Q6HP PRN PO 04/13/25 21:45 04/14/25 21:59 650 MG Nitroglycerin 0.4 mg Q5MINP PRN SL 04/13/25 21:45 Aspirin 81 mg DAILY PO 04/14/25 10:00 04/22/25 08:46 81 MG Pantoprazole Sodium 40 mg DAILY@0600 PO 04/14/25 06:00 04/22/25 06:36 40 MG Diagnostic Test (Pha) 1 strip ACHS 04/14/25 07:00 04/22/25 06:36 1 STRIP Insulin Human Regular ACHS SC 04/14/25 07:00 04/22/25 06:35 2 UNITS Dextrose 50 ml UD PRN IV 04/13/25 22:30 Calcium Acetate 1,334 mg TIDWMEALS PO 04/14/25 18:00 04/22/25 08:44 1,334 MG Nifedipine 60 mg DAILY PO 04/16/25 10:00 04/22/25 08:45 60 MG Carvedilol 25 mg Q12HR PO 04/17/25 22:00 04/22/25 08:45 25 MG Hydralazine HCl 10 mg Q6HP PRN IV 04/17/25 19:00 Hold Atorvastatin Calcium 80 mg HS PO 04/18/25 22:00 04/21/25 21:16 80 MG Sacubitril/ Valsartan 1 tab BID PO 04/18/25 22:00 04/22/25 08:43 1 TAB Spironolactone 25 mg DAILY PO 04/19/25 15:41 04/22/25 08:45 25 MG Doxycycline Monohydrate 100 mg Q12HR PO 04/19/25 22:00 04/22/25 08:45 100 MG Ondansetron HCl 4 mg Q4HP PRN PO 04/20/25 14:15 04/21/25 09:06 4 MG Metoclopramide HCl 10 mg Q8HPRN PRN IV 04/20/25 14:30 Diphenhydramine HCl 25 mg Q6HP PRN PO 04/20/25 19:15 04/21/25 21:14 25 MG objective Alert, oriented x 3 NAD Lungs CTA CV: RR, no gallops Abdomen: soft, NT S/P BKA laboratory and microbiology Laboratory Tests 04/22/25 05:46 04/17/25 05:52 Test 04/22/25 05:46 Range/Units Serum Glucose 151 H 74-106 mg/dL Problem List End-stage kidney disease Type 2 diabetes with nephropathy Hypertension Hyperlipidemia Heart failure with reduced EF of approximately 25% History of coronary artery disease status post PTCA Chronic metabolic acidosis Hyperphosphatemia Hyperuricemia Pleural effusion Assessment/Plan Hemodialysis on MWF schedule Discharge to outpatient HD at [facility] with Dr Padron Outpatient cardiac catheterization Dietary Evaluation Review Comments: 1. CCHO 60 + renal diet 2. Nephro-Yoni 1 tab daily 3. Continue current POC Expected Outcomes/Goals: To meet >75% estimated needs Fu 3-5 days Plan discussed with: Patient DAVID GAONA MD Apr 22, 2025 12:05
--- NOTE | 2025-04-22 13:14 | DVHPN2 ---
Subjective Doing well He was seen by ortho and needed drainage of the left hand abscess Reviewed: Care Plan, H&P, Labs, Medications, Previous Orders, Radiology Changes from previous H/P or p: Changes General: Per HPI Objective Vitals Vital Signs Date Time Temp Pulse Resp B/P (MAP) Pulse Ox O2 Delivery O2 Flow Rate FiO2 04/22/25 12:44 99.1 80 17 116/60 (78) 96 99.1 04/22/25 08:00 Room Air* 0 21 Intake/Output Intake and Output 04/22/25 07:00 Intake Total 420 ml Balance 420 ml Intake Oral 420 ml General Appearance: Alert, Oriented X3, Cooperative, mild distress Lungs: Other Cardiovascular: Regular rate, Normal S1, Normal S2 Abdomen: Normal bowel sounds, Soft, No tenderness Extremities: Other (2+ edema) Medications Current Medications Medications Dose Ordered Sig/Milka Route Start Time Stop Time Status Last Admin Dose Admin Acetaminophen 650 mg Q6HP PRN PO 04/13/25 21:45 04/14/25 21:59 650 MG Nitroglycerin 0.4 mg Q5MINP PRN SL 04/13/25 21:45 Aspirin 81 mg DAILY PO 04/14/25 10:00 04/22/25 08:46 81 MG Pantoprazole Sodium 40 mg DAILY@0600 PO 04/14/25 06:00 04/22/25 06:36 40 MG Diagnostic Test (Pha) 1 strip ACHS 04/14/25 07:00 04/22/25 11:30 1 STRIP Insulin Human Regular ACHS SC 04/14/25 07:00 04/22/25 12:40 3 UNITS Dextrose 50 ml UD PRN IV 04/13/25 22:30 Calcium Acetate 1,334 mg TIDWMEALS PO 04/14/25 18:00 04/22/25 12:00 1,334 MG Nifedipine 60 mg DAILY PO 04/16/25 10:00 04/22/25 08:45 60 MG Carvedilol 25 mg Q12HR PO 04/17/25 22:00 04/22/25 08:45 25 MG Hydralazine HCl 10 mg Q6HP PRN IV 04/17/25 19:00 Hold Atorvastatin Calcium 80 mg HS PO 04/18/25 22:00 04/21/25 21:16 80 MG Sacubitril/ Valsartan 1 tab BID PO 04/18/25 22:00 04/22/25 08:43 1 TAB Spironolactone 25 mg DAILY PO 04/19/25 15:41 04/22/25 08:45 25 MG Doxycycline Monohydrate 100 mg Q12HR PO 04/19/25 22:00 04/22/25 08:45 100 MG Ondansetron HCl 4 mg Q4HP PRN PO 04/20/25 14:15 04/21/25 09:06 4 MG Metoclopramide HCl 10 mg Q8HPRN PRN IV 04/20/25 14:30 Diphenhydramine HCl 25 mg Q6HP PRN PO 04/20/25 19:15 04/21/25 21:14 25 MG Laboratory Results Laboratory Tests 04/17/25 05:52 04/22/25 05:46 Chemistry Test 04/22/25 05:46 Calcium Level 8.4 mg/dL (8.7-10.4) L Urinalysis Test 04/13/25 20:43 Urine Color Light-yellow (Yellow) Urine Clarity Turbid (Clear) H Urine pH 5.0 (5.0-9.0) Urine Specific [place] 1.012 (1.001-1.035) Urine Protein 2+ (Negative) H Urine Ketones Negative (Negative) Urine Blood Negative /uL (Negative) Urine Nitrite Negative (Negative) Urine Bilirubin Negative (Negative) Urine Urobilinogen Normal mg/dL (Negative) Urine Leukocyte Esterase 1+ /uL (Negative) Urine RBC 3 /hpf (0 - 3) Urine Microscopic WBC 9 /HPF (0-3) H Urine Squamous Epithelial Cells Few /hpf (<5) Urine Amorphous Crystals Few /hpf (None Seen) Urine Bacteria Few /hpf (None Seen) H Urine Hyaline Casts Few /lpf (0 - 2) Urine Creatinine 97.22 mg/dL (30.0-125.0) Urine Protein/Creatinine Ratio 1.61 Urine Sodium 23 mmol/L (40-220) L Urine Glucose Normal mg/dL (Normal) Urine Total Protein 156.7 mg/dL (1-14) H Microbiology Microbiology Date/Time Source Procedure Growth Status 04/14/25 11:45 Pleural Fluid Gram Stain - Final Complete 04/14/25 11:45 Pleural Fluid Body Fluid Culture - Final Complete 04/14/25 00:55 Blood Blood Culture - Final NO GROWTH AFTER 5 DAYS OF INCUBATION. Complete 04/14/25 00:00 Nose MRSA Screen - Final Complete 04/13/25 20:43 Voided Urine Urine Culture - Final Complete Assessment/Plan Assessment/Plan Acute hypoxic respiratory failure likely due to heart failure Acute on chronic HFrEF, EF 25% CAD h/o stent on aspirin Metabolic acidosis likely due to renal failure ESRD on HD Pneumonia Gram-positive versus Gram-negative bacteria Bilateral pleural effusion s/p R thoracentesis UTI due to acute complicated cystitis Hypertension Diabetes mellitus type 2-uncontrolled, HbA1c 8.0 CAD status post PTCA Obesity Hyperlipidemia Hyperkalemia - Obesity PLAN: HD today Check CXR in AM Cardiology consult Dr. Rossi IV antibiotics: Rocephin and Doxy DC Lovenox Continue aspirin Hydralazine IV prn Increase Coreg to 25 mg bid Continue Nifedipine ER 60 mg qd Full code Discussed with patient and at the bedside Advanced directives discussed x 16 minutes 04/18/2025: Pneumonia and UTI: Continue IV antibiotics Rocephin and doxycycline End-stage renal disease: Hemodialysis per nephrology Cardiology consult pending Continue Protonix 04/19/25: HD today DC planning for tomorrow IV antibiotics Cardiology recommended outpatient heart cath 04/20/2025: Generalized weakness: Arrange SNF for physical therapy P.o. doxycycline Hemodialysis per nephrology Nausea: PO Zofran prn Left hand boil? Abscess?: Consult ortho Weakness, tremors: Consult Neuro, CT head 04/21/2025: Generalized weakness: Continue physical therapy SNF was arranged however the patient is not ready with the discharged yet due to the left hand abscess Left hand abscess: Orthopedic consultation, pending End-stage renal disease: Hemodialysis per nephrology Nausea and vomiting: Continue Zofran and Benadryl p.r.n. Diabetic neuropathy: 04/22/2025: Left hand abscess: Drainage Continue IV antibiotics End-stage renal disease continue hemodialysis per nephrology Discharge planning possibly tomorrow Plan discussed with: Patient Date of Service: Apr 22, 2025 Billing Provider: TAMELA GUTIERREZ MD Common Visit Codes: [id number] INP/OBS CARE(HIGH) TAMELA GUTIERREZ MD Apr 22, 2025 13:14
--- NOTE | 2025-04-22 18:05 | DVHPN2 ---
Progress Note - Dictate Date Seen: Apr 22, 2025 Medical Necessity Reason Pt with a Central, PICC or Fol: No Subjective Patient seen and examined at bedside. Breathing comfortably on room air. Overnight events reviewed. vital signs Vital Sign Date Time Temp Pulse Resp B/P (MAP) Pulse Ox O2 Delivery O2 Flow Rate FiO2 04/22/25 16:29 98.4 84 17 114/51 (72) 94 98.4 04/22/25 08:00 Room Air* 0 21 Total Intake and Output 04/21/25 04/21/25 04/22/25 15:00 23:00 07:00 Intake Total 220 ml 200 ml Balance 220 ml 200 ml medications Current Medications Medications Dose Ordered Sig/Milka Route Start Time Stop Time Status Last Admin Dose Admin Acetaminophen 650 mg Q6HP PRN PO 04/13/25 21:45 04/14/25 21:59 650 MG Nitroglycerin 0.4 mg Q5MINP PRN SL 04/13/25 21:45 Aspirin 81 mg DAILY PO 04/14/25 10:00 04/22/25 08:46 81 MG Pantoprazole Sodium 40 mg DAILY@0600 PO 04/14/25 06:00 04/22/25 06:36 40 MG Diagnostic Test (Pha) 1 strip ACHS 04/14/25 07:00 04/22/25 17:00 1 STRIP Insulin Human Regular ACHS SC 04/14/25 07:00 04/22/25 17:43 3 UNITS Dextrose 50 ml UD PRN IV 04/13/25 22:30 Calcium Acetate 1,334 mg TIDWMEALS PO 04/14/25 18:00 04/22/25 17:27 1,334 MG Nifedipine 60 mg DAILY PO 04/16/25 10:00 04/22/25 08:45 60 MG Carvedilol 25 mg Q12HR PO 04/17/25 22:00 04/22/25 08:45 25 MG Hydralazine HCl 10 mg Q6HP PRN IV 04/17/25 19:00 Hold Atorvastatin Calcium 80 mg HS PO 04/18/25 22:00 04/21/25 21:16 80 MG Sacubitril/ Valsartan 1 tab BID PO 04/18/25 22:00 04/22/25 08:43 1 TAB Spironolactone 25 mg DAILY PO 04/19/25 15:41 6/7/25 08:45 25 MG Doxycycline Monohydrate 100 mg Q12HR PO 04/19/25 22:00 04/22/25 08:45 100 MG Ondansetron HCl 4 mg Q4HP PRN PO 04/20/25 14:15 04/21/25 09:06 4 MG Metoclopramide HCl 10 mg Q8HPRN PRN IV 04/20/25 14:30 Diphenhydramine HCl 25 mg Q6HP PRN PO 04/20/25 19:15 04/21/25 21:14 25 MG objective Gen.: Patient lying in bed in no apparent distress. Breathing on room air. Head: Normocephalic, atraumatic. Eyes: EOMI/PERRLA. Ears: Normal hearing. Normal anatomy. Neck/trachea: Trachea midline, supple. Nose: Normal external anatomy. Mouth: Moist mucous membranes. Chest: Decreased air entry bilaterally. No wheezing or rhonchi. Cardiovascular: Positive S1, positive S2. Regular rate and rhythm. Abdomen: Positive bowel sounds in all 4 quadrants. Soft, non-tender, non- distended. : Deferred. Rectal: Deferred. Skin: Warm, dry. Intact. Extremities: 2+ radial pulses bilaterally. No lower extremity edema. Neuro: Awake, alert, oriented x3. No gross motor or sensory deficits. Cranial nerves II through XII intact. Gait not assessed. laboratory and microbiology Laboratory Tests 04/22/25 05:46 04/17/25 05:52 Test 04/22/25 05:46 Range/Units Serum Glucose 151 H 74-106 mg/dL Assessment/Plan Impression: Acute hypoxic respiratory failure Pneumonia due to gram negative Pleural effusion Atelectasis Hemodialysis/end-stage renal disease CHF, systolic; acute on chronic Hypertensive urgency Morbid obesity, BMI 43.4 Events: Remains on room air Supplemental oxygen PRN Hemodialysis per Nephrology Monitor renal function. Monitor electrolytes. Supplement as necessary. Continue antibiotics Incentive spirometry S/p I&D of left hand Wound care Protonix for GI ppx Patient is stable for discharge from the pulmonary standpoint. Disposition per hospitalist. PT evaluated patient - recommendation for SNF Labs and imaging reviewed. Rest of plan as noted below. Plan: Supplemental oxygen PRN Titrate to keep O2 sats above 92%. Dialysis with fluid removal Supportive care Nutrition Bronchodilators Antibiotics Incentive spirometry HD per Nephrology Monitor renal function. Monitor electrolytes. Supplement as necessary. Monitor ins and outs. Protonix for GI prophylaxis Lovenox for DVT prophylaxis Prognosis: Guarded given patient's multiple co-morbidities. Rest of plan per hospitalist and other consultants. Thank you, Dr. Orr, for allowing me to participate in this patient's care. Further recommendations will depend on the patient's clinical course. Please do not hesitate to contact me if you have any questions or concerns. This medical document was created using an electronic medical record system with [employer] dictation system. Although these documentations are being carefully reviewed, there may still be some phonetic and typographical changes. The errors are purely typographical, due to imperfection on the software program, and do not reflect any compromise in the patient's medical care. Dietary Evaluation Review Comments: 1. CCHO 60 + renal diet 2. Nephro-Yoni 1 tab daily 3. Continue current POC Expected Outcomes/Goals: To meet >75% estimated needs Fu 3-5 days Plan discussed with: Patient, Other (JOSE Goodson) ROSA CHEN MD Apr 22, 2025 18:05
[2025-04-23] VITALS (8 sets, daily range): BP systolic 108–136; BP diastolic 56–75; PULSE 74–89; RESP 16–19; TEMP 97.7–98.4; O2SAT 95–97
--- NOTE | 2025-04-23 08:19 | DVHPN2 ---
Progress Note - Dictate Date Seen: Apr 23, 2025 Medical Necessity Reason Pt with a Central, PICC or Fol: No Subjective Patient is s/p I&D left hand at bedside. Procedure performed yesterday. He reports that the hand feels much better. vital signs Vital Sign Date Time Temp Pulse Resp B/P (MAP) Pulse Ox O2 Delivery O2 Flow Rate FiO2 04/23/25 05:00 97.7 78 19 132/75 (94) 95 97.7 04/22/25 19:30 Room Air* 0 21 Total Intake and Output 04/22/25 04/22/25 04/23/25 14:59 22:59 06:59 Intake Total 225 ml Balance 225 ml medications Current Medications Medications Dose Ordered Sig/Milka Route Start Time Stop Time Status Last Admin Dose Admin Acetaminophen 650 mg Q6HP PRN PO 04/13/25 21:45 04/23/25 05:56 650 MG Nitroglycerin 0.4 mg Q5MINP PRN SL 04/13/25 21:45 Aspirin 81 mg DAILY PO 04/14/25 10:00 04/22/25 08:46 81 MG Pantoprazole Sodium 40 mg DAILY@0600 PO 04/14/25 06:00 04/23/25 05:56 40 MG Diagnostic Test (Pha) 1 strip ACHS 04/14/25 07:00 04/23/25 06:40 1 STRIP Insulin Human Regular ACHS SC 04/14/25 07:00 04/23/25 05:57 3 UNITS Dextrose 50 ml UD PRN IV 04/13/25 22:30 Calcium Acetate 1,334 mg TIDWMEALS PO 04/14/25 18:00 04/22/25 17:27 1,334 MG Nifedipine 60 mg DAILY PO 04/16/25 10:00 04/22/25 08:45 60 MG Carvedilol 25 mg Q12HR PO 04/17/25 22:00 04/22/25 21:41 25 MG Hydralazine HCl 10 mg Q6HP PRN IV 04/17/25 19:00 Hold Atorvastatin Calcium 80 mg HS PO 04/18/25 22:00 04/22/25 21:42 80 MG Sacubitril/ Valsartan 1 tab BID PO 04/18/25 22:00 04/22/25 21:46 1 TAB Spironolactone 25 mg DAILY PO 04/19/25 15:41 04/22/25 08:45 25 MG Doxycycline Monohydrate 100 mg Q12HR PO 04/19/25 22:00 04/22/25 21:39 100 MG Ondansetron HCl 4 mg Q4HP PRN PO 04/20/25 14:15 04/21/25 09:06 4 MG Metoclopramide HCl 10 mg Q8HPRN PRN IV 04/20/25 14:30 Diphenhydramine HCl 25 mg Q6HP PRN PO 04/20/25 19:15 04/22/25 21:46 25 MG objective Dressing dry and intact Distally there was no edema in the digits He has intact flexion-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 CCHO 60 + renal diet 2. Nephro-Yoni 1 tab daily 3. Continue current POC Expected Outcomes/Goals: To meet >75% estimated needs Fu 3-5 days Plan discussed with: Patient ADRIANO WATKINS MD Apr 23, 2025 08:18
--- NOTE | 2025-04-23 10:22 | DVHPN2 ---
Progress Note - Dictate Date Seen: Apr 23, 2025 Medical Necessity Reason Pt with a Central, PICC or Fol: No Subjective No new complaints vital signs Vital Sign Date Time Temp Pulse Resp B/P (MAP) Pulse Ox O2 Delivery O2 Flow Rate FiO2 04/23/25 09:00 98.4 77 16 125/63 (83) 95 98.4 04/23/25 08:00 Room Air* 0 21 Total Intake and Output 04/22/25 04/22/25 04/23/25 15:00 23:00 07:00 Intake Total 225 ml Balance 225 ml medications Current Medications Medications Dose Ordered Sig/Milka Route Start Time Stop Time Status Last Admin Dose Admin Acetaminophen 650 mg Q6HP PRN PO 04/13/25 21:45 04/23/25 05:56 650 MG Nitroglycerin 0.4 mg Q5MINP PRN SL 04/13/25 21:45 Aspirin 81 mg DAILY PO 04/14/25 10:00 04/23/25 08:58 81 MG Pantoprazole Sodium 40 mg DAILY@0600 PO 04/14/25 06:00 04/23/25 05:56 40 MG Diagnostic Test (Pha) 1 strip ACHS 04/14/25 07:00 04/23/25 06:40 1 STRIP Insulin Human Regular ACHS SC 04/14/25 07:00 04/23/25 05:57 3 UNITS Dextrose 50 ml UD PRN IV 04/13/25 22:30 Calcium Acetate 1,334 mg TIDWMEALS PO 04/14/25 18:00 04/23/25 08:57 1,334 MG Nifedipine 60 mg DAILY PO 04/16/25 10:00 04/23/25 08:57 60 MG Carvedilol 25 mg Q12HR PO 04/17/25 22:00 04/23/25 08:56 25 MG Hydralazine HCl 10 mg Q6HP PRN IV 04/17/25 19:00 Hold Atorvastatin Calcium 80 mg HS PO 04/18/25 22:00 04/22/25 21:42 80 MG Sacubitril/ Valsartan 1 tab BID PO 04/18/25 22:00 04/23/25 08:56 1 TAB Spironolactone 25 mg DAILY PO 04/19/25 15:41 04/23/25 08:57 25 MG Doxycycline Monohydrate 100 mg Q12HR PO 04/19/25 22:00 04/23/25 08:57 100 MG Ondansetron HCl 4 mg Q4HP PRN PO 04/20/25 14:15 04/21/25 09:06 4 MG Metoclopramide HCl 10 mg Q8HPRN PRN IV 04/20/25 14:30 Diphenhydramine HCl 25 mg Q6HP PRN PO 04/20/25 19:15 04/22/25 21:46 25 MG objective Alert, oriented x 3 NAD Lungs CTA CV: RR, no gallops Abdomen: soft, NT S/P BKA laboratory and microbiology Laboratory Tests 04/22/25 05:46 04/17/25 05:52 Test 04/22/25 05:46 Range/Units Serum Glucose 151 H 74-106 mg/dL Problem List End-stage kidney disease Type 2 diabetes with nephropathy Hypertension Hyperlipidemia Heart failure with reduced EF of approximately 25% History of coronary artery disease status post PTCA Chronic metabolic acidosis Hyperphosphatemia Hyperuricemia Pleural effusion Left hand infiltratrion with edema and inflammation s/p surgical drainage Assessment/Plan Hemodialysis on MWF schedule Discharge to outpatient HD at [facility] with Dr Padron Outpatient cardiac catheterization Dietary Evaluation Review Comments: 1. CCHO 60 + renal diet 2. Nephro-Yoni 1 tab daily 3. Continue current POC Expected Outcomes/Goals: To meet >75% estimated needs Fu 3-5 days Plan discussed with: DAVID Evans MD Apr 23, 2025 10:22
--- NOTE | 2025-04-23 12:41 | DVHPN2 ---
Subjective Doing well status post incision and drainage of the left hand abscess yesterday by Orthopedic surgery Reviewed: Care Plan, H&P, Labs, Medications, Previous Orders, Radiology Changes from previous H/P or p: Changes General: Per HPI Objective Vitals Vital Signs Date Time Temp Pulse Resp B/P (MAP) Pulse Ox O2 Delivery O2 Flow Rate FiO2 04/23/25 09:56 125/63 04/23/25 09:00 98.4 77 16 95 98.4 04/23/25 08:00 Room Air* 0 21 Intake/Output Intake and Output 04/23/25 07:00 Intake Total 225 ml Balance 225 ml Intake Oral 225 ml General Appearance: Alert, Oriented X3, Cooperative, mild distress Lungs: Other Cardiovascular: Regular rate, Normal S1, Normal S2 Abdomen: Normal bowel sounds, Soft, No tenderness Extremities: Other (2+ edema) Medications Current Medications Medications Dose Ordered Sig/Milka Route Start Time Stop Time Status Last Admin Dose Admin Acetaminophen 650 mg Q6HP PRN PO 04/13/25 21:45 04/23/25 05:56 650 MG Nitroglycerin 0.4 mg Q5MINP PRN SL 04/13/25 21:45 Aspirin 81 mg DAILY PO 04/14/25 10:00 04/23/25 08:58 81 MG Pantoprazole Sodium 40 mg DAILY@0600 PO 04/14/25 06:00 04/23/25 05:56 40 MG Diagnostic Test (Pha) 1 strip ACHS 04/14/25 07:00 04/23/25 11:30 1 STRIP Insulin Human Regular ACHS SC 04/14/25 07:00 04/23/25 12:14 4 UNITS Dextrose 50 ml UD PRN IV 04/13/25 22:30 Calcium Acetate 1,334 mg TIDWMEALS PO 04/14/25 18:00 04/23/25 12:14 1,334 MG Nifedipine 60 mg DAILY PO 04/16/25 10:00 04/23/25 08:57 60 MG Carvedilol 25 mg Q12HR PO 04/17/25 22:00 04/23/25 08:56 25 MG Hydralazine HCl 10 mg Q6HP PRN IV 04/17/25 19:00 Hold Atorvastatin Calcium 80 mg HS PO 04/18/25 22:00 04/22/25 21:42 80 MG Sacubitril/ Valsartan 1 tab BID PO 04/18/25 22:00 04/23/25 08:56 1 TAB Spironolactone 25 mg DAILY PO 04/19/25 15:41 04/23/25 08:57 25 MG Doxycycline Monohydrate 100 mg Q12HR PO 04/19/25 22:00 04/23/25 08:57 100 MG Ondansetron HCl 4 mg Q4HP PRN PO 04/20/25 14:15 04/21/25 09:06 4 MG Metoclopramide HCl 10 mg Q8HPRN PRN IV 04/20/25 14:30 Diphenhydramine HCl 25 mg Q6HP PRN PO 04/20/25 19:15 04/22/25 21:46 25 MG Laboratory Results Laboratory Tests 04/17/25 05:52 04/22/25 05:46 Urinalysis Test 04/13/25 20:43 Urine Color Light-yellow (Yellow) Urine Clarity Turbid (Clear) H Urine pH 5.0 (5.0-9.0) Urine Specific [place] 1.012 (1.001-1.035) Urine Protein 2+ (Negative) H Urine Ketones Negative (Negative) Urine Blood Negative /uL (Negative) Urine Nitrite Negative (Negative) Urine Bilirubin Negative (Negative) Urine Urobilinogen Normal mg/dL (Negative) Urine Leukocyte Esterase 1+ /uL (Negative) Urine RBC 3 /hpf (0 - 3) Urine Microscopic WBC 9 /HPF (0-3) H Urine Squamous Epithelial Cells Few /hpf (<5) Urine Amorphous Crystals Few /hpf (None Seen) Urine Bacteria Few /hpf (None Seen) H Urine Hyaline Casts Few /lpf (0 - 2) Urine Creatinine 97.22 mg/dL (30.0-125.0) Urine Protein/Creatinine Ratio 1.61 Urine Sodium 23 mmol/L (40-220) L Urine Glucose Normal mg/dL (Normal) Urine Total Protein 156.7 mg/dL (1-14) H Microbiology Microbiology Date/Time Source Procedure Growth Status 04/22/25 11:30 Hand Left Gram Stain - Final Resulted 04/22/25 11:30 Hand Left Wound Culture - Preliminary Resulted 04/14/25 11:45 Pleural Fluid Gram Stain - Final Complete 04/14/25 11:45 Pleural Fluid Body Fluid Culture - Final Complete 04/14/25 00:55 Blood Blood Culture - Final NO GROWTH AFTER 5 DAYS OF INCUBATION. Complete 04/13/25 20:43 Voided Urine Urine Culture - Final Complete Assessment/Plan Assessment/Plan Acute hypoxic respiratory failure likely due to heart failure Acute on chronic HFrEF, EF 25% CAD h/o stent on aspirin Metabolic acidosis likely due to renal failure ESRD on HD Pneumonia Gram-positive versus Gram-negative bacteria Bilateral pleural effusion s/p R thoracentesis UTI due to acute complicated cystitis Hypertension Diabetes mellitus type 2-uncontrolled, HbA1c 8.0 CAD status post PTCA Obesity Hyperlipidemia Hyperkalemia - Obesity PLAN: HD today Check CXR in AM Cardiology consult Dr. Rossi IV antibiotics: Rocephin and Doxy DC Lovenox Continue aspirin Hydralazine IV prn Increase Coreg to 25 mg bid Continue Nifedipine ER 60 mg qd Full code Discussed with patient and at the bedside Advanced directives discussed x 16 minutes 04/18/2025: Pneumonia and UTI: Continue IV antibiotics Rocephin and doxycycline End-stage renal disease: Hemodialysis per nephrology Cardiology consult pending Continue Protonix 04/19/25: HD today DC planning for tomorrow IV antibiotics Cardiology recommended outpatient heart cath 04/20/2025: Generalized weakness: Arrange SNF for physical therapy P.o. doxycycline Hemodialysis per nephrology Nausea: PO Zofran prn Left hand boil? Abscess?: Consult ortho Weakness, tremors: Consult Neuro, CT head 04/21/2025: Generalized weakness: Continue physical therapy SNF was arranged however the patient is not ready with the discharged yet due to the left hand abscess Left hand abscess: Orthopedic consultation, pending End-stage renal disease: Hemodialysis per nephrology Nausea and vomiting: Continue Zofran and Benadryl p.r.n. Diabetic neuropathy: 04/22/2025: Left hand abscess: Drainage Continue IV antibiotics End-stage renal disease continue hemodialysis per nephrology Discharge planning possibly tomorrow 04/23/2025: Left hand abscess status post drainage, change the dressing and packing Hemodialysis per nephrology Continue IV antibiotics Add Glucerna t.i.d. with meals Continue physical therapy Discharge to SNF possibly tomorrow for physical therapy Plan discussed with: Patient Date of Service: Apr 23, 2025 Billing Provider: TAMELA GUTIERREZ MD Common Visit Codes: [id number] INP/OBS CARE(HIGH) TAMELA GUTIERREZ MD Apr 23, 2025 12:41
[2025-04-23] MEDS: Glucerna Carbsteady SHAKE Vanilla 8oz PO SCH (18:02)
--- NOTE | 2025-04-23 19:44 | DVHPN2 ---
Progress Note - Dictate Date Seen: Apr 23, 2025 Medical Necessity Reason Pt with a Central, PICC or Fol: No Subjective Mr. Ng is a right-handed male with a history of diabetes, hypertension, dyslipidemia, coronary disease, congestive heart failure, recurrent DVT, end- stage kidney failure on hemodialysis, he was brought to the [facility] on 04/13/2025 because of general weakness, shortness breath, chest pain. But patient was has tremors I have seen and examined the patient, I have talked to his nurse, he is doing fine today, alert and fully oriented, he reports having pain after the abscess drainage to the left hand He still have myoclonus in the arms, torso when he is moving himself in the bed, but looks much better or less intense compared to the initial consultation Hepatitis panel, 04/14/2025: Hep C ABG, 04/14/2025: Metabolic acidosis WBC/HB/PLT/MCV, 04/17/2025: 8.5/10.6/147/98.9 BUN/CR, 04/14/2025: 149/11.58, 04/20/2025: 37/6.12 Liver function tests, 04/14/2025: Unremarkable HGB A1c, 04/14/2025: Vitamin B12, 04/14/2025: The 127 Folic acid, 04/14/2025: 11.01 TSH, : 2.13 CT head, 04/20/2025: No acute intracranial process vital signs Vital Sign Date Time Temp Pulse Resp B/P (MAP) Pulse Ox O2 Delivery O2 Flow Rate FiO2 04/23/25 16:50 98.0 79 18 130/72 (91) 95 98.0 04/23/25 08:00 Room Air* 0 21 Total Intake and Output 04/22/25 04/22/25 04/23/25 15:00 23:00 07:00 Intake Total 225 ml Balance 225 ml medications Current Medications Medications Dose Ordered Sig/Milka Route Start Time Stop Time Status Last Admin Dose Admin Acetaminophen 650 mg Q6HP PRN PO 04/13/25 21:45 04/23/25 18:01 650 MG Nitroglycerin 0.4 mg Q5MINP PRN SL 04/13/25 21:45 Aspirin 81 mg DAILY PO 04/14/25 10:00 04/23/25 08:58 81 MG Pantoprazole Sodium 40 mg DAILY@0600 PO 04/14/25 06:00 04/23/25 05:56 40 MG Diagnostic Test (Pha) 1 strip ACHS 04/14/25 07:00 04/23/25 16:47 1 STRIP Insulin Human Regular ACHS SC 04/14/25 07:00 04/23/25 16:47 3 UNITS Dextrose 50 ml UD PRN IV 04/13/25 22:30 Calcium Acetate 1,334 mg TIDWMEALS PO 04/14/25 18:00 04/23/25 17:59 1,334 MG Nifedipine 60 mg DAILY PO 04/16/25 10:00 04/23/25 08:57 60 MG Carvedilol 25 mg Q12HR PO 04/17/25 22:00 04/23/25 08:56 25 MG Hydralazine HCl 10 mg Q6HP PRN IV 04/17/25 19:00 Hold Atorvastatin Calcium 80 mg HS PO 04/18/25 22:00 04/22/25 21:42 80 MG Sacubitril/ Valsartan 1 tab BID PO 04/18/25 22:00 04/23/25 08:56 1 TAB Spironolactone 25 mg DAILY PO 04/19/25 15:41 04/23/25 08:57 25 MG Doxycycline Monohydrate 100 mg Q12HR PO 04/19/25 22:00 04/23/25 08:57 100 MG Ondansetron HCl 4 mg Q4HP PRN PO 04/20/25 14:15 04/21/25 09:06 4 MG Metoclopramide HCl 10 mg Q8HPRN PRN IV 04/20/25 14:30 Diphenhydramine HCl 25 mg Q6HP PRN PO 04/20/25 19:15 04/22/25 21:46 25 MG Enteral Nutritional Formula 240 ml TIDWM PO 04/23/25 18:00 04/23/25 18:02 240 ML objective General: the patient is well developed and nourished. No acute distress. MUSCULOSKELETAL EXAM: Status post left BKA MENTAL STATUS: Awake and alert. Oriented to person, place, time and general circumstances. Able to give personal history. SPEECH, LANGUAGE, HIGHER CORTICAL FUNCTION: no aphasia or dysathria. CRANIAL NERVES: upils are equal, round and reactive. EOMs full and conjugate. No nystagmus. Facial sensation intact in all three divisions bilaterally. Mandibular strength intact. Facial muscles symmetrical and strength intact. SENSATION: Diminished pinprick in the arms, legs, central portion of the abdomen. Light touch perceived as tingling in the hands MOTOR: Normal tone in the upper and lower extremity. Normal muscle bulk. No fasciculations. Muscle strength of the major groups in the extremities is 5/5 but weak in the bilateral toes, and gripping. REFLEXES: Deep tendon reflexes are diffuse diminished. No pathological reflexes. CEREBELLAR/COORDINATION: Finger to nose is normal l bilaterally. GAIT/STATION: deferred. laboratory and microbiology Laboratory Tests 04/22/25 05:46 04/17/25 05:52 Test 04/22/25 05:46 Range/Units Serum Glucose 151 H 74-106 mg/dL Problem List Myoclonus in the torso, extremities, improving ? Secondary to metabolic encephalopathy/kidney failure ? Medication effects of hydralazine Severe diabetic polyneuropathy Acute on chronic kidney failure Left arm abscess status post drainage Assessment/Plan Monitoring Supportive treatment Telemetry Wound care Foot/hand care Daily foot inspection Cardiology on case More recommendation per clinical course This medical document was created using an electronic medical record system with [employer] dictation system. Although this document has been carefully reviewed, there may still be some phonetic and typographical errors. These areas are purely typographical due to imperfections of the software programs, and do not reflect any compromise in the patient's medical care. Prognosis poor Dietary Evaluation Review Comments: 1. CCHO 60 + renal diet 2. Nephro-Yoni 1 tab daily 3. Continue current POC Expected Outcomes/Goals: To meet >75% estimated needs Fu 3-5 days Plan discussed with: Patient, Other LINA HARDING MD Apr 23, 2025 19:44
--- NOTE | 2025-04-23 20:30 | DVHPN2 ---
Progress Note - Dictate Date Seen: Apr 23, 2025 Medical Necessity Reason Pt with a Central, PICC or Fol: No Subjective Patient seen and examined at bedside. Breathing comfortably on room air. Overnight events reviewed. vital signs Vital Sign Date Time Temp Pulse Resp B/P (MAP) Pulse Ox O2 Delivery O2 Flow Rate FiO2 04/23/25 16:50 98.0 79 18 130/72 (91) 95 98.0 04/23/25 08:00 Room Air* 0 21 Total Intake and Output 04/22/25 04/22/25 04/23/25 15:00 23:00 07:00 Intake Total 225 ml Balance 225 ml medications Current Medications Medications Dose Ordered Sig/Milka Route Start Time Stop Time Status Last Admin Dose Admin Acetaminophen 650 mg Q6HP PRN PO 04/13/25 21:45 04/23/25 18:01 650 MG Nitroglycerin 0.4 mg Q5MINP PRN SL 04/13/25 21:45 Aspirin 81 mg DAILY PO 04/14/25 10:00 04/23/25 08:58 81 MG Pantoprazole Sodium 40 mg DAILY@0600 PO 04/14/25 06:00 04/23/25 05:56 40 MG Diagnostic Test (Pha) 1 strip ACHS 04/14/25 07:00 04/23/25 16:47 1 STRIP Insulin Human Regular ACHS SC 04/14/25 07:00 04/23/25 16:47 3 UNITS Dextrose 50 ml UD PRN IV 04/13/25 22:30 Calcium Acetate 1,334 mg TIDWMEALS PO 04/14/25 18:00 04/23/25 17:59 1,334 MG Nifedipine 60 mg DAILY PO 04/16/25 10:00 04/23/25 08:57 60 MG Carvedilol 25 mg Q12HR PO 04/17/25 22:00 04/23/25 08:56 25 MG Hydralazine HCl 10 mg Q6HP PRN IV 04/17/25 19:00 Hold Atorvastatin Calcium 80 mg HS PO 04/18/25 22:00 04/22/25 21:42 80 MG Sacubitril/ Valsartan 1 tab BID PO 04/18/25 22:00 04/23/25 08:56 1 TAB Spironolactone 25 mg DAILY PO 04/19/25 15:41 04/23/25 08:57 25 MG Doxycycline Monohydrate 100 mg Q12HR PO 04/19/25 22:00 04/23/25 08:57 100 MG Ondansetron HCl 4 mg Q4HP PRN PO 04/20/25 14:15 04/21/25 09:06 4 MG Metoclopramide HCl 10 mg Q8HPRN PRN IV 04/20/25 14:30 Diphenhydramine HCl 25 mg Q6HP PRN PO 04/20/25 19:15 04/22/25 21:46 25 MG Enteral Nutritional Formula 240 ml TIDWM PO 04/23/25 18:00 04/23/25 18:02 240 ML objective Gen.: Patient lying in bed in no apparent distress. Breathing on room air. Head: Normocephalic, atraumatic. Eyes: EOMI/PERRLA. Ears: Normal hearing. Normal anatomy. Neck/trachea: Trachea midline, supple. Nose: Normal external anatomy. Mouth: Moist mucous membranes. Chest: Decreased air entry bilaterally. No wheezing or rhonchi. Cardiovascular: Positive S1, positive S2. Regular rate and rhythm. Abdomen: Positive bowel sounds in all 4 quadrants. Soft, non-tender, non- distended. : Deferred. Rectal: Deferred. Skin: Warm, dry. Intact. Extremities: 2+ radial pulses bilaterally. No lower extremity edema. Neuro: Awake, alert, oriented x3. No gross motor or sensory deficits. Cranial nerves II through XII intact. Gait not assessed. laboratory and microbiology Laboratory Tests 04/22/25 05:46 04/17/25 05:52 Test 04/22/25 05:46 Range/Units Serum Glucose 151 H 74-106 mg/dL Assessment/Plan Impression: Acute hypoxic respiratory failure Pneumonia due to gram negative Pleural effusion Atelectasis Hemodialysis/end-stage renal disease CHF, systolic; acute on chronic Hypertensive urgency Morbid obesity, BMI 43.4 Events: Remains on room air Supplemental oxygen PRN Hemodialysis per Nephrology Monitor renal function. Monitor electrolytes. Supplement as necessary. Continue antibiotics Incentive spirometry S/p I&D of left hand Wound care Protonix for GI ppx Patient is stable for discharge from the pulmonary standpoint. Disposition per hospitalist. PT evaluated patient - recommendation for SNF Labs and imaging reviewed. Rest of plan as noted below. Plan: Supplemental oxygen PRN Titrate to keep O2 sats above 92%. Dialysis with fluid removal Supportive care Nutrition Bronchodilators Antibiotics Incentive spirometry HD per Nephrology Monitor renal function. Monitor electrolytes. Supplement as necessary. Monitor ins and outs. Protonix for GI prophylaxis Lovenox for DVT prophylaxis Prognosis: Guarded given patient's multiple co-morbidities. Rest of plan per hospitalist and other consultants. Thank you, Dr. Orr, for allowing me to participate in this patient's care. Further recommendations will depend on the patient's clinical course. Please do not hesitate to contact me if you have any questions or concerns. This medical document was created using an electronic medical record system with [employer] dictation system. Although these documentations are being carefully reviewed, there may still be some phonetic and typographical changes. The errors are purely typographical, due to imperfection on the software program, and do not reflect any compromise in the patient's medical care. Dietary Evaluation Review Comments: 1. CCHO 60 + renal diet 2. Nephro-Yoni 1 tab daily 3. Continue current POC Expected Outcomes/Goals: To meet >75% estimated needs Fu 3-5 days Plan discussed with: Patient, Other (JOSE Goodson) ROSA CHEN MD Apr 23, 2025 20:29
[2025-04-24] VITALS (9 sets, daily range): BP systolic 122–141; BP diastolic 67–73; PULSE 71–82; RESP 16–20; TEMP 97.9–98.6; O2SAT 93–98
[2025-04-24 05:47] LABS: Basophils # (auto) 0 10 ^3/uL (0-0.2); Basophils % (auto) 0.6 % (0.0-2.0); Eosinophils # (auto) 0.8 10 ^3/uL (0-0.8); Eosinophils % (auto) 9.8 % (0.0-7.0); Hematocrit 33.2 % (41.0-53.0); Hemoglobin 11.4 g/dL (13.5-17.5); Lymphocytes # (auto) 1.6 10 ^3/uL (0.4-5.4); Lymphocytes % (auto) 20.9 % (10.0-50.0); Mean Corpuscular Hemoglobin 30.8 pg (28.0-32.0); Mean Corpuscular Hgb Conc. 34.3 g/dL (32.0-36.0); Mean Corpuscular Volume 89.7 fL (80.0-100.0); Monocytes # (auto) 0.9 10 ^3/uL (0-1.3); Monocytes % (auto) 11.9 % (0.0-12.0); Neutrophils # (auto) 4.4 10 ^3/uL (1.6-8.6); Neutrophils % (auto) 56.8 % (37.0-80.0); Nucleated Red Blood Cells % 0.1 %; Platelet Count (auto) 204 10^3/uL (140-450); Red Cell Distribution Width 12.7 % (11.8-14.3); White Blood Cell 7.8 10^3/uL (4.4-10.8)
[2025-04-24 06:03] LABS: Anion Gap 11 (5-15); Aspartate Aminotransferase 27 U/L (13-40); BUN/Creatinine Ratio 4.4 (10.0-20.0); Carbon Dioxide 27 mmol/L (20-31); Chloride 100 mmol/L (98-107); Sodium 138 mmol/L (136-145); Total Protein 5.8 g/dL (5.7-8.2)
[2025-04-24 06:12] LABS: Alanine Aminotransferase 9 U/L (7-40); Alkaline Phosphatase 182 U/L (46-116); Blood Urea Nitrogen 36 mg/dL (9-23); Calcium 8.4 mg/dL (8.7-10.4); Glucose 191 mg/dL (74-106)
[2025-04-24 06:13] LABS: Bilirubin, Total 0.2 mg/dL (0.2-1.0)
[2025-04-24] MEDS ORDERED: SODIUM CHL 0.9% 1000 ML BAG XX ONE (07:00)
--- NOTE | 2025-04-24 11:08 | DVHDS2 ---
Discharge Summary Date of Admission April 13, 2025 at 21:39 Date of Discharge: Apr 24, 2025 Labs/Diagnostic Data: Laboratory Results Test 04/24/25 05:56 04/24/25 04:58 04/14/25 11:45 04/14/25 09:02 POC Glucose 214 mg/dl (70-106) White Blood Count 7.8 10^3/uL (4.4-10.8) Red Blood Count 3.70 10^6/uL (4.5-5.90) Hemoglobin 11.4 g/dL (13.5-17.5) Hematocrit 33.2 % (41.0-53.0) Mean Corpuscular Volume 89.7 fL (80.0-100.0) Mean Corpuscular Hemoglobin 30.8 pg (28.0-32.0) Mean Corpuscular Hemoglobin Concent 34.3 g/dL (32.0-36.0) Red Cell Distribution Width 12.7 % (11.8-14.3) Platelet Count 204 10^3/uL (140-450) Mean Platelet Volume 7.5 fL (6.9-10.8) Neutrophils (%) (Auto) 56.8 % (37.0-80.0) Lymphocytes (%) (Auto) 20.9 % (10.0-50.0) Monocytes (%) (Auto) 11.9 % (0.0-12.0) Eosinophils (%) (Auto) 9.8 % (0.0-7.0) Basophils (%) (Auto) 0.6 % (0.0-2.0) Neutrophils # (Auto) 4.4 10 ^3/uL (1.6-8.6) Lymphocytes # (Auto) 1.6 10 ^3/uL (0.4-5.4) Monocytes # (Auto) 0.9 10 ^3/uL (0-1.3) Eosinophils # (Auto) 0.8 10 ^3/uL (0-0.8) Basophils # (Auto) 0 10 ^3/uL (0-0.2) Nucleated Red Blood Cells 0.1 % Sodium Level 138 mmol/L (136-145) Potassium Level 4.0 mmol/L (3.5-5.1) Chloride Level 100 mmol/L (98-107) Carbon Dioxide Level 27 mmol/L (20-31) Anion Gap 11 (5-15) Blood Urea Nitrogen 36 mg/dL (9-23) Creatinine 8.14 mg/dL (0.700-1.30) Glomerular Filtration Rate Calc 7 mL/min (>90) BUN/Creatinine Ratio 4.4 (10.0-20.0) Serum Glucose 191 mg/dL (74-106) Calcium Level 8.4 mg/dL (8.7-10.4) Magnesium Level 2.0 mg/dL (1.6-2.6) Total Bilirubin 0.2 mg/dL (0.2-1.0) Aspartate Amino Transferase (AST) 27 U/L (13-40) Alanine Aminotransferase (ALT) 9 U/L (7-40) Alkaline Phosphatase 182 U/L (46-116) Total Protein 5.8 g/dL (5.7-8.2) Albumin 3.0 g/dL (3.2-4.8) Body Fluid Source Pleural fluid Body Fluid pH 8.0 Body Fluid WBC (Manual) 154 CUMM (0-200) Body Fluid RBC (Manual) 193 CUMM (0-2000) Body Fluid Mononuclear Cells 98 % Body Fluid Polymorphonuclear Cells 2 % (0-25) Body Fluid Glucose 146 mg/dL (.) Body Fluid Total Protein 2.2 g/dL (.) Body Fluid Lactate Dehydrogenase 92 IU/L (.) Prothrombin Time 11.3 sec (9.3-11.8) Prothrombin Time INR 1.07 (0.9-1.15) Activated Partial Thromboplast Time 31.0 SEC (24.5-34.5) Uric Acid 9.6 mg/dL (3.7-9.2) Lactate Dehydrogenase 259 U/L (120-246) Creatine Kinase 400 U/L (46-171) Hepatitis A IgM Antibody Negative Hepatitis B Surface Antigen Negative (Negative) Hepatitis B Surface Antibody Negative (Negative) Hepatitis B Core IgM Antibody Negative (Negative) Hepatitis C Antibody Reactive (Negative) Test 04/14/25 02:48 04/14/25 02:40 04/14/25 00:00 04/13/25 20:47 Hemoglobin A1c 8.0 % A1C (<5.7) Ammonia 17 umol/L (11-32) Vitamin B12 Level 927 pg/mL (211-911) Vitamin D 25-Hydroxy 38.7 ng/mL (30.0-100) Folic Acid 11.01 ng/mL (>5.38) Blood Gas Specimen Type Arterial Blood Gas Sample Site Left radial Blood Gas Patient Temperature 37.0 Arterial Blood Date Drawn [id number] Arterial Blood pH 7.194 (7.350-7.450) Arterial Blood Partial Pressure CO2 33.3 mmHg (35.0-48.0) Arterial Blood Partial Pressure O2 91.3 mmHg (83.0-108.0) Arterial Blood HCO3 12.5 mmol/L (21.0-28.0) Arterial Blood Oxygen Saturation 95.0 % (94.0-98.0) Arterial Blood Base Excess -14.5 mmol/L (-2.0-3.0) Arterial Blood Oxyhemoglobin 94.3 % (94.0-98.0) Arterial Blood Carboxyhemoglobin 0.3 % (0.5-1.5) Arterial Blood Methemoglobin 0.4 % (0.0-1.5) Jarod Test Modified Blood Gas Total Hemoglobin 11.30 g/dL (13.5-17.5) Blood Gas Liter Flow 2.00 Blood Gas Modality Nasal cannula FiO2 % 28.0 Blood Gas Critical Value Read Back Yes Blood Gas Notified Whom dom Mar md Blood Gas Notified Time [id number] Blood Gas Notified By angela Kelsey rrt Influenza Type A Antigen Negative (Negative) Influenza Type B Antigen Negative (Negative) SARS-CoV-2 Antigen (Rapid) Negative (NEGATIVE) Troponin I High Sensitivity 16 ng/L (</=54) Test 04/13/25 20:43 04/13/25 17:53 Urine Color Light-yellow (Yellow) Urine Clarity Turbid (Clear) Urine pH 5.0 (5.0-9.0) Urine Specific [place] 1.012 (1.001-1.035) Urine Protein 2+ (Negative) Urine Ketones Negative (Negative) Urine Blood Negative /uL (Negative) Urine Nitrite Negative (Negative) Urine Bilirubin Negative (Negative) Urine Urobilinogen Normal mg/dL (Negative) Urine Leukocyte Esterase 1+ /uL (Negative) Urine RBC 3 /hpf (0 - 3) Urine Microscopic WBC 9 /HPF (0-3) Urine Squamous Epithelial Cells Few /hpf (<5) Urine Amorphous Crystals Few /hpf (None Seen) Urine Bacteria Few /hpf (None Seen) Urine Hyaline Casts Few /lpf (0 - 2) Urine Creatinine 97.22 mg/dL (30.0-125.0) Urine Protein/Creatinine Ratio 1.61 Urine Sodium 23 mmol/L (40-220) Urine Glucose Normal mg/dL (Normal) Urine Total Protein 156.7 mg/dL (1-14) Urine Opiates Screen Neg (NEGATIVE) Urine Fentanyl Screen Neg (NEGATIVE) Urine Barbiturates Screen Neg (NEGATIVE) Urine Phencyclidine Screen Neg (NEGATIVE) Urine Amphetamines Screen Neg (NEGATIVE) Urine Benzodiazepines Screen Neg (NEGATIVE) Urine Cocaine Screen Neg (NEGATIVE) Urine Cannabinoids Screen Neg (NEGATIVE) Phosphorus Level 13.6 mg/dL (2.4-5.1) Direct Bilirubin < 0.1 mg/dL (<0.3) B-Type Natriuretic Peptide 435.11 pg/mL (0-100) Thyroid Stimulating Hormone (TSH) 2.13 uIU/mL (0.55-4.78) Other Laboratory Tests 04/24/25 04:58 Brief Hx & Hospital Course: Diagnoses: Acute hypoxic respiratory failure likely due to heart failure Acute on chronic HFrEF, EF 25% CAD h/o stent on aspirin Metabolic acidosis likely due to renal failure ESRD on HD Pneumonia Gram-positive versus Gram-negative bacteria Bilateral pleural effusion s/p R thoracentesis UTI due to acute complicated cystitis Hypertension Diabetes mellitus type 2-uncontrolled, HbA1c 8.0 CAD status post PTCA Obesity Hyperlipidemia Hyperkalemia - Obesity 49-year-old male was admitted due to acute respiratory failure and hypoxia due to heart failure with low ejection fraction of 25%, he has reached end-stage renal disease and needed dialysis, he had fluid overload He was dialyzed to remove the fluid overload He was given IV antibiotics for pneumonia and UTI He then developed a swelling in his left hand which was an abscess that required surgical intervention He had an I and D of the abscess After that he improved significantly Initially with dialysis he was having nausea and vomiting and cramps but slowly with more dialysis he was tolerating the procedure better He also was very weak and was not able to ambulate and he was maximum assistance and therefore physical therapy recommended SNF rehab He was accepted last week at SNF facility but because of the abscess in his hand we had to delay the discharge but now he is ready to go Discharge to SNF for rehab and physical therapy Condition at Discharge: Stable Final Diagnosis/Problems List Acute hypoxic respiratory failure likely due to heart failure Acute on chronic HFrEF, EF 25% CAD h/o stent on aspirin Metabolic acidosis likely due to renal failure ESRD on HD Pneumonia Gram-positive versus Gram-negative bacteria Bilateral pleural effusion s/p R thoracentesis UTI due to acute complicated cystitis Hypertension Diabetes mellitus type 2-uncontrolled, HbA1c 8.0 CAD status post PTCA Obesity Hyperlipidemia Hyperkalemia - Obesity Discharge Disposition: [facility] SNF Discharge Will this Physician continue t: No Discharge Statement: "Patient was advised to return to the ER or call 911 if any headaches, dizziness, shortness of breath, chest pain, abdominal pain, bleeding, fevers, or worsening of medical condition. Patient was counseled about treatment plan, medications, possible side effects, patientverbalized understanding. All questions were answered to the best of my ability. This discharge took greater then 30 minutes in planning, reviewing documentation, counseling the patient, and discussing with other team members." ASSESSMENT ASSESSMENT Assessment Same Date of Service: Apr 24, 2025 Billing Provider: TAMELA GUTIERREZ MD Common Visit Codes: 61451-CLV/OBS DISCH DAY >30min TAMELA GUTIERREZ MD Apr 24, 2025 11:08
[2025-04-24] MEDS: LACTULOSE 20Gm/30ML SOLN PO ONE (12:00)
--- NOTE | 2025-04-24 17:44 | DVHPN2 ---
Progress Note - Dictate Date Seen: Apr 24, 2025 Medical Necessity Reason Pt with a Central, PICC or Fol: No Subjective No new complaints vital signs Vital Sign Date Time Temp Pulse Resp B/P (MAP) Pulse Ox O2 Delivery O2 Flow Rate FiO2 04/24/25 16:53 98.2 82 18 131/73 (92) 98 98.2 04/24/25 08:00 Room Air* 0 21 Total Intake and Output 04/23/25 04/23/25 04/24/25 15:00 23:00 07:00 Intake Total 1050 ml 940 ml Output Total 550 ml 400 ml Balance 500 ml 540 ml medications Current Medications Medications Dose Ordered Sig/Milka Route Start Time Stop Time Status Last Admin Dose Admin Acetaminophen 650 mg Q6HP PRN PO 04/13/25 21:45 04/23/25 21:03 650 MG Nitroglycerin 0.4 mg Q5MINP PRN SL 04/13/25 21:45 Aspirin 81 mg DAILY PO 04/14/25 10:00 04/23/25 08:58 81 MG Pantoprazole Sodium 40 mg DAILY@0600 PO 04/14/25 06:00 04/24/25 05:52 40 MG Diagnostic Test (Pha) 1 strip ACHS 04/14/25 07:00 04/24/25 12:41 1 STRIP Insulin Human Regular ACHS SC 04/14/25 07:00 04/24/25 12:46 3 UNITS Dextrose 50 ml UD PRN IV 04/13/25 22:30 Calcium Acetate 1,334 mg TIDWMEALS PO 04/14/25 18:00 04/24/25 12:42 1,334 MG Nifedipine 60 mg DAILY PO 04/16/25 10:00 04/23/25 08:57 60 MG Carvedilol 25 mg Q12HR PO 04/17/25 22:00 04/23/25 21:02 25 MG Hydralazine HCl 10 mg Q6HP PRN IV 04/17/25 19:00 Hold Atorvastatin Calcium 80 mg HS PO 04/18/25 22:00 04/23/25 21:01 80 MG Sacubitril/ Valsartan 1 tab BID PO 04/18/25 22:00 04/23/25 21:03 1 TAB Spironolactone 25 mg DAILY PO 04/19/25 15:41 04/23/25 08:57 25 MG Doxycycline Monohydrate 100 mg Q12HR PO 04/19/25 22:00 04/24/25 09:40 100 MG Ondansetron HCl 4 mg Q4HP PRN PO 04/20/25 14:15 04/21/25 09:06 4 MG Metoclopramide HCl 10 mg Q8HPRN PRN IV 04/20/25 14:30 Diphenhydramine HCl 25 mg Q6HP PRN PO 04/20/25 19:15 04/23/25 21:01 25 MG Enteral Nutritional Formula 240 ml TIDWM PO 04/23/25 18:00 04/24/25 12:42 240 ML objective Alert, oriented x 3 NAD Lungs CTA CV: RR, no gallops Abdomen: soft, NT S/P BKA laboratory and microbiology Laboratory Tests 04/24/25 04:58 Test 04/24/25 04:58 Range/Units Serum Glucose 191 H 74-106 mg/dL Problem List End-stage kidney disease Type 2 diabetes with nephropathy Hypertension Hyperlipidemia Heart failure with reduced EF of approximately 25% History of coronary artery disease status post PTCA Chronic metabolic acidosis Hyperphosphatemia Hyperuricemia Pleural effusion Left hand infiltratrion with edema and inflammation s/p surgical drainage Assessment/Plan Hemodialysis on MWF schedule Discharge to outpatient HD at [facility] with Dr Padron Outpatient cardiac catheterization Dietary Evaluation Review Comments: 1. CCHO 60 + renal diet 2. Nephro-Yoni 1 tab daily 3. Continue current POC Expected Outcomes/Goals: To meet >75% estimated needs Fu 3-5 days Plan discussed with: Other DAVID GAONA MD Apr 24, 2025 17:44
[2025-04-24] MEDS: EPOETIN ALFA-EPBX 10,000 UNIT/1ML VIAL SC ONE (21:02)
--- NOTE | 2025-04-24 21:58 | DVHPN2 ---
Progress Note - Dictate Date Seen: Apr 24, 2025 Medical Necessity Reason Pt with a Central, PICC or Fol: No Subjective Patient seen and examined at bedside. Breathing comfortably on room air. Overnight events reviewed. vital signs Vital Sign Date Time Temp Pulse Resp B/P (MAP) Pulse Ox O2 Delivery O2 Flow Rate FiO2 04/24/25 21:08 79 141/73 04/24/25 21:00 98.5 20 95 98.5 04/24/25 08:00 Room Air* 0 21 Total Intake and Output 04/23/25 04/23/25 04/24/25 15:00 23:00 07:00 Intake Total 1050 ml 940 ml Output Total 550 ml 400 ml Balance 500 ml 540 ml medications Current Medications Medications Dose Ordered Sig/Milka Route Start Time Stop Time Status Last Admin Dose Admin Acetaminophen 650 mg Q6HP PRN PO 04/13/25 21:45 04/23/25 21:03 650 MG Nitroglycerin 0.4 mg Q5MINP PRN SL 04/13/25 21:45 Aspirin 81 mg DAILY PO 04/14/25 10:00 04/23/25 08:58 81 MG Pantoprazole Sodium 40 mg DAILY@0600 PO 04/14/25 06:00 04/24/25 05:52 40 MG Diagnostic Test (Pha) 1 strip ACHS 04/14/25 07:00 04/24/25 21:19 1 STRIP Insulin Human Regular ACHS SC 04/14/25 07:00 04/24/25 18:13 3 UNITS Dextrose 50 ml UD PRN IV 04/13/25 22:30 Calcium Acetate 1,334 mg TIDWMEALS PO 04/14/25 18:00 04/24/25 18:08 1,334 MG Nifedipine 60 mg DAILY PO 04/16/25 10:00 04/23/25 08:57 60 MG Carvedilol 25 mg Q12HR PO 04/17/25 22:00 04/24/25 21:08 25 MG Hydralazine HCl 10 mg Q6HP PRN IV 04/17/25 19:00 Hold Atorvastatin Calcium 80 mg HS PO 04/18/25 22:00 04/24/25 21:09 80 MG Sacubitril/ Valsartan 1 tab BID PO 04/18/25 22:00 04/24/25 21:07 1 TAB Spironolactone 25 mg DAILY PO 04/19/25 15:41 04/23/25 08:57 25 MG Doxycycline Monohydrate 100 mg Q12HR PO 04/19/25 22:00 04/24/25 21:07 100 MG Ondansetron HCl 4 mg Q4HP PRN PO 04/20/25 14:15 04/21/25 09:06 4 MG Metoclopramide HCl 10 mg Q8HPRN PRN IV 04/20/25 14:30 Diphenhydramine HCl 25 mg Q6HP PRN PO 04/20/25 19:15 04/24/25 21:16 25 MG Enteral Nutritional Formula 240 ml TIDWM PO 04/23/25 18:00 04/24/25 18:23 240 ML objective Gen.: Patient lying in bed in no apparent distress. Breathing on room air. Head: Normocephalic, atraumatic. Eyes: EOMI/PERRLA. Ears: Normal hearing. Normal anatomy. Neck/trachea: Trachea midline, supple. Nose: Normal external anatomy. Mouth: Moist mucous membranes. Chest: Decreased air entry bilaterally. No wheezing or rhonchi. Cardiovascular: Positive S1, positive S2. Regular rate and rhythm. Abdomen: Positive bowel sounds in all 4 quadrants. Soft, non-tender, non- distended. : Deferred. Rectal: Deferred. Skin: Warm, dry. Intact. Extremities: 2+ radial pulses bilaterally. No lower extremity edema. Neuro: Awake, alert, oriented x3. No gross motor or sensory deficits. Cranial nerves II through XII intact. Gait not assessed. laboratory and microbiology Laboratory Tests 04/24/25 04:58 Test 04/24/25 04:58 Range/Units Serum Glucose 191 H 74-106 mg/dL Assessment/Plan Impression: Acute hypoxic respiratory failure Pneumonia due to gram negative Pleural effusion Atelectasis Hemodialysis/end-stage renal disease CHF, systolic; acute on chronic Hypertensive urgency Morbid obesity, BMI 43.4 Events: Remains on room air Supplemental oxygen PRN Hemodialysis per Nephrology Monitor renal function. Monitor electrolytes. Supplement as necessary. Monitor ins and outs Note, patient is refusing SNF. Continue antibiotics Incentive spirometry S/p I&D of left hand Wound care Accu-Cheks, ISS. Protonix for GI ppx Patient is stable for discharge from the pulmonary standpoint. Disposition per hospitalist. PT evaluated patient - recommendation for SNF Labs and imaging reviewed. Rest of plan as noted below. Plan: Supplemental oxygen PRN Titrate to keep O2 sats above 92%. Dialysis with fluid removal Supportive care Nutrition Bronchodilators Antibiotics Incentive spirometry HD per Nephrology Monitor renal function. Monitor electrolytes. Supplement as necessary. Monitor ins and outs. Protonix for GI prophylaxis Lovenox for DVT prophylaxis Prognosis: Guarded given patient's multiple co-morbidities. Rest of plan per hospitalist and other consultants. Thank you, Dr. Orr, for allowing me to participate in this patient's care. Further recommendations will depend on the patient's clinical course. Please do not hesitate to contact me if you have any questions or concerns. This medical document was created using an electronic medical record system with [employer] dictation system. Although these documentations are being carefully reviewed, there may still be some phonetic and typographical changes. The errors are purely typographical, due to imperfection on the software program, and do not reflect any compromise in the patient's medical care. Dietary Evaluation Review Comments: 1. CCHO 60 + renal diet 2. Nephro-Yoni 1 tab daily 3. Continue current POC Expected Outcomes/Goals: To meet >75% estimated needs Fu 3-5 days Plan discussed with: Patient, Other (RN Jocelyne Boo) ROSA CHEN MD Apr 24, 2025 21:58
[2025-04-25 05:00] VITALS: BP 130/77; PULSE 79; RESP 20; TEMP 98; O2SAT 94
[2025-04-25 08:00] VITALS: PULSE 77; PULSE 80; RESP 19; O2SAT 96
[2025-04-25 09:30] VITALS: BP 123/65; PULSE 80; RESP 19; TEMP 98.1; O2SAT 96
[2025-04-25] MEDS ORDERED: NIFE1TAB30 PO (11:51)
[2025-04-25] MEDS ORDERED: SACU1TAB PO (11:51)
[2025-04-25] MEDS ORDERED: PANT40T PO (11:51)
[2025-04-25] MEDS ORDERED: SPIR25TA PO (11:51)
[2025-04-25] MEDS ORDERED: CARV-217 PO (11:52)
[2025-04-25] MEDS ORDERED: ATOR80TA PO (11:52)
[2025-04-25] MEDS ORDERED: DIPH25CA51 PO (11:52)
[2025-04-25] MEDS ORDERED: CALC10TA PO (11:55)
--- NOTE | 2025-04-25 11:55 | DVHPN2 ---
Progress Note - Dictate Date Seen: Apr 25, 2025 Has the PT tested + for MRSA If YES, has PT been informed?: No Medical Necessity Reason Pt with a Central, PICC or Fol: No Subjective No new complaints vital signs Vital Sign Date Time Temp Pulse Resp B/P (MAP) Pulse Ox O2 Delivery O2 Flow Rate FiO2 04/25/25 10:11 79 129/71 04/25/25 09:30 98.1 19 96 98.1 04/25/25 08:00 Room Air* 0 21 Total Intake and Output 04/24/25 04/24/25 04/25/25 15:00 23:00 07:00 Intake Total 700 ml 300 ml Output Total 0 ml Balance 700 ml 300 ml medications Current Medications Medications Dose Ordered Sig/Milka Route Start Time Stop Time Status Last Admin Dose Admin Acetaminophen 650 mg Q6HP PRN PO 04/13/25 21:45 04/23/25 21:03 650 MG Nitroglycerin 0.4 mg Q5MINP PRN SL 04/13/25 21:45 Aspirin 81 mg DAILY PO 04/14/25 10:00 04/25/25 10:09 81 MG Pantoprazole Sodium 40 mg DAILY@0600 PO 04/14/25 06:00 04/25/25 05:48 40 MG Diagnostic Test (Pha) 1 strip ACHS 04/14/25 07:00 04/25/25 05:43 1 STRIP Insulin Human Regular ACHS SC 04/14/25 07:00 04/25/25 05:45 3 UNITS Dextrose 50 ml UD PRN IV 04/13/25 22:30 Calcium Acetate 1,334 mg TIDWMEALS PO 04/14/25 18:00 04/24/25 18:08 1,334 MG Nifedipine 60 mg DAILY PO 04/16/25 10:00 04/25/25 10:11 60 MG Carvedilol 25 mg Q12HR PO 04/17/25 22:00 04/25/25 10:11 25 MG Hydralazine HCl 10 mg Q6HP PRN IV 04/17/25 19:00 Hold Atorvastatin Calcium 80 mg HS PO 04/18/25 22:00 04/24/25 21:09 80 MG Sacubitril/ Valsartan 1 tab BID PO 04/18/25 22:00 04/25/25 10:09 1 TAB Spironolactone 25 mg DAILY PO 04/19/25 15:41 04/25/25 10:10 25 MG Doxycycline Monohydrate 100 mg Q12HR PO 04/19/25 22:00 04/25/25 10:09 100 MG Ondansetron HCl 4 mg Q4HP PRN PO 04/20/25 14:15 04/21/25 09:06 4 MG Metoclopramide HCl 10 mg Q8HPRN PRN IV 04/20/25 14:30 Diphenhydramine HCl 25 mg Q6HP PRN PO 04/20/25 19:15 04/24/25 21:16 25 MG Enteral Nutritional Formula 240 ml TIDWM PO 04/23/25 18:00 04/25/25 08:24 240 ML objective Alert, oriented x 3 NAD Lungs CTA CV: RR, no gallops Abdomen: soft, NT S/P BKA laboratory and microbiology Laboratory Tests 04/24/25 04:58 Test 04/24/25 04:58 Range/Units Serum Glucose 191 H 74-106 mg/dL Problem List End-stage kidney disease Type 2 diabetes with nephropathy Hypertension Hyperlipidemia Heart failure with reduced EF of approximately 25% History of coronary artery disease status post PTCA Chronic metabolic acidosis Hyperphosphatemia Hyperuricemia Pleural effusion Left hand infiltratrion with edema and inflammation s/p surgical drainage Assessment/Plan Hemodialysis on MWF schedule Discharge to outpatient HD at [facility] with Dr Padron Outpatient cardiac catheterization Dietary Evaluation Review Comments: 1. CCHO 60 + renal diet 2. Nephro-Yoni 1 tab daily 3. Continue current POC Expected Outcomes/Goals: To meet >75% estimated needs Fu 3-5 days Plan discussed with: Patient DAVID GAONA MD Apr 25, 2025 11:55
--- NOTE | 2025-04-25 11:56 | DVHPN2 ---
Subjective Doing well He was going to be discharged to SNF yesterday but he refused and he wanted to go home We ordered home health and it is going to be arranged possibly today and therefore he can go home today Reviewed: Care Plan, H&P, Labs, Medications, Previous Orders, Radiology Changes from previous H/P or p: Changes General: Per HPI Objective Vitals Vital Signs Date Time Temp Pulse Resp B/P (MAP) Pulse Ox O2 Delivery O2 Flow Rate FiO2 04/25/25 10:11 79 129/71 04/25/25 09:30 98.1 19 96 98.1 04/25/25 08:00 Room Air* 0 21 Intake/Output Intake and Output 04/25/25 07:00 Intake Total 1000 ml Output Total 0 ml Balance 1000 ml Intake Oral 1000 ml Output Urine Total 0 ml Stool Total 0 ml General Appearance: Alert, Oriented X3, Cooperative, mild distress Lungs: Other Cardiovascular: Regular rate, Normal S1, Normal S2 Abdomen: Normal bowel sounds, Soft, No tenderness Extremities: Other (2+ edema) Medications Current Medications Medications Dose Ordered Sig/Milka Route Start Time Stop Time Status Last Admin Dose Admin Acetaminophen 650 mg Q6HP PRN PO 04/13/25 21:45 04/23/25 21:03 650 MG Nitroglycerin 0.4 mg Q5MINP PRN SL 04/13/25 21:45 Aspirin 81 mg DAILY PO 04/14/25 10:00 04/25/25 10:09 81 MG Pantoprazole Sodium 40 mg DAILY@0600 PO 04/14/25 06:00 04/25/25 05:48 40 MG Diagnostic Test (Pha) 1 strip ACHS 04/14/25 07:00 04/25/25 05:43 1 STRIP Insulin Human Regular ACHS SC 04/14/25 07:00 04/25/25 05:45 3 UNITS Dextrose 50 ml UD PRN IV 04/13/25 22:30 Calcium Acetate 1,334 mg TIDWMEALS PO 04/14/25 18:00 04/24/25 18:08 1,334 MG Nifedipine 60 mg DAILY PO 04/16/25 10:00 04/25/25 10:11 60 MG Carvedilol 25 mg Q12HR PO 04/17/25 22:00 04/25/25 10:11 25 MG Hydralazine HCl 10 mg Q6HP PRN IV 04/17/25 19:00 Hold Atorvastatin Calcium 80 mg HS PO 04/18/25 22:00 04/24/25 21:09 80 MG Sacubitril/ Valsartan 1 tab BID PO 04/18/25 22:00 04/25/25 10:09 1 TAB Spironolactone 25 mg DAILY PO 04/19/25 15:41 04/25/25 10:10 25 MG Doxycycline Monohydrate 100 mg Q12HR PO 04/19/25 22:00 04/25/25 10:09 100 MG Ondansetron HCl 4 mg Q4HP PRN PO 04/20/25 14:15 04/21/25 09:06 4 MG Metoclopramide HCl 10 mg Q8HPRN PRN IV 04/20/25 14:30 Diphenhydramine HCl 25 mg Q6HP PRN PO 04/20/25 19:15 04/24/25 21:16 25 MG Enteral Nutritional Formula 240 ml TIDWM PO 04/23/25 18:00 04/25/25 08:24 240 ML Laboratory Results Laboratory Tests 04/24/25 04:58 Urinalysis Test 04/13/25 20:43 Urine Color Light-yellow (Yellow) Urine Clarity Turbid (Clear) H Urine pH 5.0 (5.0-9.0) Urine Specific [place] 1.012 (1.001-1.035) Urine Protein 2+ (Negative) H Urine Ketones Negative (Negative) Urine Blood Negative /uL (Negative) Urine Nitrite Negative (Negative) Urine Bilirubin Negative (Negative) Urine Urobilinogen Normal mg/dL (Negative) Urine Leukocyte Esterase 1+ /uL (Negative) Urine RBC 3 /hpf (0 - 3) Urine Microscopic WBC 9 /HPF (0-3) H Urine Squamous Epithelial Cells Few /hpf (<5) Urine Amorphous Crystals Few /hpf (None Seen) Urine Bacteria Few /hpf (None Seen) H Urine Hyaline Casts Few /lpf (0 - 2) Urine Creatinine 97.22 mg/dL (30.0-125.0) Urine Protein/Creatinine Ratio 1.61 Urine Sodium 23 mmol/L (40-220) L Urine Glucose Normal mg/dL (Normal) Urine Total Protein 156.7 mg/dL (1-14) H Microbiology Microbiology Date/Time Source Procedure Growth Status 04/22/25 11:30 Hand Left Gram Stain - Final Resulted 04/22/25 11:30 Hand Left Wound Culture - Preliminary Resulted 04/14/25 11:45 Pleural Fluid Gram Stain - Final Complete 04/14/25 11:45 Pleural Fluid Body Fluid Culture - Final Complete 04/14/25 00:55 Blood Blood Culture - Final NO GROWTH AFTER 5 DAYS OF INCUBATION. Complete 04/13/25 20:43 Voided Urine Urine Culture - Final Complete Assessment/Plan Assessment/Plan Acute hypoxic respiratory failure likely due to heart failure Acute on chronic HFrEF, EF 25% CAD h/o stent on aspirin Metabolic acidosis likely due to renal failure ESRD on HD Pneumonia Gram-positive versus Gram-negative bacteria Bilateral pleural effusion s/p R thoracentesis UTI due to acute complicated cystitis Hypertension Diabetes mellitus type 2-uncontrolled, HbA1c 8.0 CAD status post PTCA Obesity Hyperlipidemia Hyperkalemia - Obesity PLAN: HD today Check CXR in AM Cardiology consult Dr. Rossi IV antibiotics: Rocephin and Doxy DC Lovenox Continue aspirin Hydralazine IV prn Increase Coreg to 25 mg bid Continue Nifedipine ER 60 mg qd Full code Discussed with patient and at the bedside Advanced directives discussed x 16 minutes 04/18/2025: Pneumonia and UTI: Continue IV antibiotics Rocephin and doxycycline End-stage renal disease: Hemodialysis per nephrology Cardiology consult pending Continue Protonix 04/19/25: HD today DC planning for tomorrow IV antibiotics Cardiology recommended outpatient heart cath 04/20/2025: Generalized weakness: Arrange SNF for physical therapy P.o. doxycycline Hemodialysis per nephrology Nausea: PO Zofran prn Left hand boil? Abscess?: Consult ortho Weakness, tremors: Consult Neuro, CT head 04/21/2025: Generalized weakness: Continue physical therapy SNF was arranged however the patient is not ready with the discharged yet due to the left hand abscess Left hand abscess: Orthopedic consultation, pending End-stage renal disease: Hemodialysis per nephrology Nausea and vomiting: Continue Zofran and Benadryl p.r.n. Diabetic neuropathy: 04/22/2025: Left hand abscess: Drainage Continue IV antibiotics End-stage renal disease continue hemodialysis per nephrology Discharge planning possibly tomorrow 04/23/2025: Left hand abscess status post drainage, change the dressing and packing Hemodialysis per nephrology Continue IV antibiotics Add Glucerna t.i.d. with meals Continue physical therapy Discharge to SNF possibly tomorrow for physical therapy 04/25/2025: Discharged home Prescriptions were sent to his pharmacy Home health was ordered for physical therapy Follow up with dialysis as scheduled Plan discussed with: Patient My Orders Orders - TAMELA GUTIERREZ MD Procedure Category Date Status Time Discharge DISCHARGE 04/24/25 Transmitted 15:40 * Website Project Manager CONS 04/24/25 Transmitted Consult Comprehensive LAB 04/25/25 Logged Metabolic Panel 08:25 Complete Blood Count LAB 04/25/25 Logged 08:25 Date of Service: Apr 25, 2025 Billing Provider: TAMELA GUTIERERZ MD Common Visit Codes: [id number] INP/OBS CARE(HIGH) TAMELA GUTIERREZ MD Apr 25, 2025 11:56
--- NOTE | 2025-04-25 14:49 | DVHPN2 ---
Progress Note - Dictate Date Seen: Apr 25, 2025 Has the PT tested + for MRSA If YES, has PT been informed?: No Medical Necessity Reason Pt with a Central, PICC or Fol: No vital signs Vital Sign Date Time Temp Pulse Resp B/P (MAP) Pulse Ox O2 Delivery O2 Flow Rate FiO2 04/25/25 11:11 82 141/77 04/25/25 09:30 98.1 19 96 98.1 04/25/25 08:00 Room Air* 0 21 Total Intake and Output 04/24/25 04/24/25 04/25/25 15:00 23:00 07:00 Intake Total 700 ml 300 ml Output Total 0 ml Balance 700 ml 300 ml laboratory and microbiology Laboratory Tests 04/24/25 04:58 Test 04/24/25 04:58 Range/Units Serum Glucose 191 H 74-106 mg/dL Assessment/Plan Impression Acute hypoxemic respiratory failure ESRD on HD Pleural effusions Pneumonia Atelectasis Patient seen and examined Events Low oxygen requirements On room air No distress Labs and imaging reviewed Management Supplemental oxygen Titrate to maintain sats 90% or above Incentive spirometry Antibiotics Bronchodilators Monitor renal function HD as per nephrology Management deferred Monitor electrolytes Supplement as needed Okay to discharge from pulmonary standpoint DVT prophylaxis Dietary Evaluation Review Comments: 1. CCHO 60 + renal diet 2. Nephro-Yoni 1 tab daily 3. Continue current POC Expected Outcomes/Goals: To meet >75% estimated needs Fu 3-5 days Plan discussed with: Patient LOUIS MCDONALD MD Apr 25, 2025 14:49
== END 2025-04-25 13:50 | disposition home health service (06) | DRG 137 ==
LOC: ER 17:26 → EDBD 17:26 → OVERFLOW 21:39 → TELE-WESTW 23:20
PROVIDERS: ADMIT Internal Medicine Geriatric Medicine; ATTEND Internal Medicine Geriatric Medicine
PROC: 0W993ZZ Drainage of Right Pleural Cavity, Percutaneous Approach (ICD-10-PCS; 2025-04-14)
PROC: 0JH63XZ Insertion of Tunneled Vascular Access Device into Chest Subcutaneous Tissue and Fascia, Percutaneous Approach (ICD-10-PCS; 2025-04-14)
PROC: 02H633Z Insertion of Infusion Device into Right Atrium, Percutaneous Approach (ICD-10-PCS; 2025-04-14)
PROC: B548ZZA Ultrasonography of Superior Vena Cava, Guidance (ICD-10-PCS; 2025-04-14)
PROC: B5181ZA Fluoroscopy of Superior Vena Cava using Low Osmolar Contrast, Guidance (ICD-10-PCS; 2025-04-14)
PROC: 5A1D70Z Performance of Urinary Filtration, Intermittent, Less than 6 Hours Per Day (ICD-10-PCS; 2025-04-14)
PROC: 5A1D70Z Performance of Urinary Filtration, Intermittent, Less than 6 Hours Per Day (ICD-10-PCS; 2025-04-15)
PROC: 5A1D70Z Performance of Urinary Filtration, Intermittent, Less than 6 Hours Per Day (ICD-10-PCS; 2025-04-17)
PROC: 5A1D70Z Performance of Urinary Filtration, Intermittent, Less than 6 Hours Per Day (ICD-10-PCS; 2025-04-19)
PROC: 5A1D70Z Performance of Urinary Filtration, Intermittent, Less than 6 Hours Per Day (ICD-10-PCS; 2025-04-21)
PROC: 0X9K0ZZ Drainage of Left Hand, Open Approach (ICD-10-PCS; principal; 2025-04-22)
PROC: 5A1D70Z Performance of Urinary Filtration, Intermittent, Less than 6 Hours Per Day (ICD-10-PCS; 2025-04-24)
DX: J15.69 Pneumonia due to other Gram-negative bacteria (principal); J96.01 Acute respiratory failure with hypoxia; I50.23 Acute on chronic systolic (congestive) heart failure; G93.41 Metabolic encephalopathy; E83.39 Other disorders of phosphorus metabolism; E83.51 Hypocalcemia; E11.22 Type 2 diabetes mellitus with diabetic chronic kidney disease; L02.414 Cutaneous abscess of left upper limb; I13.2 Hypertensive heart and chronic kidney disease with heart failure and with stage 5 chronic kidney disease, or end stage renal disease; E87.22 Chronic metabolic acidosis; N18.6 End stage renal disease; G25.3 Myoclonus; J91.8 Pleural effusion in other conditions classified elsewhere; L02.512 Cutaneous abscess of left hand; E11.42 Type 2 diabetes mellitus with diabetic polyneuropathy; E66.01 Morbid (severe) obesity due to excess calories; E11.65 Type 2 diabetes mellitus with hyperglycemia; Z99.2 Dependence on renal dialysis; Z68.41 Body mass index [BMI] 40.0-44.9, adult; N30.00 Acute cystitis without hematuria; J15.9 Unspecified bacterial pneumonia; I25.10 Atherosclerotic heart disease of native coronary artery without angina pectoris; I16.0 Hypertensive urgency; E87.5 Hyperkalemia; E78.5 Hyperlipidemia, unspecified; E79.0 Hyperuricemia without signs of inflammatory arthritis and tophaceous disease; Z95.5 Presence of coronary angioplasty implant and graft; Z89.512 Acquired absence of left leg below knee; Z86.718 Personal history of other venous thrombosis and embolism; Z90.49 Acquired absence of other specified parts of digestive tract; Z82.5 Family history of asthma and other chronic lower respiratory diseases; Z83.3 Family history of diabetes mellitus; Z81.8 Family history of other mental and behavioral disorders; Z82.49 Family history of ischemic heart disease and other diseases of the circulatory system; Z80.7 Family history of other malignant neoplasms of lymphoid, hematopoietic and related tissues; Z79.899 Other long term (current) drug therapy; Z79.4 Long term (current) use of insulin; Z88.1 Allergy status to other antibiotic agents
CPT/HCPCS: 10060; 32555; 36415; 36558; 36600; 70450; 71045; 74176; 76604; 76775; 76937; 76942; 77001; 80048; 80053; 80074; 80076; 80307; 81001; 82140; 82306; 82550; 82570; 82607; 82746; 82805; 82962; 83036; 83615; 83735; 83880; 83986; 84100; 84156; 84300; 84443; 84484; 84550; 85025; 85610; 85730; 86706; 87040; 87081; 87086; 87205; 87340; 87426; 87804; 89051; 90935; 93005; 93970; 94640; 96365; 96375; 97110; 97116; 97163; 97530; 99152; 99291; C1894; G0378; J1642; J1815; J2003; J2250; J2405; Q0162

== ENCOUNTER 2025-06-04 12:58 | Inpatient (IN) | payer MEDICAID ==
[~2025-06-04] VITALS: Ht 170.2 cm; Wt 120.2 kg
[~2025-06-04 12:58] MED LIST changes: +AMLO1TAB22 PO; +ATOR80TA PO; -BACL10TA PO; +BUME2TAB5 PO; +CALC10TA PO; +CARV-217 PO; -CARV12.544 PO; +CARV25TA55 PO; +CHOL1TAB42 PO; +DIPH25CA51 PO; +DULO1CAP6 PO; -EMPA1TAB3 PO; -FURO1TAB31 PO; +FURO20TA3 PO; -INSULIN LANTUS (GLARGINE) 1 /0.01ml (100units/ml) SC SCH; -METF-370 PO; +METO2.5T PO; +NIFE1TAB30 PO; +PANT40T PO; -RIVA10TA PO; +SACU1TAB PO; -SEMA2INJ SC; +SPIR25TA PO; +TERA2CAP79 PO
[2025-06-04 13:15] VITALS: PULSE 107; RESP 16
--- NOTE | 2025-06-04 13:29 | ECG ---
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
--- NOTE | 2025-06-04 13:57 | DVH ---
XY CHEST PORTABLE, HISTORY: sob COMPARISON: XY CHEST XRAY 1 VIEW on DOS: 04/18/25, XY CHEST PORTABLE on DOS: 04/14/25, XY CHEST PORTABLE on DOS: 04/13/25 XY CHEST XRAY 1 VIEW on DOS: 04/18/25, XY CHEST PORTABLE on DOS: 04/14/25, XY CHEST PORTABLE on DOS: 03/17 08/10 TECHNICAL DATA: 1 view of the chest was obtained. FINDINGS: Lines and tubes: A TD cath is seen. Cardiomediastinal silhouette: Enlarged Pulmonary vasculature: Prominent Lung expansion: low Lung airspace: Bibasilar opacity Lung interstitium: normal Pleura: Small bilateral effusion. Pneumothorax: no Bones: Unremarkable Other: no IMPRESSION: Cardiomegaly with pulmonary vascular congestion. Small bilateral pleural effusion.
--- NOTE | 2025-06-04 14:12 | ECG ---
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
[2025-06-04 14:35] LABS: Hematocrit 36.3 % (41.0-53.0); Hemoglobin 12.4 g/dL (13.5-17.5); Mean Corpuscular Hemoglobin 31.2 pg (28.0-32.0); Mean Corpuscular Volume 91.4 fL (80.0-100.0); Nucleated Red Blood Cells % 0.0 %
[2025-06-04 14:41] LABS: Chloride 99 mmol/L (98-107); Potassium 4.8 mmol/L (3.5-5.1); Sodium 137 mmol/L (136-145)
[2025-06-04 14:42] LABS: Anion Gap 8 (5-15); Calcium 9.5 mg/dL (8.7-10.4); Carbon Dioxide 30 mmol/L (20-31)
[2025-06-04 14:47] LABS: BUN/Creatinine Ratio 4.8 (10.0-20.0)
[2025-06-04 14:48] LABS: Blood Urea Nitrogen 30 mg/dL (9-23); Glucose 208 mg/dL (74-106)
[2025-06-04] MEDS: hydrALAZINE HCL 20 MG/ML VL IV ONE (15:07)
--- NOTE | 2025-06-04 15:50 | ED.PDOC ---
History of Present Illness HPI Comments 50-year-old male who comes in with chief complaint of shortness a breath for the last two days. The patient has also been having some abdominal distention. The patient denies any chest pain. 911 was called and the patient was transported to our facility. EN route, the patient had an Accu-Chek of 248. The patient denies any chest pain. The patient has an oxygen saturation of 98% on room air there has been some nausea but no diarrhea. 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, Medications, Allergies (Aller gies listed above) Allergies: Coded Allergies: Hydralazine (Verified Allergy, Unknown, 04/13/25) Piperacillin (Verified Allergy, Unknown, 08/31/24) Tazobactam (Verified Allergy, Unknown, 08/31/24) Home Meds Active Scripts Calcium Acetate (CALCIUM ACETATE) 667 Mg Tab, 1334 MG PO TIDWMEALS for 30 Days, #180 TAB Prov:TAMELA GUTIERREZ MD 04/25/25 Diphenhydramine Hcl (BENADRYL CAPSULE) 25 Mg Cp, 25 MG PO Q6HP PRN, #30 CAP Prov:TAMELA GUTIERREZ MD 04/25/25 Atorvastatin Calcium (Lipitor) 80 Mg Tab, 1 TAB PO DAILY, #30 TAB 0 Refills Prov:TAMELA GUTIERREZ MD 04/25/25 Carvedilol (Coreg) 25 Mg Tab, 1 TAB PO BID, #60 TAB 0 Refills Prov:TAMELA GUTIERREZ MD 04/25/25 Nifedipine (Nifedipine Er) 60 Mg Tab, 1 TAB PO DAILY, #30 TAB 0 Refills Prov:TAMELA GUTIERREZ MD 04/25/25 Pantoprazole Sodium Sesquihydr (Pantoprazole Sodium) 40 Mg Tab, 40 MG PO DAILY@0600 for 30 Days, #30 TAB Prov:TAMELA GUTIERREZ MD 04/25/25 Spironolactone (Aldactone) 25 Mg Tab, 25 MG PO DAILY for 30 Days, #30 TAB Prov:TAEMLA GUTIERREZ MD 04/25/25 Sacubitril-Valsartan (Entresto 24-26 mg) 1 Tab Tab, 1 TAB PO BID for 30 Days, #60 TAB Prov:TAMELA GUTIERREZ MD 04/25/25 Nifedipine (Nifedipine Er) 30 Mg Tab, 1 TAB PO DAILY, #30 TAB 3 Refills Prov:LOR KENNEDY MD 12/11/24 Reported Medications Metolazone (Metolazone) 2.5 Mg Tab, 2 TAB PO 2XW 04/14/25 Furosemide (Furosemide) 20 Mg Tab, 20 MG PO BID, TAB 04/14/25 Bumetanide (Bumetanide) 2 Mg Tab, 1 TAB PO 04/14/25 Terazosin Hcl (Terazosin Hcl) 2 Mg Cap, 1 CAP PO HS 04/14/25 Duloxetine HCl (Duloxetine HCl) 60 Mg Cap, 1 CAP PO DAILY 04/14/25 Cholecalciferol (VITAMIN D-3) 2,000 Unit Tab, 2000 UNIT PO DAILY, TAB 04/14/25 Carvedilol (Carvedilol) 25 Mg Tab, 1 TAB PO BID 04/14/25 Amlodipine Besylate (Amlodipine Besylate) 5 Mg Tab, 10 MG PO DAILY 04/14/25 Isosorbide Mononitrate (Isosorbide Mononitrate Er) 30 Mg Tab, 30 MG PO DAILY 05/14/22 Gabapentin (Gabapentin) 300 Mg Cap, 300 MG PO TID 05/14/22 Insulin Glargine (Basaglar Kwikpen) 100 Unit/Ml Inj, 62 UNIT SC QPM 05/14/22 Atorvastatin Calcium (Lipitor) 20 Mg Tab, 20 MG PO DAILY 05/14/22 Aspirin (ASPIRIN 81) 81 Mg Tab, 81 MG PO DAILY 05/14/22 Information Source: Patient, Emergency Med Personnel Mode of Arrival: EMS Severity: Moderate Timing: Days (Symptoms started over the last two days) Duration: Since onset Prehospital treatment: Accucheck (248 EN route), 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 The patient is also having some nausea Past Medical History PAST MEDICAL HISTORY: CAD, CHF, DM, ESRD, High Lipids, HTN Surgical History: Cholecystectomy, PTCA Surgical History (Other): Left BKA, right Hang catheter, left wrist surgery Family History Family History: Family hx of DM, Family hx of Cancer Social History Smoker: Non-Smoker Alcohol: Denies ETOH Use Drugs: Denies Drug Use Lives In: Home Constitutional: denies: chills, diaphoresis, fatigue, fever, malaise, sweats, weakness, others EENTM: denies: blurred vision, double vision, ear bleeding, ear discharge, ear drainage, ear pain, ear ringing, eye pain, eye redness, hearing loss, mouth pain, mouth swelling, nasal discharge, nose bleeding, nose congestion, nose pain, photophobia, tearing, throat pain, throat swelling, voice changes, others Respiratory: reports: shortness of breath; denies: cough, hemoptysis, orthopnea, SOB at rest, SOB with excertion, stridor, wheezing, others Cardiovascular: denies: chest pain, dizzy spells, diaphoresis, Dyspnea on exertion, edema, irregular heart beat, left arm pain, lightheadedness, palpitations, PND, syncope, others Gastrointestinal: reports: nausea, others (Abdominal swelling); denies: abdomen distended, abdominal pain, blood streaked bowels, constipated, diarrhea, dysphagia, difficulty swallowing, hematemesis, melena, poor appetite, poor fluid intake, rectal bleeding, rectal pain, vomiting Genitourinary: denies: burning, dysuria, flank pain, frequency, hematuria, in continence, penile discharge, penile sore, pain, testicle pain, testicle swelling, urgency, others Neurological: denies: dizziness, fainting, headache, left sided numbness, left sided weakness, numbness, paresthesia, pre-existing deficit, right sided numbness, right sided weakness, seizure, speech problems, tingling, tremors, weakness, others Musculoskeletal: denies: back pain, gout, joint pain, joint swelling, muscle pain, muscle stiffness, neck pain, others Integumetry: denies: bruises, change in color, change in hair/nails, dryness, laceration, lesions, lumps, rash, wounds, others Allergic/Immunocompromised: denies: Difficulty Healing, Frequent Infections, Hives, Itching, others Hematologic/Lymphatic: denies: anemia, blood clots, easy bleeding, easy bruising, swollen glands, others Endocrine: denies: excessive hunger, excessive sweating, excessive thirst, excessive urination, flushing, intolerance to cold, intolerance to heat, unexplained weight gain, unexplained weight loss, others Psychiatric: denies: anxiety, bipolar disorder, depression, hopeless, panic disorder, schizophrenia, sleepless, suicidal, others Physical Exam General Appearance: Moderate Distress HEENT: Pale Conjuntivae (L), Pale Conjuntivae (R), Pharynx Normal, TMs Normal Neck: Full Range of Motion, Non-Tender, Normal, Normal Inspection Respiratory: Chest Non-Tender, Decreased Breath Sounds, No Accessory Muscle Use, Rales (Rales to the right lower lobe), Respiratory Distress Cardiovascular: No Edema, No JVD, No Murmur, No Gallop, Normal Peripheral Pulses, Regular Rate/Rhythm Breast Exam: Deferred Gastrointestinal: Distended, Hepatomegaly, Non Tender, No Pulsatile Mass, Normal Bowel Sounds Genitalia: Deferred Pelvic: Deferred Rectal: Deferred Extremities: No calf tenderness, Normal capillary refill, Non-tender, Pedal edema, Other (Left BKA) Musculoskeletal : Apperance: Normal Neurologic: 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 Was a procedure done?: No EKG EKG : Pulse Rate (adult): 110 [place]: Normal Cardiac Rhythm: ST Block: None ST: Nonsp Differential Dx Considerations may include: CHF, ESRD on dialysis, SD, PE X-Ray, Labs, Meds, VS Vital Signs Date Time Temp Pulse Resp B/P (MAP) Pulse Ox O2 Delivery O2 Flow Rate FiO2 06/04/25 15:45 107 18 167/111 (129) 96 06/04/25 15:25 170/110 06/04/25 14:11 110 06/04/25 13:15 98.6 107 18 170/110 (130) 94 98.6 06/04/25 13:15 107 16 Nasal Cannula* 1 24 06/04/25 13:11 110 06/04/25 13:02 98.5 115 20 186/132 (150) 98 98.5 Lab Test 06/04/25 15:20 06/04/25 14:20 Range/Units Troponin I High Sensitivity 30 29 </=54 ng/L White Blood Count 9.9 4.4-10.8 10^3/uL Red Blood Count 3.98 L 4.5-5.90 10^6/uL Hemoglobin 12.4 L 13.5-17.5 g/dL Hematocrit 36.3 L 41.0-53.0 % Mean Corpuscular Volume 91.4 80.0-100.0 fL Mean Corpuscular Hemoglobin 31.2 28.0-32.0 pg Mean Corpuscular Hemoglobin Concent 34.2 32.0-36.0 g/dL Red Cell Distribution Width 13.7 11.8-14.3 % Platelet Count 209 140-450 10^3/uL Mean Platelet Volume 8.3 6.9-10.8 fL Neutrophils (%) (Auto) 74.3 37.0-80.0 % Lymphocytes (%) (Auto) 16.0 10.0-50.0 % Monocytes (%) (Auto) 5.1 0.0-12.0 % Eosinophils (%) (Auto) 3.8 0.0-7.0 % Basophils (%) (Auto) 0.8 0.0-2.0 % Neutrophils # (Auto) 7.3 1.6-8.6 10 ^3/uL Lymphocytes # (Auto) 1.6 0.4-5.4 10 ^3/uL Monocytes # (Auto) 0.5 0-1.3 10 ^3/uL Eosinophils # (Auto) 0.4 0-0.8 10 ^3/uL Basophils # (Auto) 0.1 0-0.2 10 ^3/uL Nucleated Red Blood Cells 0.0 % Sodium Level 137 136-145 mmol/L Potassium Level 4.8 3.5-5.1 mmol/L Chloride Level 99 98-107 mmol/L Carbon Dioxide Level 30 20-31 mmol/L Anion Gap 8 5-15 Blood Urea Nitrogen 30 H 9-23 mg/dL Creatinine 6.29 H 0.700-1.30 mg/dL Glomerular Filtration Rate Calc 10 >90 mL/min BUN/Creatinine Ratio 4.8 L 10.0-20.0 Serum Glucose 208 H 74-106 mg/dL Calcium Level 9.5 8.7-10.4 mg/dL B-Type Natriuretic Peptide 1488.92 0-100 pg/mL Current Medications Medications (Trade) Dose Ordered Sig/Milka Route Start Time Stop Time Status Last Admin Clonidine HCl (Catapres Tablet) 0.2 mg ONCE ONCE PO 06/04/25 15:15 06/04/25 15:16 DC 06/04/25 15:25 The chest x-ray shows: IMPRESSION: Cardiomegaly with pulmonary vascular congestion. Small bilateral pleural effusion. The patient was given clonidine 0.2 mg by mouth The BNP is elevated at 1488.92 The patient's CBC and the rest of the chemistry panel is within normal limits except for a BUN of 30 and a creatinine of 6.29 The patient is being admitted at this time The patient understands and agrees with the management Images Reviewed?: Images reviewed and evaluated by me Time of 1ST Reevaluation: 15:52 Reevaluation 1ST: Unchanged Patient Education/Counseling: Diagnosis, Treatment, Prognosis Family Education/Counseling: No Family Present SEPSIS Sepsis Screen Date sepsis recognized/suspect: Jun 04, 2025 Time Sepsis recognized/suspect: 1301 Recent Procedure: No On Antibiotic Therapy: No Respiratory Rate >20: No Heart Rate >90: Yes Temp<36 C (96.8 F) or >38.3 C: No SBP <90 or MAP <65 mmHG: No New Acute Mental Status Change: No Is the patient on CPAP, BIPAP,: No Physician Orders Urinalysis (06/04/25 13:26) Chest Portable (06/04/25 13:26) Heplock Iv (06/04/25 13:26) Pulse Oximetry (06/04/25 13:26) Digging Machine Operator (06/04/25 13:26) Blood Pressure (06/04/25 13:26) Troponin-I Hs (06/04/25 16:26) Electrocardigram (06/04/25 16:26) Vital Signs Date Time Temp Pulse Resp B/P (MAP) Pulse Ox O2 Delivery O2 Flow Rate FiO2 06/04/25 15:45 107 18 167/111 (129) 96 06/04/25 15:25 170/110 06/04/25 14:11 110 06/04/25 13:15 98.6 107 18 170/110 (130) 94 98.6 06/04/25 13:15 107 16 Nasal Cannula* 1 24 06/04/25 13:11 110 06/04/25 13:02 98.5 115 20 186/132 (150) 98 98.5 Laboratory Tests Test 06/04/25 14:20 White Blood Count 9.9 10^3/uL (4.4-10.8) Medications Medications Dose Ordered Sig/Milka Route Start Time Stop Time Status Last Admin Dose Admin Clonidine HCl 0.2 mg ONCE ONCE PO 06/04/25 15:15 06/04/25 15:16 DC 06/04/25 15:25 Departure 1 Departure Time of Disposition: 15:53 Impression: Primary Impression: Acute on chronic kidney failure Qualified Codes: N17.1 - Acute kidney failure with acute cortical necrosis; N18.6 - End stage renal disease; Z99.2 - Dependence on renal dialysis Additional Impressions: ESRD on dialysis Acute abdominal pain Generalized weakness Disposition: ADMITTED INPATIENT Admit to: Tele Condition: Fair Critical Care Note Critical Care Time?: Yes (45 min-critical care time only) Stability Stability form required: Yes Unstable for transfer: Telemetry monitoring (Telemetry monitoring required), ED Physician Assesment (Clinical assesment) Heart Score Heart Score: Heart Score Response (Comments) Value History Moderate Suspicious 1 EKG Repolarization Disturb 1 Age 45-64 1 Risk Factors >3 or Hx ASHD 2 Troponin Normal limit 0 Total 5 HELENA JOHNSON MD Jun 04, 2025 15:50
[2025-06-04] MEDS: ACETAMINOPHEN 325 MG TAB PO ONE (16:38)
--- NOTE | 2025-06-04 16:55 | ECG ---
[facility] Test Date: 2025-06-04 Test Time: 16:54:49 Pat Name: ASHLI GAN Department: ED Room: 0223T Gender: M Sanitarian: aristeo : 1975 Requested By: HELENA JOHNSON Order Number: [id number] Reading MD: Santo Rossi Measurements Intervals [place] Rate: 96 P: 62 WA: 145 QRS: 72 QRSD: 82 T: 268 QT: 357 QTc: 452 Interpretive Statements Sinus rhythm Borderline repolarization abnormality Electronically Signed On 06-07-2025 15:54:25 PDT by Santo Rossi Please click the below link to view image of tracing.
[2025-06-04] MEDS ORDERED: ONDANSETRON HCL 4 MG/2 ML VIAL IV PRN (19:30)
[2025-06-04] MEDS ORDERED: DEXTROSE (50%) 50ML SYRG IV PRN (19:30)
[2025-06-04] MEDS ORDERED: ACETAMINOPHEN 325 MG TAB PO PRN (19:30)
[2025-06-04] MEDS ORDERED: MORPHINE SULFATE INJ 2 MG/ml SYRG IV PRN (19:30)
[2025-06-04] MEDS ORDERED: NITROGLYCERIN 0.4 MG SL TAB SL PRN (19:30)
[2025-06-04] MEDS: FUROSEMIDE 100 MG/10ML VIAL IV ONE (20:05)
[2025-06-04] MEDS: ATORVASTATIN 20 MG TAB PO SCH (21:07)
[2025-06-04] MEDS: CARVEDILOL 12.5 MG TAB PO SCH (21:09)
[2025-06-04] MEDS: ACCU-CHEK COMFORT CURVE STRIP VI SCH (21:09)
[2025-06-04] MEDS: InsuLIN REG 1unit/0.01ml Soln (100units/ml) SC SCH (21:09)
[2025-06-04] MEDS: SACUBITRIL-VALSARTAN 24mg/26mg TAB PO SCH (21:09)
[2025-06-04 21:16] VITALS: PULSE 78; RESP 20; O2SAT 96
[2025-06-04 23:32] VITALS: BP 135/83; PULSE 78; RESP 20; TEMP 97.6; O2SAT 96
[2025-06-05] VITALS (7 sets, daily range): BP systolic 138–173; BP diastolic 87–99; PULSE 62–85; RESP 18–20; TEMP 97.8–98.8; O2SAT 95–99
[2025-06-05] MEDS ORDERED: DULO30CA PO (00:33)
[2025-06-05] MEDS ORDERED: ERGO1CAP12 PO (00:33)
[2025-06-05] MEDS ORDERED: FURO1TAB31 PO (00:33)
[2025-06-05] MEDS ORDERED: ATOR40TA52 PO (00:33)
[2025-06-05] MEDS ORDERED: ASCO500T16 PO (00:33)
[2025-06-05] MEDS ORDERED: ZOFR4T PO (00:33)
[2025-06-05] MEDS ORDERED: PATI1POW PO (00:33)
[2025-06-05] MEDS ORDERED: CARV12.544 PO (00:33)
[2025-06-05] MEDS ORDERED: LIDO4PAD8 EX (00:33)
[2025-06-05] MEDS ORDERED: DOCU-94 PO (00:33)
[2025-06-05] MEDS ORDERED: INSU1INJ19 SC (00:33)
[2025-06-05] MEDS ORDERED: CLON0.1T PO (00:33)
--- NOTE | 2025-06-05 04:10 | DVHHP2 ---
History of Present Illness Reason for Visit: Shortness for breath History of Present Illness 50-year-old male presents for evaluation of shortness for breath. The patient endorses a two day history of shortness for breath with associated chest tightness in mild abdominal distention. States occasional episodes of nausea. No fever or chills. No other acute complaints reported. Past Medical History Diabetes mellitus, CHF, CAD, end-stage renal disease, dyslipidemia, hypertension Past Surgical History Dialysis access, cholecystectomy, PTCA, left BKA Family History Diabetes mellitus, cancer Smoke: No ALCOHOL: none Drugs: None Lives: with Family Review of Systems Review of Systems Review of systems are currently negative otherwise addressed in HPI. Allergies: Coded Allergies: Hydralazine (Verified Allergy, Unknown, 04/13/25) Piperacillin (Verified Allergy, Unknown, 08/31/24) Tazobactam (Verified Allergy, Unknown, 08/31/24) Medications Current Medications Medications Dose Ordered Sig/Milka Route Start Time Stop Time Status Last Admin Dose Admin Atorvastatin Calcium 20 mg HS PO 06/04/25 22:00 06/04/25 21:07 20 MG Hydralazine HCl 25 mg Q8HR PO 06/04/25 22:00 UNV Nifedipine 30 mg DAILY PO 06/05/25 10:00 Clonidine HCl 0.1 mg TID PO 06/04/25 22:00 06/04/25 21:08 0.1 MG Carvedilol 25 mg Q12HR PO 06/04/25 22:00 06/04/25 21:09 25 MG Sacubitril/ Valsartan 1 tab BID PO 06/04/25 22:00 06/04/25 21:09 1 TAB Furosemide 40 mg DAILY IV 06/05/25 10:00 Diagnostic Test (Pha) 1 strip ACHS 06/04/25 22:00 06/04/25 21:09 1 STRIP Insulin Human Regular ACHS SC 06/04/25 22:00 06/04/25 21:09 3 UNITS Dextrose 50 ml UD PRN IV 06/04/25 19:30 Ondansetron HCl 4 mg Q4HP PRN IV 06/04/25 19:30 Acetaminophen 650 mg Q6HP PRN PO 06/04/25 19:30 Nitroglycerin 0.4 mg Q5MINP PRN SL 06/04/25 19:30 Morphine Sulfate 2 mg Q30M PRN IV 06/04/25 19:30 Exam Vital Signs Vital Signs Date Time Temp Pulse Resp B/P (MAP) Pulse Ox O2 Delivery O2 Flow Rate FiO2 06/04/25 23:32 97.6 78 20 135/83 (100) 96 97.6 06/04/25 21:16 Nasal Cannula* 2 28 Exam Gen: 50-year-old male in mild distress Skin: Warm, dry, normal color and texture, no rash. HEENT: Normocephalic atraumatic, mucous membranes moist and pink. Neck: Cervical and supraclavicular nodes normal without enlargement, trachea is midline, thyroid gland is normal without masses. Pulmonary: Clear to auscultation and percussion bilaterally. Cardiac: Regular rate and rhythm. No murmur Abdomen: Soft, nontender, nondistended, bowel sounds present all 4 quadrants, no guarding, no rigidity, no organomegaly. Extremities: No cyanosis, clubbing, no edema Neuro: Cranial nerves II through XII grossly intact, normal affect and speech, no focal motor deficits. Labs/Xrays ORDERING PHYSICIAN: QUINCY SAINZ Sr., MD PROCEDURE(s): ECIDC - ECHO 2D MODE CARDIAC DOP REASON: I25.5 ORDER NUMBER(s): [id number], ACCESSION NUMBER(s): [id number] APPROVED REPORT EXAM: Two-dimensional and M-mode echocardiogram with Doppler and color Doppler. INDICATION Ischemic Dilated Cardiomyopathy BRIEF HISTORY Congestive Heart Failure Cardiac Disease: CAD Kidney Failure RISK FACTORS Hypertension: Obesity: Height: 67, Weight: 250 Diabetes DIMENSIONS LVDd 5.6 (3.8-5.7cm) LA (2D) (1.9-4.0cm) Aortic Root 3.5 (2.0- 3.7cm) LVDs 4.7 (2.5-4.0cm) LA (MM) (1.9-4.0cm) Aortic Cusp Exc 1.9 (1.5- 2.0cm) EF (%) 33.0 (55-70%) Rt. Atrium (1.9-4.0cm) Asc. Aorta cm IVSd 1.1 (0.7-1.1cm) RV (D) (1.8-2.4cm) PWd 1.2 (0.7-1.1cm) Mitral Valve Mitral Mitral Stenosis E wave 0.49m/s MV Mean GR. mmHg A wave 0.88m/s MV Peak GR. mmHg E/A ratio 0.6 2D MVA cm2 DECEL Time 120ms PRESS 1/2 Time ms Aortic Valve Aortic Valve Aortic Stenosis V1 0.52m/s AO Mean GR. 3mmHg V2 1.02m/s AO Peak GR. 4mmHg LVOT Diameter 2.7 (1.8-2.4cm) Doppler GINO 2.92cm2 Pulmonic Valve V2 0.64m/s Tricuspid Valve RVSP 8mmHg Other Information Quality : Technically Limited Rhythm : Technically limited study due to body habitus and patient position. Conclusion Technically difficult study. Sinus rhythm. Left ventricular and left atrial enlargement. Mild aortic root enlargement. Mild dilation of the sinuses of Valsalva. Valves appear to be structurally normal. Left ventricular systolic performance is markedly diminished. EF is approximately 25% with global hypokinesis. RV function is preserved. Mild TR. Trace MR. No pericardial effusion masses or vegetations. ORDERING PHYSICIAN: HELENA JOHNSON MD PROCEDURE(s): CXRP - CHEST PORTABLE REASON: sob ORDER NUMBER(s): [id number], ACCESSION NUMBER(s): [id number] XY CHEST PORTABLE, HISTORY: sob COMPARISON: XY CHEST XRAY 1 VIEW on DOS: 04/18/25, XY CHEST PORTABLE on DOS: 04/14/25, XY CHEST PORTABLE on DOS: 04/13/25 XY CHEST XRAY 1 VIEW on DOS: 04/18/25, XY CHEST PORTABLE on DOS: 04/14/25, XY CHEST PORTABLE on DOS: 04/13/25 TECHNICAL DATA: 1 view of the chest was obtained. FINDINGS: Lines and tubes: A TD cath is seen. Cardiomediastinal silhouette: Enlarged Pulmonary vasculature: Prominent Lung expansion: low Lung airspace: Bibasilar opacity Lung interstitium: normal Pleura: Small bilateral effusion. Pneumothorax: no Bones: Unremarkable Other: no IMPRESSION: Cardiomegaly with pulmonary vascular congestion. Small bilateral pleural effusion. Labs Test 06/04/25 17:26 06/04/25 14:20 Range/Units Troponin I High Sensitivity 27 </=54 ng/L White Blood Count 9.9 4.4-10.8 10^3/uL Red Blood Count 3.98 L 4.5-5.90 10^6/uL Hemoglobin 12.4 L 13.5-17.5 g/dL Hematocrit 36.3 L 41.0-53.0 % Mean Corpuscular Volume 91.4 80.0-100.0 fL Mean Corpuscular Hemoglobin 31.2 28.0-32.0 pg Mean Corpuscular Hemoglobin Concent 34.2 32.0-36.0 g/dL Red Cell Distribution Width 13.7 11.8-14.3 % Platelet Count 209 140-450 10^3/uL Mean Platelet Volume 8.3 6.9-10.8 fL Neutrophils (%) (Auto) 74.3 37.0-80.0 % Lymphocytes (%) (Auto) 16.0 10.0-50.0 % Monocytes (%) (Auto) 5.1 0.0-12.0 % Eosinophils (%) (Auto) 3.8 0.0-7.0 % Basophils (%) (Auto) 0.8 0.0-2.0 % Neutrophils # (Auto) 7.3 1.6-8.6 10 ^3/uL Lymphocytes # (Auto) 1.6 0.4-5.4 10 ^3/uL Monocytes # (Auto) 0.5 0-1.3 10 ^3/uL Eosinophils # (Auto) 0.4 0-0.8 10 ^3/uL Basophils # (Auto) 0.1 0-0.2 10 ^3/uL Nucleated Red Blood Cells 0.0 % Sodium Level 137 136-145 mmol/L Potassium Level 4.8 3.5-5.1 mmol/L Chloride Level 99 98-107 mmol/L Carbon Dioxide Level 30 20-31 mmol/L Anion Gap 8 5-15 Blood Urea Nitrogen 30 H 9-23 mg/dL Creatinine 6.29 H 0.700-1.30 mg/dL Glomerular Filtration Rate Calc 10 >90 mL/min BUN/Creatinine Ratio 4.8 L 10.0-20.0 Serum Glucose 208 H 74-106 mg/dL Calcium Level 9.5 8.7-10.4 mg/dL B-Type Natriuretic Peptide 1488.92 0-100 pg/mL SEPSIS Sepsis Screen Date sepsis recognized/suspect: Jun 04, 2025 Time Sepsis recognized/suspect: 130 Recent Procedure: No On Antibiotic Therapy: No Respiratory Rate >20: No Heart Rate >90: Yes Temp<36 C (96.8 F) or >38.3 C: No SBP <90 or MAP <65 mmHG: No New Acute Mental Status Change: No Is the patient on CPAP, BIPAP,: No Physician Orders Mrsa Screen (06/05/25 00:12) Vital Signs Date Time Temp Pulse Resp B/P (MAP) Pulse Ox O2 Delivery O2 Flow Rate FiO2 06/04/25 23:32 97.6 78 20 135/83 (100) 96 97.6 06/04/25 21:16 78 20 96 Nasal Cannula* 2 28 06/04/25 21:09 87 145/93 06/04/25 21:08 145/93 Medications Medications Dose Ordered Sig/Milka Route Start Time Stop Time Status Last Admin Dose Admin Acetaminophen 650 mg ONCE ONCE PO 06/04/25 16:15 06/04/25 16:33 DC 06/04/25 16:38 650 MG Atorvastatin Calcium 20 mg HS PO 06/04/25 22:00 06/04/25 21:07 20 MG Carvedilol 25 mg Q12HR PO 06/04/25 22:00 06/04/25 21:09 25 MG Clonidine HCl 0.1 mg TID PO 06/04/25 22:00 06/04/25 21:08 0.1 MG Diagnostic Test (Pha) 1 strip ACHS 06/04/25 22:00 06/04/25 21:09 1 STRIP Furosemide 80 mg ONCE ONCE IV 06/04/25 19:30 06/04/25 19:36 DC 06/04/25 20:05 80 MG Insulin Human Regular ACHS SC 06/04/25 22:00 06/04/25 21:09 3 UNITS Sacubitril/ Valsartan 1 tab BID PO 06/04/25 22:00 06/04/25 21:09 1 TAB Assessment/Plan Assessment/Plan Assessment Fluid overload Acute on chronic respiratory failure CHF exacerbation End-stage renal disease, dialysis dependent Hypertensive crisis Plan Admit the patient to telemetry to the hospitalist Nephrology consultation Resume home medications Continue treatment per orders. Plan discussed with: Patient My Orders Orders - BAMFATOUMATA AGACN Procedure Category Date Status Time *Dr. Fernández Group CONS 06/04/25 Transmitted -[place] 19:23 Atorvastatin (Lipitor) PHA 06/04/25 In Process 22:00 Hydralazine Hcl PHA 06/04/25 Pending Tablet (Apresoline 22:00 Nifedipine Er PHA 06/05/25 In Process (Procardia Xl 10:00 Clonidine Hcl Tablet PHA 06/04/25 In Process (Catapres Tablet) 22:00 Carvedilol Tablet PHA 06/04/25 In Process (Coreg Tablet) 22:00 Sacubitril-Valsartan PHA 06/04/25 In Process (Entresto 24-26 Mg 22:00 Basic Metabolic Panel LAB 06/05/25 Logged 04:00 Furosemide Injection PHA 06/05/25 In Process (Lasix Injection) 10:00 Glucose Blood PHA 06/04/25 In Process (Accu-Chek Comfort 22:00 Insulin R (Human) PHA 06/04/25 In Process (Insulin R) 22:00 Dextrose 50% Syringe PHA 06/04/25 In Process 19:30 Admit ADMIT 06/04/25 Transmitted 19:23 Renal DIET 06/05/25 Transmitted Standard(2gna,3gk,Lopho) Breakfast Ondansetron Hcl PHA 06/04/25 In Process (Zofran) 19:30 Condition: Fair LINN 06/04/25 In Process 19:23 Acetaminophen Tablet PHA 06/04/25 In Process (Tylenol Tablet) 19:30 Bedrest With Bathroom LINN 06/04/25 In Process Privileg 19:23 Nitroglycerin PHA 06/04/25 In Process Sublingual (Ntrostat 19:30 Morphine Sulfate PHA 06/04/25 In Process Injection 19:30 Stat Ekg For Chest LINN 06/04/25 In Process Pain 19:23 Notify Of Changes LINN 06/04/25 In Process From Base 19:23 Automobile Wrecker For LINN 06/04/25 In Process 24 Hours 19:23 Emergency Dysrhythmia LINN 06/04/25 In Process Protocol 19:23 Rhythm Strips Once LINN 06/04/25 In Process Every Shift 19:23 Oxygen By Nasal RT 06/04/25 Transmitted Cannula 19:23 Mrsa Screen ELLIE 06/05/25 Uncollected 00:12 Date of Service: Jun 04, 2025 Billing Provider: TROY KUHN Common Visit Codes: [id number] INP/OBS CARE (HIGH) TROY KUHN Jun 05, 2025 04:10
[2025-06-05 07:57] LABS: Chloride 99 mmol/L (98-107); Potassium 4.7 mmol/L (3.5-5.1); Sodium 137 mmol/L (136-145)
[2025-06-05 07:59] LABS: Anion Gap 9 (5-15); Calcium 9.3 mg/dL (8.7-10.4); Carbon Dioxide 29 mmol/L (20-31)
[2025-06-05 08:04] LABS: BUN/Creatinine Ratio 4.6 (10.0-20.0); Blood Urea Nitrogen 30 mg/dL (9-23); Glucose 200 mg/dL (74-106)
[2025-06-05] MEDS: FUROSEMIDE 40 MG/4 ML VIAL IV SCH (09:45)
[2025-06-05 10:31] LABS: Urine Protein, UAD 3+ (Negative)
--- NOTE | 2025-06-05 13:04 | DVHPN2 ---
Subjective Patient continues to report having shortness of breath Reviewed: Care Plan, H&P, Labs, Medications Changes from previous H/P or p: No Changes General: Per HPI Objective Vitals Vital Signs Date Time Temp Pulse Resp B/P (MAP) Pulse Ox O2 Delivery O2 Flow Rate FiO2 06/05/25 12:25 98.0 76 20 138/87 (104) 98 98.0 06/05/25 08:00 Room Air* 0 21 Intake/Output Intake and Output 06/05/25 07:00 Intake Total 300 ml Balance 300 ml Intake Oral 300 ml General Appearance: Alert, Oriented X3, Cooperative, No acute distress HEENT: Atraumatic, PERRLA Lungs: Clear to auscultation, Normal air movement Cardiovascular: Normal S1, Normal S2 Abdomen: Normal bowel sounds, Soft, No tenderness, No hepatospenomegaly Back: Flank Tenderness, Midline Tenderness Musculoskeletal: Normal sensory function, Normal motor function Skin: Dry, Intact Psych/Mental Status: Mental status NL, Mood NL Medications Current Medications Medications Dose Ordered Sig/Milka Route Start Time Stop Time Status Last Admin Dose Admin Atorvastatin Calcium 20 mg HS PO 06/04/25 22:00 06/04/25 21:07 20 MG Hydralazine HCl 25 mg Q8HR PO 06/04/25 22:00 Hold Nifedipine 30 mg DAILY PO 06/05/25 10:00 Clonidine HCl 0.1 mg TID PO 06/04/25 22:00 06/05/25 05:51 0.1 MG Carvedilol 25 mg Q12HR PO 06/04/25 22:00 06/04/25 21:09 25 MG Sacubitril/ Valsartan 1 tab BID PO 06/04/25 22:00 06/05/25 09:45 1 TAB Furosemide 40 mg DAILY IV 06/05/25 10:00 06/05/25 09:45 40 MG Diagnostic Test (Pha) 1 strip ACHS 06/04/25 22:00 06/05/25 05:51 1 STRIP Insulin Human Regular ACHS SC 06/04/25 22:00 06/05/25 05:59 4 UNITS Dextrose 50 ml UD PRN IV 06/04/25 19:30 Ondansetron HCl 4 mg Q4HP PRN IV 06/04/25 19:30 Acetaminophen 650 mg Q6HP PRN PO 06/04/25 19:30 Nitroglycerin 0.4 mg Q5MINP PRN SL 06/04/25 19:30 Morphine Sulfate 2 mg Q30M PRN IV 06/04/25 19:30 Laboratory Results Laboratory Tests 06/04/25 14:20 06/05/25 06:07 Chemistry Test 06/04/25 14:20 06/05/25 06:07 Calcium Level 9.5 mg/dL (8.7-10.4) 9.3 mg/dL (8.7-10.4) Cardiac Markers Test 06/04/25 14:20 B-Type Natriuretic Peptide 1488.92 pg/mL (0-100) Urinalysis Test 06/05/25 10:11 Urine Color Light-yellow (Yellow) Urine Clarity Clear (Clear) Urine pH 7.5 (5.0-9.0) Urine Specific [place] 1.012 (1.001-1.035) Urine Protein 3+ (Negative) H Urine Ketones Negative (Negative) Urine Blood Trace /uL (Negative) H Urine Nitrite Negative (Negative) Urine Bilirubin Negative (Negative) Urine Urobilinogen Normal mg/dL (Negative) Urine Leukocyte Esterase Negative /uL (Negative) Urine RBC 1 /hpf (0 - 3) Urine Microscopic WBC 1 /HPF (0-3) Urine Squamous Epithelial Cells Few /hpf (<5) Urine Bacteria Few /hpf (None Seen) H Urine Glucose 3+ mg/dL (Normal) H Microbiology Microbiology Date/Time Source Procedure Growth Status 06/05/25 04:16 Nose MRSA Screen - Final Complete Labs and/or images reviewed: Labs reviewed by me, Image(s) reviewed by me Assessment/Plan Assessment/Plan Impression: -acute hypoxic respiratory failure secondary to pulmonary vascular congestion -ESRD with hemodialysis -diabetes mellitus -primary hypertension -CAD with previous stent placement -dyslipidemia Plan: -nephrology consultation: Patient receives HD on MWF -regular insulin sliding scale -medication reconciliation performed. On antiplatelet therapy at this time. Continue antihypertensives -repeat labs in a.m. Total time spent with patient discussing and formulating plan of care: 35 minutes. This medical document was created using an electronic medical record system with [employer] dictation system. Although this document has been carefully reviewed, there may still be some phonetic and typographical errors. These areas are purely typographical due to imperfections of the software programs, and do not reflect any compromise in the patient's medical care. Plan discussed with: Patient, Other (RN) My Orders Orders - ELI NATION NP Procedure Category Date Status Time Basic Metabolic Panel LAB 06/06/25 Verified 04:00 Chest Portable XY 06/06/25 Verified 04:00 Date of Service: Jun 05, 2025 Billing Provider: ELI NATION NP Common Visit Codes: [id number] INP/OBS CARE(HIGH) ELI NATION NP Jun 05, 2025 13:04
--- NOTE | 2025-06-05 18:40 | DVHINCON2 ---
Date of service: Jun 05, 2025 Referring Physician Andrea Cleaning Reason for Consultation Dialysis History of Present Illness 50 Y/O M with history of ESRD on HD via Rt IJ TC, DM, HTN, HLD, and CHF presented with chief complaint of SOB, and chest tightness. CXR shows pulmonary congestion, and small b/l pleural effusions. He had his last dialysis on Thursday at [facility]. he has not missed dialysis. he did not go to dialysis today due to SOB. Serial troponin is negative. K is 4.7 mmol/l. Past Medical History ESRD DM HTN HLD CHF Past Surgical History AVF creation Allergies: Coded Allergies: Hydralazine (Verified Allergy, Unknown, 04/13/25) Piperacillin (Verified Allergy, Unknown, 08/31/24) Tazobactam (Verified Allergy, Unknown, 08/31/24) Home Meds Active Scripts Calcium Acetate (CALCIUM ACETATE) 667 Mg Tab, 1334 MG PO TIDWMEALS for 30 Days, #180 TAB Prov:TAMELA GUTIERREZ MD 04/25/25 Diphenhydramine Hcl (BENADRYL CAPSULE) 25 Mg Cp, 25 MG PO Q6HP PRN, #30 CAP Prov:TAMELA GUTIERREZ MD 04/25/25 Atorvastatin Calcium (Lipitor) 80 Mg Tab, 1 TAB PO DAILY, #30 TAB 0 Refills Prov:TAMELA GUTIERREZ MD 04/25/25 Carvedilol (Coreg) 25 Mg Tab, 1 TAB PO BID, #60 TAB 0 Refills Prov:TAMELA GUTIERREZ MD 04/25/25 Nifedipine (Nifedipine Er) 60 Mg Tab, 1 TAB PO DAILY, #30 TAB 0 Refills Prov:TAMELA GUTIERREZ MD 04/25/25 Pantoprazole Sodium Sesquihydr (Pantoprazole Sodium) 40 Mg Tab, 40 MG PO DAILY@0600 for 30 Days, #30 TAB Prov:TAMELA GUTIERREZ MD 04/25/25 Spironolactone (Aldactone) 25 Mg Tab, 25 MG PO DAILY for 30 Days, #30 TAB Prov:TAMELA GUTIERREZ MD 04/25/25 Sacubitril-Valsartan (Entresto 24-26 mg) 1 Tab Tab, 1 TAB PO BID for 30 Days, #60 TAB Prov:TAMELA GUTIERREZ MD 04/25/25 Nifedipine (Nifedipine Er) 30 Mg Tab, 1 TAB PO DAILY, #30 TAB 3 Refills Prov:LOR KENNEDY MD 12/11/24 Reported Medications Patiromer Sorbitex Calcium (Veltassa) 8.4 Gm Pow, 8.4 GM PO, POW 06/05/25 Ondansetron Odt 4MG Tab (ZOFRAN PO) 4 Mg Tb, 4 MG PO, TAB ODT TAB-DISSOLVE IN MOUTH, THEN SWALLOW 06/05/25 Lidocaine (Lidocaine Pain Relief Pat) 4 % Pad, 4 % EX, PAD 06/05/25 Insulin Glargine (Basaglar Kwikpen) 100 Unit/Ml Inj, 120 UNIT SC, INJ 06/05/25 Furosemide (Lasix) 40 Mg Tab, 40 MG PO, TAB 06/05/25 Ergocalciferol (Vitamin D) 50,000 Unit Cap, 56226 UNIT PO, CAP 06/05/25 Duloxetine Hcl (Cymbalta) 30 Mg Cap, 30 MG PO, CAP 06/05/25 Docusate Sodium (Colace) 100 Mg Cap, 1 CAP PO BID, #30 CAP 06/05/25 Clonidine Hydrochloride (Clonidine Hcl) 0.1 Mg Tab, 0.1 MG PO BID for 30 Days, MG 06/05/25 Carvedilol (Carvedilol) 12.5 Mg Tab, 1 TAB PO BID, #180 TAB 1 Refill 06/05/25 Atorvastatin Calcium (ATORVASTATIN CALCIUM) 40 Mg Tab, 1 TAB PO DAILY, #30 TAB 5 Refills 06/05/25 Ascorbic Acid (Ascorbic Acid) 500 Mg Tab, 500 MG PO DAILY, TAB 06/05/25 Metolazone (Metolazone) 2.5 Mg Tab, 2 TAB PO 2XW 04/14/25 Bumetanide (Bumetanide) 2 Mg Tab, 1 TAB PO 04/14/25 Terazosin Hcl (Terazosin Hcl) 2 Mg Cap, 1 CAP PO HS 04/14/25 Cholecalciferol (VITAMIN D-3) 2,000 Unit Tab, 2000 UNIT PO DAILY, TAB 04/14/25 Amlodipine Besylate (Amlodipine Besylate) 5 Mg Tab, 10 MG PO DAILY 04/14/25 Isosorbide Mononitrate (Isosorbide Mononitrate Er) 30 Mg Tab, 30 MG PO DAILY 05/14/22 Gabapentin (Gabapentin) 300 Mg Cap, 300 MG PO TID 05/14/22 Aspirin (ASPIRIN 81) 81 Mg Tab, 81 MG PO DAILY 05/14/22 Discontinued Reported Medications Furosemide (Furosemide) 20 Mg Tab, 20 MG PO BID, TAB 04/14/25 Duloxetine HCl (Duloxetine HCl) 60 Mg Cap, 1 CAP PO DAILY 04/14/25 Carvedilol (Carvedilol) 25 Mg Tab, 1 TAB PO BID 04/14/25 Insulin Glargine (Basaglar Kwikpen) 100 Unit/Ml Inj, 62 UNIT SC QPM 05/14/22 Atorvastatin Calcium (Lipitor) 20 Mg Tab, 20 MG PO DAILY 05/14/22 Current Medications Current Medications Medications (Trade) Dose Ordered Sig/Milka Route PRN Reason Start Time Stop Time Status Last Admin Atorvastatin Calcium (Lipitor) 20 mg HS PO 06/04/25 22:00 06/04/25 21:07 Hydralazine HCl (Apresoline Tablet) 25 mg Q8HR PO 06/04/25 22:00 Hold Nifedipine (Procardia Xl (Time-Release)) 30 mg DAILY PO 06/05/25 10:00 Clonidine HCl (Catapres Tablet) 0.1 mg TID PO 06/04/25 22:00 06/05/25 05:51 Carvedilol (Coreg Tablet) 25 mg Q12HR PO 06/04/25 22:00 06/04/25 21:09 Sacubitril/ Valsartan (Entresto 24-26 Mg tab) 1 tab BID PO 06/04/25 22:00 06/05/25 09:45 Furosemide (Lasix Injection) 40 mg DAILY IV 06/05/25 10:00 06/05/25 09:45 Diagnostic Test (Pha) (Accu-Chek Comfort Curve T) 1 strip ACHS 06/04/25 22:00 06/05/25 17:04 Insulin Human Regular (InsuLIN R) ACHS SC 06/04/25 22:00 06/05/25 05:59 Dextrose 50 ml UD PRN IV Blood Sugar LESS THAN 60 06/04/25 19:30 Ondansetron HCl (Zofran) 4 mg Q4HP PRN IV NAUSEA / VOMITING 06/04/25 19:30 Acetaminophen (Tylenol Tablet) 650 mg Q6HP PRN PO PAIN SCALE 1-3 OR TEMP>100.4 06/04/25 19:30 Nitroglycerin (Ntrostat Sublingual) 0.4 mg Q5MINP PRN SL FOR CHEST PAIN 06/04/25 19:30 Morphine Sulfate 2 mg Q30M PRN IV FOR CHEST PAIN 06/04/25 19:30 Family History: Alcoholism G8 FATHER Asthma G8 MOTHER Depression G8 MOTHER G8 FATHER Diabetes mellitus G8 MOTHER Glaucoma G8 MOTHER Review of Systems as per HPI ,all other systems were reviewed and are negative H&P Exam Vital Signs/I&O Vital Sign Date Time Temp Pulse Resp B/P (MAP) Pulse Ox O2 Delivery O2 Flow Rate FiO2 06/05/25 17:00 97.9 83 19 149/98 (115) 97 97.9 06/05/25 08:00 Room Air* 0 21 Intake and Output 06/04/25 06/05/25 19:00 07:00 Intake Total 300 ml Balance 300 ml Intake Oral 300 ml Physical Exam Gen: NAD, AAOx3 HEENT: NC, AT Lungs: Crackles lung bases Cardiac: RRR, no murmur Abd: soft, no tenderness Ext: no edema Neuro: no focal deficits + RT IJ TC Labs/Diagnostic Data Labs/Diagnostic Data Laboratory Tests Test 06/05/25 13:04 06/05/25 10:11 06/05/25 06:07 06/05/25 05:55 Range/Units POC Glucose 185 H 211 H 70-106 mg/dl Urine Color Light-yellow Yellow Urine Clarity Clear Clear Urine pH 7.5 5.0-9.0 Urine Specific [place] 1.012 1.001-1.035 Urine Protein 3+ H Negative Urine Ketones Negative Negative Urine Blood Trace H Negative /uL Urine Nitrite Negative Negative Urine Bilirubin Negative Negative Urine Urobilinogen Normal Negative mg/dL Urine Leukocyte Esterase Negative Negative /uL Urine RBC 1 0 - 3 /hpf Urine Microscopic WBC 1 0-3 /HPF Urine Squamous Epithelial Cells Few <5 /hpf Urine Bacteria Few H None Seen /hpf Urine Glucose 3+ H Normal mg/dL Sodium Level 137 136-145 mmol/L Potassium Level 4.7 3.5-5.1 mmol/L Chloride Level 99 98-107 mmol/L Carbon Dioxide Level 29 20-31 mmol/L Anion Gap 9 5-15 Blood Urea Nitrogen 30 H 9-23 mg/dL Creatinine 6.59 H 0.700-1.30 mg/dL Glomerular Filtration Rate Calc 9 >90 mL/min BUN/Creatinine Ratio 4.6 L 10.0-20.0 Serum Glucose 200 H 74-106 mg/dL Calcium Level 9.3 8.7-10.4 mg/dL Test 06/04/25 20:56 06/04/25 17:26 06/04/25 15:20 06/04/25 14:20 Range/Units POC Glucose 195 H 70-106 mg/dl Troponin I High Sensitivity 27 30 29 </=54 ng/L White Blood Count 9.9 4.4-10.8 10^3/uL Red Blood Count 3.98 L 4.5-5.90 10^6/uL Hemoglobin 12.4 L 13.5-17.5 g/dL Hematocrit 36.3 L 41.0-53.0 % Mean Corpuscular Volume 91.4 80.0-100.0 fL Mean Corpuscular Hemoglobin 31.2 28.0-32.0 pg Mean Corpuscular Hemoglobin Concent 34.2 32.0-36.0 g/dL Red Cell Distribution Width 13.7 11.8-14.3 % Platelet Count 209 140-450 10^3/uL Mean Platelet Volume 8.3 6.9-10.8 fL Neutrophils (%) (Auto) 74.3 37.0-80.0 % Lymphocytes (%) (Auto) 16.0 10.0-50.0 % Monocytes (%) (Auto) 5.1 0.0-12.0 % Eosinophils (%) (Auto) 3.8 0.0-7.0 % Basophils (%) (Auto) 0.8 0.0-2.0 % Neutrophils # (Auto) 7.3 1.6-8.6 10 ^3/uL Lymphocytes # (Auto) 1.6 0.4-5.4 10 ^3/uL Monocytes # (Auto) 0.5 0-1.3 10 ^3/uL Eosinophils # (Auto) 0.4 0-0.8 10 ^3/uL Basophils # (Auto) 0.1 0-0.2 10 ^3/uL Nucleated Red Blood Cells 0.0 % Sodium Level 137 136-145 mmol/L Potassium Level 4.8 3.5-5.1 mmol/L Chloride Level 99 98-107 mmol/L Carbon Dioxide Level 30 20-31 mmol/L Anion Gap 8 5-15 Blood Urea Nitrogen 30 H 9-23 mg/dL Creatinine 6.29 H 0.700-1.30 mg/dL Glomerular Filtration Rate Calc 10 >90 mL/min BUN/Creatinine Ratio 4.8 L 10.0-20.0 Serum Glucose 208 H 74-106 mg/dL Calcium Level 9.5 8.7-10.4 mg/dL B-Type Natriuretic Peptide 1488.92 0-100 pg/mL Microbiology Date/Time Source Procedure Growth Status 06/05/25 04:16 Nose MRSA Screen - Final Complete Assessment ESRD on HD via Rt IJ TC Fluid overload Acute on chronic diastolic CHF DM type II HTN hyperphosphatemia secondary hyperparathyroidism Metabolic acidosis Anemia of CKD Plan: no HD RN available for dialysis today will schedule for tomorrow AM. goal 3 L UF continue nifedipine fluid restriction no GUDELIA needed at this time Plan discussed with: Patient ISELA STEELE MD Jun 05, 2025 18:40
[2025-06-05] MEDS: GABAPENTIN 300 MG CAP PO ONE (23:38)
[2025-06-06] VITALS (8 sets, daily range): BP systolic 108–148; BP diastolic 61–92; PULSE 68–92; RESP 18–20; TEMP 97.4–98.9; O2SAT 95–98
[2025-06-06 06:56] LABS: Anion Gap 9 (5-15); Carbon Dioxide 30 mmol/L (20-31); Chloride 98 mmol/L (98-107); Potassium 4.8 mmol/L (3.5-5.1); Sodium 137 mmol/L (136-145)
[2025-06-06 07:02] LABS: BUN/Creatinine Ratio 5.1 (10.0-20.0)
[2025-06-06 07:07] LABS: Blood Urea Nitrogen 36 mg/dL (9-23); Calcium 8.7 mg/dL (8.7-10.4); Glucose 238 mg/dL (74-106)
--- NOTE | 2025-06-06 09:36 | DVH ---
EXAM: XY CHEST PORTABLE CLINICAL INDICATION: chf TECHNIQUE: XY CHEST PORTABLE Comparison: XY CHEST PORTABLE on DOS: 06/04/25, XY CHEST XRAY 1 VIEW on DOS: 04/18/25, XY CHEST PORTABLE on DOS: 04/14/25, XY CHEST PORTABLE on DOS: 04/13/25, XY CHEST PORTABLE on DOS: 12/10/24 FINDINGS/IMPRESSION: There is no evidence of acute fracture or dislocation. Multilevel degnerative changes at l4-l5 thru l5-s1 causing moderate degenerative changes causing mode rate neuroformainal and spinal canal stenosis. The alignment is anatomical. There is no radiopaque foreign body.
[2025-06-06] MEDS: GABAPENTIN 300 MG CAP PO SCH (10:06)
--- NOTE | 2025-06-06 13:18 | DVHPN2 ---
Subjective Patient continues to report having shortness of breath Reviewed: Care Plan, H&P, Labs, Medications Changes from previous H/P or p: No Changes General: Per HPI Objective Vitals Vital Signs Date Time Temp Pulse Resp B/P (MAP) Pulse Ox O2 Delivery O2 Flow Rate FiO2 06/06/25 10:06 132/72 06/06/25 08:00 78 18 95 Nasal Cannula* 2 28 06/06/25 05:00 98.5 98.5 Intake/Output Intake and Output 06/06/25 07:00 Intake Total 550 ml Output Total 425 ml Balance 125 ml Intake Oral 550 ml Output Urine Total 425 ml General Appearance: Alert, Oriented X3, Cooperative, No acute distress HEENT: Atraumatic, PERRLA Lungs: Clear to auscultation, Normal air movement Cardiovascular: Normal S1, Normal S2 Abdomen: Normal bowel sounds, Soft, No tenderness, No hepatospenomegaly Back: Flank Tenderness, Midline Tenderness Musculoskeletal: Normal sensory function, Normal motor function Skin: Dry, Intact Psych/Mental Status: Mental status NL, Mood NL Medications Current Medications Medications Dose Ordered Sig/Milka Route Start Time Stop Time Status Last Admin Dose Admin Atorvastatin Calcium 20 mg HS PO 06/04/25 22:00 06/05/25 21:38 20 MG Nifedipine 30 mg DAILY PO 06/05/25 10:00 Clonidine HCl 0.1 mg TID PO 06/04/25 22:00 06/05/25 21:39 0.1 MG Carvedilol 25 mg Q12HR PO 06/04/25 22:00 06/05/25 21:40 25 MG Sacubitril/ Valsartan 1 tab BID PO 06/04/25 22:00 06/06/25 10:06 1 TAB Furosemide 40 mg DAILY IV 06/05/25 10:00 06/06/25 10:06 40 MG Diagnostic Test (Pha) 1 strip ACHS 06/04/25 22:00 06/06/25 11:18 1 STRIP Insulin Human Regular ACHS SC 06/04/25 22:00 06/06/25 11:30 3 UNITS Dextrose 50 ml UD PRN IV 06/04/25 19:30 Ondansetron HCl 4 mg Q4HP PRN IV 06/04/25 19:30 Acetaminophen 650 mg Q6HP PRN PO 06/04/25 19:30 Nitroglycerin 0.4 mg Q5MINP PRN SL 06/04/25 19:30 Morphine Sulfate 2 mg Q30M PRN IV 06/04/25 19:30 Gabapentin 300 mg DAILY PO 06/06/25 10:00 06/06/25 10:06 300 MG Laboratory Results Laboratory Tests 06/04/25 14:20 06/06/25 05:51 Chemistry Test 06/06/25 05:51 Calcium Level 8.7 mg/dL (8.7-10.4) Urinalysis Test 06/05/25 10:11 Urine Color Light-yellow (Yellow) Urine Clarity Clear (Clear) Urine pH 7.5 (5.0-9.0) Urine Specific [place] 1.012 (1.001-1.035) Urine Protein 3+ (Negative) H Urine Ketones Negative (Negative) Urine Blood Trace /uL (Negative) H Urine Nitrite Negative (Negative) Urine Bilirubin Negative (Negative) Urine Urobilinogen Normal mg/dL (Negative) Urine Leukocyte Esterase Negative /uL (Negative) Urine RBC 1 /hpf (0 - 3) Urine Microscopic WBC 1 /HPF (0-3) Urine Squamous Epithelial Cells Few /hpf (<5) Urine Bacteria Few /hpf (None Seen) H Urine Glucose 3+ mg/dL (Normal) H Microbiology Microbiology Date/Time Source Procedure Growth Status 06/05/25 04:16 Nose MRSA Screen - Final Complete Labs and/or images reviewed: Labs reviewed by me, Image(s) reviewed by me Assessment/Plan Assessment/Plan Impression: -acute hypoxic respiratory failure secondary to pulmonary vascular congestion -ESRD with hemodialysis -diabetes mellitus -primary hypertension -CAD with previous stent placement -dyslipidemia Plan: Events: Plans for HD today. Discussed case with repairer handtools, Dr. Wilburn, who states patient will also receive HD tomorrow. We will discuss with the patient. -nephrology consultation: Patient receives HD on MWF -regular insulin sliding scale -medication reconciliation performed. On antiplatelet therapy at this time. Continue antihypertensives -repeat labs in a.m. Total time spent with patient discussing and formulating plan of care: 35 minutes. This medical document was created using an electronic medical record system with [employer] system. Although this document has been carefully reviewed, there may still be some phonetic and typographical errors. These areas are purely typographical due to imperfections of the software programs, and do not reflect any compromise in the patient's medical care. Plan discussed with: Patient, Other (rn) Date of Service: Jun 06, 2025 Billing Provider: ELI NATION NP Common Visit Codes: [id number] INP/OBS CARE(HIGH) ELI NATION NP Jun 06, 2025 13:18
[2025-06-06] MEDS: SODIUM CHL 0.9% 1000 ML BAG XX ONE (18:20)
--- NOTE | 2025-06-06 18:25 | DVHPN2 ---
Progress Note - Dictate Date Seen: Jun 06, 2025 Medical Necessity Reason Pt with a Central, PICC or Fol: No Subjective SOB vital signs Vital Sign Date Time Temp Pulse Resp B/P (MAP) Pulse Ox O2 Delivery O2 Flow Rate FiO2 06/06/25 17:00 97.4 79 18 143/92 (109) 97 97.4 06/06/25 08:00 Nasal Cannula* 2 28 Total Intake and Output 06/05/25 06/05/25 06/06/25 15:00 23:00 07:00 Intake Total 400 ml 150 ml Output Total 425 ml 0 ml Balance -25 ml 150 ml medications Current Medications Medications Dose Ordered Sig/Milka Route Start Time Stop Time Status Last Admin Dose Admin Atorvastatin Calcium 20 mg HS PO 06/04/25 22:00 06/05/25 21:38 Nifedipine 30 mg DAILY PO 06/05/25 10:00 Clonidine HCl 0.1 mg TID PO 06/04/25 22:00 06/05/25 21:39 Carvedilol 25 mg Q12HR PO 06/04/25 22:00 06/05/25 21:40 Sacubitril/ Valsartan 1 tab BID PO 06/04/25 22:00 06/06/25 10:06 Furosemide 40 mg DAILY IV 06/05/25 10:00 06/06/25 10:06 Diagnostic Test (Pha) 1 strip ACHS 06/04/25 22:00 06/06/25 18:03 Insulin Human Regular ACHS SC 06/04/25 22:00 06/06/25 18:16 Dextrose 50 ml UD PRN IV 06/04/25 19:30 Ondansetron HCl 4 mg Q4HP PRN IV 06/04/25 19:30 Acetaminophen 650 mg Q6HP PRN PO 06/04/25 19:30 Nitroglycerin 0.4 mg Q5MINP PRN SL 06/04/25 19:30 Morphine Sulfate 2 mg Q30M PRN IV 06/04/25 19:30 Gabapentin 300 mg DAILY PO 06/06/25 10:00 06/06/25 10:06 objective Gen: NAD, AAOx3 HEENT: NC, AT Lungs: Crackles lung bases Cardiac: RRR, no murmur Abd: soft, no tenderness Ext: no edema Neuro: no focal deficits + RT IJ TC laboratory and microbiology Laboratory Tests 06/06/25 05:51 06/04/25 14:20 Test 06/06/25 05:51 Range/Units Serum Glucose 238 H 74-106 mg/dL Assessment/Plan ESRD on HD via Rt IJ TC Fluid overload Acute on chronic diastolic CHF DM type II HTN hyperphosphatemia secondary hyperparathyroidism Metabolic acidosis Anemia of CKD Plan: HD today , and again tomorrow continue nifedipine fluid restriction no GUDELIA needed at this time Plan discussed with: Patient ISELA STEELE MD Jun 06, 2025 18:25
[2025-06-06] MEDS: GABAPENTIN 300 MG CAP PO ONE (23:39)
[2025-06-07 01:00] VITALS: BP 153/84; PULSE 84; RESP 19; TEMP 97.5; O2SAT 98
[2025-06-07 05:00] VITALS: BP 158/97; PULSE 83; RESP 18; TEMP 97.8; O2SAT 98
--- NOTE | 2025-06-07 06:27 | DVH ---
CHEST RADIOGRAPH Indication: chf Technique: Single frontal view of the chest was obtained COMPARISON: XY CHEST PORTABLE on DOS: 06/06/25, XY CHEST PORTABLE on DOS: 06/04/25, XY CHEST XRAY 1 VIE W on DOS: 04/18/25, XY CHEST PORTABLE on DOS: 04/14/25, XY CHEST PORTABLE on DOS: 04/13/25 FINDINGS: Lines and Tubes: Right PermCath unchanged. Lungs: Diffuse increased prominence of the pulmonary vasculature. Stable bilateral pleural effusions and bibasilar pulmonary airspace disease. No pneumothorax. Cardiomediastinal contours: Cardiomegaly. Bones: Unremarkable IMPRESSION: 1. Stable cardiomegaly, Bibasilar pulmonary airspace disease, bilateral pleural effusions and diffuse increased prominence of the pulmonary vasculature. 2. Right PermCath.
[2025-06-07] MEDS ORDERED: SODIUM CHL 0.9% 1000 ML BAG XX ONE (07:00)
[2025-06-07 08:00] VITALS: PULSE 83
[2025-06-07 09:00] VITALS: BP 155/95; PULSE 83; RESP 18; TEMP 97.6; O2SAT 96
--- NOTE | 2025-06-07 09:54 | DVHDS2 ---
Discharge Summary Date of Admission Jun 04, 2025 at 19:23 Date of Discharge: Jun 07, 2025 Admitting Diagnosis Acute on chronic hypoxic respiratory failure Labs/Diagnostic Data: Laboratory Results Test 06/07/25 06:11 06/06/25 05:51 06/05/25 10:11 06/04/25 17:26 POC Glucose 234 mg/dl (70-106) Sodium Level 137 mmol/L (136-145) Potassium Level 4.8 mmol/L (3.5-5.1) Chloride Level 98 mmol/L (98-107) Carbon Dioxide Level 30 mmol/L (20-31) Anion Gap 9 (5-15) Blood Urea Nitrogen 36 mg/dL (9-23) Creatinine 7.11 mg/dL (0.700-1.30) Glomerular Filtration Rate Calc 9 mL/min (>90) BUN/Creatinine Ratio 5.1 (10.0-20.0) Serum Glucose 238 mg/dL (74-106) Calcium Level 8.7 mg/dL (8.7-10.4) Urine Color Light-yellow (Yellow) Urine Clarity Clear (Clear) Urine pH 7.5 (5.0-9.0) Urine Specific [place] 1.012 (1.001-1.035) Urine Protein 3+ (Negative) Urine Ketones Negative (Negative) Urine Blood Trace /uL (Negative) Urine Nitrite Negative (Negative) Urine Bilirubin Negative (Negative) Urine Urobilinogen Normal mg/dL (Negative) Urine Leukocyte Esterase Negative /uL (Negative) Urine RBC 1 /hpf (0 - 3) Urine Microscopic WBC 1 /HPF (0-3) Urine Squamous Epithelial Cells Few /hpf (<5) Urine Bacteria Few /hpf (None Seen) Urine Glucose 3+ mg/dL (Normal) Troponin I High Sensitivity 27 ng/L (</=54) Test 06/04/25 14:20 White Blood Count 9.9 10^3/uL (4.4-10.8) Red Blood Count 3.98 10^6/uL (4.5-5.90) Hemoglobin 12.4 g/dL (13.5-17.5) Hematocrit 36.3 % (41.0-53.0) Mean Corpuscular Volume 91.4 fL (80.0-100.0) Mean Corpuscular Hemoglobin 31.2 pg (28.0-32.0) Mean Corpuscular Hemoglobin Concent 34.2 g/dL (32.0-36.0) Red Cell Distribution Width 13.7 % (11.8-14.3) Platelet Count 209 10^3/uL (140-450) Mean Platelet Volume 8.3 fL (6.9-10.8) Neutrophils (%) (Auto) 74.3 % (37.0-80.0) Lymphocytes (%) (Auto) 16.0 % (10.0-50.0) Monocytes (%) (Auto) 5.1 % (0.0-12.0) Eosinophils (%) (Auto) 3.8 % (0.0-7.0) Basophils (%) (Auto) 0.8 % (0.0-2.0) Neutrophils # (Auto) 7.3 10 ^3/uL (1.6-8.6) Lymphocytes # (Auto) 1.6 10 ^3/uL (0.4-5.4) Monocytes # (Auto) 0.5 10 ^3/uL (0-1.3) Eosinophils # (Auto) 0.4 10 ^3/uL (0-0.8) Basophils # (Auto) 0.1 10 ^3/uL (0-0.2) Nucleated Red Blood Cells 0.0 % B-Type Natriuretic Peptide 1488.92 pg/mL (0-100) Other Laboratory Tests 06/06/25 05:51 06/04/25 14:20 Brief Hx & Hospital Course: History of Present Illness 50-year-old male presents for evaluation of shortness for breath. The patient endorses a two day history of shortness for breath with associated chest tightness in mild abdominal distention. States occasional episodes of nausea. No fever or chills. No other acute complaints reported. Course of hospitalization: Patient had medication reconciliation with his home medications being restarted. Nephrology consultation has been placed. Patient received HD yesterday, the plans for hemodialysis today. Patient will subsequently be discharged thereafter. He is instructed to follow up with his PCP, continue all his previous home medications, and continue with established hemodialysis chair time on Thursday/Thursday/Thursday. He is agreeable with discharge plan. All questions answered. Physical examination General: Alert and Oriented x3. No acute distress. Well-nourished. Eyes: EOMI. Anicteric. HENT: Moist mucous membranes. Lungs: Clear to auscultation bilaterally. No accessory muscle use. Cardiovascular: Regular rate and rhythm. No murmur. No JVD. Abdomen: Soft, non-tender and non-distended. No palpable masses. Extremities: No edema. Non-tender. Skin: No rashes or lesions. Warm. Neurologic: No focal neurological deficits. CN II-XII grossly intact, but not individually tested. Psychiatric: Cooperative. Appropriate mood and affect. Total time spent with patient discussing and formulating plan of care: 35 minutes. This medical document was created using an electronic medical record system with Sina dictation system. Although this document has been carefully reviewed, there may still be some phonetic and typographical errors. These areas are purely typographical due to imperfections of the software programs, and do not reflect any compromise in the patient's medical care. Consults/Reason for consult Nephrology: ESRD with hemodialysis Condition at Discharge: Fair Final Diagnosis/Problems List Acute hypoxic respiratory failure secondary to pulmonary vascular congestion Secondary diagnosis: -acute hypoxic respiratory failure secondary to pulmonary vascular congestion -ESRD with hemodialysis -diabetes mellitus -primary hypertension -CAD with previous stent placement -dyslipidemia Discharge Disposition: Home Discharge Instruct/Medications Diet: Cardiac 2g Na,low cholest, Renal Activity: No Restrictions, As Tolerated Follow Up/Referral: Follow up with PCP in 1-2 weeks Continue with established HD chair time Medications: Continue all previous home medications Scheduled Amlodipine Besylate (Amlodipine Besylate), 10 MG PO DAILY, (Reported) Ascorbic Acid (Ascorbic Acid), 500 MG PO DAILY, (Reported) Aspirin (Aspirin 81), 81 MG PO DAILY, (Reported) Atorvastatin Calcium (Lipitor), 1 TAB PO DAILY Atorvastatin Calcium (Atorvastatin Calcium), 1 TAB PO DAILY, (Reported) Calcium Acetate (Calcium Acetate), 1,334 MG PO TIDWMEALS Carvedilol (Coreg), 1 TAB PO BID Carvedilol (Carvedilol), 1 TAB PO BID, (Reported) Cholecalciferol (Vitamin D-3), 2,000 UNIT PO DAILY, (Reported) Clonidine Hydrochloride (Clonidine Hcl), 0.1 MG PO BID, (Reported) Docusate Sodium (Colace), 1 CAP PO BID, (Reported) Gabapentin (Gabapentin), 300 MG PO TID, (Reported) Isosorbide Mononitrate (Isosorbide Mononitrate Er), 30 MG PO DAILY, (Reported) Metolazone (Metolazone), 2 TAB PO 2XW, (Reported) Nifedipine (Nifedipine Er), 1 TAB PO DAILY Nifedipine (Nifedipine Er), 1 TAB PO DAILY Pantoprazole Sodium Sesquihydr (Pantoprazole Sodium), 40 MG PO DAILY@0600 Sacubitril-Valsartan (Entresto 24-26 mg), 1 TAB PO BID Spironolactone (Aldactone), 25 MG PO DAILY Terazosin Hcl (Terazosin Hcl), 1 CAP PO HS, (Reported) Scheduled PRN Diphenhydramine Hcl (Benadryl Capsule), 25 MG PO Q6HP PRN Miscellaneous Medications Bumetanide (Bumetanide), 1 TAB PO, (Reported) Duloxetine Hcl (Cymbalta), 30 MG PO, (Reported) Ergocalciferol (Vitamin D), 50,000 UNIT PO, (Reported) Furosemide (Lasix), 40 MG PO, (Reported) Insulin Glargine (Basaglar Kwikpen), 120 UNIT SC, (Reported) Lidocaine (Lidocaine Pain Relief Pat), 4 % EX, (Reported) Ondansetron Odt 4MG Tab (Zofran Po), 4 MG PO, (Reported) Patiromer Sorbitex Calcium (Veltassa), 8.4 GM PO, (Reported) Discontinued Medications Atorvastatin Calcium (Lipitor), 20 MG PO DAILY, (Reported) Carvedilol (Carvedilol), 1 TAB PO BID, (Reported) Duloxetine HCl (Duloxetine HCl), 1 CAP PO DAILY, (Reported) Furosemide (Furosemide), 20 MG PO BID, (Reported) Insulin Glargine (Basaglar Kwikpen), 62 UNIT SC QPM, (Reported) 36 Discharge Statement: "Patient was advised to return to the ER or call 911 if any headaches, dizziness, shortness of breath, chest pain, abdominal pain, bleeding, fevers, or worsening of medical condition. Patient was counseled about treatment plan, medications, possible side effects, patientverbalized understanding. All questions were answered to the best of my ability. This discharge took greater then 30 minutes in planning, reviewing documentation, counseling the patient, and discussing with other team members." ASSESSMENT ASSESSMENT Assessment Acute hypoxic respiratory failure secondary to pulmonary vascular congestion Date of Service: Jun 07, 2025 Billing Provider: ELI NATION NP Common Visit Codes: 79450-SMP/OBS DISCH DAY >30min ELI NATION NP Jun 07, 2025 09:54
[2025-06-07 13:00] VITALS: BP 185/105; PULSE 85; RESP 18; TEMP 98.3; O2SAT 96
[2025-06-07 15:02] VITALS: BP 158/95
== END 2025-06-07 15:20 | disposition home or self-care (01) | DRG 133 ==
LOC: ER 12:58 → EDBD 12:58 → OVERFLOW 19:23 → TELE-EAST 19:28 → TELE-CENTR 06-06 13:40
PROVIDERS: ADMIT Nurse Practitioner Acute Care; ATTEND Nurse Practitioner Acute Care
PROC: 5A1D70Z Performance of Urinary Filtration, Intermittent, Less than 6 Hours Per Day (ICD-10-PCS; principal; 2025-06-06)
PROC: 5A1D70Z Performance of Urinary Filtration, Intermittent, Less than 6 Hours Per Day (ICD-10-PCS; 2025-06-07)
DX: J96.21 Acute and chronic respiratory failure with hypoxia (principal); I50.33 Acute on chronic diastolic (congestive) heart failure; N17.9 Acute kidney failure, unspecified; E87.20 Acidosis, unspecified; D63.1 Anemia in chronic kidney disease; E83.39 Other disorders of phosphorus metabolism; I13.2 Hypertensive heart and chronic kidney disease with heart failure and with stage 5 chronic kidney disease, or end stage renal disease; N18.6 End stage renal disease; N25.81 Secondary hyperparathyroidism of renal origin; E11.22 Type 2 diabetes mellitus with diabetic chronic kidney disease; Z99.2 Dependence on renal dialysis; E78.5 Hyperlipidemia, unspecified; I25.10 Atherosclerotic heart disease of native coronary artery without angina pectoris; I16.9 Hypertensive crisis, unspecified; Z95.5 Presence of coronary angioplasty implant and graft; Z89.512 Acquired absence of left leg below knee; Z89.511 Acquired absence of right leg below knee; Z83.3 Family history of diabetes mellitus; Z82.5 Family history of asthma and other chronic lower respiratory diseases; Z81.8 Family history of other mental and behavioral disorders; Z88.8 Allergy status to other drugs, medicaments and biological substances
CPT/HCPCS: 36415; 71045; 80048; 81001; 82962; 83880; 84484; 85025; 87081; 87340; 90935; 93005; 99291; G0378; J1642; J1815

== ENCOUNTER 2025-09-14 08:48 | Inpatient (IN) | payer MEDICAID ==
[~2025-09-14] VITALS: Ht 170.2 cm; Wt 109.5 kg
[~2025-09-14 08:48] MED LIST changes: +ASCO500T16 PO; -ATOR20TA PO; +ATOR40TA52 PO; +CARV12.544 PO; -CARV25TA55 PO; +CLON0.1T PO; +DOCU-94 PO; -DULO1CAP6 PO; +DULO30CA PO; +ERGO1CAP12 PO; +FURO1TAB31 PO; -FURO20TA3 PO; +LIDO4PAD8 EX; +PATI1POW PO; +ZOFR4T PO
[2025-09-14] MEDS: ALBUTEROL SULF 2.5 MG/0.5ML(0.5%) NEB SOLN ONE (09:56)
[2025-09-14] MEDS: IPRATROPIUM BROM 0.5 MG/2.5ML INH SOL ONE (09:57)
[2025-09-14] MEDS: IPRATROPIUM BROM 0.5 MG/2.5ML INH SOL NEB ONE (09:59)
[2025-09-14] MEDS: LEVALBUTEROL HCL 1.25 MG/3 ML NEB NEB SCH (09:59)
--- NOTE | 2025-09-14 10:01 | DVH ---
CHEST RADIOGRAPH Indication: SOB Technique: Single frontal view of the chest was obtained Comparison: XY CHEST XRAY 1 VIEW on DOS: 06/07/25, XY CHEST PORTABLE on DOS: 06/06/25, XY CHEST PORTABL E on DOS: 06/04/25, XR CHEST 2 VIEW on DOS: 05/04/25, XY CHEST XRAY 1 VIEW on DOS: 04/18/25, XY CHEST XRA Y 1 VIEW on DOS: 06/07/25 FINDINGS: Lines and Tubes: Right PermCath unchanged. Lungs: Diffuse increased prominence of the pulmonary vasculature. Stable bilateral pleural effusions and bibasilar pulmonary airspace disease. No pneumothorax. Cardiomediastinal contours: Cardiomegaly. Bones: Unremarkable IMPRESSION: 1. Stable cardiomegaly, Bibasilar pulmonary airspace disease, bilateral pleural effusions and diffuse increased prominence of the pulmonary vasculature. 2. Right PermCath.
[2025-09-14 10:19] LABS: Hematocrit 39.2 % (41.0-53.0); Hemoglobin 12.8 g/dL (13.5-17.5); Mean Corpuscular Hemoglobin 30.5 pg (28.0-32.0); Mean Corpuscular Volume 93.3 fL (80.0-100.0); Nucleated Red Blood Cells % 0.0 %
[2025-09-14 10:37] LABS: Alanine Aminotransferase 16 U/L (7-40); Albumin 3.4 g/dL (3.2-4.8); Anion Gap 13 (5-15); BUN/Creatinine Ratio 8.4 (10.0-20.0); Bilirubin, Total 0.9 mg/dL (0.2-1.0); Blood Urea Nitrogen 42 mg/dL (9-23); Carbon Dioxide 26 mmol/L (20-31); Chloride 91 mmol/L (98-107); Glucose 392 mg/dL (74-106); Potassium 4.8 mmol/L (3.5-5.1); Sodium 130 mmol/L (136-145); Total Protein 7.1 g/dL (5.7-8.2)
[2025-09-14 10:38] LABS: Alkaline Phosphatase 503 U/L (46-116); Calcium 8.2 mg/dL (8.7-10.4)
[2025-09-14] MEDS ORDERED: DEXTROSE (50%) 50ML SYRG IV PRN (14:15)
[2025-09-14 15:38] VITALS: BP 172/108; PULSE 108; RESP 18; TEMP 98; O2SAT 100
--- NOTE | 2025-09-14 16:26 | DVHINCON2 ---
DATE OF CONSULTATION: 09/14/2025 CONSULTING PHYSICIAN: Dr. Caceres. REASON FOR CONSULTATION: Management of dialysis. HISTORY OF PRESENT ILLNESS: The patient is a 50-year-old gentleman who is known to me. He started dialysis a few months ago due to severe cardiorenal syndrome, congestive heart failure. He was dialyzed yesterday. Apparently, 2 liters of fluid were removed. However, after dialysis, he felt weak, decided to come to the hospital because he was having worsening shortness of breath and some chest pain. He denied any fever, no cough, no chills, no recent sick contacts. PAST MEDICAL HISTORY: Significant for CHF, coronary artery disease, obesity, diabetes, end-stage renal disease, hypertension, hyperlipidemia, anemia of renal disease. He has peripheral vascular disease, left [id number] amputation, cholecystectomy. He still has a dialysis catheter. He has not been able to get a fistula. SOCIAL HISTORY: Denies smoking cigarettes or drinking alcohol. FAMILY HISTORY: Significant for diabetes and hypertension. MEDICATIONS IN THE HOSPITAL: Include nifedipine, isosorbide, furosemide, Entresto, gabapentin, atorvastatin, insulin, calcium acetate, acetaminophen, ondansetron, and dextrose. PHYSICAL EXAMINATION: VITAL SIGNS: Blood pressure is 158/97, heart rate 100 per minute, respirations 14, temperature 98. GENERAL: The patient is in no acute distress, alert and oriented x 3. HEENT: Conjunctivae are pale. Oral mucosa is moist. NECK: No jugular venous distention. No lymphadenopathy. LUNGS: Show diminished air entry at the bases, a few crackles. CARDIOVASCULAR: Shows regular rate, 2/6 systolic murmur. No pericardial rub. ABDOMEN: Soft, nontender. No organomegaly. There is a small amount of ascetic fluid. Bowel sounds are normal in intensity and frequency. EXTREMITIES: Show no clubbing or cyanosis. He has [id number] amputation. There is trace edema in the other leg. LABORATORY FINDINGS: Sodium 138, potassium 4.8, bicarbonate 26, BUN 42, creatinine 4.9, albumin 3.4. Hemoglobin 12.8. Chest x-ray showed cardiomegaly, some air space disease at both bases with small bilateral pleural effusions. ASSESSMENT AND PLAN: * End-stage renal disease. * Fluid overload. * Congestive heart failure. * Anemic of renal disease. * History of hypertension. * History of diabetes. The patient will be scheduled to have dialysis as soon as possible. We will remove 3 liters of fluid and continue with his outpatient medications. He needs a cardiology reevaluation. We will adjust his target weight and increase his dialysis intensity or frequency if necessary. Thank you for the consultation. MD ANGELY Bhatti/TATIANA TID: [id number] RECEIPT: [id number]
[2025-09-14 17:00] VITALS: BP 177/105; PULSE 113; RESP 18; TEMP 98; O2SAT 98
[2025-09-14 17:10] VITALS: PULSE 70; RESP 18; O2SAT 95
[2025-09-14] MEDS: CALCIUM ACETATE 667 MG CAP PO SCH (18:51)
[2025-09-14] MEDS: ACCU-CHEK COMFORT CURVE STRIP VI SCH (18:51)
[2025-09-14] MEDS: ONDANSETRON HCL 4 MG/2 ML VIAL IV PRN (19:38)
[2025-09-14] MEDS: InsuLIN REG 1unit/0.01ml Soln (100units/ml) SC SCH (19:48)
[2025-09-14 20:00] VITALS: PULSE 119; RESP 16; O2SAT 96
[2025-09-14 21:00] VITALS: BP 188/73; PULSE 119; RESP 20; TEMP 98.4; O2SAT 96
[2025-09-14] MEDS: SODIUM CHL 0.9% 1000 ML BAG XX ONE (22:04)
[2025-09-14] MEDS: ATORVASTATIN 20 MG TAB PO SCH (22:33)
[2025-09-14] MEDS: SACUBITRIL-VALSARTAN 24mg/26mg TAB PO SCH (22:34)
[2025-09-14] MEDS: GABAPENTIN 300 MG CAP PO SCH (22:34)
[2025-09-14] MEDS: CARVEDILOL 12.5 MG TAB PO SCH (22:34)
[2025-09-14] MEDS: ACETAMINOPHEN 325 MG TAB PO PRN (22:35)
[2025-09-14] MEDS: EPOETIN ALFA-EPBX 4,000 UNIT/ML VIAL SC ONE (22:36)
[2025-09-15] VITALS (12 sets, daily range): BP systolic 95–162; BP diastolic 55–97; PULSE 83–110; RESP 16–20; TEMP 97.8–98.8; O2SAT 94–100
[2025-09-15 06:44] LABS: Hematocrit 35.9 % (41.0-53.0); Hemoglobin 12.1 g/dL (13.5-17.5); Mean Corpuscular Hemoglobin 30.9 pg (28.0-32.0); Mean Corpuscular Volume 91.7 fL (80.0-100.0); Nucleated Red Blood Cells % 0.1 %
[2025-09-15 07:22] LABS: Anion Gap 12 (5-15); Calcium 8.4 mg/dL (8.7-10.4); Carbon Dioxide 26 mmol/L (20-31); Chloride 96 mmol/L (98-107); Potassium 5.0 mmol/L (3.5-5.1); Sodium 134 mmol/L (136-145)
[2025-09-15 07:23] LABS: BUN/Creatinine Ratio 5.5 (10.0-20.0)
[2025-09-15 07:27] LABS: Blood Urea Nitrogen 25 mg/dL (9-23); Glucose 240 mg/dL (74-106)
[2025-09-15] MEDS: FUROSEMIDE 20 MG TAB PO SCH (08:50)
[2025-09-15] MEDS: ISOSORBIDE MONONITRATE ER 60 MG TAB PO SCH (09:53)
--- NOTE | 2025-09-15 11:06 | ED.PDOC ---
History of Present Illness HPI Comments Mr. Marcelo is a 50 year old male with prior medical history of ESRD on dialysis MWF, HFrEF, hypertension, type 2 diabetes mellitus, and peripheral neuropathy, who presents today with chief complaint of shortness of breath. He refers 2 weeks of progressively worsening shortness of breath originally on exertion now at rest, associated with dry cough, sharp anterior chest wall pain with cough, and orthopnea rendering him unable to sleep. Additionally, refers he previously had chills and at his dialysis center they noticed some redness around his chest port, however, he was given a course of antibiotics which resolved this. Due to persistence of symptoms, he presents today for evaluation. On initial evaluation, the patient seems uncomfortable, mildly tachycardic and hypertensive, and becomes short of breath with minor exertion. Chief Complaint: Shortness of Breath Time Seen by MD: 08:56 Primary Care Provider: ERIKA Allergies: Coded Allergies: Hydralazine (Verified Allergy, Unknown, 04/13/25) Piperacillin (Verified Allergy, Unknown, 08/31/24) Tazobactam (Verified Allergy, Unknown, 08/31/24) Home Meds Active Scripts Calcium Acetate (CALCIUM ACETATE) 667 Mg Tab, 1334 MG PO TIDWMEALS for 30 Days, #180 TAB Prov:TAMELA GUTIERREZ MD 04/25/25 Diphenhydramine Hcl (BENADRYL CAPSULE) 25 Mg Cp, 25 MG PO Q6HP PRN, #30 CAP Prov:TAMELA GUTIERREZ MD 04/25/25 Atorvastatin Calcium (Lipitor) 80 Mg Tab, 1 TAB PO DAILY, #30 TAB 0 Refills Prov:TAMELA GUTIERREZ MD 04/25/25 Carvedilol (Coreg) 25 Mg Tab, 1 TAB PO BID, #60 TAB 0 Refills Prov:TAMELA GUTIERREZ MD 04/25/25 Nifedipine (Nifedipine Er) 60 Mg Tab, 1 TAB PO DAILY, #30 TAB 0 Refills Prov:TAMELA GUTIERREZ MD 04/25/25 Pantoprazole Sodium Sesquihydr (Pantoprazole Sodium) 40 Mg Tab, 40 MG PO DAILY@0 600 for 30 Days, #30 TAB Prov:TAMELA GUTIERREZ MD 04/25/25 Spironolactone (Aldactone) 25 Mg Tab, 25 MG PO DAILY for 30 Days, #30 TAB Prov:TAMELA GUTIERREZ MD 04/25/25 Sacubitril-Valsartan (Entresto 24-26 mg) 1 Tab Tab, 1 TAB PO BID for 30 Days, #60 TAB Prov:TAMELA GUTIERREZ MD 04/25/25 Nifedipine (Nifedipine Er) 30 Mg Tab, 1 TAB PO DAILY, #30 TAB 3 Refills Prov:LOR KENNEDY MD 12/11/24 Reported Medications Patiromer Sorbitex Calcium (Veltassa) 8.4 Gm Pow, 8.4 GM PO, POW 06/05/25 Ondansetron Odt 4MG Tab (ZOFRAN PO) 4 Mg Tb, 4 MG PO, TAB ODT TAB-DISSOLVE IN MOUTH, THEN SWALLOW 06/05/25 Lidocaine (Lidocaine Pain Relief Pat) 4 % Pad, 4 % EX, PAD 06/05/25 Insulin Glargine (Basaglar Kwikpen) 100 Unit/Ml Inj, 120 UNIT SC, INJ 06/05/25 Furosemide (Lasix) 40 Mg Tab, 40 MG PO, TAB 06/05/25 Ergocalciferol (Vitamin D) 50,000 Unit Cap, 02694 UNIT PO, CAP 06/05/25 Duloxetine Hcl (Cymbalta) 30 Mg Cap, 30 MG PO, CAP 06/05/25 Docusate Sodium (Colace) 100 Mg Cap, 1 CAP PO BID, #30 CAP 06/05/25 Clonidine Hydrochloride (Clonidine Hcl) 0.1 Mg Tab, 0.1 MG PO BID for 30 Days, MG 06/05/25 Carvedilol (Carvedilol) 12.5 Mg Tab, 1 TAB PO BID, #180 TAB 1 Refill 06/05/25 Atorvastatin Calcium (ATORVASTATIN CALCIUM) 40 Mg Tab, 1 TAB PO DAILY, #30 TAB 5 Refills 06/05/25 Ascorbic Acid (Ascorbic Acid) 500 Mg Tab, 500 MG PO DAILY, TAB 06/05/25 Metolazone (Metolazone) 2.5 Mg Tab, 2 TAB PO 2XW 04/14/25 Bumetanide (Bumetanide) 2 Mg Tab, 1 TAB PO 04/14/25 Terazosin Hcl (Terazosin Hcl) 2 Mg Cap, 1 CAP PO HS 04/14/25 Cholecalciferol (VITAMIN D-3) 2,000 Unit Tab, 2000 UNIT PO DAILY, TAB 04/14/25 Amlodipine Besylate (Amlodipine Besylate) 5 Mg Tab, 10 MG PO DAILY 04/14/25 Isosorbide Mononitrate (Isosorbide Mononitrate Er) 30 Mg Tab, 30 MG PO DAILY 05/14/22 Gabapentin (Gabapentin) 300 Mg Cap, 300 MG PO TID 05/14/22 Aspirin (ASPIRIN 81) 81 Mg Tab, 81 MG PO DAILY 05/14/22 Information Source: Patient Mode of Arrival: Wheelchair Severity: Moderate Timing: Weeks Duration: Since onset Past Medical History PAST MEDICAL HISTORY: CAD, CHF, DM, ESRD, High Lipids, HTN Past Medical History (Other): Peripheral neuropathy Surgical History: BKA (Left leg ), Cholecystectomy, PTCA Surgical History (Other): Dialysis fistula formation on L arm, Left wrist fracture repair Family History Family History: Family hx of DM, Family hx of Cancer Social History Smoker: Non-Smoker Alcohol: Denies ETOH Use Drugs: Denies Drug Use Lives In: Home Constitutional: reports: fatigue EENTM: denies: blurred vision, double vision, hearing loss, mouth pain, nose congestion, photophobia, throat pain Respiratory: reports: cough, orthopnea, shortness of breath (At rest and excertion ); denies: hemoptysis Cardiovascular: reports: Dyspnea on exertion; denies: chest pain, dizzy spells, diaphoresis, edema, irregular heart beat, palpitations Gastrointestinal: reports: vomiting; denies: abdomen distended, abdominal pain, constipated, diarrhea, dysphagia, difficulty swallowing, hematemesis, melena, nausea, poor appetite Genitourinary: denies: burning, dysuria, flank pain, frequency, hematuria, incontinence, pain, urgency Neurological: reports: paresthesia (Due to peripheral neuropathy ), pre- existing deficit; denies: dizziness, fainting, headache, numbness, seizure, tingling, tremors, weakness Musculoskeletal: reports: muscle pain; denies: joint pain, joint swelling, muscle stiffness Integumetry: reports: bruises, wounds Physical Exam General Appearance: Moderate Distress, Obese HEENT: Normal ENT Inspection, PERRL/EOMI, Pharynx Normal Neck: Full Range of Motion, Non-Tender, Normal Inspection Respiratory: Other (Bilateral chest expasion, presence of PermCath in right pectoral region, pain to palpation of anterior and lateral chest wall, decreased breath sounds in left lower lung field, minor crackles hear in lower right lung field, decreased tactile fremitus in mid to lower left lung field ) Cardiovascular: No Edema, No Murmur, Other (Dorsalis pulse palpable in right foot, Left foot in absent ) Breast Exam: Deferred Gastrointestinal: Non Tender, Normal Bowel Sounds, Soft Genitalia: Deferred Pelvic: Deferred Rectal: Deferred Extremities: Normal capillary refill (Right leg ), Normal inspection (Right leg), Normal range of motion (Right leg ), Non-tender (Right leg ), No pedal edema (Right leg ), Other (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 Was a procedure done?: No EKG EKG : [place]: Normal Cardiac Rhythm: NSR Hypertrophy: LAE ST: Nonsp Differential Dx Considerations may include: Acute on chronic respiratory failure, pleural effusion, pneumonia, CHF exacerbation, FL, ACS X-Ray, Labs, Meds, VS Vital Signs Date Time Temp Pulse Resp B/P (MAP) Pulse Ox O2 Delivery O2 Flow Rate FiO2 09/14/25 12:52 98.0 100 17 159/97 (117) 96 98.0 09/14/25 10:47 105 09/14/25 10:47 98.0 105 18 157/93 (114) 96 98.0 09/14/25 10:00 100 Room Air* 0 21 21 09/14/25 08:59 103 09/14/25 08:50 97.4 104 16 180/98 99 97.4 Lab Test 09/14/25 11:43 09/14/25 09:53 Range/Units D-Dimer, Quantitative 9.27 H 0.0-0.49 mg/L FEU Troponin I High Sensitivity 28 29 </=54 ng/L White Blood Count 9.7 4.4-10.8 10^3/uL Red Blood Count 4.20 L 4.5-5.90 10^6/uL Hemoglobin 12.8 L 13.5-17.5 g/dL Hematocrit 39.2 L 41.0-53.0 % Mean Corpuscular Volume 93.3 80.0-100.0 fL Mean Corpuscular Hemoglobin 30.5 28.0-32.0 pg Mean Corpuscular Hemoglobin Concent 32.7 32.0-36.0 g/dL Red Cell Distribution Width 14.6 H 11.8-14.3 % Platelet Count 279 140-450 10^3/uL Mean Platelet Volume 7.7 6.9-10.8 fL Neutrophils (%) (Auto) 77.1 37.0-80.0 % Lymphocytes (%) (Auto) 10.9 10.0-50.0 % Monocytes (%) (Auto) 9.4 0.0-12.0 % Eosinophils (%) (Auto) 2.1 0.0-7.0 % Basophils (%) (Auto) 0.5 0.0-2.0 % Neutrophils # (Auto) 7.5 1.6-8.6 10 ^3/uL Lymphocytes # (Auto) 1.1 0.4-5.4 10 ^3/uL Monocytes # (Auto) 0.9 0-1.3 10 ^3/uL Eosinophils # (Auto) 0.2 0-0.8 10 ^3/uL Basophils # (Auto) 0 0-0.2 10 ^3/uL Nucleated Red Blood Cells 0.0 % Sodium Level 130 L 136-145 mmol/L Potassium Level 4.8 3.5-5.1 mmol/L Chloride Level 91 L 98-107 mmol/L Carbon Dioxide Level 26 20-31 mmol/L Anion Gap 13 5-15 Blood Urea Nitrogen 42 H 9-23 mg/dL Creatinine 4.98 H 0.700-1.30 mg/dL Glomerular Filtration Rate Calc 13 >90 mL/min BUN/Creatinine Ratio 8.4 L 10.0-20.0 Serum Glucose 392 H 74-106 mg/dL Calcium Level 8.2 L 8.7-10.4 mg/dL Total Bilirubin 0.9 0.2-1.0 mg/dL Aspartate Amino Transferase (AST) 70 H 13-40 U/L Alanine Aminotransferase (ALT) 16 7-40 U/L Alkaline Phosphatase 503 H 46-116 U/L B-Type Natriuretic Peptide 1039.99 0-100 pg/mL Total Protein 7.1 5.7-8.2 g/dL Albumin 3.4 3.2-4.8 g/dL Current Medications Medications (Trade) Dose Ordered Sig/Milka Route Start Time Stop Time Status Last Admin Ipratropium [place] (Atrovent Medneb) 0.5 mg ONCE ONCE NEB 09/14/25 09:45 09/14/25 09:58 DC 09/14/25 09:59 Levalbuterol HCl (Xopenex Medneb) 0.625 mg Q6HR NEB 09/14/25 12:00 09/14/25 09:59 Time of 1ST Reevaluation: 12:00 Reevaluation 1ST: Unchanged Patient Education/Counseling: Diagnosis, Treatment Family Education/Counseling: Diagnosis, Treatment Comments The patient presents today with chief complaint of shortness of breath On initial evaluation, the patient was tachycardic, hypertensive, saturating adequately on room air, however, with dyspnea on minimal exertion On exam, there is presence of a right PermCath in right pectoral region, and bruising of left inner arm s/p dialysis fistula formation, there were decreased breath sounds in mid and lower lung field, with decreased tactile fremitus, no peripheral edema is observed Chest xray shows bibasilar pulmonary airspace disease, bilateral pleural effusions and diffuse increased prominence of the pulmonary vasculature. CBC is significant for normocytic anemia, CMP shows mild hyponatremia, elevated creatinine and BUN, and BNP 1039.99. He was started on breathing treatments and placed on supplemental oxygen. EKG showed sinus rhythm with possible left atrial enlargement, and nonspecifc ST alterations The patient will be admitted for further work up and management. SEPSIS Sepsis Screen Date sepsis recognized/suspect: Sep 14, 2025 Time Sepsis recognized/suspect: 0853 Recent Procedure: No On Antibiotic Therapy: No Respiratory Rate >20: No Heart Rate >90: Yes Temp<36 C (96.8 F) or >38.3 C: No SBP <90 or MAP <65 mmHG: No New Acute Mental Status Change: No Is the patient on CPAP, BIPAP,: No Physician Orders Electrocardigram (09/14/25 08:53) Chest Xray 1 View (09/14/25 09:20) Oxygen By Nasal Cannula (09/14/25 09:31) Levalbuterol Hcl (Xopenex Medneb) (09/14/25 12:00) Vital Signs Date Time Temp Pulse Resp B/P (MAP) Pulse Ox O2 Delivery O2 Flow Rate FiO2 09/14/25 12:52 98.0 100 17 159/97 (117) 96 98.0 09/14/25 10:47 105 09/14/25 10:47 98.0 105 18 157/93 (114) 96 98.0 09/14/25 10:00 100 Room Air* 0 21 21 09/14/25 08:59 103 09/14/25 08:50 97.4 104 16 180/98 99 97.4 Laboratory Tests Test 09/14/25 09:53 White Blood Count 9.7 10^3/uL (4.4-10.8) Medications Medications Dose Ordered Sig/Milka Route Start Time Stop Time Status Last Admin Dose Admin Ipratropium [place] 0.5 mg ONCE ONCE NEB 09/14/25 09:45 09/14/25 09:58 DC 09/14/25 09:59 Levalbuterol HCl 0.625 mg Q6HR NEB 09/14/25 12:00 09/14/25 09:59 Departure 1 Departure Time of Disposition: 12:00 Impression: Primary Impression: Acute and chronic respiratory failure Additional Impression: Pleural effusion Disposition: 30 STILL A PATIENT Admit to: Tele Condition: Stable Critical Care Note Critical Care Time?: No Stability Stability form required: BLAS Ornelas RESIDENT Sep 14, 2025 10:00
--- NOTE | 2025-09-15 11:16 | DVHHP2 ---
History of Present Illness Reason for Visit: Shortness for breath History of Present Illness 50-year-old male presents for evaluation of shortness for breath. Patient with a history of congestive heart failure and end-stage renal disease currently on dialysis. Patient reports being dialyzed yesterday where they removed 3 L of fluid. Today he presents with complaints of worsening shortness for breath that started today with associated chest pressure. No fever or chills. No other acute complaints reported. Past Medical History Congestive heart failure, diabetes mellitus, end-stage renal disease, hypertension, dyslipidemia Past Surgical History Left BKA, PTCA, cholecystectomy, right chest dialysis catheter Review of Systems Review of Systems Review of systems are currently negative otherwise addressed in HPI. Allergies: Coded Allergies: Hydralazine (Verified Allergy, Unknown, 04/13/25) Piperacillin (Verified Allergy, Unknown, 08/31/24) Tazobactam (Verified Allergy, Unknown, 08/31/24) Medications Current Medications Medications Dose Ordered Sig/Milka Route Start Time Stop Time Status Last Admin Dose Admin Levalbuterol HCl 0.625 mg Q6HR NEB 09/14/25 12:00 09/14/25 09:59 0.625 MG Aspirin 81 mg DAILY PO 09/15/25 10:00 UNV Amlodipine Besylate 10 mg DAILY PO 09/15/25 10:00 UNV Atorvastatin Calcium 80 mg HS PO 09/14/25 22:00 UNV Calcium Acetate 1,334 mg TIDWMEALS PO 09/14/25 18:00 UNV Carvedilol 25 mg Q12HR PO 09/14/25 22:00 UNV Furosemide 60 mg DAILY PO 09/15/25 10:00 UNV Gabapentin 300 mg BID PO 09/14/25 22:00 UNV Isosorbide Mononitrate 30 mg DAILY PO 09/15/25 10:00 UNV Nifedipine 60 mg DAILY PO 09/15/25 10:00 UNV Sacubitril/ Valsartan 1 tab BID PO 09/14/25 22:00 UNV Diagnostic Test (Pha) 1 strip Q6HR 09/14/25 18:00 UNV Insulin Human Regular Q6HR SC 09/14/25 18:00 UNV Dextrose 50 ml UD PRN IV 09/14/25 14:15 UNV Ondansetron HCl 4 mg Q4HP PRN IV 09/14/25 14:15 UNV Acetaminophen 650 mg Q6HP PRN PO 09/14/25 14:15 UNV Exam Vital Signs Vital Signs Date Time Temp Pulse Resp B/P (MAP) Pulse Ox O2 Delivery O2 Flow Rate FiO2 09/14/25 12:52 98.0 100 17 159/97 (117) 96 98.0 09/14/25 10:00 Room Air* 0 21 21 Exam Gen: 50-year-old male in mild distress. Skin: Warm, dry, normal color and texture, no rash. HEENT: Normocephalic atraumatic, mucous membranes moist and pink. Neck: Cervical and supraclavicular nodes normal without enlargement, trachea is midline, thyroid gland is normal without masses. Pulmonary: Clear to auscultation and percussion bilaterally. Cardiac: Regular rate and rhythm. No murmur Abdomen: Soft, nontender, nondistended, bowel sounds present all 4 quadrants, no guarding, no rigidity, no organomegaly. Extremities: No cyanosis, clubbing, no edema Neuro: Cranial nerves II through XII grossly intact, normal affect and speech, no focal motor deficits. Labs/Xrays ORDERING PHYSICIAN: BLAS GALICIA RESIDENT PROCEDURE(s): CXR1 - CHEST XRAY 1 VIEW REASON: SOB ORDER NUMBER(s): [id number], ACCESSION NUMBER(s): [id number] CHEST RADIOGRAPH Indication: SOB Technique: Single frontal view of the chest was obtained Comparison: XY CHEST XRAY 1 VIEW on DOS: 06/07/25, XY CHEST PORTABLE on DOS: 06/06/25, XY CHEST PORTABLE on DOS: 06/04/25, XR CHEST 2 VIEW on DOS: 05/04/25, XY CHEST XRAY 1 VIEW on DOS: 04/18/25, XY CHEST XRAY 1 VIEW on DOS: 06/07/25 FINDINGS: Lines and Tubes: Right PermCath unchanged. Lungs: Diffuse increased prominence of the pulmonary vasculature. Stable bilateral pleural effusions and bibasilar pulmonary airspace disease. No pneumothorax. Cardiomediastinal contours: Cardiomegaly. Bones: Unremarkable IMPRESSION: 1. Stable cardiomegaly, Bibasilar pulmonary airspace disease, bilateral pleural effusions and diffuse increased prominence of the pulmonary vasculature. 2. Right PermCath. ATED BY: RAJAN MARI MD Labs Test 09/14/25 11:43 09/14/25 09:53 Range/Units Troponin I High Sensitivity 28 </=54 ng/L White Blood Count 9.7 4.4-10.8 10^3/uL Red Blood Count 4.20 L 4.5-5.90 10^6/uL Hemoglobin 12.8 L 13.5-17.5 g/dL Hematocrit 39.2 L 41.0-53.0 % Mean Corpuscular Volume 93.3 80.0-100.0 fL Mean Corpuscular Hemoglobin 30.5 28.0-32.0 pg Mean Corpuscular Hemoglobin Concent 32.7 32.0-36.0 g/dL Red Cell Distribution Width 14.6 H 11.8-14.3 % Platelet Count 279 140-450 10^3/uL Mean Platelet Volume 7.7 6.9-10.8 fL Neutrophils (%) (Auto) 77.1 37.0-80.0 % Lymphocytes (%) (Auto) 10.9 10.0-50.0 % Monocytes (%) (Auto) 9.4 0.0-12.0 % Eosinophils (%) (Auto) 2.1 0.0-7.0 % Basophils (%) (Auto) 0.5 0.0-2.0 % Neutrophils # (Auto) 7.5 1.6-8.6 10 ^3/uL Lymphocytes # (Auto) 1.1 0.4-5.4 10 ^3/uL Monocytes # (Auto) 0.9 0-1.3 10 ^3/uL Eosinophils # (Auto) 0.2 0-0.8 10 ^3/uL Basophils # (Auto) 0 0-0.2 10 ^3/uL Nucleated Red Blood Cells 0.0 % Sodium Level 130 L 136-145 mmol/L Potassium Level 4.8 3.5-5.1 mmol/L Chloride Level 91 L 98-107 mmol/L Carbon Dioxide Level 26 20-31 mmol/L Anion Gap 13 5-15 Blood Urea Nitrogen 42 H 9-23 mg/dL Creatinine 4.98 H 0.700-1.30 mg/dL Glomerular Filtration Rate Calc 13 >90 mL/min BUN/Creatinine Ratio 8.4 L 10.0-20.0 Serum Glucose 392 H 74-106 mg/dL Calcium Level 8.2 L 8.7-10.4 mg/dL Total Bilirubin 0.9 0.2-1.0 mg/dL Aspartate Amino Transferase (AST) 70 H 13-40 U/L Alanine Aminotransferase (ALT) 16 7-40 U/L Alkaline Phosphatase 503 H 46-116 U/L B-Type Natriuretic Peptide 1039.99 0-100 pg/mL Total Protein 7.1 5.7-8.2 g/dL Albumin 3.4 3.2-4.8 g/dL SEPSIS Sepsis Screen Date sepsis recognized/suspect: Sep 14, 2025 Time Sepsis recognized/suspect: 852 Recent Procedure: No On Antibiotic Therapy: No Respiratory Rate >20: No Heart Rate >90: Yes Temp<36 C (96.8 F) or >38.3 C: No SBP <90 or MAP <65 mmHG: No New Acute Mental Status Change: No Is the patient on CPAP, BIPAP,: No Physician Orders Electrocardigram (09/14/25 08:53) Chest Xray 1 View (09/14/25 09:20) Oxygen By Nasal Cannula (09/14/25 09:31) Levalbuterol Hcl (Xopenex Medneb) (09/14/25 12:00) Aspirin Tablet (09/15/25 10:00) Amlodipine Tablet (Norvasc Tablet) (09/15/25 10:00) Atorvastatin (Lipitor) (09/14/25 22:00) Calcium Acetate Capsule (Phoslo Capsule) (09/14/25 18:00) Carvedilol Tablet (Coreg Tablet) (09/14/25 22:00) Furosemide Tablet (Lasix Tablet) (09/15/25 10:00) Gabapentin Capsule (Neurontin Capsule) (09/14/25 22:00) Isosorbide Mononitrate Tablet (Imdur Er (09/15/25 10:00) Nifedipine Er (Procardia Xl (Time-Releas (09/15/25 10:00) Sacubitril-Valsartan (Entresto 24-26 Mg (09/14/25 22:00) *Dr. Kortney Pantoja -Da Yesenia (09/14/25 14:14) Basic Metabolic Panel (09/15/25 04:00) Glucose Blood (Accu-Chek Comfort Curve T (09/14/25 18:00) Insulin R (Human) (Insulin R) (09/14/25 18:00) Dextrose 50% Syringe (09/14/25 14:15) Admit (09/14/25 14:14) Ondansetron Hcl (Zofran) (09/14/25 14:15) Complete Blood Count (09/15/25 04:00) Cardiac Diet-2gna,Lofat,Lochol (09/14/25 Dinner) Condition: Stable (09/14/25 14:14) Acetaminophen Tablet (Tylenol Tablet) (09/14/25 14:15) Bedrest With Bathroom Privileg (09/14/25 14:14) D-Dimer (09/14/25 14:14) Vital Signs Date Time Temp Pulse Resp B/P (MAP) Pulse Ox O2 Delivery O2 Flow Rate FiO2 09/14/25 12:52 98.0 100 17 159/97 (117) 96 98.0 09/14/25 10:47 105 09/14/25 10:47 98.0 105 18 157/93 (114) 96 98.0 09/14/25 10:00 100 Room Air* 0 21 21 09/14/25 08:59 103 09/14/25 08:50 97.4 104 16 180/98 99 97.4 Laboratory Tests Test 09/14/25 09:53 White Blood Count 9.7 10^3/uL (4.4-10.8) Medications Medications Dose Ordered Sig/Milka Route Start Time Stop Time Status Last Admin Dose Admin Ipratropium [place] 0.5 mg ONCE ONCE NEB 09/14/25 09:45 09/14/25 09:58 DC 09/14/25 09:59 0.5 MG Levalbuterol HCl 0.625 mg Q6HR NEB 09/14/25 12:00 09/14/25 09:59 0.625 MG Assessment/Plan Assessment/Plan Assessment Acute on chronic respiratory failure CHF exacerbation End-stage renal disease, dialysis dependent, possible fluid overload Diabetes mellitus Plan Admit the patient to Med [facility] to the hospitalist Nephrology consultation Resume home medications Continue treatment per orders. Plan discussed with: Patient My Orders Orders - TROY KUHN Procedure Category Date Status Time Aspirin Tablet PHA 09/15/25 Logged 10:00 Amlodipine Tablet PHA 09/15/25 Logged (Norvasc Tablet) 10:00 Atorvastatin (Lipitor) PHA 09/14/25 Logged 22:00 Calcium Acetate PHA 09/14/25 Logged Capsule (Phoslo 18:00 Carvedilol Tablet PHA 09/14/25 Logged (Coreg Tablet) 22:00 Furosemide Tablet PHA 09/15/25 Logged (Lasix Tablet) 10:00 Gabapentin Capsule PHA 09/14/25 Logged (Neurontin Capsule) 22:00 Isosorbide PHA 09/15/25 Logged Mononitrate Tablet 10:00 Nifedipine Er PHA 09/15/25 Logged (Procardia Xl 10:00 Sacubitril-Valsartan PHA 09/14/25 Logged (Entresto 24-26 Mg 22:00 *Dr. Kortney Pantoja -Da CONS 09/14/25 Transmitted Yesenia 14:14 Basic Metabolic Panel LAB 09/15/25 Verified 04:00 Glucose Blood PHA 09/14/25 Logged (Accu-Chek Comfort 18:00 Insulin R (Human) PHA 09/14/25 Logged (Insulin R) 18:00 Dextrose 50% Syringe PHA 09/14/25 Logged 14:15 Admit ADMIT 09/14/25 Transmitted 14:14 Ondansetron Hcl PHA 09/14/25 Logged (Zofran) 14:15 Complete Blood Count LAB 09/15/25 Verified 04:00 Cardiac DIET 09/14/25 Transmitted Diet-2gna,Lofat,Lochol Dinner Condition: Stable LINN 09/14/25 In Process 14:14 Acetaminophen Tablet PHA 09/14/25 Logged (Tylenol Tablet) 14:15 Bedrest With Bathroom LINN 09/14/25 In Process Privileg 14:14 D-Dimer LAB 09/14/25 Logged 14:14 Date of Service: Sep 14, 2025 Billing Provider: TROY KUHN Common Visit Codes: [id number] INP/OBS CARE (HIGH) TROY KUHN Sep 14, 2025 14:42
--- NOTE | 2025-09-15 13:29 | DVHPN2 ---
Progress Note - Dictate Date Seen: Sep 15, 2025 Has the PT tested + for MRSA If YES, has PT been informed?: No Medical Necessity Reason Pt with a Central, PICC or Fol: No Subjective No new complaints vital signs Vital Sign Date Time Temp Pulse Resp B/P (MAP) Pulse Ox O2 Delivery O2 Flow Rate FiO2 09/15/25 09:52 96 95/55 09/15/25 08:00 98.4 18 96 98.4 09/15/25 08:00 Room Air* 0 21 Total Intake and Output 09/14/25 09/14/25 09/15/25 15:00 23:00 07:00 Intake Total 250 ml 480 ml Balance 250 ml 480 ml medications Current Medications Medications Dose Ordered Sig/Milka Route Start Time Stop Time Status Last Admin Dose Admin Levalbuterol HCl 0.625 mg Q6HR NEB 09/14/25 12:00 09/14/25 09:59 0.625 MG Aspirin 81 mg DAILY PO 09/15/25 10:00 09/15/25 08:51 81 MG Amlodipine Besylate 10 mg DAILY PO 09/15/25 10:00 Atorvastatin Calcium 80 mg HS PO 09/14/25 22:00 09/14/25 22:33 80 MG Calcium Acetate 1,334 mg TIDWMEALS PO 09/14/25 18:00 09/15/25 08:51 1,334 MG Carvedilol 25 mg Q12HR PO 09/14/25 22:00 09/14/25 22:34 25 MG Furosemide 60 mg DAILY PO 09/15/25 10:00 09/15/25 08:50 60 MG Gabapentin 300 mg BID PO 09/14/25 22:00 09/15/25 08:51 300 MG Isosorbide Mononitrate 30 mg DAILY PO 09/15/25 10:00 Nifedipine 60 mg DAILY PO 09/15/25 10:00 Sacubitril/ Valsartan 1 tab BID PO 09/14/25 22:00 09/14/25 22:34 1 TAB Diagnostic Test (Pha) 1 strip Q6HR 09/14/25 18:00 09/15/25 12:00 1 STRIP Insulin Human Regular Q6HR SC 09/14/25 18:00 09/15/25 12:32 8 UNITS Dextrose 50 ml UD PRN IV 09/14/25 14:15 Ondansetron HCl 4 mg Q4HP PRN IV 09/14/25 14:15 09/14/25 19:38 4 MG Acetaminophen 650 mg Q6HP PRN PO 09/14/25 14:15 09/14/25 22:35 650 MG objective GENERAL: The patient is in no acute distress, alert and oriented x 3. HEENT: Conjunctivae are pale. Oral mucosa is moist. NECK: No jugular venous distention. No lymphadenopathy. LUNGS: Show diminished air entry at the bases, a few crackles. CARDIOVASCULAR: Shows regular rate, 2/6 systolic murmur. No pericardial rub. ABDOMEN: Soft, nontender. No organomegaly. There is a small amount of ascetic fluid. Bowel sounds are normal in intensity and frequency. EXTREMITIES: Show no clubbing or cyanosis. He has [id number] amputation. There is trace edema in the other leg. laboratory and microbiology Laboratory Tests 09/15/25 06:27 Test 09/15/25 06:27 Range/Units Serum Glucose 240 #H 74-106 mg/dL Problem List ASSESSMENT AND PLAN: * End-stage renal disease, had HD last night, 3 L removed * Fluid overload improved * Congestive heart failure. * Anemic of renal disease. * History of hypertension. * History of diabetes. HD again tomorrow UF goal 3 liters We will adjust his target weight and increase his dialysis intensity or frequency if necessary. Plan discussed with: Patient DAVID GAONA MD Sep 15, 2025 13:29
--- NOTE | 2025-09-15 15:00 | DVHPN2 ---
Progress Note Date Seen: Sep 15, 2025 Has the PT tested + for MRSA If YES, has PT been informed?: No Medical Necessity Reason Pt with a Central, PICC or Fol: No Subjective Patient reports: No new complaints Objective vital signs Vital Sign Date Time Temp Pulse Resp B/P (MAP) Pulse Ox O2 Delivery O2 Flow Rate FiO2 09/15/25 09:52 96 95/55 09/15/25 08:00 98.4 18 96 98.4 09/15/25 08:00 Room Air* 0 21 Total Intake and Output 09/14/25 09/14/25 09/15/25 15:00 23:00 07:00 Intake Total 250 ml 480 ml Balance 250 ml 480 ml medications Current Medications Medications Dose Ordered Sig/Milka Route Start Time Stop Time Status Last Admin Dose Admin Levalbuterol HCl 0.625 mg Q6HR NEB 09/14/25 12:00 09/14/25 09:59 0.625 MG Aspirin 81 mg DAILY PO 09/15/25 10:00 09/15/25 08:51 81 MG Amlodipine Besylate 10 mg DAILY PO 09/15/25 10:00 Atorvastatin Calcium 80 mg HS PO 09/14/25 22:00 09/14/25 22:33 80 MG Calcium Acetate 1,334 mg TIDWMEALS PO 09/14/25 18:00 09/15/25 08:51 1,334 MG Carvedilol 25 mg Q12HR PO 09/14/25 22:00 09/14/25 22:34 25 MG Furosemide 60 mg DAILY PO 09/15/25 10:00 09/15/25 08:50 60 MG Gabapentin 300 mg BID PO 09/14/25 22:00 09/15/25 08:51 300 MG Isosorbide Mononitrate 30 mg DAILY PO 09/15/25 10:00 Nifedipine 60 mg DAILY PO 09/15/25 10:00 Sacubitril/ Valsartan 1 tab BID PO 09/14/25 22:00 09/14/25 22:34 1 TAB Diagnostic Test (Pha) 1 strip Q6HR 09/14/25 18:00 09/15/25 12:00 1 STRIP Insulin Human Regular Q6HR SC 09/14/25 18:00 09/15/25 12:32 8 UNITS Dextrose 50 ml UD PRN IV 09/14/25 14:15 Ondansetron HCl 4 mg Q4HP PRN IV 09/14/25 14:15 09/14/25 19:38 4 MG Acetaminophen 650 mg Q6HP PRN PO 09/14/25 14:15 09/14/25 22:35 650 MG Vancomycin HCl 250 ml @ 250 mls/hr DAILY IV 09/16/25 10:00 UNV Examination Generally-50 years old male, regular obese, sitting on bed. Mild distress HEENT-atraumatic normocephalic heart-regular rate and rhythm lungs decreased breath sounds bilaterally Abdomen soft nontender nondistended Musculoskeletal-left lower leg amputation. Right lower leg pedal edema Neuro-AO, no focal deficits laboratory and microbiology Laboratory Tests 09/15/25 06:27 Test 09/15/25 06:27 Range/Units Serum Glucose 240 #H 74-106 mg/dL Problem List/Assessment/Plan Problem List/Assessment/Plan Acute on chronic respiratory failure Pleural effusion bilaterally CHF exacerbation End-stage renal disease, dialysis dependent, possible fluid overload Diabetes mellitus Plan [place] [facility] [place] Nephrology regular appreciated. Hemodialysis per Nephrology Resume home medications Thoracentesis. Radiology consulted Monitor saturation Nebulizer Plan discussed with: Patient My Orders My Orders Orders - ZIGGY IYER MD Procedure Category Date Status Time Thoracentesis US 09/15/25 Transmitted 14:55 * Radiologist Consult CONS 09/15/25 Transmitted 14:55 Thoracentesis US 09/15/25 Logged 14:57 Date of Service: Sep 15, 2025 Billing Provider: ZIGGY IYER MD Common Visit Codes: [id number] SAME DATE (HIGH) ZIGGY IYER MD Sep 15, 2025 15:00
[2025-09-15] MEDS: ALBUTEROL SULF 2.5 MG/0.5ML(0.5%) NEB SOLN NEB PRN (15:30)
[2025-09-15] MEDS ORDERED: VANCOMYCIN PER PHARMACY 0 MG IV SCH (15:30)
--- NOTE | 2025-09-15 17:51 | DVH ---
Exam: US CHEST ULTRASOUND Clinical History: PLEURAL EFFUSION Comparison: US CHEST ULTRASOUND on DOS: 04/13/25 Technique: Targeted sonographic evaluation of the soft tissues of the bilateral chest was obtained utilizing gr ayscale and color Doppler imaging. Findings/Impression: Bilateral pleural effusions that appear at least moderate in size
[2025-09-15] MEDS: VANCOMYCIN 1GM/250ML KIT 250 ML IV ONE (21:56)
[2025-09-16] VITALS (16 sets, daily range): BP systolic 98–128; BP diastolic 62–85; PULSE 75–86; RESP 16–20; TEMP 97.5–98.3; O2SAT 94–100
[2025-09-16 05:56] LABS: Hematocrit 34.8 % (41.0-53.0); Hemoglobin 11.5 g/dL (13.5-17.5); Mean Corpuscular Hemoglobin 31.0 pg (28.0-32.0); Mean Corpuscular Volume 93.5 fL (80.0-100.0); Nucleated Red Blood Cells % 0.1 %
[2025-09-16 06:16] LABS: Alanine Aminotransferase 21 U/L (7-40); Albumin 3.2 g/dL (3.2-4.8); Anion Gap 13 (5-15); BUN/Creatinine Ratio 5.7 (10.0-20.0); Bilirubin, Total 0.6 mg/dL (0.2-1.0); Carbon Dioxide 25 mmol/L (20-31); Potassium 4.4 mmol/L (3.5-5.1); Total Protein 6.8 g/dL (5.7-8.2)
[2025-09-16 06:17] LABS: Blood Urea Nitrogen 34 mg/dL (9-23); Chloride 93 mmol/L (98-107); Glucose 326 mg/dL (74-106); Sodium 131 mmol/L (136-145)
[2025-09-16 06:18] LABS: Alkaline Phosphatase 581 U/L (46-116); Calcium 8.3 mg/dL (8.7-10.4)
[2025-09-16] MEDS ORDERED: VANCOMYCIN 1GM/250ML KIT 250 ML IV SCH (10:00)
--- NOTE | 2025-09-16 10:30 | DVHPN2 ---
Progress Note - Dictate Date Seen: Sep 16, 2025 Has the PT tested + for MRSA If YES, has PT been informed?: No Medical Necessity Reason Pt with a Central, PICC or Fol: No Subjective No new complaints vital signs Vital Sign Date Time Temp Pulse Resp B/P (MAP) Pulse Ox O2 Delivery O2 Flow Rate FiO2 09/16/25 10:18 96 Nasal Cannula 2.0 09/16/25 10:18 28 09/16/25 08:53 97.6 79 16 104/67 (79) 97.6 Total Intake and Output 09/15/25 09/15/25 09/16/25 15:00 23:00 07:00 Intake Total 236 ml 486 ml 650 ml Balance 236 ml 486 ml 650 ml medications Current Medications Medications Dose Ordered Sig/Milka Route Start Time Stop Time Status Last Admin Dose Admin Levalbuterol HCl 0.625 mg Q6HR NEB 09/14/25 12:00 09/16/25 05:59 0.625 MG Aspirin 81 mg DAILY PO 09/15/25 10:00 09/15/25 08:51 81 MG Amlodipine Besylate 10 mg DAILY PO 09/15/25 10:00 Atorvastatin Calcium 80 mg HS PO 09/14/25 22:00 09/15/25 21:57 80 MG Calcium Acetate 1,334 mg TIDWMEALS PO 09/14/25 18:00 09/16/25 08:10 1,334 MG Carvedilol 25 mg Q12HR PO 09/14/25 22:00 09/15/25 21:57 25 MG Furosemide 60 mg DAILY PO 09/15/25 10:00 09/15/25 08:50 60 MG Gabapentin 300 mg BID PO 09/14/25 22:00 09/16/25 09:06 300 MG Isosorbide Mononitrate 30 mg DAILY PO 09/15/25 10:00 Nifedipine 60 mg DAILY PO 09/15/25 10:00 Sacubitril/ Valsartan 1 tab BID PO 09/14/25 22:00 09/15/25 21:58 1 TAB Diagnostic Test (Pha) 1 strip Q6HR 09/14/25 18:00 09/16/25 06:00 1 STRIP Insulin Human Regular Q6HR SC 09/14/25 18:00 09/16/25 05:59 10 UNITS Dextrose 50 ml UD PRN IV 09/14/25 14:15 Ondansetron HCl 4 mg Q4HP PRN IV 09/14/25 14:15 09/14/25 19:38 4 MG Acetaminophen 650 mg Q6HP PRN PO 09/14/25 14:15 09/14/25 22:35 650 MG Vancomycin HCl 250 ml @ 250 mls/hr DAILY IV 09/16/25 10:00 UNV Albuterol 2.5 mg Q4HPRN PRN NEB 09/15/25 15:00 09/15/25 15:30 2.5 MG Vancomycin HCl 0 ml @ 0 mls/hr PER PHARMACY IV 09/15/25 15:30 objective GENERAL: The patient is in no acute distress, alert and oriented x 3. HEENT: Conjunctivae are pale. Oral mucosa is moist. NECK: No jugular venous distention. No lymphadenopathy. LUNGS: Show diminished air entry at the bases, a few crackles. CARDIOVASCULAR: Shows regular rate, 2/6 systolic murmur. No pericardial rub. ABDOMEN: Soft, nontender. No organomegaly. There is a small amount of ascetic fluid. Bowel sounds are normal in intensity and frequency. EXTREMITIES: Show no clubbing or cyanosis. He has [id number] amputation. There is trace edema in the other leg. laboratory and microbiology Laboratory Tests 09/16/25 05:06 Test 09/16/25 05:06 Range/Units Serum Glucose 326 H 74-106 mg/dL Problem List ASSESSMENT AND PLAN: * End-stage renal disease, had HD last night, 3 L removed * Fluid overload improved * Congestive heart failure. * Bilateral pleural effusions * Anemic of renal disease. * History of hypertension. * History of diabetes. HD today UF goal 3 liters We will adjust his target weight and increase his dialysis intensity or frequency if necessary. Needs bilateral thoracentesis Plan discussed with: Patient DAVID GAONA MD Sep 16, 2025 10:30
--- NOTE | 2025-09-16 14:29 | DVHNC2 ---
Procedure - Ultrasound-guided RIGHT thoracentesis procedure note: Physician: Dr Gaetano Vásquez Time out time: 1405 pm [employer] Architect: JOSE Molina Patient medications and allergies reviewed. The risks and benefits of the procedure and the sedation options and risk were discussed with the patient's healthcare proxy. All questions were answered and informed consent was obtained. Patient identification and proposed procedure were verified prior to the procedure by the physician, and a nurse in the patient's room. The heart rate, respiratory rate, oxygen saturations, blood pressure, adequacy of pulmonary ventilation, and response to care were monitored throughout the procedure. The physical status of the patient was reassessed after the p rocedure. Date: 09/16/2025 Consent: Consent was obtained from patient prior to procedure. Indication, risks, and benefits were explained at length. Procedure summary: A time out was performed and a chest x-ray was reviewed prior to procedure. The appropriate site was confirmed and marked. My hands were washed immediately prior to the procedure, I wore a surgical cap, mask with protective eyewear, sterile gown and sterile gloves throughout the procedure. The patient was prepped and draped in a sterile manner using chlorhexidine scrub after the appropriate level was percussed and confirmed by ultrasound. 1% lidocaine was used to anesthetize the skin, subcutaneous tissue, superior aspect of the rib periosteum and parietal pleura. A finder needle was then introduced over the superior aspect of the rib to locate the pleural fluid; ZI fluid was aspirated. Thoracentesis needle was then introduced through the skin incision into the pleural space using negative aspiration pressure. The thoracentesis catheter was then threaded without difficulty. 1100 mL's of ZI colored fluid were removed without difficulty. The catheter was then removed. No immediate complications were noted during the procedure. A post-procedure chest x-ray is pending at the time of this note. The pleural fluid will be sent for cultures and cytology. Estimated blood loss is less than 5 mL's. CPT: 20167 Visit Coding Pulmonary Billing Provider: ROSA VÁSQUEZ MD Date of Service if different f: Sep 16, 2025 Common Visit Codes: PROCEDURE ONLY Procedure Codes: [id number] (00889 Right Thoracentesis) ROSA VÁSQUEZ MD Sep 16, 2025 14:29
--- NOTE | 2025-09-16 15:25 | DVH ---
CHEST RADIOGRAPH Indication: ARF Technique: Single frontal view of the chest was obtained Comparison: XY CHEST XRAY 1 VIEW on DOS: 09/14/25 FINDINGS: Lines and Tubes: There is a right central venous catheter with its tip terminating in the superior ve na cava. Lungs: No focal consolidation. Pleura: There is a moderate left pleural effusion. No pneumothorax. Cardiomediastinal contours: Cardiomegaly. Bones: No acute osseous abnormality. IMPRESSION: 1. Cardiomegaly and moderate left pleural effusion.
--- NOTE | 2025-09-16 15:42 | DVHPN2 ---
Progress Note Date Seen: Sep 16, 2025 Has the PT tested + for MRSA If YES, has PT been informed?: No Medical Necessity Reason Pt with a Central, PICC or Fol: No Subjective Patient reports: No new complaints Changes from previous H/P or p: No Changes Objective vital signs Vital Sign Date Time Temp Pulse Resp B/P (MAP) Pulse Ox O2 Delivery O2 Flow Rate FiO2 09/16/25 13:00 98.3 75 16 98/62 (74) 97 98.3 09/16/25 11:13 Nasal Cannula 2.0 09/16/25 11:13 28 Total Intake and Output 09/15/25 09/15/25 09/16/25 14:59 22:59 06:59 Intake Total 236 ml 236 ml 900 ml Balance 236 ml 236 ml 900 ml medications Current Medications Medications Dose Ordered Sig/Milka Route Start Time Stop Time Status Last Admin Dose Admin Levalbuterol HCl 0.625 mg Q6HR NEB 09/14/25 12:00 09/16/25 11:13 0.625 MG Aspirin 81 mg DAILY PO 09/15/25 10:00 09/15/25 08:51 81 MG Amlodipine Besylate 10 mg DAILY PO 09/15/25 10:00 Atorvastatin Calcium 80 mg HS PO 09/14/25 22:00 09/15/25 21:57 80 MG Calcium Acetate 1,334 mg TIDWMEALS PO 09/14/25 18:00 09/16/25 12:15 1,334 MG Carvedilol 25 mg Q12HR PO 09/14/25 22:00 09/15/25 21:57 25 MG Furosemide 60 mg DAILY PO 09/15/25 10:00 09/15/25 08:50 60 MG Gabapentin 300 mg BID PO 09/14/25 22:00 09/16/25 09:06 300 MG Isosorbide Mononitrate 30 mg DAILY PO 09/15/25 10:00 Nifedipine 60 mg DAILY PO 09/15/25 10:00 Sacubitril/ Valsartan 1 tab BID PO 09/14/25 22:00 09/15/25 21:58 1 TAB Diagnostic Test (Pha) 1 strip Q6HR 09/14/25 18:00 09/16/25 12:03 1 STRIP Insulin Human Regular Q6HR SC 09/14/25 18:00 09/16/25 12:14 8 UNITS Dextrose 50 ml UD PRN IV 09/14/25 14:15 Ondansetron HCl 4 mg Q4HP PRN IV 09/14/25 14:15 09/14/25 19:38 4 MG Acetaminophen 650 mg Q6HP PRN PO 09/14/25 14:15 09/14/25 22:35 650 MG Vancomycin HCl 250 ml @ 250 mls/hr DAILY IV 09/16/25 10:00 UNV Albuterol 2.5 mg Q4HPRN PRN NEB 09/15/25 15:00 09/15/25 15:30 2.5 MG Vancomycin HCl 0 ml @ 0 mls/hr PER PHARMACY IV 09/15/25 15:30 Examination Generally-50 years old male, regular obese, sitting on bed. Mild distress HEENT-atraumatic normocephalic heart-regular rate and rhythm lungs decreased breath sounds bilaterally Abdomen soft nontender nondistended Musculoskeletal-left lower leg amputation. Right lower leg pedal edema Neuro-AO3, no focal deficits laboratory and microbiology Laboratory Tests 09/16/25 05:06 Test 09/16/25 05:06 Range/Units Serum Glucose 326 H 74-106 mg/dL Problem List/Assessment/Plan Problem List/Assessment/Plan Acute on chronic respiratory failure Pleural effusion bilaterally CHF exacerbation End-stage renal disease, dialysis dependent, possible fluid overload Diabetes mellitus Plan Admit the patient to [facility] to the hospitalist Nephrology regular appreciated. Hemodialysis per Nephrology Resume home medications Radiology unable to thoracentesis today. Plan for thoracentesis by pulmonology Dr. Vásquez. Dr. Vásquez pulmonology consult Monitor saturation Continue nebulizers Plan discussed with: Patient My Orders My Orders Orders - ZIGGY IYER MD Procedure Category Date Status Time Cleanse Wound With LINN 09/15/25 In Process Mild Soap A 18:00 *Consult CONS 09/16/25 Transmitted 11:27 * Cardiology Consult CONS 09/16/25 Transmitted 13:50 Date of Service: Sep 16, 2025 Billing Provider: ZIGGY IYER MD Common Visit Codes: [id number] SAME DATE (HIGH) ZIGGY IYER MD Sep 16, 2025 15:42
[2025-09-16] MEDS ORDERED: DEXTROSE (50%) 50ML SYRG IV PRN (15:45)
[2025-09-16] MEDS: ACCU-CHEK COMFORT CURVE STRIP VI SCH (16:59)
[2025-09-16] MEDS: InsuLIN REG 1unit/0.01ml Soln (100units/ml) SC SCH (17:51)
[2025-09-16] MEDS ORDERED: ALBUMIN 25% 100 ML IV SCH (19:00)
--- NOTE | 2025-09-16 21:36 | DVHINCON2 ---
Date of service: Sep 16, [address] Case Reason for Consultation Acute on chronic hypoxic respiratory failure, pleural effusion History of Present Illness A 50-year-old man with PMHx of congestive heart failure, diabetes mellitus, end- stage renal disease, hypertension, and dyslipidemia who presented to ED on 09/14/25 for evaluation of shortness of breath. Patient is currently on dialysis; s/p HD on day prior to presentation, with 3 L of fluid removed. Patient presents with complaints of worsening shortness of breath onset day of presentation with associated chest pressure. No fever or chills. No other acute complaints reported. Patient was admitted for further care. Pulmonary consultation is requested for evaluation and management of acute on chronic hypoxic respiratory failure and pleural effusion. Review of Systems: 14-point review of systems negative unless otherwise noted above. Past Medical History Congestive heart failure, diabetes mellitus, end-stage renal disease, hypertension, dyslipidemia Past Surgical History Left BKA, PTCA, cholecystectomy, right chest dialysis catheter Medications: Reviewed. Allergies: Hydralazine Piperacillin Tazobactam Family History: Asthma, diabetes, glaucoma, depression, alcoholism. Social History: Nonsmoker. No alcohol or illicit drug use. Family History: Alcoholism G8 FATHER Asthma G8 MOTHER Depression G8 MOTHER G8 FATHER Diabetes mellitus G8 MOTHER Glaucoma G8 MOTHER Allergies: Coded Allergies: Hydralazine (Verified Allergy, Unknown, 04/13/25) Piperacillin (Verified Allergy, Unknown, 08/31/24) Tazobactam (Verified Allergy, Unknown, 08/31/24) Home Meds Active Scripts Calcium Acetate (CALCIUM ACETATE) 667 Mg Tab, 1334 MG PO TIDWMEALS for 30 Days, #180 TAB Prov:TAMELA GUTIERREZ MD 04/25/25 Diphenhydramine Hcl (BENADRYL CAPSULE) 25 Mg Cp, 25 MG PO Q6HP PRN, #30 CAP Prov:TAMELA GUTIERREZ MD 04/25/25 Atorvastatin Calcium (Lipitor) 80 Mg Tab, 1 TAB PO DAILY, #30 TAB 0 Refills Prov:TAMELA GUTIERREZ MD 04/25/25 Carvedilol (Coreg) 25 Mg Tab, 1 TAB PO BID, #60 TAB 0 Refills Prov:TAMELA GUTIERREZ MD 04/25/25 Nifedipine (Nifedipine Er) 60 Mg Tab, 1 TAB PO DAILY, #30 TAB 0 Refills Prov:TAMELA GUTIERREZ MD 04/25/25 Pantoprazole Sodium Sesquihydr (Pantoprazole Sodium) 40 Mg Tab, 40 MG PO DAILY@0600 for 30 Days, #30 TAB Prov:TAMELA GUTIERREZ MD 04/25/25 Spironolactone (Aldactone) 25 Mg Tab, 25 MG PO DAILY for 30 Days, #30 TAB Prov:TAMELA GUTIERREZ MD 04/25/25 Sacubitril-Valsartan (Entresto 24-26 mg) 1 Tab Tab, 1 TAB PO BID for 30 Days, #60 TAB Prov:TAMELA GUTIERREZ MD 04/25/25 Nifedipine (Nifedipine Er) 30 Mg Tab, 1 TAB PO DAILY, #30 TAB 3 Refills Prov:LOR KENNEDY MD 12/11/24 Reported Medications Patiromer Sorbitex Calcium (Veltassa) 8.4 Gm Pow, 8.4 GM PO, POW 06/05/25 Ondansetron Odt 4MG Tab (ZOFRAN PO) 4 Mg Tb, 4 MG PO, TAB ODT TAB-DISSOLVE IN MOUTH, THEN SWALLOW 06/05/25 Lidocaine (Lidocaine Pain Relief Pat) 4 % Pad, 4 % EX, PAD 06/05/25 Insulin Glargine (Basaglar Kwikpen) 100 Unit/Ml Inj, 120 UNIT SC, INJ 06/05/25 Furosemide (Lasix) 40 Mg Tab, 40 MG PO, TAB 06/05/25 Ergocalciferol (Vitamin D) 50,000 Unit Cap, 84458 UNIT PO, CAP 06/05/25 Duloxetine Hcl (Cymbalta) 30 Mg Cap, 30 MG PO, CAP 06/05/25 Docusate Sodium (Colace) 100 Mg Cap, 1 CAP PO BID, #30 CAP 06/05/25 Clonidine Hydrochloride (Clonidine Hcl) 0.1 Mg Tab, 0.1 MG PO BID for 30 Days, MG 06/05/25 Carvedilol (Carvedilol) 12.5 Mg Tab, 1 TAB PO BID, #180 TAB 1 Refill 06/05/25 Atorvastatin Calcium (ATORVASTATIN CALCIUM) 40 Mg Tab, 1 TAB PO DAILY, #30 TAB 5 Refills 06/05/25 Ascorbic Acid (Ascorbic Acid) 500 Mg Tab, 500 MG PO DAILY, TAB 06/05/25 Metolazone (Metolazone) 2.5 Mg Tab, 2 TAB PO 2XW 04/14/25 Bumetanide (Bumetanide) 2 Mg Tab, 1 TAB PO 04/14/25 Terazosin Hcl (Terazosin Hcl) 2 Mg Cap, 1 CAP PO HS 04/14/25 Cholecalciferol (VITAMIN D-3) 2,000 Unit Tab, 2000 UNIT PO DAILY, TAB 04/14/25 Amlodipine Besylate (Amlodipine Besylate) 5 Mg Tab, 10 MG PO DAILY 04/14/25 Isosorbide Mononitrate (Isosorbide Mononitrate Er) 30 Mg Tab, 30 MG PO DAILY 05/14/22 Gabapentin (Gabapentin) 300 Mg Cap, 300 MG PO TID 05/14/22 Aspirin (ASPIRIN 81) 81 Mg Tab, 81 MG PO DAILY 05/14/22 Current Medications Current Medications Medications (Trade) Dose Ordered Sig/Milka Route PRN Reason Start Time Stop Time Status Last Admin Vancomycin HCl 250 ml @ 250 mls/hr DAILY IV 09/16/25 10:00 UNV Insulin Glargine (Lantus) 15 units HS SC 09/16/25 22:00 Diagnostic Test (Pha) (Accu-Chek Comfort Curve T) 1 strip Q6HR 09/16/25 18:00 09/16/25 16:59 Insulin Human Regular (InsuLIN R) Q6HR SC 09/16/25 18:00 Dextrose 50 ml UD PRN IV Blood Sugar LESS THAN 60 09/16/25 15:45 Albumin Human 100 ml @ 100 mls/hr Q1HR IV 09/16/25 19:00 09/16/25 20:59 DC Vital Signs Vital Signs Date Time Temp Pulse Resp B/P (MAP) Pulse Ox O2 Delivery O2 Flow Rate FiO2 09/16/25 19:07 80 16 100 09/16/25 19:01 Nasal Cannula* 2 28 09/16/25 17:00 98.2 128/85 (99) 98.2 Physical Exam Gen.: Patient lying in bed in no apparent distress. On supplemental oxygen. Head: Normocephalic, atraumatic. Eyes: EOMI/PERRLA. Ears: Normal hearing. Normal anatomy. Neck/trachea: Trachea midline, supple. Nose: Normal external anatomy. Mouth: Moist mucous membranes. Chest: Decreased air entry bilaterally. No wheezing or rhonchi. Cardiovascular: Positive S1, positive S2. Regular rate and rhythm. Abdomen: Positive bowel sounds in all 4 quadrants. Soft, non-tender, non- distended. : Deferred. Rectal: Deferred. Skin: Warm, dry. Intact. Extremities: 2+ radial pulses bilaterally. No lower extremity edema. Left BKA Neuro: Awake, alert, oriented x3. No gross motor or sensory deficits. Cranial nerves II through XII intact. Gait not assessed. Labs/Diagnostic Data Labs Test 09/16/25 16:24 09/16/25 14:39 09/16/25 10:51 09/16/25 05:06 Range/Units POC Glucose 318 H 70-106 mg/dl Body Fluid Source Pleural fluid Body Fluid pH 9.0 Body Fluid WBC (Manual) 855 H 0-200 CUMM Body Fluid RBC (Manual) 93005 H 0-2000 CUMM Body Fluid Mononuclear Cells 64 % Body Fluid Polymorphonuclear Cells 36 H 0-25 % White Blood Count 9.7 4.4-10.8 10^3/uL Red Blood Count 3.72 L 4.5-5.90 10^6/uL Hemoglobin 11.5 L 13.5-17.5 g/dL Hematocrit 34.8 L 41.0-53.0 % Mean Corpuscular Volume 93.5 80.0-100.0 fL Mean Corpuscular Hemoglobin 31.0 28.0-32.0 pg Mean Corpuscular Hemoglobin Concent 33.1 32.0-36.0 g/dL Red Cell Distribution Width 14.8 H 11.8-14.3 % Platelet Count 193 140-450 10^3/uL Mean Platelet Volume 8.1 6.9-10.8 fL Neutrophils (%) (Auto) 71.5 37.0-80.0 % Lymphocytes (%) (Auto) 14.1 10.0-50.0 % Monocytes (%) (Auto) 10.5 0.0-12.0 % Eosinophils (%) (Auto) 3.4 0.0-7.0 % Basophils (%) (Auto) 0.5 0.0-2.0 % Neutrophils # (Auto) 6.9 1.6-8.6 10 ^3/uL Lymphocytes # (Auto) 1.4 0.4-5.4 10 ^3/uL Monocytes # (Auto) 1.0 0-1.3 10 ^3/uL Eosinophils # (Auto) 0.3 0-0.8 10 ^3/uL Basophils # (Auto) 0 0-0.2 10 ^3/uL Nucleated Red Blood Cells 0.1 % Sodium Level 131 L 136-145 mmol/L Potassium Level 4.4 3.5-5.1 mmol/L Chloride Level 93 L 98-107 mmol/L Carbon Dioxide Level 25 20-31 mmol/L Anion Gap 13 5-15 Blood Urea Nitrogen 34 H 9-23 mg/dL Creatinine 5.95 H 0.700-1.30 mg/dL Glomerular Filtration Rate Calc 11 >90 mL/min BUN/Creatinine Ratio 5.7 L 10.0-20.0 Serum Glucose 326 H 74-106 mg/dL Calcium Level 8.3 L 8.7-10.4 mg/dL Total Bilirubin 0.6 0.2-1.0 mg/dL Aspartate Amino Transferase (AST) 79 H 13-40 U/L Alanine Aminotransferase (ALT) 21 7-40 U/L Alkaline Phosphatase 581 H 46-116 U/L Total Protein 6.8 5.7-8.2 g/dL Albumin 3.2 3.2-4.8 g/dL Random Vancomycin Level 22.1 H 5-10 ug/mL Test 09/14/25 11:43 09/14/25 09:53 Range/Units D-Dimer, Quantitative 9.27 H 0.0-0.49 mg/L FEU Troponin I High Sensitivity 28 </=54 ng/L B-Type Natriuretic Peptide 1039.99 0-100 pg/mL Assessment Impression: Acute on chronic hypoxic respiratory failure Dependence on supplemental oxygen CHF exacerbation Pleural effusion Atelectasis Left below-knee amputation End-stage renal disease, on hemodialysis Morbid obesity, BMI 38.9 Plan: Supplemental oxygen Titrate to keep O2 sats above 92%. On 2 LPM NC Taper O2 as tolerated Obtained consent for right thoracentesis. Continue bronchodilators. Antibiotics Incentive spirometry F/u Cardiology recs Monitor blood pressure Accu-Cheks, ISS. Diurese with Lasix HD per Nephrology Monitor renal function. Monitor electrolytes. Supplement as necessary. Monitor ins and outs. Recommend diet and lifestyle modifications for weight reduction Obesity complicates all care DVT prophylaxis. Prognosis: Poor given patient's multiple co-morbidities. Rest of plan per hospitalist and other consultants. Thank you, Dr. Case, for allowing me to participate in this patient's care. Further recommendations will depend on the patient's clinical course. Please do not hesitate to contact me if you have any questions or concerns. This medical document was created using an electronic medical record system with [employer] dictation system. Although these documentations are being carefully reviewed, there may still be some phonetic and typographical changes. The errors are purely typographical, due to imperfection on the software program, and do not reflect any compromise in the patient's medical care. Plan discussed with: Patient, Other (JOSE Molina/Dr. Case) Visit Coding Pulmonary Billing Provider: ROSA CHEN MD Date of Service if different f: Sep 16, 2025 Common Visit Codes: [id number] INP/OBS CARE (HIGH) ROSA CHEN MD Sep 16, 2025 21:36
[2025-09-16] MEDS: INSULIN LANTUS (GLARGINE) 1 /0.01ml (100units/ml) SC SCH (22:25)
[2025-09-17] VITALS (18 sets, daily range): BP systolic 92–117; BP diastolic 49–74; PULSE 72–86; RESP 14–18; TEMP 98–98.5; O2SAT 95–100
[2025-09-17 07:38] LABS: Hematocrit 34.3 % (41.0-53.0); Hemoglobin 11.1 g/dL (13.5-17.5); Mean Corpuscular Hemoglobin 30.6 pg (28.0-32.0); Mean Corpuscular Volume 94.9 fL (80.0-100.0); Nucleated Red Blood Cells % 0.0 %
[2025-09-17 07:53] LABS: Alanine Aminotransferase 28 U/L (7-40); Anion Gap 13 (5-15); BUN/Creatinine Ratio 8.3 (10.0-20.0); Carbon Dioxide 25 mmol/L (20-31); Total Protein 6.6 g/dL (5.7-8.2)
[2025-09-17 07:54] LABS: Bilirubin, Total 1.0 mg/dL (0.2-1.0)
[2025-09-17 08:00] LABS: Albumin 3.2 g/dL (3.2-4.8); Alkaline Phosphatase 714 U/L (46-116); Blood Urea Nitrogen 40 mg/dL (9-23); Calcium 7.7 mg/dL (8.7-10.4); Chloride 94 mmol/L (98-107); Glucose 345 mg/dL (74-106); Potassium 5.3 mmol/L (3.5-5.1); Sodium 132 mmol/L (136-145)
--- NOTE | 2025-09-17 10:37 | DVH ---
CHEST RADIOGRAPH Indication: s/p thoracentesis Technique: Single frontal view of the chest was obtained Comparison: XY CHEST XRAY 1 VIEW on DOS: 09/16/25, XY CHEST XRAY 1 VIEW on DOS: 09/14/25, XY CHEST XRA Y 1 VIEW on DOS: 06/07/25 FINDINGS: Lines and Tubes: Tunnel catheter from the right with the tip at the cavoatrial junction. Lungs: Bibasilar airspace disease left worse than right Pleura: Possible small left pleural effusion No pneumothorax. Cardiomediastinal contours: Unremarkable Bones: No acute osseous abnormality. IMPRESSION: 1. Tunneled catheter from the right internal jugular vein with the tip at the cavoatrial junction. 2. Bibasilar airspace disease worse than on the 09/16/2025 3. Moderate left pleural effusion
[2025-09-17] MEDS: VANCOMYCIN 500mg/100mL 100 ML IV ONE (11:00)
[2025-09-17] MEDS: INSULIN LANTUS (GLARGINE) 1 /0.01ml (100units/ml) SC SCH (12:11)
--- NOTE | 2025-09-17 12:49 | DVHPN2 ---
Progress Note - Dictate Date Seen: Sep 17, 2025 Has the PT tested + for MRSA If YES, has PT been informed?: No Medical Necessity Reason Pt with a Central, PICC or Fol: No Subjective No new complaints vital signs Vital Sign Date Time Temp Pulse Resp B/P (MAP) Pulse Ox O2 Delivery O2 Flow Rate FiO2 09/17/25 11:40 75 14 100 09/17/25 10:00 Room Air 0.0 09/17/25 10:00 21 09/17/25 10:00 97/49 09/17/25 09:00 98.0 98.0 Total Intake and Output 09/16/25 09/16/25 09/17/25 15:00 23:00 07:00 Intake Total 700 ml 600 ml Output Total 1100 ml 0 ml 0 ml Balance -1100 ml 700 ml 600 ml medications Current Medications Medications Dose Ordered Sig/Milka Route Start Time Stop Time Status Last Admin Dose Admin Levalbuterol HCl 0.625 mg Q6HR NEB 09/14/25 12:00 09/17/25 11:33 0.625 MG Aspirin 81 mg DAILY PO 09/15/25 10:00 09/17/25 12:08 81 MG Amlodipine Besylate 10 mg DAILY PO 09/15/25 10:00 Atorvastatin Calcium 80 mg HS PO 09/14/25 22:00 09/16/25 22:26 80 MG Calcium Acetate 1,334 mg TIDWMEALS PO 09/14/25 18:00 09/17/25 12:09 1,334 MG Carvedilol 25 mg Q12HR PO 09/14/25 22:00 09/16/25 22:29 25 MG Furosemide 60 mg DAILY PO 09/15/25 10:00 09/17/25 08:40 60 MG Gabapentin 300 mg BID PO 09/14/25 22:00 09/17/25 08:40 300 MG Isosorbide Mononitrate 30 mg DAILY PO 09/15/25 10:00 Nifedipine 60 mg DAILY PO 09/15/25 10:00 Sacubitril/ Valsartan 1 tab BID PO 09/14/25 22:00 09/16/25 22:26 1 TAB Ondansetron HCl 4 mg Q4HP PRN IV 09/14/25 14:15 09/16/25 17:26 4 MG Acetaminophen 650 mg Q6HP PRN PO 09/14/25 14:15 09/16/25 17:00 650 MG Vancomycin HCl 250 ml @ 250 mls/hr DAILY IV 09/16/25 10:00 UNV Albuterol 2.5 mg Q4HPRN PRN NEB 09/15/25 15:00 09/15/25 15:30 2.5 MG Vancomycin HCl 0 ml @ 0 mls/hr PER PHARMACY IV 09/15/25 15:30 Diagnostic Test (Pha) 1 strip Q6HR 09/16/25 18:00 09/17/25 12:11 1 STRIP Insulin Human Regular Q6HR SC 09/16/25 18:00 09/17/25 12:09 12 UNITS Dextrose 50 ml UD PRN IV 09/16/25 15:45 Insulin Glargine 20 units HS SC 09/17/25 10:00 09/17/25 12:11 20 UNITS objective GENERAL: The patient is in no acute distress, alert and oriented x 3. HEENT: Conjunctivae are pale. Oral mucosa is moist. NECK: No jugular venous distention. No lymphadenopathy. LUNGS: Show diminished air entry at the bases, a few crackles. CARDIOVASCULAR: Shows regular rate, 2/6 systolic murmur. No pericardial rub. ABDOMEN: Soft, nontender. No organomegaly. There is a small amount of ascetic fluid. Bowel sounds are normal in intensity and frequency. EXTREMITIES: Show no clubbing or cyanosis. He has [id number] amputation. There is trace edema in the other leg. laboratory and microbiology Laboratory Tests 09/17/25 05:40 Test 09/17/25 05:40 Range/Units Serum Glucose 345 H 74-106 mg/dL Problem List ASSESSMENT AND PLAN: * End-stage renal disease, had HD yesterday, 3 L removed * Fluid overload has improved * Congestive heart failure. * Bilateral pleural effusions, has been waiting for thoracentesis, IR could not do it over the weekend, Pulmonary consulted * Anemic of renal disease. * History of hypertension. * History of diabetes. HD again tomorrow UF goal 3 liters We will adjust his target weight and increase his dialysis intensity or frequency if necessary. Needs bilateral thoracentesis Plan discussed with: Patient DAVID GAONA MD Sep 17, 2025 12:49
--- NOTE | 2025-09-17 14:30 | DVHPN2 ---
Progress Note Date Seen: Sep 17, 2025 Has the PT tested + for MRSA If YES, has PT been informed?: No Medical Necessity Reason Pt with a Central, PICC or Fol: No Subjective Patient reports: Feels better (Restless status improved after thoracentesis. Hemodialysis tomorrow, thoracentesis by Nephrology.) Changes from previous H/P or p: Changes (improved) Objective vital signs Vital Sign Date Time Temp Pulse Resp B/P (MAP) Pulse Ox O2 Delivery O2 Flow Rate FiO2 09/17/25 11:40 75 14 100 09/17/25 10:00 Room Air 0.0 09/17/25 10:00 21 09/17/25 10:00 97/49 09/17/25 09:00 98.0 98.0 Total Intake and Output 09/16/25 09/16/25 09/17/25 15:00 23:00 07:00 Intake Total 700 ml 600 ml Output Total 1100 ml 0 ml 0 ml Balance -1100 ml 700 ml 600 ml medications Current Medications Medications Dose Ordered Sig/Milka Route Start Time Stop Time Status Last Admin Dose Admin Levalbuterol HCl 0.625 mg Q6HR NEB 09/14/25 12:00 09/17/25 11:33 0.625 MG Aspirin 81 mg DAILY PO 09/15/25 10:00 09/17/25 12:08 81 MG Amlodipine Besylate 10 mg DAILY PO 09/15/25 10:00 Atorvastatin Calcium 80 mg HS PO 09/14/25 22:00 09/16/25 22:26 80 MG Calcium Acetate 1,334 mg TIDWMEALS PO 09/14/25 18:00 09/17/25 12:09 1,334 MG Carvedilol 25 mg Q12HR PO 09/14/25 22:00 09/16/25 22:29 25 MG Furosemide 60 mg DAILY PO 09/15/25 10:00 09/17/25 08:40 60 MG Gabapentin 300 mg BID PO 09/14/25 22:00 09/17/25 08:40 300 MG Isosorbide Mononitrate 30 mg DAILY PO 09/15/25 10:00 Nifedipine 60 mg DAILY PO 09/15/25 10:00 Sacubitril/ Valsartan 1 tab BID PO 09/14/25 22:00 09/16/25 22:26 1 TAB Ondansetron HCl 4 mg Q4HP PRN IV 09/14/25 14:15 09/16/25 17:26 4 MG Acetaminophen 650 mg Q6HP PRN PO 09/14/25 14:15 09/16/25 17:00 650 MG Vancomycin HCl 250 ml @ 250 mls/hr DAILY IV 09/16/25 10:00 UNV Albuterol 2.5 mg Q4HPRN PRN NEB 09/15/25 15:00 09/15/25 15:30 2.5 MG Vancomycin HCl 0 ml @ 0 mls/hr PER PHARMACY IV 09/15/25 15:30 Diagnostic Test (Pha) 1 strip Q6HR 09/16/25 18:00 09/17/25 12:11 1 STRIP Insulin Human Regular Q6HR SC 09/16/25 18:00 09/17/25 12:09 12 UNITS Dextrose 50 ml UD PRN IV 09/16/25 15:45 Insulin Glargine 20 units HS SC 09/17/25 10:00 09/17/25 12:11 20 UNITS Examination Generally-50 years old male, regular obese, sitting on bed. on RA HEENT-atraumatic normocephalic heart-regular rate and rhythm lungs decreased breath sounds bilaterally Abdomen soft nontender nondistended Musculoskeletal-left lower leg amputation. Right lower leg pedal edema improved Neuro-AO3, no focal deficits laboratory and microbiology Laboratory Tests 09/17/25 05:40 Test 09/17/25 05:40 Range/Units Serum Glucose 345 H 74-106 mg/dL Microbiology Date/Time Source Procedure Growth Status 09/16/25 14:39 Pleural Fluid Gram Stain - Final Resulted 09/16/25 14:39 Pleural Fluid Body Fluid Culture - Preliminary Resulted Problem List/Assessment/Plan Problem List/Assessment/Plan Acute on chronic respiratory failure Pleural effusion bilaterally CHF exacerbation End-stage renal disease, dialysis dependent, possible fluid overload Diabetes mellitus Plan Admit the patient to [facility] [place] to the hospitalist Nephrology regular appreciated. Hemodialysis per Nephrology Resume home medications Radiology unable to thoracentesis today. Plan for thoracentesis by pulmonology Dr. Vásquez. Dr. Vásquez pulmonology consult Monitor saturation Continue nebulizers Plan discussed with: Patient My Orders My Orders Orders - ZIGGY IYER MD Procedure Category Date Status Time Glucose Blood PHA 09/16/25 In Process (Accu-Chek Comfort 18:00 Insulin R (Human) PHA 09/16/25 In Process (Insulin R) 18:00 Dextrose 50% Syringe PHA 09/16/25 In Process 15:45 Insulin Lantus PHA 09/17/25 In Process (Glargine) (Lantus) 10:00 Chest Portable XY 09/17/25 Resulted 10:02 Ammonia LAB 09/17/25 Transmitted 14:28 Date of Service: Sep 17, 2025 Billing Provider: ZIGGY IYER MD Common Visit Codes: [id number] SAME DATE (HIGH) ZIGGY IYER MD Sep 17, 2025 14:30
--- NOTE | 2025-09-17 23:14 | DVHPN2 ---
Subjective DOS: 09/17/2025 Patient seen and examined at bedside. Remains on supplemental oxygen Overnight events reviewed. Changes from previous H/P or p: No Changes Objective Vitals Vital Signs Date Time Temp Pulse Resp B/P (MAP) Pulse Ox O2 Delivery O2 Flow Rate FiO2 09/17/25 20:42 98.1 79 16 109/71 (84) 99 98.1 09/17/25 10:00 Room Air 0.0 09/17/25 10:00 21 Intake/Output Intake and Output 09/17/25 07:00 Intake Total 1300 ml Output Total 1100 ml Balance 200 ml Intake Oral 1300 ml Output Urine Total 0 ml Drainage Total 1100 ml Exam Gen.: Patient lying in bed in no apparent distress. On supplemental oxygen. Head: Normocephalic, atraumatic. Eyes: EOMI/PERRLA. Ears: Normal hearing. Normal anatomy. Neck/trachea: Trachea midline, supple. Nose: Normal external anatomy. Mouth: Moist mucous membranes. Chest: Decreased air entry bilaterally. No wheezing or rhonchi. Cardiovascular: Positive S1, positive S2. Regular rate and rhythm. Abdomen: Positive bowel sounds in all 4 quadrants. Soft, non-tender, non- distended. : Deferred. Rectal: Deferred. Skin: Warm, dry. Intact. Extremities: 2+ radial pulses bilaterally. No lower extremity edema. Neuro: Awake, alert, oriented x3. No gross motor or sensory deficits. Cranial nerves II through XII intact. Gait not assessed. Medications Current Medications Medications Dose Ordered Sig/Milka Route Start Time Stop Time Status Last Admin Dose Admin Levalbuterol HCl 0.625 mg Q6HR NEB 09/14/25 12:00 09/17/25 18:40 0.625 MG Aspirin 81 mg DAILY PO 09/15/25 10:00 09/17/25 12:08 81 MG Amlodipine Besylate 10 mg DAILY PO 09/15/25 10:00 Atorvastatin Calcium 80 mg HS PO 09/14/25 22:00 09/17/25 21:28 80 MG Calcium Acetate 1,334 mg TIDWMEALS PO 09/14/25 18:00 09/17/25 17:21 1,334 MG Carvedilol 25 mg Q12HR PO 09/14/25 22:00 09/16/25 22:29 25 MG Furosemide 60 mg DAILY PO 09/15/25 10:00 09/17/25 08:40 60 MG Gabapentin 300 mg BID PO 09/14/25 22:00 09/17/25 21:28 300 MG Isosorbide Mononitrate 30 mg DAILY PO 09/15/25 10:00 Nifedipine 60 mg DAILY PO 09/15/25 10:00 Sacubitril/ Valsartan 1 tab BID PO 09/14/25 22:00 09/17/25 21:28 1 TAB Ondansetron HCl 4 mg Q4HP PRN IV 09/14/25 14:15 09/16/25 17:26 4 MG Acetaminophen 650 mg Q6HP PRN PO 09/14/25 14:15 09/16/25 17:00 650 MG Vancomycin HCl 250 ml @ 250 mls/hr DAILY IV 09/16/25 10:00 UNV Albuterol 2.5 mg Q4HPRN PRN NEB 09/15/25 15:00 09/15/25 15:30 2.5 MG Vancomycin HCl 0 ml @ 0 mls/hr PER PHARMACY IV 09/15/25 15:30 Diagnostic Test (Pha) 1 strip Q6HR 09/16/25 18:00 09/17/25 16:22 1 STRIP Insulin Human Regular Q6HR SC 09/16/25 18:00 09/17/25 17:22 6 UNITS Dextrose 50 ml UD PRN IV 09/16/25 15:45 Insulin Glargine 20 units HS SC 09/17/25 10:00 09/17/25 21:45 20 UNITS Laboratory Results Laboratory Tests 09/17/25 05:40 Chemistry Test 09/17/25 05:40 Albumin 3.2 g/dL (3.2-4.8) Calcium Level 7.7 mg/dL (8.7-10.4) L Total Protein 6.6 g/dL (5.7-8.2) LFT Test 09/17/25 05:40 Alanine Aminotransferase (ALT) 28 U/L (7-40) Alkaline Phosphatase 714 U/L (46-116) H Aspartate Amino Transferase (AST) 100 U/L (13-40) H Total Bilirubin 1.0 mg/dL (0.2-1.0) Microbiology Microbiology Date/Time Source Procedure Growth Status 09/16/25 14:39 Pleural Fluid Gram Stain - Final Resulted 09/16/25 14:39 Pleural Fluid Body Fluid Culture - Preliminary Resulted Assessment/Plan Assessment/Plan Impression: Acute on chronic hypoxic respiratory failure Dependence on supplemental oxygen CHF exacerbation Pleural effusion Atelectasis Left below-knee amputation End-stage renal disease, on hemodialysis Morbid obesity, BMI 38.9 Events: Remains on supplemental oxygen, 2 LPM NC Taper O2 as tolerated Patient is s/p hemodialysis yesterday S/p right thoracentesis yesterday Patient complains of feeling lightheaded and dizzy. Deferred left thoracentesis. Will reassess in the AM as blood pressure in low 100s. Continue antibiotics Continue bronchodilators PRN Incentive spirometry Monitor BP Accu-Cheks, ISS Wound care Labs and imaging reviewed. Rest of plan as noted below. Plan: Supplemental oxygen Titrate to keep O2 sats above 92%. Continue bronchodilators. Antibiotics Incentive spirometry F/u Cardiology recs Monitor blood pressure Accu-Cheks, ISS. HD per Nephrology Monitor renal function. Monitor electrolytes. Supplement as necessary. Monitor ins and outs. Maintain euvolemia Recommend diet and lifestyle modifications for weight reduction Obesity complicates all care DVT prophylaxis. Prognosis: Poor given patient's multiple co-morbidities. Rest of plan per hospitalist and other consultants. Thank you, Dr. Case, for allowing me to participate in this patient's care. Further recommendations will depend on the patient's clinical course. Please do not hesitate to contact me if you have any questions or concerns. This medical document was created using an electronic medical record system with [employer] dictation system. Although these documentations are being carefully reviewed, there may still be some phonetic and typographical changes. The errors are purely typographical, due to imperfection on the software program, and do not reflect any compromise in the patient's medical care. Plan discussed with: Patient, Other (RN Colleen) Visit Coding Pulmonary Billing Provider: ROSA CHEN MD Date of Service if different f: Sep 17, 2025 Common Visit Codes: 52375-[id number] INP/OBS CARE(HIGH) ROSA CHEN MD Sep 17, 2025 23:14
[2025-09-18] VITALS (17 sets, daily range): BP systolic 99–132; BP diastolic 48–74; PULSE 74–99; RESP 14–20; TEMP 97.8–98.4; O2SAT 92–100
[2025-09-18 06:37] LABS: Hematocrit 34.0 % (41.0-53.0); Hemoglobin 11.1 g/dL (13.5-17.5); Mean Corpuscular Hemoglobin 30.7 pg (28.0-32.0); Mean Corpuscular Volume 93.9 fL (80.0-100.0); Nucleated Red Blood Cells % 0.1 %
[2025-09-18 06:54] LABS: Alanine Aminotransferase 21 U/L (7-40); Anion Gap 11 (5-15); BUN/Creatinine Ratio 6.6 (10.0-20.0); Carbon Dioxide 25 mmol/L (20-31); Total Protein 6.6 g/dL (5.7-8.2)
[2025-09-18 06:55] LABS: Bilirubin, Total 0.8 mg/dL (0.2-1.0)
[2025-09-18 06:57] LABS: Albumin 3.1 g/dL (3.2-4.8); Alkaline Phosphatase 689 U/L (46-116); Blood Urea Nitrogen 42 mg/dL (9-23); Calcium 8.1 mg/dL (8.7-10.4); Chloride 95 mmol/L (98-107); Glucose 153 mg/dL (74-106); Sodium 131 mmol/L (136-145)
[2025-09-18 06:58] LABS: Potassium 5.7 mmol/L (3.5-5.1)
--- NOTE | 2025-09-18 08:51 | DVHPN2 ---
Progress Note - Dictate Date Seen: Sep 18, 2025 Has the PT tested + for MRSA If YES, has PT been informed?: No Medical Necessity Reason Pt with a Central, PICC or Fol: No Subjective Undergoing HD Underwent right sided thoracentesis . vital signs Vital Sign Date Time Temp Pulse Resp B/P (MAP) Pulse Ox O2 Delivery O2 Flow Rate FiO2 09/18/25 07:10 97 Nasal Cannula* 2 28 09/18/25 07:10 92 16 09/18/25 04:45 98.2 99/57 (71) 98.2 Total Intake and Output 09/17/25 09/17/25 09/18/25 15:00 23:00 07:00 Intake Total 950 ml 800 ml Output Total 0 ml 0 ml Balance 950 ml 800 ml medications Current Medications Medications Dose Ordered Sig/Milka Route Start Time Stop Time Status Last Admin Dose Admin Levalbuterol HCl 0.625 mg Q6HR NEB 09/14/25 12:00 09/18/25 07:10 0.625 MG Aspirin 81 mg DAILY PO 09/15/25 10:00 09/17/25 12:08 81 MG Amlodipine Besylate 10 mg DAILY PO 09/15/25 10:00 Atorvastatin Calcium 80 mg HS PO 09/14/25 22:00 09/17/25 21:28 80 MG Calcium Acetate 1,334 mg TIDWMEALS PO 09/14/25 18:00 09/17/25 17:21 1,334 MG Carvedilol 25 mg Q12HR PO 09/14/25 22:00 09/17/25 22:00 25 MG Furosemide 60 mg DAILY PO 09/15/25 10:00 09/17/25 08:40 60 MG Gabapentin 300 mg BID PO 09/14/25 22:00 09/17/25 21:28 300 MG Isosorbide Mononitrate 30 mg DAILY PO 09/15/25 10:00 Nifedipine 60 mg DAILY PO 09/15/25 10:00 Sacubitril/ Valsartan 1 tab BID PO 09/14/25 22:00 09/17/25 21:28 1 TAB Ondansetron HCl 4 mg Q4HP PRN IV 09/14/25 14:15 09/16/25 17:26 4 MG Acetaminophen 650 mg Q6HP PRN PO 09/14/25 14:15 09/16/25 17:00 650 MG Vancomycin HCl 250 ml @ 250 mls/hr DAILY IV 09/16/25 10:00 UNV Albuterol 2.5 mg Q4HPRN PRN NEB 09/15/25 15:00 09/15/25 15:30 2.5 MG Vancomycin HCl 0 ml @ 0 mls/hr PER PHARMACY IV 09/15/25 15:30 Diagnostic Test (Pha) 1 strip Q6HR 09/16/25 18:00 09/18/25 06:21 1 STRIP Insulin Human Regular Q6HR SC 09/16/25 18:00 09/18/25 00:49 6 UNITS Dextrose 50 ml UD PRN IV 09/16/25 15:45 Insulin Glargine 20 units HS SC 09/17/25 10:00 09/17/25 21:45 20 UNITS objective GENERAL: The patient is in no acute distress, alert and oriented x 3. HEENT: normocephalic LUNGS: Show diminished air entry at the bases CARDIOVASCULAR: regular rate, 2/6 systolic murmur. ABDOMEN: Soft, nontender. No organomegaly. EXTREMITIES: Show no clubbing or cyanosis. He has [id number] amputation. There is trace edema in the other leg. laboratory and microbiology Laboratory Tests 09/18/25 06:02 Test 09/18/25 06:02 Range/Units Serum Glucose 153 #H 74-106 mg/dL Problem List ASSESSMENT AND PLAN: * End-stage renal disease * Fluid overload has improved * Congestive heart failure. * Bilateral pleural effusions,s/p right thoracentesis * Anemia of renal disease. * History of hypertension. * History of diabetes. Assessment/Plan HD again today UF goal 3 liters Awaiting thoracentesis on the opposite side Dietary Evaluation Review Recommendations by RD: Dietary education by RD Comments: 1) Lower CHO from 60 to 45g CCHO cardiac renal diet 2) Initiate Nephro-Yoni @ 1 tb qd 3) Refer to RD/CD[facility] for weight management 4) Follow-up with cardiology, pulmonology, and nephrology 5) Continue to monitor I&O, labs, and skin integrity Expected Outcomes/Goals: 1) appetite and labs to improve 2) wounds to improve 3) gradual wt loss 4) f/u in 3-5 days Plan discussed with: Patient KASIE GARG MD Sep 18, 2025 08:51
--- NOTE | 2025-09-18 11:18 | DVHCONRES ---
Date Seen: Sep 18, 2025 Resident Creating Document: MAY DUFF RESIDENT Referring Physician Dr Case Reason for Consultation CHF History of Present Illness Scott Marcelo is a 50 Y/O M patient With PMH of CHF, CAD, ESRD, type 2 DM, HLD, HTN, dialysis dependent patient who presents to the emergency room with worsening shortness of breath for 3-5 days prior to admissions. He reports dyspnea on exertion, and orthopnea. He also mentions that he has noticed an increase in sob compared to previous. The patient states that he has been compliant with all of his medications, and has not missed any doses/ HD sessions. He denies any chest pain, palpitations, or other cardiac symptoms. .Initial BNP level of 1039.99 pg/mL.Serial troponin was 28->29. Patient reported that he has been on dialysis for 7 months and he also diagnosed with right-sided pleural effusion and drain 2 times in past but this time patien t developed left-sided pleural effusion as well which was drained yesterday. Unable to drain the right side due to hypotension. PMH: As above PSH: Left BKA, past thoracentesis, left upper arm fistula surgery Family history: Diabetes and hypertension Social history: Lives at home. Denies smoking, alcohol and other drug abuse Allergies: Hydralazine, Zosyn Family History: Alcoholism G8 FATHER Asthma G8 MOTHER Depression G8 MOTHER G8 FATHER Diabetes mellitus G8 MOTHER Glaucoma G8 MOTHER Allergies: Coded Allergies: Hydralazine (Verified Allergy, Unknown, 04/13/25) Piperacillin (Verified Allergy, Unknown, 08/31/24) Tazobactam (Verified Allergy, Unknown, 08/31/24) Home Meds Active Scripts Calcium Acetate (CALCIUM ACETATE) 667 Mg Tab, 1334 MG PO TIDWMEALS for 30 Days, #180 TAB Prov:TAMELA GUTIERREZ MD 04/25/25 Diphenhydramine Hcl (BENADRYL CAPSULE) 25 Mg Cp, 25 MG PO Q6HP PRN, #30 CAP Prov:TAMELA GUTIERREZ MD 04/25/25 Atorvastatin Calcium (Lipitor) 80 Mg Tab, 1 TAB PO DAILY, #30 TAB 0 Refills Prov:TAMELA GUTIERREZ MD 04/25/25 Carvedilol (Coreg) 25 Mg Tab, 1 TAB PO BID, #60 TAB 0 Refills Prov:TAMELA GUTIERREZ MD 04/25/25 Nifedipine (Nifedipine Er) 60 Mg Tab, 1 TAB PO DAILY, #30 TAB 0 Refills Prov:TAMELA GUTIERREZ MD 04/25/25 Pantoprazole Sodium Sesquihydr (Pantoprazole Sodium) 40 Mg Tab, 40 MG PO DAILY@0600 for 30 Days, #30 TAB Prov:TAMELA GUTIERREZ MD 04/25/25 Spironolactone (Aldactone) 25 Mg Tab, 25 MG PO DAILY for 30 Days, #30 TAB Prov:TAMELA GUTIERREZ MD 04/25/25 Sacubitril-Valsartan (Entresto 24-26 mg) 1 Tab Tab, 1 TAB PO BID for 30 Days, #60 TAB Prov:TAMELA GUTIERREZ MD 04/25/25 Nifedipine (Nifedipine Er) 30 Mg Tab, 1 TAB PO DAILY, #30 TAB 3 Refills Prov:LOR KENNEDY MD 12/11/24 Reported Medications Patiromer Sorbitex Calcium (Veltassa) 8.4 Gm Pow, 8.4 GM PO, POW 06/05/25 Ondansetron Odt 4MG Tab (ZOFRAN PO) 4 Mg Tb, 4 MG PO, TAB ODT TAB-DISSOLVE IN MOUTH, THEN SWALLOW 06/05/25 Lidocaine (Lidocaine Pain Relief Pat) 4 % Pad, 4 % EX, PAD 06/05/25 Insulin Glargine (Basaglar Kwikpen) 100 Unit/Ml Inj, 120 UNIT SC, INJ 06/05/25 Furosemide (Lasix) 40 Mg Tab, 40 MG PO, TAB 06/05/25 Ergocalciferol (Vitamin D) 50,000 Unit Cap, 38861 UNIT PO, CAP 06/05/25 Duloxetine Hcl (Cymbalta) 30 Mg Cap, 30 MG PO, CAP 06/05/25 Docusate Sodium (Colace) 100 Mg Cap, 1 CAP PO BID, #30 CAP 06/05/25 Clonidine Hydrochloride (Clonidine Hcl) 0.1 Mg Tab, 0.1 MG PO BID for 30 Days, MG 06/05/25 Carvedilol (Carvedilol) 12.5 Mg Tab, 1 TAB PO BID, #180 TAB 1 Refill 06/05/25 Atorvastatin Calcium (ATORVASTATIN CALCIUM) 40 Mg Tab, 1 TAB PO DAILY, #30 TAB 5 Refills 06/05/25 Ascorbic Acid (Ascorbic Acid) 500 Mg Tab, 500 MG PO DAILY, TAB 06/05/25 Metolazone (Metolazone) 2.5 Mg Tab, 2 TAB PO 2XW 04/14/25 Bumetanide (Bumetanide) 2 Mg Tab, 1 TAB PO 04/14/25 Terazosin Hcl (Terazosin Hcl) 2 Mg Cap, 1 CAP PO HS 04/14/25 Cholecalciferol (VITAMIN D-3) 2,000 Unit Tab, 2000 UNIT PO DAILY, TAB 04/14/25 Amlodipine Besylate (Amlodipine Besylate) 5 Mg Tab, 10 MG PO DAILY 04/14/25 Isosorbide Mononitrate (Isosorbide Mononitrate Er) 30 Mg Tab, 30 MG PO DAILY 05/14/22 Gabapentin (Gabapentin) 300 Mg Cap, 300 MG PO TID 05/14/22 Aspirin (ASPIRIN 81) 81 Mg Tab, 81 MG PO DAILY 05/14/22 Current Medications Current Medications Medications (Trade) Dose Ordered Sig/Milka Route PRN Reason Start Time Stop Time Status Last Admin Albumin Human 100 ml @ 100 mls/hr Q1HR IV 09/18/25 10:00 09/18/25 11:59 Review of Systems Patient seen and examined at the bedside. Patient currently reporting shortness of breath which has improved since admission, rest of ROS is negative Vital Signs Vital Signs Date Time Temp Pulse Resp B/P (MAP) Pulse Ox O2 Delivery O2 Flow Rate FiO2 09/18/25 09:00 98.4 74 16 104/66 (79) 97 98.4 09/18/25 07:10 Nasal Cannula* 2 28 Physical Exam Pt is lying on bed General Appearance: Alert, Oriented X3, Cooperative, mild distress HEENT: Atraumatic, Mucous membranes moist/pink Respiratory: diminished breath sounds, poorly audible in right side and b/l crackles Cardiovascular: Regular rate, Normal S1, Normal S2, No murmurs Abdominal: Active bowel sounds, Soft, no distention, no tenderness Extremities: Trace edema rt leg, Normal pulses, left BKA, stump is clean, left upper extremity fistula Skin: No Significant rash, except past surgical scars Neuro: Normal speech, sensorimotor deficits none Psych/Mental Status: Mental status NL, Mood NL Nurse was there as sisal picker during examination Labs/Diagnostic Data Labs Test 09/18/25 09:23 09/18/25 06:02 09/18/25 05:56 09/17/25 14:39 Range/Units White Blood Count 9.8 4.4-10.8 10^3/uL Red Blood Count 3.62 L 4.5-5.90 10^6/uL Hemoglobin 11.1 L 13.5-17.5 g/dL Hematocrit 34.0 L 41.0-53.0 % Mean Corpuscular Volume 93.9 80.0-100.0 fL Mean Corpuscular Hemoglobin 30.7 28.0-32.0 pg Mean Corpuscular Hemoglobin Concent 32.7 32.0-36.0 g/dL Red Cell Distribution Width 15.2 H 11.8-14.3 % Platelet Count 254 140-450 10^3/uL Mean Platelet Volume 8.4 6.9-10.8 fL Neutrophils (%) (Auto) 67.7 37.0-80.0 % Lymphocytes (%) (Auto) 14.3 10.0-50.0 % Monocytes (%) (Auto) 9.9 0.0-12.0 % Eosinophils (%) (Auto) 7.6 H 0.0-7.0 % Basophils (%) (Auto) 0.5 0.0-2.0 % Neutrophils # (Auto) 6.6 1.6-8.6 10 ^3/uL Lymphocytes # (Auto) 1.4 0.4-5.4 10 ^3/uL Monocytes # (Auto) 1.0 0-1.3 10 ^3/uL Eosinophils # (Auto) 0.7 0-0.8 10 ^3/uL Basophils # (Auto) 0 0-0.2 10 ^3/uL Nucleated Red Blood Cells 0.1 % Sodium Level 131 L 136-145 mmol/L Potassium Level 5.7 *H 3.5-5.1 mmol/L Chloride Level 95 L 98-107 mmol/L Carbon Dioxide Level 25 20-31 mmol/L Anion Gap 11 5-15 Blood Urea Nitrogen 42 H 9-23 mg/dL Creatinine 6.39 H 0.700-1.30 mg/dL Glomerular Filtration Rate Calc 10 >90 mL/min BUN/Creatinine Ratio 6.6 L 10.0-20.0 Serum Glucose 153 #H 74-106 mg/dL Calcium Level 8.1 L 8.7-10.4 mg/dL Total Bilirubin 0.8 0.2-1.0 mg/dL Aspartate Amino Transferase (AST) 71 H 13-40 U/L Alanine Aminotransferase (ALT) 21 7-40 U/L Alkaline Phosphatase 689 H 46-116 U/L Total Protein 6.6 5.7-8.2 g/dL Albumin 3.1 L 3.2-4.8 g/dL Random Vancomycin Level 18.8 H 5-10 ug/mL POC Glucose 154 H 70-106 mg/dl Ammonia < 10 L 11-32 umol/L Test 09/16/25 14:39 09/16/25 10:51 09/14/25 11:43 09/14/25 09:53 Range/Units Body Fluid Source Pleural fluid Body Fluid pH 9.0 Body Fluid WBC (Manual) 855 H 0-200 CUMM Body Fluid RBC (Manual) 11169 H 0-2000 CUMM Body Fluid Mononuclear Cells 64 % Body Fluid Polymorphonuclear Cells 36 H 0-25 % Hepatitis B Surface Antigen Negative Negative D-Dimer, Quantitative 9.27 H 0.0-0.49 mg/L FEU Troponin I High Sensitivity 28 </=54 ng/L B-Type Natriuretic Peptide 1039.99 0-100 pg/mL Microbiology Date/Time Source Procedure Growth Status 09/16/25 14:39 Pleural Fluid Gram Stain - Final Resulted 09/16/25 14:39 Pleural Fluid Body Fluid Culture - Preliminary Resulted Assessment Acute on chronic HFrEF, NYHA Class IV Acute hypoxic respiratory failure ESRD on HD Uncontrolled T2 DM HTN HLD Pleural effusion B/l S/p Left BKA Plan/Recommendation We will continue with the following plan/recommendations (Dr. Garza): New Echocardiogram to evaluate cardiac function Previous Echo in january showed EF 25% Guideline directed medical therapy for CHF as renal function and BP permits Coreg and Entresto Diuretics BP control Lipid-lowering agent DVT/VTE prophylaxis Risk factor modification, counseled Dietary changes Limiting sodium intake Strict INOs Maintaining fluid restriction, daily weight Case discussed with , optimal medical treatment, as renal function and BP permits Thank you for allowing us to care for this patient. Please call with any que stions or concerns. Plan discussed with: Patient MAY DUFF RESIDENT Sep 18, 2025 11:17
[2025-09-18 11:52] LABS: INR 1.03 (0.9-1.15); Partial Thromboplastin Time 31.4 SEC (24.5-34.5); Prothrombin Time 10.9 sec (9.3-11.8)
--- NOTE | 2025-09-18 12:54 | DVHPN2 ---
Subjective Patient continues to report having right-sided chest pain Reviewed: Care Plan, H&P, Labs, Medications, Previous Orders Changes from previous H/P or p: No Changes General: Per HPI Objective Vitals Vital Signs Date Time Temp Pulse Resp B/P (MAP) Pulse Ox O2 Delivery O2 Flow Rate FiO2 09/18/25 09:00 98.4 74 16 104/66 (79) 97 98.4 09/18/25 07:10 Nasal Cannula* 2 28 Intake/Output Intake and Output 09/18/25 07:00 Intake Total 1750 ml Output Total 0 ml Balance 1750 ml Intake Oral 1650 ml IV Total 100 ml Output Urine Total 0 ml General Appearance: Alert, Oriented X3, Cooperative, mild distress HEENT: Atraumatic, PERRLA Cardiovascular: Normal S1, Normal S2 Abdomen: Normal bowel sounds, Soft, No tenderness, No hepatospenomegaly Musculoskeletal: Normal sensory function, Normal motor function Neuro: Normal gait, Normal speech Skin: Dry, Intact Psych/Mental Status: Mental status NL, Mood NL Medications Current Medications Medications Dose Ordered Sig/Milka Route Start Time Stop Time Status Last Admin Dose Admin Levalbuterol HCl 0.625 mg Q6HR NEB 09/14/25 12:00 09/18/25 07:10 0.625 MG Aspirin 81 mg DAILY PO 09/15/25 10:00 09/17/25 12:08 81 MG Atorvastatin Calcium 80 mg HS PO 09/14/25 22:00 09/17/25 21:28 80 MG Calcium Acetate 1,334 mg TIDWMEALS PO 09/14/25 18:00 09/17/25 17:21 1,334 MG Carvedilol 25 mg Q12HR PO 09/14/25 22:00 09/17/25 22:00 25 MG Furosemide 60 mg DAILY PO 09/15/25 10:00 09/17/25 08:40 60 MG Gabapentin 300 mg BID PO 09/14/25 22:00 09/17/25 21:28 300 MG Isosorbide Mononitrate 30 mg DAILY PO 09/15/25 10:00 Sacubitril/ Valsartan 1 tab BID PO 09/14/25 22:00 09/17/25 21:28 1 TAB Ondansetron HCl 4 mg Q4HP PRN IV 09/14/25 14:15 09/16/25 17:26 4 MG Acetaminophen 650 mg Q6HP PRN PO 09/14/25 14:15 09/16/25 17:00 650 MG Vancomycin HCl 250 ml @ 250 mls/hr DAILY IV 09/16/25 10:00 UNV Albuterol 2.5 mg Q4HPRN PRN NEB 09/15/25 15:00 09/15/25 15:30 2.5 MG Vancomycin HCl 0 ml @ 0 mls/hr PER PHARMACY IV 09/15/25 15:30 Diagnostic Test (Pha) 1 strip Q6HR 09/16/25 18:00 09/18/25 06:21 1 STRIP Insulin Human Regular Q6HR SC 09/16/25 18:00 09/18/25 00:49 6 UNITS Dextrose 50 ml UD PRN IV 09/16/25 15:45 Insulin Glargine 20 units HS SC 09/17/25 10:00 09/17/25 21:45 20 UNITS Laboratory Results Laboratory Tests 09/18/25 06:02 Chemistry Test 09/18/25 06:02 Albumin 3.1 g/dL (3.2-4.8) L Calcium Level 8.1 mg/dL (8.7-10.4) L Total Protein 6.6 g/dL (5.7-8.2) Coagulation Test 09/18/25 09:23 Prothrombin Time 10.9 sec (9.3-11.8) Prothrombin Time INR 1.03 (0.9-1.15) Activated Partial Thromboplast Time 31.4 SEC (24.5-34.5) LFT Test 09/18/25 06:02 Alanine Aminotransferase (ALT) 21 U/L (7-40) Alkaline Phosphatase 689 U/L (46-116) H Aspartate Amino Transferase (AST) 71 U/L (13-40) H Total Bilirubin 0.8 mg/dL (0.2-1.0) Microbiology Microbiology Date/Time Source Procedure Growth Status 09/16/25 14:39 Pleural Fluid Gram Stain - Final Resulted 09/16/25 14:39 Pleural Fluid Body Fluid Culture - Preliminary Resulted Labs and/or images reviewed: Labs reviewed by me, Image(s) reviewed by me Assessment/Plan Assessment/Plan Impression: -acute hypoxic respiratory failure -end-stage renal disease with hemodialysis -chest pain -bilateral pleural effusions -accelerated hypertension -anemia of chronic disease Plan: -IR consultation. Non fluid to drain. Patient already had thoracentesis on right lung -D-dimer 9.2 on 09/14. CT angiogram of the chest -cardiology consultation: Recommendations reviewed. No plans for further testing from their standpoint -pulmonology consultation: Recommendations reviewed. -nephrology consultation: Patient had HD today. -patient weaned off of oxygen. Oxygen saturation 93% on room air -continue antihypertensives -weaned off empiric antibiotic therapy -reassess for discharge in a.m. Total time spent with patient discussing and formulating plan of care: 35 minutes. This medical document was created using an electronic medical record system with [employer] dictation system. Although this document has been carefully reviewed, there may still be some phonetic and typographical errors. These areas are purely typographical due to imperfections of the software programs, and do not reflect any compromise in the patient's medical care. Plan discussed with: Patient, Other (RN) Date of Service: Sep 18, 2025 Billing Provider: ELI NATION NP Common Visit Codes: [id number] INP/OBS CARE(HIGH) ELI NATION NP Sep 18, 2025 12:53
[2025-09-18] MEDS ORDERED: VANCOMYCIN 500mg/100mL 100 ML IV ONE (14:00)
--- NOTE | 2025-09-18 14:27 | DVH ---
Bilateral lower extremity venous duplex Clinical History: elevated D dimer Comparison: US BILAT LOWER DVT on DOS: 04/14/25 Technique: Duplex Doppler evaluation of the deep venous systems of both lower extremities from the common femora l veins to the popliteal veins including color Doppler and spectral/pulsed waveform analysis was perf ormed. Findings: RIGHT SIDE: The common femoral vein demonstrates appropriate compressibility and waveform variability. There is compressibility/patency of the great saphenous vein at the proximal thigh. The femoral vein demonstrates appropriate compressibility and waveform variability. The deep femoral vein demonstrates appropriate compressibility and waveform variability. The popliteal vein demonstrates appropriate compressibility and waveform variability. There is normal compressibility at the tibioperoneal trunk. LEFT SIDE: The common femoral vein demonstrates appropriate compressibility and waveform variability. There is compressibility/patency of the great saphenous vein at the proximal thigh. The femoral vein demonstrates appropriate compressibility and waveform variability. The deep femoral vein demonstrates appropriate compressibility and waveform variability. The popliteal vein demonstrates appropriate compressibility and waveform variability. There is normal compressibility at the tibioperoneal trunk. Impression: 1. No right or left femoropopliteal venous thrombosis.
--- NOTE | 2025-09-18 15:00 | DVH ---
Procedure: CT CT ANGIO CHEST CONTRAST Reason for study/Clinical History: rule out PE Comparison Study: XY CHEST PORTABLE on DOS: 09/17/25, XY CHEST XRAY 1 VIEW on DOS: 09/16/25, US CHEST U LTRASOUND on DOS: 09/15/25, XY CHEST XRAY 1 VIEW on DOS: 09/14/25, XY CHEST XRAY 1 VIEW on DOS: Exam Date: 09/18/2025 02:[address] Angio Chest with Contrast TECHNIQUE: Multiple axial CT images of chest was performed following intravenous contrast administrat ion and coronal reformatting was performed. 3-D/MIP images were obtained. Radiation Dose : CTDI volume is 26.73 mGy. Dose-length product is 941.98 mGy*cm FINDINGS: Pulmonary Arteries: There are no filling defects within main, lobar, segmental and visualized subsegm ental branch pulmonary arteries. There is normal dimensional of main PA. Lungs: Large bilateral pleural effusions left greater than right. Small pericardial effusion. Cardi omegaly. There is no pneumothorax or pneumomediastinum. Aorta and Vasculature: There is normal caliber of thoracic aorta without evidence of aortic dissecti on, intramural hematoma or aneurysm. Lymph Nodes: There is no significant intrathoracic or axillary lymphadenopathy on CT size criteria. Lower Neck: Visualized portions of the thyroid gland are unremarkable. Mediastinum: Large bilateral pleural effusions left greater than right. Small pericardial effusion. Cardiomegaly. The esophagus is unremarkable. Musculoskeletal: No aggressive focal bony lesions, acute fractures or dislocation. Chest wall: Unremarkable Partially visualized upper abdomen is grossly unremarkable. IMPRESSION: No evidence of acute or chronic pulmonary embolism. Large bilateral pleural effusions left greater than right. Small pericardial effusion. Cardiomegaly. END IMPRESSION: All CT scans at this medical facility are performed using dose modulation techniques as appropriate t o a performed exam including the following: Automated exposure control was utilized; adjustment of th e MA and/or KV according to patient size; and use of iterative reconstruction technique.
--- NOTE | 2025-09-18 20:08 | DVHNC2 ---
Procedure - Ultrasound-guided Left thoracentesis procedure note: Physician: Dr Gaetano Vásquez Time out time: 1929 pm Manager Qa: PGY2 Dr Coley, Dr Rodriguez PGY1, RN Vimal Patient medications and allergies reviewed. The risks and benefits of the procedure and the sedation options and risk were discussed with the patient's healthcare proxy. All questions were answered and informed consent was obtained. Patient identification and proposed procedure were verified prior to the procedure by the physician, and a nurse in the patient's room. The heart rate, respiratory rate, oxygen saturations, blood pressure, adequacy of pulmonary ventilation, and response to care were monitored throughout the procedure. The physical status of the patient was reassessed after the procedure. Date: 09/18/2025 Consent: Consent was obtained from patient's healthcare proxy prior to procedure. Indication, risks, and benefits were explained at length. Procedure summary: A time-out was performed and a chest x-ray was reviewed prior to procedure. The appropriate site was confirmed and marked. My hands were washed immediately prior to the procedure, I wore a surgical cap, mask with protective eyewear, sterile gown and sterile gloves throughout the procedure. The patient was prepped and draped in a sterile manner using chlorhexidine scrub after the appropriate level was percussed and confirmed by ultrasound. 1% lidocaine was used to anesthetize the skin, subcutaneous tissue, superior aspect of the rib periosteum and parietal pleura. A finder needle was then introduced over the superior aspect of the rib to locate the pleural fluid; yellow fluid was aspirated. Thoracentesis needle was then introduced through the skin incision into the pleural space using negative aspiration pressure. The thoracentesis catheter was then threaded without difficulty. 1600 mL's of yellow colored fluid were removed without difficulty. The catheter was then removed. No immediate complications were noted during the procedure. A post-procedure chest x-ray is pending at the time of this note. The pleural fluid will be sent for cultures and cytology. Estimated blood loss is less than 5 mL's. CPT: 40000 Visit Coding Pulmonary Billing Provider: ROSA VÁSQUEZ MD Date of Service if different f: Sep 18, 2025 Common Visit Codes: PROCEDURE ONLY Procedure Codes: [id number] W/PUNCT (71527 Left thoracentesis) ROSA VÁSQUEZ MD Sep 18, 2025 20:08
--- NOTE | 2025-09-18 20:43 | DVH ---
EXAM: XY CHEST XRAY 1 VIEW HISTORY: s/p left thoracentesis r/o pneumothorax. TECHNIQUE: 1 view of the chest COMPARISON: XY CHEST PORTABLE on DOS: 09/17/25 FINDINGS/IMPRESSION: LUNGS: Central pulmonary vascular congestion. Peripheral interstitial edema. Hazy bibasilar alveola r opacities likely compatible with atelectasis. Improved aeration from prior MEDIASTINUM: Unremarkable. BONES: No acute osseous abnormality. OTHER: Right dual-lumen dialysis catheter
--- NOTE | 2025-09-18 21:19 | DVHSR ---
APPROVED REPORT EXAM: Two-dimensional and M-mode echocardiogram with Doppler and color Doppler. Blood Pressure: 104/66 mmHg INDICATION CHF Exacerbation BRIEF HISTORY Congestive Heart Failure RISK FACTORS Obesity: Height: 5'7, Weight: 250 DIMENSIONS LVDd5.2 (3.8-5.7cm)LA (2D)4.6 (1.9-4.0cm)Aortic Root3.2 (2.0-3.7cm) LVDs4.5 (2.5-4.0cm)LA (MM) (1.9-4.0cm)Aortic Cusp Exc1.8 (1.5-2.0cm) EF (%) 30.0 (55-70%)Rt. Atrium4.7 (1.9-4.0cm)Asc. Aorta3.1 cm IVSd0.8 (0.7-1.1cm)RV (D)3.9 (1.8-2.4cm) PWd1.1 (0.7-1.1cm) Mitral Valve MitralMitral Stenosis E wave0.63m/sMV Mean GR.mmHg A wave0.39m/sMV Peak GR.mmHg E/A ratio1.62D MVAcm2 DECEL [id number] 1/2 Timems Aortic Valve Aortic ValveAortic Stenosis V11.13m/Mio Mean GR.6mmHg V21.51m/Mio Peak GR.9mmHg LVOT Diameter2.2 (1.8-2.4cm)Doppler AVA2.84cm2 Pulmonic Valve V21.10m/s Tricuspid Valve TR Velocity1.89m/s [id number] Other Information Quality : Technically LimitedRhythm : Technically limited study due to body habitus.patient position. pt sitting up and cant turn very sob . Conclusion DILATED ALL CARDIAC CHAMBERS LV EF IS ONLY IN RANGE OF 25% DYSKINESIS OF IVS ANTERIOR WALL SEVERE HYPOKINESIS GROSSLY NORMAL VALVES NO EFFUSION
--- NOTE | 2025-09-18 23:06 | DVHPN2 ---
Subjective DOS: 09/18/2025 Patient seen and examined at bedside. Remains on supplemental oxygen Overnight events reviewed. Reviewed: Care Plan, H&P, Labs, Medications, Previous Orders Changes from previous H/P or p: No Changes General: Per HPI Objective Vitals Vital Signs Date Time Temp Pulse Resp B/P (MAP) Pulse Ox O2 Delivery O2 Flow Rate FiO2 09/18/25 20:42 98.1 79 20 122/65 (84) 95 98.1 09/18/25 14:49 1.0 09/18/25 13:37 Nasal Cannula* 24 Intake/Output Intake and Output 09/18/25 07:00 Intake Total 1750 ml Output Total 0 ml Balance 1750 ml Intake Oral 1650 ml IV Total 100 ml Output Urine Total 0 ml Exam Gen.: Patient lying in bed in no apparent distress. On supplemental oxygen. Head: Normocephalic, atraumatic. Eyes: EOMI/PERRLA. Ears: Normal hearing. Normal anatomy. Neck/trachea: Trachea midline, supple. Nose: Normal external anatomy. Mouth: Moist mucous membranes. Chest: Decreased air entry bilaterally. No wheezing or rhonchi. Cardiovascular: Positive S1, positive S2. Regular rate and rhythm. Abdomen: Positive bowel sounds in all 4 quadrants. Soft, non-tender, non- distended. : Deferred. Rectal: Deferred. Skin: Warm, dry. Intact. Extremities: 2+ radial pulses bilaterally. No lower extremity edema. Neuro: Awake, alert, oriented x3. No gross motor or sensory deficits. Cranial nerves II through XII intact. Gait not assessed. General Appearance: Alert, Oriented X3, Cooperative, mild distress HEENT: Atraumatic, PERRLA Cardiovascular: Normal S1, Normal S2 Abdomen: Normal bowel sounds, Soft, No tenderness, No hepatospenomegaly Musculoskeletal: Normal sensory function, Normal motor function Neuro: Normal gait, Normal speech Skin: Dry, Intact Psych/Mental Status: Mental status NL, Mood NL Medications Current Medications Medications Dose Ordered Sig/Milka Route Start Time Stop Time Status Last Admin Dose Admin Levalbuterol HCl 0.625 mg Q6HR NEB 09/14/25 12:00 09/18/25 20:31 0.625 MG Aspirin 81 mg DAILY PO 09/15/25 10:00 09/18/25 13:11 81 MG Atorvastatin Calcium 80 mg HS PO 09/14/25 22:00 09/17/25 21:28 80 MG Calcium Acetate 1,334 mg TIDWMEALS PO 09/14/25 18:00 09/18/25 18:53 1,334 MG Carvedilol 25 mg Q12HR PO 09/14/25 22:00 09/18/25 13:26 25 MG Furosemide 60 mg DAILY PO 09/15/25 10:00 09/18/25 13:12 60 MG Gabapentin 300 mg BID PO 09/14/25 22:00 09/18/25 10:00 300 MG Isosorbide Mononitrate 30 mg DAILY PO 09/15/25 10:00 Sacubitril/ Valsartan 1 tab BID PO 09/14/25 22:00 09/18/25 13:12 1 TAB Ondansetron HCl 4 mg Q4HP PRN IV 09/14/25 14:15 09/16/25 17:26 4 MG Acetaminophen 650 mg Q6HP PRN PO 09/14/25 14:15 09/16/25 17:00 650 MG Vancomycin HCl 250 ml @ 250 mls/hr DAILY IV 09/16/25 10:00 UNV Albuterol 2.5 mg Q4HPRN PRN NEB 09/15/25 15:00 09/15/25 15:30 2.5 MG Diagnostic Test (Pha) 1 strip Q6HR 09/16/25 18:00 09/18/25 18:00 1 STRIP Insulin Human Regular Q6HR SC 09/16/25 18:00 09/18/25 18:54 12 UNITS Dextrose 50 ml UD PRN IV 09/16/25 15:45 Insulin Glargine 20 units HS SC 09/17/25 10:00 09/17/25 21:45 20 UNITS Laboratory Results Laboratory Tests 09/18/25 06:02 Chemistry Test 09/18/25 06:02 Albumin 3.1 g/dL (3.2-4.8) L Calcium Level 8.1 mg/dL (8.7-10.4) L Total Protein 6.6 g/dL (5.7-8.2) Coagulation Test 09/18/25 09:23 09/18/25 14:54 Prothrombin Time 10.9 sec (9.3-11.8) Prothrombin Time INR 1.03 (0.9-1.15) Activated Partial Thromboplast Time 31.4 SEC (24.5-34.5) D-Dimer, Quantitative > 35.20 mg/L FEU (0.0-0.49) LFT Test 09/18/25 06:02 Alanine Aminotransferase (ALT) 21 U/L (7-40) Alkaline Phosphatase 689 U/L (46-116) H Aspartate Amino Transferase (AST) 71 U/L (13-40) H Total Bilirubin 0.8 mg/dL (0.2-1.0) Microbiology Microbiology Date/Time Source Procedure Growth Status 09/16/25 14:39 Pleural Fluid Gram Stain - Final Resulted 09/16/25 14:39 Pleural Fluid Body Fluid Culture - Preliminary Resulted Assessment/Plan Assessment/Plan Impression: Acute on chronic hypoxic respiratory failure Dependence on supplemental oxygen CHF exacerbation Pleural effusion Atelectasis Left below-knee amputation End-stage renal disease, on hemodialysis Morbid obesity, BMI 38.9 Events: Remains on supplemental oxygen, 2 LPM NC Taper O2 as tolerated Limited chest ultrasound reveals moderate left pleural effusion Plan for left thoracentesis. Hypotension improved Hemodialysis per Nephrology F/u Nephrology recs Continue antibiotics Continue bronchodilators PRN Incentive spirometry Monitor blood pressure S/p left thoracentesis today with removal of 1600 mL's of yellow fluid from the left pleural space. See separate procedure note for details. S/p right thoracentesis on 09/16/25 Accu-Cheks, ISS Wound care Labs and imaging reviewed. Rest of plan as noted below. Plan: Supplemental oxygen Titrate to keep O2 sats above 92%. Continue bronchodilators. Antibiotics Incentive spirometry F/u Cardiology recs Monitor blood pressure Accu-Cheks, ISS. HD per Nephrology Monitor renal function. Monitor electrolytes. Supplement as necessary. Monitor ins and outs. Maintain euvolemia Recommend diet and lifestyle modifications for weight reduction Obesity complicates all care DVT prophylaxis. Prognosis: Poor given patient's multiple co-morbidities. Rest of plan per hospitalist and other consultants. Thank you, Dr. Case, for allowing me to participate in this patient's care. Further recommendations will depend on the patient's clinical course. Please do not hesitate to contact me if you have any questions or concerns. This medical document was created using an electronic medical record system with [employer] system. Although these documentations are being carefully reviewed, there may still be some phonetic and typographical changes. The errors are purely typographical, due to imperfection on the software program, and do not reflect any compromise in the patient's medical care. Plan discussed with: Patient, Other (RN Emily) My Orders Orders - ROSA CHEN MD Procedure Category Date Status Time Chest Xray 1 View XY 09/18/25 Resulted 20:04 Body Fluid Culture W/ ELLIE 09/18/25 In Process GS 20:04 Glucose Body Fluid LAB 09/18/25 In Process 20:04 Protein, Body Fluid LAB 09/18/25 In Process 20:04 Lactate LAB 09/18/25 In Process Dehydrogenase, Fluid 20:04 Cytology ELLIE 09/18/25 Transmitted 20:04 Visit Coding Pulmonary Billing Provider: ROSA CHEN MD Date of Service if different f: Sep 18, 2025 Common Visit Codes: [id number] INP/OBS CARE(HIGH) ROSA CHEN MD Sep 18, 2025 23:05
[2025-09-19] VITALS (21 sets, daily range): BP systolic 101–135; BP diastolic 52–89; PULSE 73–84; RESP 14–20; TEMP 97.9–99.1; O2SAT 94–100
--- NOTE | 2025-09-19 00:44 | DVHINCON2 ---
Date of service: Sep 18, [address] Case Reason for Consultation CHF History of Present Illness This is a 50 year old male with a PMH of CHF, CAD, ESRD, type 2 DM, HLD, HTN, dialysis dependent patient who presented to the ED with worsening shortness of breath for 3-5 days prior to admissions.He reports dyspnea on exertion, and orthopnea. He also mentions that he has noticed an increase in SOB compared to previous. The patient states that he has been compliant with all of his medications, and has not missed any doses/ HD sessions. He denies any chest pain, palpitations, or other cardiac symptoms. Initial BNP level of 1039.99 pg/mL.Serial troponin was 28->29. Patient reported that he has been on dialysis for 7 months and he also diagnosed with right-sided pleural effusion and drain 2 times in past but this time patient developed left-sided pleural effusion as well which was drained yesterday. Unable to drain the right side due to hypotension. Patient was admitted to the hospital. I am asked to consult on this patient. Past Medical History CHF, CAD, ESRD, type 2 DM, HLD, HTN, Past Surgical History Left BKA, past thoracentesis, left upper arm fistula surgery Family History: Alcoholism G8 FATHER Asthma G8 MOTHER Depression G8 MOTHER G8 FATHER Diabetes mellitus G8 MOTHER Glaucoma G8 MOTHER Allergies: Coded Allergies: Hydralazine (Verified Allergy, Unknown, 04/13/25) Piperacillin (Verified Allergy, Unknown, 08/31/24) Tazobactam (Verified Allergy, Unknown, 08/31/24) Home Meds Active Scripts Calcium Acetate (CALCIUM ACETATE) 667 Mg Tab, 1334 MG PO TIDWMEALS for 30 Days, #180 TAB Prov:TAMELA GUTIERREZ MD 04/25/25 Diphenhydramine Hcl (BENADRYL CAPSULE) 25 Mg Cp, 25 MG PO Q6HP PRN, #30 CAP Prov:TAMELA GUTIERREZ MD 04/25/25 Atorvastatin Calcium (Lipitor) 80 Mg Tab, 1 TAB PO DAILY, #30 TAB 0 Refills Prov:TAMELA GUTIERREZ MD 04/25/25 Carvedilol (Coreg) 25 Mg Tab, 1 TAB PO BID, #60 TAB 0 Refills Prov:TAMELA GUTIERREZ MD 04/25/25 Nifedipine (Nifedipine Er) 60 Mg Tab, 1 TAB PO DAILY, #30 TAB 0 Refills Prov:TAMELA GUTIERREZ MD 04/25/25 Pantoprazole Sodium Sesquihydr (Pantoprazole Sodium) 40 Mg Tab, 40 MG PO DAILY@0600 for 30 Days, #30 TAB Prov:TAMELA GUTIERREZ MD 04/25/25 Spironolactone (Aldactone) 25 Mg Tab, 25 MG PO DAILY for 30 Days, #30 TAB Prov:TAMELA GUTIERREZ MD 04/25/25 Sacubitril-Valsartan (Entresto 24-26 mg) 1 Tab Tab, 1 TAB PO BID for 30 Days, #60 TAB Prov:TAMELA GUTIERREZ MD 04/25/25 Nifedipine (Nifedipine Er) 30 Mg Tab, 1 TAB PO DAILY, #30 TAB 3 Refills Prov:LOR KENNEDY MD 12/11/24 Reported Medications Patiromer Sorbitex Calcium (Veltassa) 8.4 Gm Pow, 8.4 GM PO, POW 06/05/25 Ondansetron Odt 4MG Tab (ZOFRAN PO) 4 Mg Tb, 4 MG PO, TAB ODT TAB-DISSOLVE IN MOUTH, THEN SWALLOW 06/05/25 Lidocaine (Lidocaine Pain Relief Pat) 4 % Pad, 4 % EX, PAD 06/05/25 Insulin Glargine (Basaglar Kwikpen) 100 Unit/Ml Inj, 120 UNIT SC, INJ 06/05/25 Furosemide (Lasix) 40 Mg Tab, 40 MG PO, TAB 06/05/25 Ergocalciferol (Vitamin D) 50,000 Unit Cap, 04371 UNIT PO, CAP 06/05/25 Duloxetine Hcl (Cymbalta) 30 Mg Cap, 30 MG PO, CAP 06/05/25 Docusate Sodium (Colace) 100 Mg Cap, 1 CAP PO BID, #30 CAP 06/05/25 Clonidine Hydrochloride (Clonidine Hcl) 0.1 Mg Tab, 0.1 MG PO BID for 30 Days, MG 06/05/25 Carvedilol (Carvedilol) 12.5 Mg Tab, 1 TAB PO BID, #180 TAB 1 Refill 06/05/25 Atorvastatin Calcium (ATORVASTATIN CALCIUM) 40 Mg Tab, 1 TAB PO DAILY, #30 TAB 5 Refills 06/05/25 Ascorbic Acid (Ascorbic Acid) 500 Mg Tab, 500 MG PO DAILY, TAB 06/05/25 Metolazone (Metolazone) 2.5 Mg Tab, 2 TAB PO 2XW 04/14/25 Bumetanide (Bumetanide) 2 Mg Tab, 1 TAB PO 04/14/25 Terazosin Hcl (Terazosin Hcl) 2 Mg Cap, 1 CAP PO HS 04/14/25 Cholecalciferol (VITAMIN D-3) 2,000 Unit Tab, 2000 UNIT PO DAILY, TAB 04/14/25 Amlodipine Besylate (Amlodipine Besylate) 5 Mg Tab, 10 MG PO DAILY 04/14/25 Isosorbide Mononitrate (Isosorbide Mononitrate Er) 30 Mg Tab, 30 MG PO DAILY 05/14/22 Gabapentin (Gabapentin) 300 Mg Cap, 300 MG PO TID 05/14/22 Aspirin (ASPIRIN 81) 81 Mg Tab, 81 MG PO DAILY 05/14/22 Current Medications Current Medications Medications (Trade) Dose Ordered Sig/Milka Route PRN Reason Start Time Stop Time Status Last Admin Albumin Human 100 ml @ 100 mls/hr Q1HR IV 09/18/25 10:00 09/18/25 11:59 DC Review of Systems Constitutional: reports: fatigue EENTM: denies: blurred vision, double vision, hearing loss, mouth pain, nose congestion, photophobia, throat pain Respiratory: reports: cough, orthopnea, shortness of breath (At rest and excertion ); denies: hemoptysis Cardiovascular: reports: Dyspnea on exertion; denies: chest pain, dizzy spells, diaphoresis, edema, irregular heart beat, palpitations Gastrointestinal: reports: vomiting; denies: abdomen distended, abdominal pain, constipated, diarrhea, dysphagia, difficulty swallowing, hematemesis, melena, nausea, poor appetite Genitourinary: denies: burning, dysuria, flank pain, frequency, hematuria, incontinence, pain, urgency Neurological: reports: paresthesia (Due to peripheral neuropathy ), pre- existing deficit; denies: dizziness, fainting, headache, numbness, seizure, tingling, tremors, weakness Musculoskeletal: reports: muscle pain; denies: joint pain, joint swelling, muscle stiffness Integumetry: reports: bruises, wounds Vital Signs Vital Signs Date Time Temp Pulse Resp B/P (MAP) Pulse Ox O2 Delivery O2 Flow Rate FiO2 09/19/25 00:17 83 20 94 09/19/25 00:09 Room Air* 0 21 09/18/25 20:42 98.1 122/65 (84) 98.1 Physical Exam GENERAL: Alert and oriented x 3. No acute distress. EYES: PERRL, EOMI. Anicteric. HENT: Moist mucous membranes. LUNGS: Diminished breath sounds with bilateral crackles CARDIOVASCULAR: Regular rate and rhythm. ABDOMEN: Soft, non-tender and non-distended. EXTREMITIES: Trace edema RLE, left BKA, stump is clean, left upper extremity fistula. NEUROLOGIC: No focal neurological deficits. SKIN: Warm, dry. Labs/Diagnostic Data Labs Test 09/18/25 20:30 09/18/25 18:03 09/18/25 14:54 09/18/25 09:23 Range/Units Body Fluid Source Pleural fluid Body Fluid pH 8.0 Body Fluid WBC (Manual) 2815 H 0-200 CUMM Body Fluid RBC (Manual) 1488 0-2000 CUMM Body Fluid Mononuclear Cells 46 % Body Fluid Polymorphonuclear Cells 54 H 0-25 % POC Glucose 303 H 70-106 mg/dl D-Dimer, Quantitative > 35.20 H 0.0-0.49 mg/L FEU Prothrombin Time 10.9 9.3-11.8 sec Prothrombin Time INR 1.03 0.9-1.15 Activated Partial Thromboplast Time 31.4 24.5-34.5 SEC Test 09/18/25 06:02 09/17/25 14:39 09/16/25 10:51 09/14/25 11:43 Range/Units White Blood Count 9.8 4.4-10.8 10^3/uL Red Blood Count 3.62 L 4.5-5.90 10^6/uL Hemoglobin 11.1 L 13.5-17.5 g/dL Hematocrit 34.0 L 41.0-53.0 % Mean Corpuscular Volume 93.9 80.0-100.0 fL Mean Corpuscular Hemoglobin 30.7 28.0-32.0 pg Mean Corpuscular Hemoglobin Concent 32.7 32.0-36.0 g/dL Red Cell Distribution Width 15.2 H 11.8-14.3 % Platelet Count 254 140-450 10^3/uL Mean Platelet Volume 8.4 6.9-10.8 fL Neutrophils (%) (Auto) 67.7 37.0-80.0 % Lymphocytes (%) (Auto) 14.3 10.0-50.0 % Monocytes (%) (Auto) 9.9 0.0-12.0 % Eosinophils (%) (Auto) 7.6 H 0.0-7.0 % Basophils (%) (Auto) 0.5 0.0-2.0 % Neutrophils # (Auto) 6.6 1.6-8.6 10 ^3/uL Lymphocytes # (Auto) 1.4 0.4-5.4 10 ^3/uL Monocytes # (Auto) 1.0 0-1.3 10 ^3/uL Eosinophils # (Auto) 0.7 0-0.8 10 ^3/uL Basophils # (Auto) 0 0-0.2 10 ^3/uL Nucleated Red Blood Cells 0.1 % Sodium Level 131 L 136-145 mmol/L Potassium Level 5.7 *H 3.5-5.1 mmol/L Chloride Level 95 L 98-107 mmol/L Carbon Dioxide Level 25 20-31 mmol/L Anion Gap 11 5-15 Blood Urea Nitrogen 42 H 9-23 mg/dL Creatinine 6.39 H 0.700-1.30 mg/dL Glomerular Filtration Rate Calc 10 >90 mL/min BUN/Creatinine Ratio 6.6 L 10.0-20.0 Serum Glucose 153 #H 74-106 mg/dL Calcium Level 8.1 L 8.7-10.4 mg/dL Total Bilirubin 0.8 0.2-1.0 mg/dL Aspartate Amino Transferase (AST) 71 H 13-40 U/L Alanine Aminotransferase (ALT) 21 7-40 U/L Alkaline Phosphatase 689 H 46-116 U/L Total Protein 6.6 5.7-8.2 g/dL Albumin 3.1 L 3.2-4.8 g/dL Random Vancomycin Level 18.8 H 5-10 ug/mL Ammonia < 10 L 11-32 umol/L Hepatitis B Surface Antigen Negative Negative Troponin I High Sensitivity 28 </=54 ng/L Test 09/14/25 09:53 Range/Units B-Type Natriuretic Peptide 1039.99 0-100 pg/mL Microbiology Date/Time Source Procedure Growth Status 09/16/25 14:39 Pleural Fluid Gram Stain - Final Resulted 09/16/25 14:39 Pleural Fluid Body Fluid Culture - Preliminary Resulted Assessment Acute on chronic HFrEF, NYHA Class IV. Acute hypoxic respiratory failure. ESRD on HD. Uncontrolled T2 DM. HTN. HLD. Pleural effusion B/l. S/p Left BKA. Plan/Recommendation I agree with your ongoing assessment and care of plan. Patient has been seen by Maxime Arrieta, Resident on my behalf. We have discussed the plan with the patient. New Echocardiogram to evaluate cardiac function. Previous Echo in january showed EF 25%. Guideline directed medical therapy for CHF as renal function and BP permits Coreg and Entresto. Diuretics. BP control. Lipid-lowering agent. DVT/VTE prophylaxis. Risk factor modification, counseled. Dietary changes. Limiting sodium intake. Strict INOs. Maintaining fluid restriction, daily weight. Additional plan as per the hospital course. Plan discussed with: Patient NAMRATA LAGUNA MD Sep 19, 2025 00:44
[2025-09-19 06:31] LABS: Hematocrit 34.5 % (41.0-53.0); Hemoglobin 11.3 g/dL (13.5-17.5); Mean Corpuscular Hemoglobin 30.8 pg (28.0-32.0); Mean Corpuscular Volume 94.3 fL (80.0-100.0); Nucleated Red Blood Cells % 0.0 %
[2025-09-19 06:50] LABS: Alanine Aminotransferase 17 U/L (7-40); Anion Gap 10 (5-15); BUN/Creatinine Ratio 8.7 (10.0-20.0); Bilirubin, Total 0.6 mg/dL (0.2-1.0); Carbon Dioxide 27 mmol/L (20-31); Total Protein 6.1 g/dL (5.7-8.2)
[2025-09-19 06:53] LABS: Albumin 2.8 g/dL (3.2-4.8); Alkaline Phosphatase 731 U/L (46-116); Blood Urea Nitrogen 46 mg/dL (9-23); Calcium 7.8 mg/dL (8.7-10.4); Chloride 96 mmol/L (98-107); Glucose 208 mg/dL (74-106); Potassium 5.4 mmol/L (3.5-5.1); Sodium 133 mmol/L (136-145)
--- NOTE | 2025-09-19 08:10 | ECG ---
[facility] Test Date: 2025-09-18 Test Time: 17:09:54 Pat Name: ASHLI GAN Department: Room: 0284 A Gender: M Qm Consultant: [id number] : 1975 Requested By: MAY DUFF Order Number: [id number] Reading MD: Santo Rossi Measurements Intervals [place] Rate: 80 P: 33 MA: 145 QRS: 35 QRSD: 89 T: 32 QT: 356 QTc: 411 Interpretive Statements Sinus rhythm Electronically Signed On 09-19-2025 13:08:45 PST by Santo Rossi Please click the below link to view image of tracing.
[2025-09-19] MEDS: ALBUMIN 25% 100 ML IV SCH (08:55)
[2025-09-19] MEDS: ALBUMIN 5% 0 ML IV ONE (08:55)
[2025-09-19] MEDS: SODIUM CHL 0.9% 1000 ML BAG XX ONE ×2 (08:55)
[2025-09-19] MEDS: IOHEXOL 350 MG/ML 100ML IJ ONE (08:55)
[2025-09-19] MEDS: VANCOMYCIN 500mg/100mL 100 ML IV ONE (08:55)
--- NOTE | 2025-09-19 13:31 | DVHPN2 ---
Subjective Patient now reporting having uncontrolled tremors to upper and lower extremities Reviewed: Care Plan, H&P, Labs, Medications, Previous Orders Changes from previous H/P or p: Changes General: Per HPI Objective Vitals Vital Signs Date Time Temp Pulse Resp B/P (MAP) Pulse Ox O2 Delivery O2 Flow Rate FiO2 09/19/25 12:59 98.8 80 20 124/89 (101) 97 98.8 09/19/25 10:02 Room Air* 0 21 Intake/Output Intake and Output 09/19/25 07:00 Intake Total 1080 ml Output Total 0 ml Balance 1080 ml Intake Oral 1080 ml Output Urine Total 0 ml General Appearance: Alert, Oriented X3, Cooperative, mild distress HEENT: Atraumatic, PERRLA Cardiovascular: Normal S1, Normal S2 Abdomen: Normal bowel sounds, Soft, No tenderness, No hepatospenomegaly Musculoskeletal: Normal sensory function, Normal motor function Neuro: Normal gait, Normal speech Skin: Dry, Intact Psych/Mental Status: Mental status NL, Mood NL Medications Current Medications Medications Dose Ordered Sig/Milka Route Start Time Stop Time Status Last Admin Dose Admin Levalbuterol HCl 0.625 mg Q6HR NEB 09/14/25 12:00 09/19/25 11:24 0.625 MG Aspirin 81 mg DAILY PO 09/15/25 10:00 09/19/25 10:02 81 MG Atorvastatin Calcium 80 mg HS PO 09/14/25 22:00 09/18/25 23:29 80 MG Calcium Acetate 1,334 mg TIDWMEALS PO 09/14/25 18:00 09/19/25 12:14 1,334 MG Carvedilol 25 mg Q12HR PO 09/14/25 22:00 09/18/25 13:26 25 MG Furosemide 60 mg DAILY PO 09/15/25 10:00 09/19/25 10:00 60 MG Gabapentin 300 mg BID PO 09/14/25 22:00 09/19/25 10:02 300 MG Isosorbide Mononitrate 30 mg DAILY PO 09/15/25 10:00 Ondansetron HCl 4 mg Q4HP PRN IV 09/14/25 14:15 09/16/25 17:26 4 MG Acetaminophen 650 mg Q6HP PRN PO 09/14/25 14:15 09/16/25 17:00 650 MG Vancomycin HCl 250 ml @ 250 mls/hr DAILY IV 09/16/25 10:00 UNV Albuterol 2.5 mg Q4HPRN PRN NEB 09/15/25 15:00 09/15/25 15:30 2.5 MG Diagnostic Test (Pha) 1 strip Q6HR 09/16/25 18:00 09/19/25 12:13 1 STRIP Insulin Human Regular Q6HR SC 09/16/25 18:00 09/19/25 12:22 6 UNITS Dextrose 50 ml UD PRN IV 09/16/25 15:45 Insulin Glargine 20 units HS SC 09/17/25 10:00 09/18/25 23:15 20 UNITS Laboratory Results Laboratory Tests 09/19/25 05:10 Chemistry Test 09/19/25 05:10 Albumin 2.8 g/dL (3.2-4.8) L Calcium Level 7.8 mg/dL (8.7-10.4) L Total Protein 6.1 g/dL (5.7-8.2) Coagulation Test 09/18/25 14:54 D-Dimer, Quantitative > 35.20 mg/L FEU (0.0-0.49) LFT Test 09/19/25 05:10 Alanine Aminotransferase (ALT) 17 U/L (7-40) Alkaline Phosphatase 731 U/L (46-116) H Aspartate Amino Transferase (AST) 43 U/L (13-40) H Total Bilirubin 0.6 mg/dL (0.2-1.0) Microbiology Microbiology Date/Time Source Procedure Growth Status 09/18/25 20:30 Pleural Fluid Gram Stain - Final Resulted 09/18/25 20:30 Pleural Fluid Body Fluid Culture - Preliminary No growth Resulted Labs and/or images reviewed: Labs reviewed by me, Image(s) reviewed by me Assessment/Plan Assessment/Plan Impression: -acute hypoxic respiratory failure -end-stage renal disease with hemodialysis -chest pain -bilateral pleural effusions -accelerated hypertension -anemia of chronic disease -acute on chronic systolic heart failure with ejection fraction 25% Plan: Events: Patient had thoracentesis of left lung, [address] angiogram of the chest negative. DVT study negative. -neurology consultation for new onset of tremors. -cardiology consultation: Recommendations reviewed. No plans for further testing from their standpoint -pulmonology consultation: Recommendations reviewed. -nephrology consultation: Patient had HD today. -patient weaned off of oxygen. Oxygen saturation 93% on room air -continue antihypertensives Total time spent with patient discussing and formulating plan of care: 35 minutes. This medical document was created using an electronic medical record system with [employer] dictation system. Although this document has been carefully reviewed, there may still be some phonetic and typographical errors. These areas are purely typographical due to imperfections of the software programs, and do not reflect any compromise in the patient's medical care. Plan discussed with: Patient, Other (RN) My Orders Orders - ELI NATION NP Procedure Category Date Status Time * Neurology Consult CONS 09/19/25 Verified 13:25 Date of Service: Sep 19, 2025 Billing Provider: ELI NATION NP Common Visit Codes: [id number] INP/OBS CARE(HIGH) ELI NATION NP Sep 19, 2025 13:31
--- NOTE | 2025-09-19 14:54 | DVHPN2 ---
Progress Note Date Seen: Sep 19, 2025 Resident Creating Document: MAY DUFF RESIDENT Has the PT tested + for MRSA If YES, has PT been informed?: No Medical Necessity Reason Pt with a Central, PICC or Fol: No Subjective Review of Systems Patient seen and examined the bedside. Patient reported improvement in his symptoms since admission, reported no new complaints at this time. Objective vital signs Vital Sign Date Time Temp Pulse Resp B/P (MAP) Pulse Ox O2 Delivery O2 Flow Rate FiO2 09/19/25 12:59 98.8 80 20 124/89 (101) 97 98.8 09/19/25 10:02 Room Air* 0 21 Total Intake and Output 09/18/25 09/18/25 09/19/25 15:00 23:00 07:00 Intake Total 600 ml 480 ml Output Total 0 ml Balance 600 ml 480 ml medications Current Medications Medications Dose Ordered Sig/Milka Route Start Time Stop Time Status Last Admin Dose Admin Levalbuterol HCl 0.625 mg Q6HR NEB 09/14/25 12:00 09/19/25 11:24 0.625 MG Aspirin 81 mg DAILY PO 09/15/25 10:00 09/19/25 10:02 81 MG Atorvastatin Calcium 80 mg HS PO 09/14/25 22:00 09/18/25 23:29 80 MG Calcium Acetate 1,334 mg TIDWMEALS PO 09/14/25 18:00 09/19/25 12:14 1,334 MG Carvedilol 25 mg Q12HR PO 09/14/25 22:00 09/18/25 13:26 25 MG Furosemide 60 mg DAILY PO 09/15/25 10:00 09/19/25 10:00 60 MG Gabapentin 300 mg BID PO 09/14/25 22:00 09/19/25 10:02 300 MG Isosorbide Mononitrate 30 mg DAILY PO 09/15/25 10:00 Ondansetron HCl 4 mg Q4HP PRN IV 09/14/25 14:15 09/16/25 17:26 4 MG Acetaminophen 650 mg Q6HP PRN PO 09/14/25 14:15 09/16/25 17:00 650 MG Vancomycin HCl 250 ml @ 250 mls/hr DAILY IV 09/16/25 10:00 UNV Albuterol 2.5 mg Q4HPRN PRN NEB 09/15/25 15:00 09/15/25 15:30 2.5 MG Diagnostic Test (Pha) 1 strip Q6HR 09/16/25 18:00 09/19/25 12:13 1 STRIP Insulin Human Regular Q6HR SC 09/16/25 18:00 09/19/25 12:22 6 UNITS Dextrose 50 ml UD PRN IV 09/16/25 15:45 Insulin Glargine 20 units HS SC 09/17/25 10:00 09/18/25 23:15 20 UNITS Examination Pt is lying on bed General Appearance: Alert, Oriented X3, Cooperative, mild distress HEENT: Atraumatic, Mucous membranes moist/pink Respiratory: diminished breath sounds, poorly audible in right side and b/l crackles Cardiovascular: Regular rate, Normal S1, Normal S2, No murmurs Abdominal: Active bowel sounds, Soft, no distention, no tenderness Extremities: Trace edema rt leg, Normal pulses, left BKA, stump is clean, left upper extremity fistula Skin: No Significant rash, except past surgical scars Neuro: Normal speech, sensorimotor deficits none Psych/Mental Status: Mental status NL, Mood NL 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 laboratory and microbiology Laboratory Tests 09/19/25 05:10 Test 09/19/25 05:10 Range/Units Serum Glucose 208 H 74-106 mg/dL Microbiology Date/Time Source Procedure Growth Status 09/18/25 20:30 Pleural Fluid Gram Stain - Final Resulted 09/18/25 20:30 Pleural Fluid Body Fluid Culture - Preliminary No growth Resulted Labs and/or images reviewed: Labs reviewed by me, Image(s) reviewed by me Problem List/Assessment/Plan Problem List/Assessment/Plan Acute on chronic HFrEF, NYHA Class IV Acute hypoxic respiratory failure ESRD on HD Uncontrolled T2 DM HTN HLD Pleural effusion B/l S/p Left BKA Plan/Recommendation We will continue with the following plan/recommendations (Dr. Garza): New Echocardiogram to evaluate cardiac function Previous Echo in january showed EF 25% Guideline directed medical therapy for CHF as renal function and BP permits Coreg Diuretics BP control Lipid-lowering agent DVT/VTE prophylaxis Risk factor modification, counseled Dietary changes Limiting sodium intake Strict INOs Maintaining fluid restriction, daily weight Case discussed with , optimal medical treatment, as renal function and BP permits Plan discussed with: Patient My Orders My Orders Orders - MAY DUFF RESIDENT Procedure Category Date Status Time Strict I & O LINN 09/18/25 In Process 16:22 Dietary Evaluation Review Recommendations by RD: Dietary education by RD Comments: 1) Lower CHO from 60 to 45g CCHO cardiac renal diet 2) Initiate Nephro-Yoni @ 1 tb qd 3) Refer to RD/CDCES for weight management 4) Follow-up with cardiology, pulmonology, and nephrology 5) Continue to monitor I&O, labs, and skin integrity Expected Outcomes/Goals: 1) appetite and labs to improve 2) wounds to improve 3) gradual wt loss 4) f/u in 3-5 days MAY DUFF RESIDENT Sep 19, 2025 14:54
[2025-09-19 16:07] LABS: Glucose, Body Fluid 343.0 mg/dL (.); LD, Body Fluid 300.0 IU/L (.)
--- NOTE | 2025-09-19 18:57 | DVHPN2 ---
Subjective DOS: 09/19/2025 Patient seen and examined at bedside. Remains on supplemental oxygen Overnight events reviewed. Reviewed: Care Plan, H&P, Labs, Medications, Previous Orders Changes from previous H/P or p: No Changes General: Per HPI Objective Vitals Vital Signs Date Time Temp Pulse Resp B/P (MAP) Pulse Ox O2 Delivery O2 Flow Rate FiO2 09/19/25 17:00 97.9 75 18 114/76 (89) 96 97.9 09/19/25 10:02 Room Air* 0 21 Intake/Output Intake and Output 09/19/25 07:00 Intake Total 1080 ml Output Total 0 ml Balance 1080 ml Intake Oral 1080 ml Output Urine Total 0 ml Exam Gen.: Patient lying in bed in no apparent distress. On supplemental oxygen. Head: Normocephalic, atraumatic. Eyes: EOMI/PERRLA. Ears: Normal hearing. Normal anatomy. Neck/trachea: Trachea midline, supple. Nose: Normal external anatomy. Mouth: Moist mucous membranes. Chest: Decreased air entry bilaterally. No wheezing or rhonchi. Cardiovascular: Positive S1, positive S2. Regular rate and rhythm. Abdomen: Positive bowel sounds in all 4 quadrants. Soft, non-tender, non- distended. : Deferred. Rectal: Deferred. Skin: Warm, dry. Intact. Extremities: 2+ radial pulses bilaterally. No lower extremity edema. Neuro: Awake, alert, oriented x3. No gross motor or sensory deficits. Cranial nerves II through XII intact. Gait not assessed. General Appearance: Alert, Oriented X3, Cooperative, mild distress HEENT: Atraumatic, PERRLA Cardiovascular: Normal S1, Normal S2 Abdomen: Normal bowel sounds, Soft, No tenderness, No hepatospenomegaly Musculoskeletal: Normal sensory function, Normal motor function Neuro: Normal gait, Normal speech Skin: Dry, Intact Psych/Mental Status: Mental status NL, Mood NL Medications Current Medications Medications Dose Ordered Sig/Milka Route Start Time Stop Time Status Last Admin Dose Admin Levalbuterol HCl 0.625 mg Q6HR NEB 09/14/25 12:00 09/19/25 11:24 0.625 MG Aspirin 81 mg DAILY PO 09/15/25 10:00 09/19/25 10:02 81 MG Atorvastatin Calcium 80 mg HS PO 09/14/25 22:00 09/18/25 23:29 80 MG Calcium Acetate 1,334 mg TIDWMEALS PO 09/14/25 18:00 09/19/25 18:14 1,334 MG Carvedilol 25 mg Q12HR PO 09/14/25 22:00 09/18/25 13:26 25 MG Furosemide 60 mg DAILY PO 09/15/25 10:00 09/19/25 10:00 60 MG Gabapentin 300 mg BID PO 09/14/25 22:00 09/19/25 10:02 300 MG Isosorbide Mononitrate 30 mg DAILY PO 09/15/25 10:00 Ondansetron HCl 4 mg Q4HP PRN IV 09/14/25 14:15 09/16/25 17:26 4 MG Acetaminophen 650 mg Q6HP PRN PO 09/14/25 14:15 09/16/25 17:00 650 MG Vancomycin HCl 250 ml @ 250 mls/hr DAILY IV 09/16/25 10:00 UNV Albuterol 2.5 mg Q4HPRN PRN NEB 09/15/25 15:00 09/15/25 15:30 2.5 MG Diagnostic Test (Pha) 1 strip Q6HR 09/16/25 18:00 09/19/25 17:28 1 STRIP Insulin Human Regular Q6HR SC 09/16/25 18:00 09/19/25 18:17 3 UNITS Dextrose 50 ml UD PRN IV 09/16/25 15:45 Insulin Glargine 20 units HS SC 09/17/25 10:00 09/18/25 23:15 20 UNITS Laboratory Results Laboratory Tests 09/19/25 05:10 Chemistry Test 09/19/25 05:10 Albumin 2.8 g/dL (3.2-4.8) L Calcium Level 7.8 mg/dL (8.7-10.4) L Total Protein 6.1 g/dL (5.7-8.2) LFT Test 09/19/25 05:10 Alanine Aminotransferase (ALT) 17 U/L (7-40) Alkaline Phosphatase 731 U/L (46-116) H Aspartate Amino Transferase (AST) 43 U/L (13-40) H Total Bilirubin 0.6 mg/dL (0.2-1.0) Microbiology Microbiology Date/Time Source Procedure Growth Status 09/18/25 20:30 Pleural Fluid Gram Stain - Final Resulted 09/18/25 20:30 Pleural Fluid Body Fluid Culture - Preliminary No growth Resulted Assessment/Plan Assessment/Plan Impression: Acute on chronic hypoxic respiratory failure Dependence on supplemental oxygen CHF exacerbation Pleural effusion Atelectasis Left below-knee amputation End-stage renal disease, on hemodialysis Morbid obesity, BMI 38.9 Events: Remains on supplemental oxygen, 2 LPM NC Taper O2 as tolerated No acute overnight events. Patient is breathing more comfortably post bilateral thoracenteses. Hemodialysis per Nephrology F/u Nephrology recs Continue antibiotics Continue bronchodilators PRN Incentive spirometry Monitor blood pressure S/p left thoracentesis on 09/18/25 with removal of 1600 mL's of yellow fluid from the left pleural space. Post-procedure CXR showed no pneumothorax; findings of central pulmonary vascular congestion. Peripheral interstitial edema. Hazy bibasilar alveolar opacities likely compatible with atelectasis. Improved aeration from prior. See separate procedure note for details. S/p right thoracentesis on 09/16/25 Accu-Cheks, ISS Wound care Labs and imaging reviewed. Rest of plan as noted below. Plan: Supplemental oxygen Titrate to keep O2 sats above 92%. Continue bronchodilators. Antibiotics Incentive spirometry F/u Cardiology recs Monitor blood pressure Accu-Cheks, ISS. HD per Nephrology Monitor renal function. Monitor electrolytes. Supplement as necessary. Monitor ins and outs. Maintain euvolemia Recommend diet and lifestyle modifications for weight reduction Obesity complicates all care DVT prophylaxis. Prognosis: Poor given patient's multiple co-morbidities. Rest of plan per hospitalist and other consultants. Thank you, Dr. Case, for allowing me to participate in this patient's care. Further recommendations will depend on the patient's clinical course. Please do not hesitate to contact me if you have any questions or concerns. This medical document was created using an electronic medical record system with [employer] dictation system. Although these documentations are being carefully reviewed, there may still be some phonetic and typographical changes. The errors are purely typographical, due to imperfection on the software program, and do not reflect any compromise in the patient's medical care. Plan discussed with: Patient, Other (JOSE Bonilla) My Orders Orders - ROSA CHEN MD Procedure Category Date Status Time Chest Xray 1 View XY 09/18/25 Resulted 20:04 Body Fluid Culture W/ ELLIE 09/18/25 In Process GS 20:04 Glucose Body Fluid LAB 09/18/25 In Process 20:04 Protein, Body Fluid LAB 09/18/25 In Process 20:04 Lactate LAB 09/18/25 In Process Dehydrogenase, Fluid 20:04 Cytology ELLIE 09/18/25 Transmitted 20:04 Visit Coding Pulmonary Billing Provider: ROSA CHEN MD Date of Service if different f: Sep 19, 2025 Common Visit Codes: [id number] INP/OBS CARE(HIGH) ROSA CHEN MD Sep 19, 2025 18:57
--- NOTE | 2025-09-19 21:17 | DVHINCON2 ---
Date of service: Sep 19, 2025 Referring Physician Andrea Reason for Consultation Myoclonus movement, tremors History of Present Illness Mr. Ng is a right-handed male with a history of diabetes, hypertension, dyslipidemia, coronary disease, congestive heart failure, recurrent DVT, end- stage kidney failure on hemodialysis, he was brought to the [facility] on 09/14/2025 because of shortness of breath. At this time, he is alert and fully oriented, I saw him on 04/20/2025 for tremors He came to the hospital for shortness breath and he will found to have pleural effusion and he status post thoracentesis. He did not have tremor/myoclonus when he came to the hospital, however during the hospital stay, he developed uncontrollable mild shaking/jerking movement in the hands at resting, which worsens when the arms or posturing or working, he also has similar myoclonus/jerking movement in the lower extremities when he moves the legs. There was no associated altered mental status or confusion. In 04/2025, Coincidentally after he received hydralazine, he developed generalized weakness, shortness breath, and generalized tremors. At the beginning, the tremors were spontaneous, but after he came to the hospital, he only had tremors when he was move his body, there was no associated mental status changes. The symptoms were improving in the hospital, went away after he was discharged. He was reports a history of chronic neuropathy. Before 2011, he developed progressive tingling, numbness and burning pain in the lower extremities, around 05/2022, he developed tingling, numbness in the hands, as time passing by, he was noticed that he has no pain, tingling, and he can not perceive pain in the hands and feet, he is on Cymbalta with good symptom control Home medication: Norvasc, vitamin-C, aspirin, Lipitor, bumetanide, calcium, Coreg, vitamin-D, clonidine, Benadryl, Colace, Cymbalta, Lasix, gabapentin, insulin, isosorbide, lidocaine patch, nifedipine, Zofran, pantoprazole, Veltassa, spironolactone, terazosin Hepatitis panel, 04/14/2025: Hep C WBC/HB/PLT/MCV, 09/19/2025: 9.2/11.3/248/94.3 Na, 09/14/2025: 130, 09/16/25: 131, 09/18/2025: 131, 09/19/2025: 133 K 09/19/2025: 5.4 BUN/CR, 04/14/2025: 149/11.58, 04/20/2025: 37/6.12 GFR, 09/19/2025: 12 Liver function tests, 04/14/2025: Unremarkable HGB A1c, 04/14/2025: Vitamin B12, 04/14/2025: The 127 Folic acid, 04/14/2025: 11.01 TSH, : 2.13 CT head, 04/20/2025: No acute intracranial process CTA chest, 09/18/2025: No evidence of acute or chronic pulmonary embolism. Large bilateral pleural effusions left greater than right. Small pericardial effusion. Cardiomegaly. Past Medical History Hypertension, diabetes, dyslipidemia, coronary artery disease, congestive heart failure, obesity, end-stage renal failure, Past Surgical History Cholecystectomy, left BKA, PTCA Family History: Alcoholism G8 FATHER Asthma G8 MOTHER Depression G8 MOTHER G8 FATHER Diabetes mellitus G8 MOTHER Glaucoma G8 MOTHER Family History Hypertension, diabetes, asthma, glaucoma, depression, alcoholism Social History He is not a tobacco smoker, he denies a history of alcohol or recreational substance abuse Allergies: Coded Allergies: Hydralazine (Verified Allergy, Unknown, 04/13/25) Piperacillin (Verified Allergy, Unknown, 08/31/24) Tazobactam (Verified Allergy, Unknown, 08/31/24) Home Meds Active Scripts Calcium Acetate (CALCIUM ACETATE) 667 Mg Tab, 1334 MG PO TIDWMEALS for 30 Days, #180 TAB Prov:TAMELA GUTIERREZ MD 04/25/25 Diphenhydramine Hcl (BENADRYL CAPSULE) 25 Mg Cp, 25 MG PO Q6HP PRN, #30 CAP Prov:TAMELA GUTIERREZ MD 04/25/25 Atorvastatin Calcium (Lipitor) 80 Mg Tab, 1 TAB PO DAILY, #30 TAB 0 Refills Prov:TAMELA GUTIERREZ MD 04/25/25 Carvedilol (Coreg) 25 Mg Tab, 1 TAB PO BID, #60 TAB 0 Refills Prov:TAMELA GUTIERREZ MD 04/25/25 Nifedipine (Nifedipine Er) 60 Mg Tab, 1 TAB PO DAILY, #30 TAB 0 Refills Prov:TAMELA GUTIERREZ MD 04/25/25 Pantoprazole Sodium Sesquihydr (Pantoprazole Sodium) 40 Mg Tab, 40 MG PO DAILY@0600 for 30 Days, #30 TAB Prov:TAMELA GUTIERREZ MD 04/25/25 Spironolactone (Aldactone) 25 Mg Tab, 25 MG PO DAILY for 30 Days, #30 TAB Prov:TAMELA GUTIERREZ MD 04/25/25 Sacubitril-Valsartan (Entresto 24-26 mg) 1 Tab Tab, 1 TAB PO BID for 30 Days, #60 TAB Prov:TAMELA GUTIERREZ MD 04/25/25 Nifedipine (Nifedipine Er) 30 Mg Tab, 1 TAB PO DAILY, #30 TAB 3 Refills Prov:LOR KENNEDY MD 12/11/24 Reported Medications Patiromer Sorbitex Calcium (Veltassa) 8.4 Gm Pow, 8.4 GM PO, POW 06/05/25 Ondansetron Odt 4MG Tab (ZOFRAN PO) 4 Mg Tb, 4 MG PO, TAB ODT TAB-DISSOLVE IN MOUTH, THEN SWALLOW 06/05/25 Lidocaine (Lidocaine Pain Relief Pat) 4 % Pad, 4 % EX, PAD 06/05/25 Insulin Glargine (Basaglar Kwikpen) 100 Unit/Ml Inj, 120 UNIT SC, INJ 06/05/25 Furosemide (Lasix) 40 Mg Tab, 40 MG PO, TAB 06/05/25 Ergocalciferol (Vitamin D) 50,000 Unit Cap, 86426 UNIT PO, CAP 06/05/25 Duloxetine Hcl (Cymbalta) 30 Mg Cap, 30 MG PO, CAP 06/05/25 Docusate Sodium (Colace) 100 Mg Cap, 1 CAP PO BID, #30 CAP 06/05/25 Clonidine Hydrochloride (Clonidine Hcl) 0.1 Mg Tab, 0.1 MG PO BID for 30 Days, MG 06/05/25 Carvedilol (Carvedilol) 12.5 Mg Tab, 1 TAB PO BID, #180 TAB 1 Refill 06/05/25 Atorvastatin Calcium (ATORVASTATIN CALCIUM) 40 Mg Tab, 1 TAB PO DAILY, #30 TAB 5 Refills 06/05/25 Ascorbic Acid (Ascorbic Acid) 500 Mg Tab, 500 MG PO DAILY, TAB 06/05/25 Metolazone (Metolazone) 2.5 Mg Tab, 2 TAB PO 2XW 04/14/25 Bumetanide (Bumetanide) 2 Mg Tab, 1 TAB PO 04/14/25 Terazosin Hcl (Terazosin Hcl) 2 Mg Cap, 1 CAP PO HS 04/14/25 Cholecalciferol (VITAMIN D-3) 2,000 Unit Tab, 2000 UNIT PO DAILY, TAB 04/14/25 Amlodipine Besylate (Amlodipine Besylate) 5 Mg Tab, 10 MG PO DAILY 04/14/25 Isosorbide Mononitrate (Isosorbide Mononitrate Er) 30 Mg Tab, 30 MG PO DAILY 05/14/22 Gabapentin (Gabapentin) 300 Mg Cap, 300 MG PO TID 05/14/22 Aspirin (ASPIRIN 81) 81 Mg Tab, 81 MG PO DAILY 05/14/22 Review of Systems As above, the other systems are negative Vital Signs Vital Signs Date Time Temp Pulse Resp B/P (MAP) Pulse Ox O2 Delivery O2 Flow Rate FiO2 09/19/25 20:00 Room Air* 0 21 09/19/25 19:43 96 09/19/25 19:40 78 20 09/19/25 17:00 97.9 114/76 (89) 97.9 Physical Exam GENERAL EXAM: General: the patient is well developed and nourished. No acute distress. HEENT: Normocephalic, neck is supple, no carotid bruits. No mass RESPIRATORY: Normal respiratory effort with symmetrical lung expansion. Lungs clear to auscultation. CARDIOVASCULAR: Regular rate and rhythm with no murmurs. S1, S2. ABDOMEN: Soft, nontender, normal bowel sound MUSCULOSKELETAL EXAM: Status post left BKA NEUROLOGICAL: MENTAL STATUS: Awake and alert. Oriented to person, place, time and general circumstances. Able to give personal history. SPEECH, LANGUAGE, HIGHER CORTICAL FUNCTION: no aphasia or dysathria. CRANIAL NERVES: #2: Intact visual martell to confrontation. The optic discs were sharp. #3,4,6: Pupils are equal, round and reactive. EOMs full and conjugate. No nystagmus. #5: Facial sensation intact in all three divisions bilaterally. Mandibular strength intact. #7: Facial muscles symmetrical and strength intact. #8: Hearing grossly normal to voice. #9,10: Uvula and soft palate rise in the midline. Swallow and voice are normal. #11: Trapezius and sternomastoid strength intact bilaterally. #12: Tongue midline. No fasciculations or atrophy. SENSATION: Diminished pinprick in the arms, legs, central portion of the abdomen. MOTOR: Normal tone in the upper and lower extremity. Normal muscle bulk. No fasciculations. No abnormal movements or posturing. Muscle strength of the major groups in the extremities is 5/5 but weak in the bilateral toes, and gripping. REFLEXES: Deep tendon reflexes are diffuse diminished. No pathological reflexes. CEREBELLAR/COORDINATION: Finger to nose is normal l bilaterally. GAIT/STATION: deferred Labs/Diagnostic Data Labs Test 09/19/25 17:27 09/19/25 05:10 09/18/25 20:30 09/18/25 14:54 Range/Units POC Glucose 191 H 70-106 mg/dl White Blood Count 9.2 4.4-10.8 10^3/uL Red Blood Count 3.66 L 4.5-5.90 10^6/uL Hemoglobin 11.3 L 13.5-17.5 g/dL Hematocrit 34.5 L 41.0-53.0 % Mean Corpuscular Volume 94.3 80.0-100.0 fL Mean Corpuscular Hemoglobin 30.8 28.0-32.0 pg Mean Corpuscular Hemoglobin Concent 32.7 32.0-36.0 g/dL Red Cell Distribution Width 15.0 H 11.8-14.3 % Platelet Count 248 140-450 10^3/uL Mean Platelet Volume 8.3 6.9-10.8 fL Neutrophils (%) (Auto) 70.6 37.0-80.0 % Lymphocytes (%) (Auto) 12.5 10.0-50.0 % Monocytes (%) (Auto) 9.4 0.0-12.0 % Eosinophils (%) (Auto) 7.0 0.0-7.0 % Basophils (%) (Auto) 0.5 0.0-2.0 % Neutrophils # (Auto) 6.5 1.6-8.6 10 ^3/uL Lymphocytes # (Auto) 1.2 0.4-5.4 10 ^3/uL Monocytes # (Auto) 0.9 0-1.3 10 ^3/uL Eosinophils # (Auto) 0.6 0-0.8 10 ^3/uL Basophils # (Auto) 0 0-0.2 10 ^3/uL Nucleated Red Blood Cells 0.0 % Sodium Level 133 L 136-145 mmol/L Potassium Level 5.4 H 3.5-5.1 mmol/L Chloride Level 96 L 98-107 mmol/L Carbon Dioxide Level 27 20-31 mmol/L Anion Gap 10 5-15 Blood Urea Nitrogen 46 H 9-23 mg/dL Creatinine 5.30 H 0.700-1.30 mg/dL Glomerular Filtration Rate Calc 12 >90 mL/min BUN/Creatinine Ratio 8.7 L 10.0-20.0 Serum Glucose 208 H 74-106 mg/dL Calcium Level 7.8 L 8.7-10.4 mg/dL Total Bilirubin 0.6 0.2-1.0 mg/dL Aspartate Amino Transferase (AST) 43 H 13-40 U/L Alanine Aminotransferase (ALT) 17 7-40 U/L Alkaline Phosphatase 731 H 46-116 U/L Total Protein 6.1 5.7-8.2 g/dL Albumin 2.8 L 3.2-4.8 g/dL Random Vancomycin Level 16.8 H 5-10 ug/mL Body Fluid Source Pleural fluid Body Fluid pH 8.0 Body Fluid WBC (Manual) 2815 H 0-200 CUMM Body Fluid RBC (Manual) 1488 0-2000 CUMM Body Fluid Mononuclear Cells 46 % Body Fluid Polymorphonuclear Cells 54 H 0-25 % D-Dimer, Quantitative > 35.20 H 0.0-0.49 mg/L FEU Test 09/18/25 09:23 09/17/25 14:39 09/16/25 10:51 09/14/25 11:43 Range/Units Prothrombin Time 10.9 9.3-11.8 sec Prothrombin Time INR 1.03 0.9-1.15 Activated Partial Thromboplast Time 31.4 24.5-34.5 SEC Ammonia < 10 L 11-32 umol/L Hepatitis B Surface Antigen Negative Negative Troponin I High Sensitivity 28 </=54 ng/L Test 09/14/25 09:53 Range/Units B-Type Natriuretic Peptide 1039.99 0-100 pg/mL Microbiology Date/Time Source Procedure Growth Status 09/18/25 20:30 Pleural Fluid Gram Stain - Final Resulted 09/18/25 20:30 Pleural Fluid Body Fluid Culture - Preliminary No growth Resulted Assessment Myoclonus in the torso, extremities ? Secondary to metabolic encephalopathy/kidney failure ? Medication effects Severe diabetic polyneuropathy Plan/Recommendation Monitoring Supportive treatment Telemetry Cymbalta (home medication) Gabapentin (home medication) Avoid more medications Foot/hand care Daily foot inspection Cardiology on case More recommendation per clinical course Progress: Poor This medical document was created using an electronic medical record system with [employer] computerized dictation system. Although this document has been carefully reviewed, there may still be some phonetic and typographical errors. These areas are purely typographical due to imperfections of the software programs, and do not reflect any compromise in the patient's medical care. Plan discussed with: Patient, Other LINA HARDING MD Sep 19, 2025 21:17
--- NOTE | 2025-09-19 23:52 | DVHPN2 ---
Progress Note - Dictate Date Seen: Sep 19, 2025 Has the PT tested + for MRSA If YES, has PT been informed?: No Medical Necessity Reason Pt with a Central, PICC or Fol: No Subjective Patient was seen and evaluated in follow up. Patient reported improvement in his symptoms since admission, reported no new complaints at this time. 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 vital signs Vital Sign Date Time Temp Pulse Resp B/P (MAP) Pulse Ox O2 Delivery O2 Flow Rate FiO2 09/19/25 12:59 98.8 80 20 124/89 (101) 97 98.8 09/19/25 10:02 Room Air* 0 21 Total Intake and Output 09/18/25 09/18/25 09/19/25 15:00 23:00 07:00 Intake Total 600 ml 480 ml Output Total 0 ml Balance 600 ml 480 ml medications Current Medications Medications Dose Ordered Sig/Milka Route Start Time Stop Time Status Last Admin Dose Admin Levalbuterol HCl 0.625 mg Q6HR NEB 09/14/25 12:00 09/19/25 11:24 0.625 MG Aspirin 81 mg DAILY PO 09/15/25 10:00 09/19/25 10:02 81 MG Atorvastatin Calcium 80 mg HS PO 09/14/25 22:00 09/18/25 23:29 80 MG Calcium Acetate 1,334 mg TIDWMEALS PO 09/14/25 18:00 09/19/25 12:14 1,334 MG Carvedilol 25 mg Q12HR PO 09/14/25 22:00 09/18/25 13:26 25 MG Furosemide 60 mg DAILY PO 09/15/25 10:00 09/19/25 10:00 60 MG Gabapentin 300 mg BID PO 09/14/25 22:00 09/19/25 10:02 300 MG Isosorbide Mononitrate 30 mg DAILY PO 09/15/25 10:00 Ondansetron HCl 4 mg Q4HP PRN IV 09/14/25 14:15 09/16/25 17:26 4 MG Acetaminophen 650 mg Q6HP PRN PO 09/14/25 14:15 09/16/25 17:00 650 MG Vancomycin HCl 250 ml @ 250 mls/hr DAILY IV 09/16/25 10:00 UNV Albuterol 2.5 mg Q4HPRN PRN NEB 09/15/25 15:00 09/15/25 15:30 2.5 MG Diagnostic Test (Pha) 1 strip Q6HR 09/16/25 18:00 09/19/25 12:13 1 STRIP Insulin Human Regular Q6HR SC 09/16/25 18:00 09/19/25 12:22 6 UNITS Dextrose 50 ml UD PRN IV 09/16/25 15:45 Insulin Glargine 20 units HS SC 09/17/25 10:00 09/18/25 23:15 20 UNITS objective GENERAL: Alert and oriented x 3. No acute distress. EYES: PERRL, EOMI. Anicteric. HENT: Moist mucous membranes. LUNGS: Diminished breath sounds with bilateral crackles CARDIOVASCULAR: Regular rate and rhythm. ABDOMEN: Soft, non-tender and non-distended. EXTREMITIES: Trace edema RLE, left BKA, stump is clean, left upper extremity fistula. NEUROLOGIC: No focal neurological deficits. SKIN: Warm, dry. laboratory and microbiology Laboratory Tests 09/19/25 05:10 Test 09/19/25 05:10 Range/Units Serum Glucose 208 H 74-106 mg/dL Problem List Acute on chronic HFrEF, NYHA Class IV. Acute hypoxic respiratory failure. ESRD on HD. Uncontrolled T2 DM. HTN. HLD. Pleural effusion B/l. S/p Left BKA. Assessment/Plan Continued all current supportive medical care. Patient has been seen by Maxime Arrieta, Resident on my behalf. We have discussed the plan with the patient. New Echocardiogram to evaluate cardiac function. Previous Echo in january showed EF 25%. Guideline directed medical therapy for CHF as renal function and BP permits Coreg. Diuretics. BP control. Lipid-lowering agent. DVT/VTE prophylaxis. Risk factor modification, counseled. Dietary changes. Limiting sodium intake. Strict INOs. Maintaining fluid restriction, daily weight. Additional plan as per the hospital course. Dietary Evaluation Review Recommendations by RD: Dietary education by RD Comments: 1) Lower CHO from 60 to 45g [facility] cardiac renal diet 2) Initiate Nephro-Yoni @ 1 tb qd 3) Refer to RD/CDCES for weight management 4) Follow-up with cardiology, pulmonology, and nephrology 5) Continue to monitor I&O, labs, and skin integrity Expected Outcomes/Goals: 1) appetite and labs to improve 2) wounds to improve 3) gradual wt loss 4) f/u in 3-5 days Plan discussed with: Patient NAMRATA LAGUNA MD Sep 19, 2025 16:04
[2025-09-20] VITALS (15 sets, daily range): BP systolic 109–130; BP diastolic 62–79; PULSE 59–82; RESP 16–18; TEMP 97.6–98.6; O2SAT 94–100
[2025-09-20 07:05] LABS: Hematocrit 34.9 % (41.0-53.0); Hemoglobin 11.4 g/dL (13.5-17.5); Mean Corpuscular Hemoglobin 30.1 pg (28.0-32.0); Mean Corpuscular Volume 92.2 fL (80.0-100.0); Nucleated Red Blood Cells % 0.1 %
[2025-09-20 07:11] LABS: Alanine Aminotransferase 22 U/L (7-40); Anion Gap 11 (5-15); BUN/Creatinine Ratio 7.8 (10.0-20.0); Carbon Dioxide 27 mmol/L (20-31); Total Protein 6.7 g/dL (5.7-8.2)
[2025-09-20 07:12] LABS: Bilirubin, Total 0.5 mg/dL (0.2-1.0)
[2025-09-20 07:14] LABS: Albumin 3.1 g/dL (3.2-4.8); Alkaline Phosphatase 902 U/L (46-116); Blood Urea Nitrogen 53 mg/dL (9-23); Calcium 8.1 mg/dL (8.7-10.4); Chloride 94 mmol/L (98-107); Glucose 191 mg/dL (74-106); Potassium 5.5 mmol/L (3.5-5.1); Sodium 132 mmol/L (136-145)
--- NOTE | 2025-09-20 08:38 | DVHPN2 ---
Progress Note - Dictate Date Seen: Sep 20, 2025 Has the PT tested + for MRSA If YES, has PT been informed?: No Medical Necessity Reason Pt with a Central, PICC or Fol: No Subjective Mr. Ng is a right-handed male with a history of diabetes, hypertension, dyslipidemia, coronary disease, congestive heart failure, recurrent DVT, end- stage kidney failure on hemodialysis, he was brought to the [facility] on 09/14/2025 because of shortness of breath. I saw him on 04/20/2025 for tremors I have seen and examined the patient, I have talked to his nurse, the case was discussed with Andrea, he is alert and fully oriented, the myoclonus persists He reports that he is on Entresto, according to ext med history, 24-26 b.i.d. Home medication: Norvasc, vitamin-C, aspirin, Lipitor, bumetanide, calcium, Coreg, vitamin-D, clonidine, Benadryl, Colace, Cymbalta, Lasix, gabapentin, insulin, isosorbide, lidocaine patch, nifedipine, Zofran, pantoprazole, Veltassa, spironolactone, terazosin Hepatitis panel, 04/14/2025: Hep C WBC/HB/PLT/MCV, 09/19/2025: 9.2/11.3/248/94.3 Na, 09/14/2025: 130, 09/16/25: 131, 09/18/2025: 131, 09/19/2025: 133, 09/20/25: 132 K 09/19/2025: 5.4, 09/20/25: 5.5 BUN/CR, 04/14/2025: 149/11.58, 04/20/2025: 37/6.12, 09/14/2025: 42/4.98, 09/16/2025: 34/5: 95, 09/20/25: 53/6.76 GFR, 09/19/2025: 12, 09/16/2025: 11 Liver function tests, 04/14/2025: Unremarkable HGB A1c, 04/14/2025: Vitamin B12, 04/14/2025: The 127 Folic acid, 04/14/2025: 11.01 TSH, : 2.13 CT head, 04/20/2025: No acute intracranial process CTA chest, 09/18/2025: No evidence of acute or chronic pulmonary embolism. Large bilateral pleural effusions left greater than right. Small pericardial effusion. Cardiomegaly. vital signs Vital Sign Date Time Temp Pulse Resp B/P (MAP) Pulse Ox O2 Delivery O2 Flow Rate FiO2 09/20/25 06:20 68 18 100 09/20/25 06:14 Room Air* 0 21 09/20/25 05:00 98.5 120/73 (89) 98.5 Total Intake and Output 09/19/25 09/19/25 09/20/25 15:00 23:00 07:00 Intake Total 380 ml 1154 ml Balance 380 ml 1154 ml medications Current Medications Medications Dose Ordered Sig/Milka Route Start Time Stop Time Status Last Admin Dose Admin Levalbuterol HCl 0.625 mg Q6HR NEB 09/14/25 12:00 09/20/25 06:14 0.625 MG Aspirin 81 mg DAILY PO 09/15/25 10:00 09/19/25 10:02 81 MG Atorvastatin Calcium 80 mg HS PO 09/14/25 22:00 09/19/25 21:04 80 MG Calcium Acetate 1,334 mg TIDWMEALS PO 09/14/25 18:00 09/19/25 18:14 1,334 MG Carvedilol 25 mg Q12HR PO 09/14/25 22:00 09/19/25 21:05 25 MG Furosemide 60 mg DAILY PO 09/15/25 10:00 09/19/25 10:00 60 MG Gabapentin 300 mg BID PO 09/14/25 22:00 09/19/25 21:05 300 MG Isosorbide Mononitrate 30 mg DAILY PO 09/15/25 10:00 Ondansetron HCl 4 mg Q4HP PRN IV 09/14/25 14:15 09/16/25 17:26 4 MG Acetaminophen 650 mg Q6HP PRN PO 09/14/25 14:15 09/16/25 17:00 650 MG Vancomycin HCl 250 ml @ 250 mls/hr DAILY IV 09/16/25 10:00 UNV Albuterol 2.5 mg Q4HPRN PRN NEB 09/15/25 15:00 09/15/25 15:30 2.5 MG Diagnostic Test (Pha) 1 strip Q6HR 09/16/25 18:00 09/20/25 05:45 1 STRIP Insulin Human Regular Q6HR SC 09/16/25 18:00 09/20/25 05:48 6 UNITS Dextrose 50 ml UD PRN IV 09/16/25 15:45 Insulin Glargine 20 units HS SC 09/17/25 10:00 09/19/25 21:16 20 UNITS objective General: the patient is well developed and nourished. No acute distress. MUSCULOSKELETAL EXAM: Status post left BKA MENTAL STATUS: Subjective SPEECH, LANGUAGE, HIGHER CORTICAL FUNCTION: no aphasia or dysathria. CRANIAL NERVES: Pupils are equal, round and reactive. EOMs full and conjugate. No nystagmus. Facial sensation intact in all three divisions bilaterally. Mandibular strength intact. Facial muscles symmetrical and strength intact. Tongue midline. No fasciculations or atrophy. SENSATION: Diminished pinprick in the arms, legs, central portion of the abdomen. MOTOR: Normal tone in the upper and lower extremity. Normal muscle bulk. No fasciculations. No abnormal movements or posturing. Muscle strength of the major groups in the extremities is 5/5 but weak in the bilateral toes, and gripping. REFLEXES: Deep tendon reflexes are diffuse diminished. No pathological reflexes. CEREBELLAR/COORDINATION: Finger to nose is normal l bilaterally. GAIT/STATION: deferred laboratory and microbiology Laboratory Tests 09/20/25 05:47 Test 09/20/25 05:47 Range/Units Serum Glucose 191 H 74-106 mg/dL Problem List Myoclonus in the torso, extremities ? Secondary to kidney failure ? Medication effects (no new medication given in the hospital) Severe diabetic polyneuropathy Assessment/Plan Monitoring Supportive treatment Telemetry Entestro Cymbalta (home medication) Gabapentin (home medication) Avoid more medications Foot/hand care Daily foot inspection Hemodialysis Cardiology on case More recommendation per clinical course This medical document was created using an electronic medical record system with [employer] system. Although this document has been carefully reviewed, there may still be some phonetic and typographical errors. These areas are purely typographical due to imperfections of the software programs, and do not reflect any compromise in the patient's medical care. Prognosis poor Dietary Evaluation Review Recommendations by RD: Dietary education by RD Comments: 1) Lower CHO from 60 to 45g [facility] cardiac renal diet 2) Initiate Nephro-Yoni @ 1 tb qd 3) Refer to RD/CDCES for weight management 4) Follow-up with cardiology, pulmonology, and nephrology 5) Continue to monitor I&O, labs, and skin integrity Expected Outcomes/Goals: 1) appetite and labs to improve 2) wounds to improve 3) gradual wt loss 4) f/u in 3-5 days Plan discussed with: Patient, Other Total Time (mins): 40 LINA HARDING MD Sep 20, 2025 08:38
--- NOTE | 2025-09-20 08:48 | ECG ---
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
--- NOTE | 2025-09-20 10:49 | DVHDS2 ---
Discharge Summary Date of Admission Sep 14, 2025 at 14:14 Date of Discharge: Sep 20, 2025 Admitting Diagnosis Acute on chronic respiratory failure Labs/Diagnostic Data: Laboratory Results Test 09/20/25 05:47 09/19/25 23:23 09/19/25 05:10 09/18/25 20:30 White Blood Count 7.3 10^3/uL (4.4-10.8) Red Blood Count 3.79 10^6/uL (4.5-5.90) Hemoglobin 11.4 g/dL (13.5-17.5) Hematocrit 34.9 % (41.0-53.0) Mean Corpuscular Volume 92.2 fL (80.0-100.0) Mean Corpuscular Hemoglobin 30.1 pg (28.0-32.0) Mean Corpuscular Hemoglobin Concent 32.6 g/dL (32.0-36.0) Red Cell Distribution Width 14.7 % (11.8-14.3) Platelet Count 294 10^3/uL (140-450) Mean Platelet Volume 8.1 fL (6.9-10.8) Neutrophils (%) (Auto) 63.5 % (37.0-80.0) Lymphocytes (%) (Auto) 17.2 % (10.0-50.0) Monocytes (%) (Auto) 8.2 % (0.0-12.0) Eosinophils (%) (Auto) 10.4 % (0.0-7.0) Basophils (%) (Auto) 0.7 % (0.0-2.0) Neutrophils # (Auto) 4.7 10 ^3/uL (1.6-8.6) Lymphocytes # (Auto) 1.3 10 ^3/uL (0.4-5.4) Monocytes # (Auto) 0.6 10 ^3/uL (0-1.3) Eosinophils # (Auto) 0.8 10 ^3/uL (0-0.8) Basophils # (Auto) 0 10 ^3/uL (0-0.2) Nucleated Red Blood Cells 0.1 % Sodium Level 132 mmol/L (136-145) Potassium Level 5.5 mmol/L (3.5-5.1) Chloride Level 94 mmol/L (98-107) Carbon Dioxide Level 27 mmol/L (20-31) Anion Gap 11 (5-15) Blood Urea Nitrogen 53 mg/dL (9-23) Creatinine 6.76 mg/dL (0.700-1.30) Glomerular Filtration Rate Calc 9 mL/min (>90) BUN/Creatinine Ratio 7.8 (10.0-20.0) Serum Glucose 191 mg/dL (74-106) Calcium Level 8.1 mg/dL (8.7-10.4) Total Bilirubin 0.5 mg/dL (0.2-1.0) Aspartate Amino Transferase (AST) 96 U/L (13-40) Alanine Aminotransferase (ALT) 22 U/L (7-40) Alkaline Phosphatase 902 U/L (46-116) Total Protein 6.7 g/dL (5.7-8.2) Albumin 3.1 g/dL (3.2-4.8) POC Glucose 272 mg/dl (70-106) Random Vancomycin Level 16.8 ug/mL (5-10) Body Fluid Source Pleural fluid Body Fluid pH 8.0 Body Fluid WBC (Manual) 2815 CUMM (0-200) Body Fluid RBC (Manual) 1488 CUMM (0-2000) Body Fluid Mononuclear Cells 46 % Body Fluid Polymorphonuclear Cells 54 % (0-25) Test 09/18/25 14:54 09/18/25 09:23 09/17/25 14:39 09/16/25 10:51 D-Dimer, Quantitative > 35.20 mg/L FEU (0.0-0.49) Prothrombin Time 10.9 sec (9.3-11.8) Prothrombin Time INR 1.03 (0.9-1.15) Activated Partial Thromboplast Time 31.4 SEC (24.5-34.5) Ammonia < 10 umol/L (11-32) Hepatitis B Surface Antigen Negative (Negative) Test 09/14/25 11:43 09/14/25 09:53 Troponin I High Sensitivity 28 ng/L (</=54) B-Type Natriuretic Peptide 1039.99 pg/mL (0-100) Other Laboratory Tests 09/20/25 05:47 Brief Hx & Hospital Course: History of Present Illness 50-year-old male presents for evaluation of shortness for breath. Patient with a history of congestive heart failure and end-stage renal disease currently on dialysis. Patient reports being dialyzed yesterday where they removed 3 L of fluid. Today he presents with complaints of worsening shortness for breath that started today with associated chest pressure. No fever or chills. No other acute complaints reported. Course of hospitalization: Patient general pulmonary consultation, undergoing bilateral thoracentesis. Patient also had cardiology consultation given his decompensated heart failure with no new recommendations with respect to the heart failure medications. Nephrology consultation was obtained with the patient undergoing hemodialysis while in the hospital. Patient was noted to have elevated D-dimer, with the patient having negative CT angiogram as well as DVT study. Patient had new onset of tremors yesterday, with noted history of tremors in the past. Neurology consultation was obtained. No new medications were recommendations are provided at this time. He will receive hemodialysis today and be discharged home accordingly. No new medications will be prescribed at this time. He is educated on the need to adhere to a strict fluid restriction and continue all previous home medications. He verbalized understanding and is agreeable with discharge plan. Physical examination General: Alert and Oriented x3. No acute distress. Well-nourished. Eyes: EOMI. Anicteric. HENT: Moist mucous membranes. Lungs: Clear to auscultation bilaterally. No accessory muscle use. Cardiovascular: Regular rate and rhythm. No murmur. No JVD. Abdomen: Soft, non-tender and non-distended. No palpable masses. Extremities: No edema. Non-tender. Skin: No rashes or lesions. Warm. Neurologic: No focal neurological deficits. CN II-XII grossly intact, but not individually tested. Psychiatric: Cooperative. Appropriate mood and affect. Total time spent with patient discussing and formulating plan of care: 35 minutes. This medical document was created using an electronic medical record system with [employer]ge dictation system. Although this document has been carefully reviewed, there may still be some phonetic and typographical errors. These areas are purely typographical due to imperfections of the software programs, and do not reflect any compromise in the patient's medical care. Consults/Reason for consult Cardiology: Decompensated heart failure Pulmonology: Acute respiratory failure Nephrology: ESRD with hemodialysis Neurology: Tremors Condition at Discharge: Guarded Final Diagnosis/Problems List Acute hypoxic respiratory failure -end-stage renal disease with hemodialysis -chest pain -bilateral pleural effusions -accelerated hypertension -anemia of chronic disease -acute on chronic systolic heart failure with ejection fraction 25% Discharge Disposition: Home Discharge Instruct/Medications Diet: Cardiac 2g Na,low cholest, Renal Diet comment: Adhere to strict fluid restriction of 1200 mL daily Activity: No Restrictions, As Tolerated Follow Up/Referral: Follow up with the PCP in 1-2 weeks Continue with established hemodialysis chair time Medications: Continue all previous home medications Scheduled Amlodipine Besylate (Amlodipine Besylate), 10 MG PO DAILY, (Reported) Ascorbic Acid (Ascorbic Acid), 500 MG PO DAILY, (Reported) Aspirin (Aspirin 81), 81 MG PO DAILY, (Reported) Atorvastatin Calcium (Lipitor), 1 TAB PO DAILY Atorvastatin Calcium (Atorvastatin Calcium), 1 TAB PO DAILY, (Reported) Calcium Acetate (Calcium Acetate), 1,334 MG PO TIDWMEALS Carvedilol (Coreg), 1 TAB PO BID Carvedilol (Carvedilol), 1 TAB PO BID, (Reported) Cholecalciferol (Vitamin D-3), 2,000 UNIT PO DAILY, (Reported) Clonidine Hydrochloride (Clonidine Hcl), 0.1 MG PO BID, (Reported) Docusate Sodium (Colace), 1 CAP PO BID, (Reported) Gabapentin (Gabapentin), 300 MG PO TID, (Reported) Isosorbide Mononitrate (Isosorbide Mononitrate Er), 30 MG PO DAILY, (Reported) Metolazone (Metolazone), 2 TAB PO 2XW, (Reported) Nifedipine (Nifedipine Er), 1 TAB PO DAILY Nifedipine (Nifedipine Er), 1 TAB PO DAILY Pantoprazole Sodium Sesquihydr (Pantoprazole Sodium), 40 MG PO DAILY@0600 Sacubitril-Valsartan (Entresto 24-26 mg), 1 TAB PO BID Spironolactone (Aldactone), 25 MG PO DAILY Terazosin Hcl (Terazosin Hcl), 1 CAP PO HS, (Reported) Scheduled PRN Diphenhydramine Hcl (Benadryl Capsule), 25 MG PO Q6HP PRN Miscellaneous Medications Bumetanide (Bumetanide), 1 TAB PO, (Reported) Duloxetine Hcl (Cymbalta), 30 MG PO, (Reported) Ergocalciferol (Vitamin D), 50,000 UNIT PO, (Reported) Furosemide (Lasix), 40 MG PO, (Reported) Insulin Glargine (Basaglar Kwikpen), 120 UNIT SC, (Reported) Lidocaine (Lidocaine Pain Relief Pat), 4 % EX, (Reported) Ondansetron Odt 4MG Tab (Zofran Po), 4 MG PO, (Reported) Patiromer Sorbitex Calcium (Veltassa), 8.4 GM PO, (Reported) 36 Discharge Statement: "Patient was advised to return to the ER or call 911 if any headaches, dizziness, shortness of breath, chest pain, abdominal pain, bleeding, fevers, or worsening of medical condition. Patient was counseled about treatment plan, medications, possible side effects, patientverbalized understanding. All questions were answered to the best of my ability. This discharge took greater then 30 minutes in planning, reviewing documentation, counseling the patient, and discussing with other team members." ASSESSMENT ASSESSMENT Assessment Acute hypoxic respiratory failure Date of Service: Sep 20, 2025 Billing Provider: ELI NATION NP Common Visit Codes: 05641-DPI/OBS DISCH DAY >30min ELI NATION NP Sep 20, 2025 10:49
--- NOTE | 2025-09-20 11:20 | DVHPN2 ---
Progress Note - Dictate Date Seen: Sep 20, 2025 Has the PT tested + for MRSA If YES, has PT been informed?: No Medical Necessity Reason Pt with a Central, PICC or Fol: No Subjective scheduled for HD today Underwent bilateral thoracentesis . vital signs Vital Sign Date Time Temp Pulse Resp B/P (MAP) Pulse Ox O2 Delivery O2 Flow Rate FiO2 09/20/25 10:04 70 109/62 09/20/25 08:49 97.6 18 97 97.6 09/20/25 06:14 Room Air* 0 21 Total Intake and Output 09/19/25 09/19/25 09/20/25 15:00 23:00 07:00 Intake Total 380 ml 1154 ml Balance 380 ml 1154 ml medications Current Medications Medications Dose Ordered Sig/Milka Route Start Time Stop Time Status Last Admin Dose Admin Levalbuterol HCl 0.625 mg Q6HR NEB 09/14/25 12:00 09/20/25 06:14 0.625 MG Aspirin 81 mg DAILY PO 09/15/25 10:00 09/20/25 10:03 81 MG Atorvastatin Calcium 80 mg HS PO 09/14/25 22:00 09/19/25 21:04 80 MG Calcium Acetate 1,334 mg TIDWMEALS PO 09/14/25 18:00 09/20/25 10:03 1,334 MG Carvedilol 25 mg Q12HR PO 09/14/25 22:00 09/20/25 10:04 25 MG Furosemide 60 mg DAILY PO 09/15/25 10:00 09/19/25 10:00 60 MG Gabapentin 300 mg BID PO 09/14/25 22:00 09/20/25 10:03 300 MG Isosorbide Mononitrate 30 mg DAILY PO 09/15/25 10:00 Ondansetron HCl 4 mg Q4HP PRN IV 09/14/25 14:15 09/16/25 17:26 4 MG Acetaminophen 650 mg Q6HP PRN PO 09/14/25 14:15 09/16/25 17:00 650 MG Vancomycin HCl 250 ml @ 250 mls/hr DAILY IV 09/16/25 10:00 UNV Albuterol 2.5 mg Q4HPRN PRN NEB 09/15/25 15:00 09/15/25 15:30 2.5 MG Diagnostic Test (Pha) 1 strip Q6HR 09/16/25 18:00 09/20/25 05:45 1 STRIP Insulin Human Regular Q6HR SC 09/16/25 18:00 09/20/25 05:48 6 UNITS Dextrose 50 ml UD PRN IV 09/16/25 15:45 Insulin Glargine 20 units HS SC 09/17/25 10:00 09/19/25 21:16 20 UNITS Sacubitril/ Valsartan 1 tab BID PO 09/20/25 22:00 UNV objective GENERAL: The patient is in no acute distress, alert and oriented x 3. HEENT: normocephalic LUNGS: Show diminished air entry at the bases CARDIOVASCULAR: regular rate, 2/6 systolic murmur. ABDOMEN: Soft, nontender. No organomegaly. EXTREMITIES: Show no clubbing or cyanosis. He has [id number] amputation. There is trace edema in the other leg. laboratory and microbiology Laboratory Tests 09/20/25 05:47 Test 09/20/25 05:47 Range/Units Serum Glucose 191 H 74-106 mg/dL Problem List ASSESSMENT AND PLAN: * End-stage renal disease * Fluid overload has improved * Congestive heart failure. * Bilateral pleural effusions,s/p right thoracentesis * Anemia of renal disease. * History of hypertension. * History of diabetes. Assessment/Plan HD again today UF goal 3 liters stable for dc after HD today Dietary Evaluation Review Recommendations by RD: Dietary education by RD Comments: 1) Lower CHO from 60 to 45g CCHO cardiac renal diet 2) Initiate Nephro-Yoni @ 1 tb qd 3) Refer to RD/CDCES for weight management 4) Follow-up with cardiology, pulmonology, and nephrology 5) Continue to monitor I&O, labs, and skin integrity Expected Outcomes/Goals: 1) appetite and labs to improve 2) wounds to improve 3) gradual wt loss 4) f/u in 3-5 days Plan discussed with: Patient KASIE GARG MD Sep 20, 2025 11:20
[2025-09-20 12:07] LABS: Glucose, Body Fluid 339.0 mg/dL (.); LD, Body Fluid 230.0 IU/L (.)
[2025-09-20] MEDS: SODIUM CHL 0.9% 1000 ML BAG XX ONE (18:15)
--- NOTE | 2025-09-20 20:16 | DVHPN2 ---
Subjective DOS: 09/20/2025 Patient seen and examined at bedside. Remains on supplemental oxygen Overnight events reviewed. Reviewed: Care Plan, H&P, Labs, Medications, Previous Orders Changes from previous H/P or p: No Changes General: Per HPI Objective Vitals Vital Signs Date Time Temp Pulse Resp B/P (MAP) Pulse Ox O2 Delivery O2 Flow Rate FiO2 09/20/25 18:32 95 Room Air* 0 21 09/20/25 18:03 81 16 09/20/25 16:44 98.1 127/79 (95) 98.1 Intake/Output Intake and Output 09/20/25 07:00 Intake Total 1534 ml Balance 1534 ml Intake Oral 1534 ml Exam Gen.: Patient lying in bed in no apparent distress. On supplemental oxygen. Head: Normocephalic, atraumatic. Eyes: EOMI/PERRLA. Ears: Normal hearing. Normal anatomy. Neck/trachea: Trachea midline, supple. Nose: Normal external anatomy. Mouth: Moist mucous membranes. Chest: Decreased air entry bilaterally. No wheezing or rhonchi. Cardiovascular: Positive S1, positive S2. Regular rate and rhythm. Abdomen: Positive bowel sounds in all 4 quadrants. Soft, non-tender, non- distended. : Deferred. Rectal: Deferred. Skin: Warm, dry. Intact. Extremities: 2+ radial pulses bilaterally. No lower extremity edema. Neuro: Awake, alert, oriented x3. No gross motor or sensory deficits. Cranial nerves II through XII intact. Gait not assessed. General Appearance: Alert, Oriented X3, Cooperative, mild distress HEENT: Atraumatic, PERRLA Cardiovascular: Normal S1, Normal S2 Abdomen: Normal bowel sounds, Soft, No tenderness, No hepatospenomegaly Musculoskeletal: Normal sensory function, Normal motor function Neuro: Normal gait, Normal speech Skin: Dry, Intact Psych/Mental Status: Mental status NL, Mood NL Medications Current Medications Medications Dose Ordered Sig/Milka Route Start Time Stop Time Status Last Admin Dose Admin Levalbuterol HCl 0.625 mg Q6HR NEB 09/14/25 12:00 09/20/25 18:02 0.625 MG Aspirin 81 mg DAILY PO 09/15/25 10:00 09/20/25 10:03 81 MG Atorvastatin Calcium 80 mg HS PO 09/14/25 22:00 09/19/25 21:04 80 MG Calcium Acetate 1,334 mg TIDWMEALS PO 09/14/25 18:00 09/20/25 12:32 1,334 MG Carvedilol 25 mg Q12HR PO 09/14/25 22:00 09/20/25 10:04 25 MG Furosemide 60 mg DAILY PO 09/15/25 10:00 09/19/25 10:00 60 MG Gabapentin 300 mg BID PO 09/14/25 22:00 09/20/25 10:03 300 MG Isosorbide Mononitrate 30 mg DAILY PO 09/15/25 10:00 Ondansetron HCl 4 mg Q4HP PRN IV 09/14/25 14:15 09/16/25 17:26 4 MG Acetaminophen 650 mg Q6HP PRN PO 09/14/25 14:15 09/16/25 17:00 650 MG Vancomycin HCl 250 ml @ 250 mls/hr DAILY IV 09/16/25 10:00 UNV Albuterol 2.5 mg Q4HPRN PRN NEB 09/15/25 15:00 09/15/25 15:30 2.5 MG Diagnostic Test (Pha) 1 strip Q6HR 09/16/25 18:00 09/20/25 12:00 1 STRIP Insulin Human Regular Q6HR SC 09/16/25 18:00 09/20/25 12:35 6 UNITS Dextrose 50 ml UD PRN IV 09/16/25 15:45 Insulin Glargine 20 units HS SC 09/17/25 10:00 09/19/25 21:16 20 UNITS Sacubitril/ Valsartan 1 tab BID PO 09/20/25 22:00 Future Hold Heparin Sodium (Porcine) 4,100 units DOROTEO PRN XX 09/20/25 18:15 09/20/25 18:35 4,100 UNITS Laboratory Results Laboratory Tests 09/20/25 05:47 Chemistry Test 09/20/25 05:47 Albumin 3.1 g/dL (3.2-4.8) L Calcium Level 8.1 mg/dL (8.7-10.4) L Total Protein 6.7 g/dL (5.7-8.2) LFT Test 09/20/25 05:47 Alanine Aminotransferase (ALT) 22 U/L (7-40) Alkaline Phosphatase 902 U/L (46-116) H Aspartate Amino Transferase (AST) 96 U/L (13-40) H Total Bilirubin 0.5 mg/dL (0.2-1.0) Microbiology Microbiology Date/Time Source Procedure Growth Status 09/18/25 20:30 Pleural Fluid Gram Stain - Final Resulted 09/18/25 20:30 Pleural Fluid Body Fluid Culture - Preliminary No growth Resulted Assessment/Plan Assessment/Plan Impression: Acute on chronic hypoxic respiratory failure Dependence on supplemental oxygen CHF exacerbation Pleural effusion Atelectasis Left below-knee amputation End-stage renal disease, on hemodialysis Morbid obesity, BMI 38.9 Events: Remains on supplemental oxygen, 2 LPM NC Taper O2 as tolerated No acute overnight events. Patient is breathing more comfortably post bilateral thoracenteses. Hemodialysis per Nephrology - HD today, removed 2.5 L Nephrology recs appreciated. Monitor renal function Maintain euvolemia Continue antibiotics Continue bronchodilators PRN Incentive spirometry Monitor blood pressure S/p left thoracentesis on 09/18/25 with removal of 1600 mL's of yellow fluid from the left pleural space. Post-procedure CXR showed no pneumothorax; findings of central pulmonary vascular congestion. Peripheral interstitial edema. Hazy bibasilar alveolar opacities likely compatible with atelectasis. Improved aeration from prior. See separate procedure note for details. S/p right thoracentesis on 09/16/25 Accu-Cheks, ISS Wound care Patient is stable for discharge from the pulmonary standpoint. Disposition per hospitalist. Follow up in 2 weeks in Pulmonary Clinic. Labs and imaging reviewed. Rest of plan as noted below. Plan: Supplemental oxygen Titrate to keep O2 sats above 92%. Continue bronchodilators. Antibiotics Incentive spirometry F/u Cardiology recs Monitor blood pressure Accu-Cheks, ISS. HD per Nephrology Monitor renal function. Monitor electrolytes. Supplement as necessary. Monitor ins and outs. Maintain euvolemia Recommend diet and lifestyle modifications for weight reduction Obesity complicates all care DVT prophylaxis. Prognosis: Poor given patient's multiple co-morbidities. Rest of plan per hospitalist and other consultants. Thank you, Dr. Case, for allowing me to participate in this patient's care. Further recommendations will depend on the patient's clinical course. Please do not hesitate to contact me if you have any questions or concerns. This medical document was created using an electronic medical record system with Dragon computerized dictation system. Although these documentations are being carefully reviewed, there may still be some phonetic and typographical changes. The errors are purely typographical, due to imperfection on the software program, and do not reflect any compromise in the patient's medical care. Plan discussed with: Other (JOSE Mcnair) Visit Coding Pulmonary Billing Provider: ROSA CHEN MD Date of Service if different f: Sep 20, 2025 Common Visit Codes: [id number] INP/OBS CARE(HIGH) ROSA CHEN MD Sep 20, 2025 20:16
[2025-09-20] MEDS ORDERED: SACUBITRIL-VALSARTAN 24mg/26mg TAB PO SCH (22:00)
--- NOTE | 2025-09-20 23:58 | DVHPN2 ---
Progress Note - Dictate Date Seen: Sep 20, 2025 Has the PT tested + for MRSA If YES, has PT been informed?: No Medical Necessity Reason Pt with a Central, PICC or Fol: No Subjective Patient was seen and evaluated in follow up. No overnight events. Patient is resting in bed. Patient is s/p HD with 2.5 L removed. K 5.5, CL 94, BUN 53, [employer] 6.76, GLUC 203, CA 8.1. vital signs Vital Sign Date Time Temp Pulse Resp B/P (MAP) Pulse Ox O2 Delivery O2 Flow Rate FiO2 09/20/25 20:59 98.4 82 18 125/76 (92) 95 98.4 09/20/25 18:32 Room Air* 0 21 Total Intake and Output 09/19/25 09/19/25 09/20/25 15:00 23:00 07:00 Intake Total 380 ml 1154 ml Balance 380 ml 1154 ml medications Current Medications Medications Dose Ordered Sig/Milka Route Start Time Stop Time Status Last Admin Dose Admin Levalbuterol HCl 0.625 mg Q6HR NEB 09/14/25 12:00 09/20/25 18:02 0.625 MG Aspirin 81 mg DAILY PO 09/15/25 10:00 09/20/25 10:03 81 MG Atorvastatin Calcium 80 mg HS PO 09/14/25 22:00 09/19/25 21:04 80 MG Calcium Acetate 1,334 mg TIDWMEALS PO 09/14/25 18:00 09/20/25 12:32 1,334 MG Carvedilol 25 mg Q12HR PO 09/14/25 22:00 09/20/25 10:04 25 MG Furosemide 60 mg DAILY PO 09/15/25 10:00 09/19/25 10:00 60 MG Gabapentin 300 mg BID PO 09/14/25 22:00 09/20/25 10:03 300 MG Isosorbide Mononitrate 30 mg DAILY PO 09/15/25 10:00 Ondansetron HCl 4 mg Q4HP PRN IV 09/14/25 14:15 09/16/25 17:26 4 MG Acetaminophen 650 mg Q6HP PRN PO 09/14/25 14:15 09/16/25 17:00 650 MG Vancomycin HCl 250 ml @ 250 mls/hr DAILY IV 09/16/25 10:00 UNV Albuterol 2.5 mg Q4HPRN PRN NEB 09/15/25 15:00 09/15/25 15:30 2.5 MG Diagnostic Test (Pha) 1 strip Q6HR 09/16/25 18:00 09/20/25 12:00 1 STRIP Insulin Human Regular Q6HR SC 09/16/25 18:00 09/20/25 12:35 6 UNITS Dextrose 50 ml UD PRN IV 09/16/25 15:45 Insulin Glargine 20 units HS SC 09/17/25 10:00 09/19/25 21:16 20 UNITS Sacubitril/ Valsartan 1 tab BID PO 09/20/25 22:00 Future Hold Heparin Sodium (Porcine) 4,100 units DOROTEO PRN XX 09/20/25 18:15 09/20/25 18:35 4,100 UNITS objective GENERAL: Alert and oriented x 3. No acute distress. EYES: PERRL, EOMI. Anicteric. HENT: Moist mucous membranes. LUNGS: Diminished breath sounds with bilateral crackles CARDIOVASCULAR: Regular rate and rhythm. ABDOMEN: Soft, non-tender and non-distended. EXTREMITIES: Trace edema RLE, left BKA, stump is clean, left upper extremity fistula. NEUROLOGIC: No focal neurological deficits. SKIN: Warm, dry. laboratory and microbiology Laboratory Tests 09/20/25 05:47 Test 09/20/25 05:47 Range/Units Serum Glucose 191 H 74-106 mg/dL Problem List Acute on chronic HFrEF, NYHA Class IV. Acute hypoxic respiratory failure. ESRD on HD. Uncontrolled T2 DM. HTN. HLD. Pleural effusion B/l. S/p Left BKA. Assessment/Plan Continued all current supportive medical care. Entresto. Aspirin. Coreg. Additional plan as per the hospital course. Dietary Evaluation Review Recommendations by RD: Dietary education by RD Comments: 1) Lower CHO from 60 to 45g CCHO cardiac renal diet 2) Initiate Nephro-Yoni @ 1 tb qd 3) Refer to RD/CDCES for weight management 4) Follow-up with cardiology, pulmonology, and nephrology 5) Continue to monitor I&O, labs, and skin integrity Expected Outcomes/Goals: 1) appetite and labs to improve 2) wounds to improve 3) gradual wt loss 4) f/u in 3-5 days Plan discussed with: Patient LAGUNA,MUKESHCHANDRA M MD Sep 20, 2025 21:47
[2025-09-21 00:08] VITALS: PULSE 72; RESP 18; O2SAT 100
[2025-09-21 01:00] VITALS: BP 109/63; PULSE 73; RESP 18; TEMP 97.3; O2SAT 97
[2025-09-21 05:00] VITALS: BP 98/51; PULSE 69; RESP 17; TEMP 97.7; O2SAT 97
[2025-09-21 06:40] VITALS: PULSE 70; RESP 18; O2SAT 98
[2025-09-21 06:46] VITALS: PULSE 69; RESP 18; O2SAT 100
[2025-09-21 09:00] VITALS: BP 111/68; PULSE 69; RESP 18; TEMP 97.2; O2SAT 97
--- NOTE | 2025-09-21 10:13 | DVHDS2 ---
Discharge Summary Date of Admission Sep 14, 2025 at 14:14 Date of Discharge: Sep 21, 2025 Admitting Diagnosis acute hypoxic respiratory failure Labs/Diagnostic Data: Laboratory Results Test 09/21/25 05:24 09/20/25 05:47 09/19/25 05:10 09/18/25 20:30 POC Glucose 120 mg/dl (70-106) White Blood Count 7.3 10^3/uL (4.4-10.8) Red Blood Count 3.79 10^6/uL (4.5-5.90) Hemoglobin 11.4 g/dL (13.5-17.5) Hematocrit 34.9 % (41.0-53.0) Mean Corpuscular Volume 92.2 fL (80.0-100.0) Mean Corpuscular Hemoglobin 30.1 pg (28.0-32.0) Mean Corpuscular Hemoglobin Concent 32.6 g/dL (32.0-36.0) Red Cell Distribution Width 14.7 % (11.8-14.3) Platelet Count 294 10^3/uL (140-450) Mean Platelet Volume 8.1 fL (6.9-10.8) Neutrophils (%) (Auto) 63.5 % (37.0-80.0) Lymphocytes (%) (Auto) 17.2 % (10.0-50.0) Monocytes (%) (Auto) 8.2 % (0.0-12.0) Eosinophils (%) (Auto) 10.4 % (0.0-7.0) Basophils (%) (Auto) 0.7 % (0.0-2.0) Neutrophils # (Auto) 4.7 10 ^3/uL (1.6-8.6) Lymphocytes # (Auto) 1.3 10 ^3/uL (0.4-5.4) Monocytes # (Auto) 0.6 10 ^3/uL (0-1.3) Eosinophils # (Auto) 0.8 10 ^3/uL (0-0.8) Basophils # (Auto) 0 10 ^3/uL (0-0.2) Nucleated Red Blood Cells 0.1 % Sodium Level 132 mmol/L (136-145) Potassium Level 5.5 mmol/L (3.5-5.1) Chloride Level 94 mmol/L (98-107) Carbon Dioxide Level 27 mmol/L (20-31) Anion Gap 11 (5-15) Blood Urea Nitrogen 53 mg/dL (9-23) Creatinine 6.76 mg/dL (0.700-1.30) Glomerular Filtration Rate Calc 9 mL/min (>90) BUN/Creatinine Ratio 7.8 (10.0-20.0) Serum Glucose 191 mg/dL (74-106) Calcium Level 8.1 mg/dL (8.7-10.4) Total Bilirubin 0.5 mg/dL (0.2-1.0) Aspartate Amino Transferase (AST) 96 U/L (13-40) Alanine Aminotransferase (ALT) 22 U/L (7-40) Alkaline Phosphatase 902 U/L (46-116) Total Protein 6.7 g/dL (5.7-8.2) Albumin 3.1 g/dL (3.2-4.8) Random Vancomycin Level 16.8 ug/mL (5-10) Body Fluid Source Pleural fluid Body Fluid pH 8.0 Body Fluid WBC (Manual) 2815 CUMM (0-200) Body Fluid RBC (Manual) 1488 CUMM (0-2000) Body Fluid Mononuclear Cells 46 % Body Fluid Polymorphonuclear Cells 54 % (0-25) Body Fluid Glucose 339 mg/dL (.) Body Fluid Total Protein 3.9 g/dL (.) Body Fluid Lactate Dehydrogenase 230 IU/L (.) Test 09/18/25 14:54 09/18/25 09:23 09/17/25 14:39 09/16/25 10:51 D-Dimer, Quantitative > 35.20 mg/L FEU (0.0-0.49) Prothrombin Time 10.9 sec (9.3-11.8) Prothrombin Time INR 1.03 (0.9-1.15) Activated Partial Thromboplast Time 31.4 SEC (24.5-34.5) Ammonia < 10 umol/L (11-32) Hepatitis B Surface Antigen Negative (Negative) Test 09/14/25 11:43 09/14/25 09:53 Troponin I High Sensitivity 28 ng/L (</=54) B-Type Natriuretic Peptide 1039.99 pg/mL (0-100) Other Laboratory Tests 09/20/25 05:47 Brief Hx & Hospital Course: 50-year-old male presents for evaluation of shortness for breath. Patient with a history of congestive heart failure and end-stage renal disease currently on dialysis. Patient reports being dialyzed yesterday where they removed 3 L of fluid. Today he presents with complaints of worsening shortness for breath that started today with associated chest pressure. No fever or chills. No other acute complaints reported. Course of hospitalization: Patient general pulmonary consultation, undergoing bilateral thoracentesis. Patient also had cardiology consultation given his decompensated heart failure with no new recommendations with respect to the heart failure medications. Nephrology consultation was obtained with the patient undergoing hemodialysis while in the hospital. Patient was noted to have elevated D-dimer, with the patient having negative CT angiogram as well as DVT study. Patient had new onset of tremors yesterday, with noted history of tremors in the past. Neurology consultation was obtained. No new medications were recommendations are provided at this time. He will receive hemodialysis today and be discharged home accordingly. No new medications will be prescribed at this time. He is educated on the need to adhere to a strict fluid restriction and continue all previous home medications. He verbalized understanding and is agreeable with discharge plan. Consults/Reason for consult Cardiology: Decompensated heart failure Pulmonology: Acute respiratory failure Nephrology: ESRD with hemodialysis Neurology: Tremors Condition at Discharge: Stable Final Diagnosis/Problems List Acute hypoxic respiratory failure -end-stage renal disease with hemodialysis -chest pain -bilateral pleural effusions -accelerated hypertension -anemia of chronic disease -acute on chronic systolic heart failure with ejection fraction 25% Discharge Disposition: Home Discharge Instruct/Medications Diet: Cardiac 2g Na,low cholest, Renal Diet comment: Follow Renal, and Cardiac 2g low sodium low cholesterol diet Activity: No Restrictions, As Tolerated Follow Up/Referral: Follow up with the PCP in 1-2 weeks Continue with established hemodialysis chair time Medications: Continue all previous home medications Scheduled Amlodipine Besylate (Amlodipine Besylate), 10 MG PO DAILY, (Reported) Ascorbic Acid (Ascorbic Acid), 500 MG PO DAILY, (Reported) Aspirin (Aspirin 81), 81 MG PO DAILY, (Reported) Atorvastatin Calcium (Lipitor), 1 TAB PO DAILY Atorvastatin Calcium (Atorvastatin Calcium), 1 TAB PO DAILY, (Reported) Calcium Acetate (Calcium Acetate), 1,334 MG PO TIDWMEALS Carvedilol (Coreg), 1 TAB PO BID Carvedilol (Carvedilol), 1 TAB PO BID, (Reported) Cholecalciferol (Vitamin D-3), 2,000 UNIT PO DAILY, (Reported) Clonidine Hydrochloride (Clonidine Hcl), 0.1 MG PO BID, (Reported) Docusate Sodium (Colace), 1 CAP PO BID, (Reported) Gabapentin (Gabapentin), 300 MG PO TID, (Reported) Isosorbide Mononitrate (Isosorbide Mononitrate Er), 30 MG PO DAILY, (Reported) Metolazone (Metolazone), 2 TAB PO 2XW, (Reported) Nifedipine (Nifedipine Er), 1 TAB PO DAILY Nifedipine (Nifedipine Er), 1 TAB PO DAILY Pantoprazole Sodium Sesquihydr (Pantoprazole Sodium), 40 MG PO DAILY@0600 Sacubitril-Valsartan (Entresto 24-26 mg), 1 TAB PO BID Spironolactone (Aldactone), 25 MG PO DAILY Terazosin Hcl (Terazosin Hcl), 1 CAP PO HS, (Reported) Scheduled PRN Diphenhydramine Hcl (Benadryl Capsule), 25 MG PO Q6HP PRN Miscellaneous Medications Bumetanide (Bumetanide), 1 TAB PO, (Reported) Duloxetine Hcl (Cymbalta), 30 MG PO, (Reported) Ergocalciferol (Vitamin D), 50,000 UNIT PO, (Reported) Furosemide (Lasix), 40 MG PO, (Reported) Insulin Glargine (Basaglar Kwikpen), 120 UNIT SC, (Reported) Lidocaine (Lidocaine Pain Relief Pat), 4 % EX, (Reported) Ondansetron Odt 4MG Tab (Zofran Po), 4 MG PO, (Reported) Patiromer Sorbitex Calcium (Veltassa), 8.4 GM PO, (Reported) Discharge Statement: "Patient was advised to return to the ER or call 911 if any headaches, dizziness, shortness of breath, chest pain, abdominal pain, bleeding, fevers, or worsening of medical condition. Patient was counseled about treatment plan, medications, possible side effects, patientverbalized understanding. All questions were answered to the best of my ability. This discharge took greater then 30 minutes in planning, reviewing documentation, counseling the patient, and discussing with other team members." ASSESSMENT ASSESSMENT Assessment Acute hypoxic respiratory [id number] renal disease with hemodialysis- chest pain-bilateral pleural effusions -accelerated hypertension-anemia of chronic disease-acute on chronic systolic heart failure with ejection fraction 25% Date of Service: Sep 21, 2025 Billing Provider: ZIGGY IYER MD Common Visit Codes: 63014-BTG/OBS DISCH DAY >30min ZIGGY IYER MD Sep 21, 2025 10:13
--- NOTE | 2025-09-21 12:51 | DVHPN2 ---
Progress Note - Dictate Date Seen: Sep 21, 2025 Has the PT tested + for MRSA If YES, has PT been informed?: No Medical Necessity Reason Pt with a Central, PICC or Fol: No Subjective Patient was seen and evaluated in follow up. Patient has no new complaints at this time. Patient denies any cardiac symptoms. Patient is cardiac stable for discharge. vital signs Vital Sign Date Time Temp Pulse Resp B/P (MAP) Pulse Ox O2 Delivery O2 Flow Rate FiO2 09/21/25 09:00 97.2 69 18 111/68 (82) 97 97.2 09/21/25 08:00 Room Air* 0 21 Total Intake and Output 09/20/25 09/20/25 09/21/25 15:00 23:00 07:00 Intake Total 0 ml 300 ml Balance 0 ml 300 ml medications Current Medications Medications Dose Ordered Sig/Milka Route Start Time Stop Time Status Last Admin Dose Admin Vancomycin HCl 250 ml @ 250 mls/hr DAILY IV 09/16/25 10:00 UNV objective GENERAL: Alert and oriented x 3. No acute distress. EYES: PERRL, EOMI. Anicteric. HENT: Moist mucous membranes. LUNGS: Diminished breath sounds with bilateral crackles CARDIOVASCULAR: Regular rate and rhythm. ABDOMEN: Soft, non-tender and non-distended. EXTREMITIES: Trace edema RLE, left BKA, stump is clean, left upper extremity fistula. NEUROLOGIC: No focal neurological deficits. SKIN: Warm, dry. laboratory and microbiology Laboratory Tests 09/20/25 05:47 Test 09/20/25 05:47 Range/Units Serum Glucose 191 H 74-106 mg/dL Problem List Acute on chronic HFrEF, NYHA Class IV. Acute hypoxic respiratory failure. ESRD on HD. Uncontrolled T2 DM. HTN. HLD. Pleural effusion B/l. S/p Left BKA. Assessment/Plan Continued all current supportive medical care. Entresto. Aspirin. Coreg. Additional plan as per the hospital course. Dietary Evaluation Review Recommendations by RD: Dietary education by RD Comments: 1) Lower CHO from 60 to 45g [facility] cardiac renal diet 2) Initiate Nephro-Yoni @ 1 tb qd 3) Refer to RD/CD[facility] for weight management 4) Follow-up with cardiology, pulmonology, and nephrology 5) Continue to monitor I&O, labs, and skin integrity Expected Outcomes/Goals: 1) appetite and labs to improve 2) wounds to improve 3) gradual wt loss 4) f/u in 3-5 days Plan discussed with: Patient NAMRATA LAGUNA MD Sep 21, 2025 12:46
--- NOTE | 2025-09-21 22:06 | DVHPN2 ---
Subjective DOS: 09/21/2025 Patient seen and examined at bedside. Remains on supplemental oxygen Overnight events reviewed. Reviewed: Care Plan, H&P, Labs, Medications, Previous Orders Changes from previous H/P or p: No Changes General: Per HPI Objective Vitals Vital Signs Date Time Temp Pulse Resp B/P (MAP) Pulse Ox O2 Delivery O2 Flow Rate FiO2 09/21/25 09:00 97.2 69 18 111/68 (82) 97 97.2 09/21/25 08:00 Room Air* 0 21 Intake/Output Intake and Output 09/21/25 07:00 Intake Total 300 ml Balance 300 ml Intake Oral 300 ml # Voids 1 # Bowel Movements 2 Exam Gen.: Patient lying in bed in no apparent distress. On supplemental oxygen. Head: Normocephalic, atraumatic. Eyes: EOMI/PERRLA. Ears: Normal hearing. Normal anatomy. Neck/trachea: Trachea midline, supple. Nose: Normal external anatomy. Mouth: Moist mucous membranes. Chest: Decreased air entry bilaterally. No wheezing or rhonchi. Cardiovascular: Positive S1, positive S2. Regular rate and rhythm. Abdomen: Positive bowel sounds in all 4 quadrants. Soft, non-tender, non- distended. : Deferred. Rectal: Deferred. Skin: Warm, dry. Intact. Extremities: 2+ radial pulses bilaterally. No lower extremity edema. Neuro: Awake, alert, oriented x3. No gross motor or sensory deficits. Cranial nerves II through XII intact. Gait not assessed. General Appearance: Alert, Oriented X3, Cooperative, No acute distress HEENT: Atraumatic, PERRLA Cardiovascular: Normal S1, Normal S2 Abdomen: Normal bowel sounds, Soft, No tenderness, No hepatospenomegaly Musculoskeletal: Normal sensory function, Normal motor function Neuro: Normal gait, Normal speech Skin: Dry, Intact Psych/Mental Status: Mental status NL, Mood NL Medications Current Medications Medications Dose Ordered Sig/Milka Route Start Time Stop Time Status Last Admin Dose Admin Vancomycin HCl 250 ml @ 250 mls/hr DAILY IV 09/16/25 10:00 UNV Laboratory Results Laboratory Tests 09/20/25 05:47 Microbiology Microbiology Date/Time Source Procedure Growth Status 09/18/25 20:30 Pleural Fluid Gram Stain - Final Resulted 09/18/25 20:30 Pleural Fluid Body Fluid Culture - Preliminary No growth Resulted Assessment/Plan Assessment/Plan Impression: Acute on chronic hypoxic respiratory failure Dependence on supplemental oxygen CHF exacerbation Pleural effusion Atelectasis Left below-knee amputation End-stage renal disease, on hemodialysis Morbid obesity, BMI 38.9 Events: Remains on supplemental oxygen, 2 LPM NC Taper O2 as tolerated No acute overnight events. Patient is breathing more comfortably post bilateral thoracenteses. No new complaints. Hemodialysis per Nephrology - HD yesterday removed 2.5 L Nephrology recs appreciated. Monitor renal function Maintain euvolemia Continue antibiotics Continue bronchodilators PRN Incentive spirometry Monitor blood pressure S/p left thoracentesis on 09/18/25 with removal of 1600 mL's of yellow fluid from the left pleural space. Post-procedure CXR showed no pneumothorax; findings of central pulmonary vascular congestion. Peripheral interstitial edema. Hazy bibasilar alveolar opacities likely compatible with atelectasis. Improved aeration from prior. S/p right thoracentesis on 09/16/25 with removal of 1100 mL's of yellow fluid from the right pleural space. See separate procedure notes for details of both procedures. Accu-Cheks, ISS Wound care Patient is stable for discharge from the pulmonary standpoint. Disposition per hospitalist. Recommend followup in 1-2 weeks in Pulmonary Clinic for CRISTINA and limited chest ultrasound to evaluate for recurrence of pleural effusion. Labs and imaging reviewed. Rest of plan as noted below. Plan: Supplemental oxygen Titrate to keep O2 sats above 92%. Continue bronchodilators. Antibiotics Incentive spirometry F/u Cardiology recs Monitor blood pressure Accu-Cheks, ISS. HD per Nephrology Monitor renal function. Monitor electrolytes. Supplement as necessary. Monitor ins and outs. Maintain euvolemia Recommend diet and lifestyle modifications for weight reduction Obesity complicates all care DVT prophylaxis. Prognosis: Poor given patient's multiple co-morbidities. Rest of plan per hospitalist and other consultants. Thank you, Dr. Case, for allowing me to participate in this patient's care. Further recommendations will depend on the patient's clinical course. Please do not hesitate to contact me if you have any questions or concerns. This medical document was created using an electronic medical record system with [employer] system. Although these documentations are being carefully reviewed, there may still be some phonetic and typographical changes. The errors are purely typographical, due to imperfection on the software program, and do not reflect any compromise in the patient's medical care. Plan discussed with: Patient, Other (RN Lily) Visit Coding Pulmonary Billing Provider: ROSA CHEN MD Date of Service if different f: Sep 21, 2025 Common Visit Codes: 99215-[id number] INP/OBS CARE(HIGH) ROSA CHEN MD Sep 21, 2025 22:06
== END 2025-09-21 09:57 | disposition home or self-care (01) | DRG 133 ==
LOC: ER 08:48 → OVERFLOW 14:14 → WEST WING 15:25
PROVIDERS: ADMIT Internal Medicine; ATTEND Internal Medicine
PROC: 5A1D70Z Performance of Urinary Filtration, Intermittent, Less than 6 Hours Per Day (ICD-10-PCS; 2025-09-14)
PROC: 0W993ZX Drainage of Right Pleural Cavity, Percutaneous Approach, Diagnostic (ICD-10-PCS; principal; 2025-09-16)
PROC: 5A1D70Z Performance of Urinary Filtration, Intermittent, Less than 6 Hours Per Day (ICD-10-PCS; 2025-09-16)
PROC: 0W9B3ZX Drainage of Left Pleural Cavity, Percutaneous Approach, Diagnostic (ICD-10-PCS; 2025-09-18)
PROC: 5A1D70Z Performance of Urinary Filtration, Intermittent, Less than 6 Hours Per Day (ICD-10-PCS; 2025-09-18)
PROC: 5A1D70Z Performance of Urinary Filtration, Intermittent, Less than 6 Hours Per Day (ICD-10-PCS; 2025-09-20)
DX: J96.21 Acute and chronic respiratory failure with hypoxia (principal); I13.2 Hypertensive heart and chronic kidney disease with heart failure and with stage 5 chronic kidney disease, or end stage renal disease; G93.41 Metabolic encephalopathy; I50.23 Acute on chronic systolic (congestive) heart failure; D63.1 Anemia in chronic kidney disease; N18.6 End stage renal disease; J91.8 Pleural effusion in other conditions classified elsewhere; Z99.2 Dependence on renal dialysis; Z68.38 Body mass index [BMI] 38.0-38.9, adult; E11.42 Type 2 diabetes mellitus with diabetic polyneuropathy; J98.11 Atelectasis; E66.01 Morbid (severe) obesity due to excess calories; E11.22 Type 2 diabetes mellitus with diabetic chronic kidney disease; I25.10 Atherosclerotic heart disease of native coronary artery without angina pectoris; E78.5 Hyperlipidemia, unspecified; Z88.8 Allergy status to other drugs, medicaments and biological substances; Z99.81 Dependence on supplemental oxygen; Z89.512 Acquired absence of left leg below knee; Z86.718 Personal history of other venous thrombosis and embolism; Z90.49 Acquired absence of other specified parts of digestive tract; Z83.3 Family history of diabetes mellitus; Z82.5 Family history of asthma and other chronic lower respiratory diseases; Z82.49 Family history of ischemic heart disease and other diseases of the circulatory system; Z81.8 Family history of other mental and behavioral disorders; Z79.899 Other long term (current) drug therapy
CPT/HCPCS: 32555; 36415; 71045; 71275; 76604; 80048; 80053; 80202; 82140; 82962; 83880; 83986; 84484; 85025; 85379; 85610; 85730; 87071; 87205; 87340; 89051; 90935; 93005; 93306; 93970; 94640; G0378; J1642; J1815; J2405; P9047